=== PATIENT | female | born 1955 | race Caucasian/White ===

== ENCOUNTER 2018-03-08 09:54 | Emergency (ER) | payer BC, SELFPAY ==
[2018-03-08 09:54] VITALS: BP 201/98; PULSE 87; RESP 14; TEMP 36.3; BMI 29.4
[2018-03-08 10:24] VITALS: BP 193/95
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
--- NOTE | 2018-03-08 10:29 | ED.DEP ---
ED Disposition - Plan for ED Patient: Disposition: Home or Assisted Living Chief Complaint: Lower Extremity Injury Instructions: ED Knee Pain [facility] Referrals: Chalo Carnes MD [STAFF PHYSICIAN] - Keep Khadar appointment Additional Instructions: Continue on her Celebrex pain and inflammation. May also use Tylenol. Ice and elevate left knee. Decreased activity. To rest the knee.
[2018-03-08 10:50] VITALS: BP 167/79; PULSE 67
== END 2018-03-08 10:56 | disposition home or self-care (01) ==
PROVIDERS: Emergency Provider Emergency Medicine; Family Provider Internal Medicine; PCP Internal Medicine
DX: M25.562 Pain in left knee (principal); K21.9 Gastro-esophageal reflux disease without esophagitis; Z79.899 Other long term (current) drug therapy; Z87.891 Personal history of nicotine dependence
CPT/HCPCS: 99282

== ENCOUNTER 2018-05-22 05:42 | Day surgery (SDC) | payer BC, SELFPAY ==
[2018-05-22] VITALS (7 sets, daily range): BP systolic 140–182; BP diastolic 59–108; PULSE 76–89; RESP 14–16; TEMP 36.3–37.3; O2SAT 95–100; BMI 29.1
[2018-05-22] MEDS: Cefazolin 2 GM in 0.9% Normal Saline 100 ML IV (07:11)
--- NOTE | 2018-05-22 07:15 | RAD_ITS ---
STUDY: X-RAY - LEFT KNEE REASON FOR EXAM: Female, 62 years old. Intraoperative imaging for arthroscopy and subchondral plasty. TECHNIQUE: 2 coned-down intraoperative view(s) of the knee. COMPARISON: None. FINDINGS: The metallic trocar is seen in the subchondral region of the medial tibial plateau. RAD/Knee 1 or 2 Views IMPRESSION: The tip of the trocar is in the medial tibial plateau. Electronically Signed: Yang Mckeon MD at 9:25 EST Tel [phone], Service support ,
--- NOTE | 2018-05-22 08:08 | PCM.OPRPT ---
Report of Operation Date of Procedure: 05/22/18 Pre-Operative Diagnosis: Left knee posterior horn medial meniscus root tear complex. Left knee subchondral fracture medial tibial plateau. Chondromalacia medial compartment left knee Post-Operative Diagnosis: Left knee posterior horn medial meniscus root tear complex. Left knee subchondral fracture medial tibial plateau. Chondromalacia medial compartment left knee Surgery/Procedure Performed:: Left knee arthroscopic medial meniscectomy partial. Left knee arthroscopic chondroplasty. 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 Patient was brought back to the operating room where they were transferred to the bed. Anesthesia assumed control of the C-spine airway and administered anesthetic. All bony prominences were identified and well-padded and the L leg was placed in the arthroscopic leg ferrari. The contralateral leg was then draped over the bed and well-padded. There was padding underneath both sciatic nerves. The foot of the bed was then dropped and the L leg was prepped in a sterile fashion. The surgeon then scrubbed. Upon reentering the room, the operative leg was draped in a standard orthopedic fashion. A timeout was called, everyone agreed upon the side, the site, the procedure to be performed, patient's identity and antibiotics given. Incisions were marked out for the medial and lateral infrapatellar portals. Esmarch bandage was then used to exsanguinate the leg and tourniquet was placed at 250 mmHg. At this time, the lateral portal incision was made in a vertical fashion. The trocar was placed into the joint. The camera was then placed and the patellofemoral joint was visualized. The patella did appear to have minimal chondral changes. The trochlea appeared to have minimal chondral changes. We then directed our attention to the medial gutter where there was no foreign body. Then directed our attention to the medial joint compartment. There were grade 2 chondral changes on the medial distal femur, grade 4 chondral changes on the medial tibial plateau around the medial edge. This area was palpated for any loose bodies no loose subchondral fragments were noted. The medial meniscus had a complex posterior horn tear. The medial portal was then placed under direct visualization using a spinal needle an 11 blade scalpel. Once this was done a probe was placed in the joint and the meniscus was probed finding the complex posterior horn tear and defining the grade 4 area which was about 2 mm x 1 cm around the medial edge. The biters and aristeo were then used sequentially to debriding get rid of any free edges that could be a source of pain and catching in the meniscus tear. Once we felt medial meniscus tear was adequately debrided, we again visualized the joint and noted the meniscus tear was adequately debrided. This time the shaver was directed towards the chondral flaps around the small defect in the cartilage. This loose cartilage was adequately debrided. Attention was then turned towards the notch where the anterior cruciate ligament was intact. PCL was visualized and appeared intact. Attention was then directed towards the lateral compartment where the lateral distal femur had minimal chondral changes, the lateral proximal tibia had minimal chondral changes. The lateral meniscus had no tears. We then directed our attention to the lateral gutter, which was visualized and no free bodies were noted. At this time the wound was copiously irrigated out with normal saline with epinephrine. Based on the preoperative review of the patient's L knee MRI, the location of the bone marrow lesion, consistent with an insufficiency or stress fracture in the MTC was identified. Preoperative surgical planning allowed for determination of the optimal method for assessing the lesion. Intraoperatively, image fluoroscopy combined with bone targeting instrumentation from [employer] was used to guide surgical instruments into the proximity of the subchondral MTC fracture. The standard repair methodology was used to treat the subchondral bone defect in the MTC. Image fluoroscopy was utilized to confirm accurate insertion of the active port injection cannula into the subchondral fracture. After insertion, fracture stabilization was performed by injecting 3 cc of [employer] bone substitute material into the MTC. Image fluoroscopy was used to monitor the injection process and ensure injection of the bone substitute into the subchondral bone so that the bile material flowed into the fracture site to stabilize the fracture and facilitate fracture repair. After this was performed the arthroscope was placed back into the knee and a diagnostic arthroscopy was performed to ensure no intra-articular cement was encountered. None was encountered. The arthrotomy was copiously irrigated out with normal saline. The wound was closed with 4-0 nylon . Xeroform was placed over the incision. Sterile dressing was placed. Compressive dressing was placed. Tourniquet was let down. For that there was then placed up. Patient was awakened by anesthesia patient was transferred to the PACU for recovery in stable condition. Postoperative plan: Patient will be made weightbearing for 2 weeks. Return to activities as tolerated. He will come to the office in 2 weeks for postoperative wound check and suture removal. If he is doing well that time he can follow-up as needed. Grafts/Implants Used: [employer] bone cement - Complications None - Admit VTE Documentation VTE Present on Admission: No VTE Mechan Device Prophylaxis: SCD's, Thigh High ADELAIDE Hose VTE Pharm Prophylaxis ordered?: Yes
[2018-05-22] MEDS: Lactated Ringers 1,000 ML 125 ML IV (08:57)
[2018-05-22] MEDS: Ketorolac 30 MG/ML Syringe IV (09:00)
== END 2018-05-22 10:29 | disposition home or self-care (01) ==
LOC: SDC 05:43 → AC 05:44
PROVIDERS: Family Provider Family Medicine; PCP Family Medicine; Referring Provider Specialist; Visit Provider Specialist
PROC: (CPT 29870; principal; 2018-05-22 06:55)
DX: S83.242A Other tear of medial meniscus, current injury, left knee, initial encounter (principal); M84.362A Stress fracture, left tibia, initial encounter for fracture; M94.262 Chondromalacia, left knee; X58.XXXA Exposure to other specified factors, initial encounter; Y93.9 Activity, unspecified; Y92.89 Other specified places as the place of occurrence of the external cause; Y99.9 Unspecified external cause status; Z79.899 Other long term (current) drug therapy; Z78.0 Asymptomatic menopausal state; Z87.442 Personal history of urinary calculi; Z87.891 Personal history of nicotine dependence
CPT/HCPCS: 29855; 29881; 64447; 73560; 76000; C1713; J7120; J2405

== ENCOUNTER → 2018-11-26 13:16 | Outpatient (CLI) | payer BC, SELFPAY ==
[2018-11-26 08:56] VITALS: BMI 29.1
== END ==
PROVIDERS: Family Provider Family Medicine; PCP Family Medicine; Referring Provider Nurse Practitioner Women's Health; Visit Provider Nurse Practitioner Women's Health
DX: N89.8 Other specified noninflammatory disorders of vagina (principal)
CPT/HCPCS: 87070; 87205

== ENCOUNTER → 2019-08-21 | Outpatient (CLI) | payer BC, SELFPAY ==
[2019-08-21 13:27] VITALS: BMI 29.1
== END | disposition home or self-care (01) ==
LOC: LABSPEC 17:12
PROVIDERS: PCP Family Medicine; Referring Provider Nurse Practitioner Women's Health; Visit Provider Nurse Practitioner Women's Health
DX: N95.2 Postmenopausal atrophic vaginitis (principal)
CPT/HCPCS: 87070; 87205; 87255

== ENCOUNTER 2020-03-10 08:00 | Day surgery (SDC) | payer BC, SELFPAY ==
[2020-03-02 08:02] VITALS: BMI 22.5
--- NOTE | 2020-03-03 16:04 | EKG12_ITS ---
Test Reason : PRE OP Blood Pressure : / mmHG Vent. Rate : 085 BPM Atrial Rate : 085 BPM P-R Int : 182 ms QRS Dur : 078 ms QT Int : 360 ms P-R-T Axes : 029 005 023 degrees QTc Int : 428 ms Normal sinus rhythm Normal ECG Confirmed by PERNELL MUNGUIA, LULU ([id number]), legal editor MCKENNA JOHNSTON ([id number]) on 03/05/2020 2:42:32 PM Referred By: Ramos Pham Confirmed By:TAO GIMENEZ MD
[2020-03-03 16:13] LABS: Hemoglobin 12.4 g/dL (12.0-15.0); Mean Corp Hgb Conc 32.6 g/dL (32-36); Mean Platelet Vol. 9.5 fl (6.2-12.0); Platelet Count 282 K/mm3 (150-450); RBC Distribution Width CV 12.7 % (11.6-14.6); RBC Distribution Width SD 44.1 fl (35.1-43.9); White Blood Count 9.9 K/mm3 (4.4-11.0)
[2020-03-03 16:24] LABS: Anion Gap 6 (5-15); BUN 13 mg/dL (7-18); BUN/Creat Ratio 16.1 RATIO (10-20); Calcium,Total 8.8 mg/dL (8.5-10.1); Chloride 107 mmol/L (98-107); EST Glomerular Filtration Rate 77 mL/min (>60); Est Glom Filt Rate - Afr Amer 93 mL/min (>60); Glucose 107 mg/dL (74-106); Potassium 3.7 mmol/L (3.5-5.1); Sodium Level 138 mmol/L (136-145)
[2020-03-10] VITALS (10 sets, daily range): BP systolic 148–173; BP diastolic 74–100; PULSE 57–79; RESP 14–16; TEMP 36.1–36.6; O2SAT 96–100; BMI 29.3
--- NOTE | 2020-03-10 | HEM_PTH ---
PATIENT: MUKESH ROCHE [place] [facility] [place][id number] AGE/SX: 64/F ROOM: RE03/10/[address]: Dr. Ramos Pham MD : [id number] BED: DIS: 03/10/2020 SPEC #: [id number] RECD: 03/10/20 13:17 STATUS: BARBRA REQ #: [id number] JAYLENE: 03/10/20 00:[address]: Ramos Pham DEPT: SURGICAL PATHOLOGY RECD BY: Juan Antonio Izquierdo ENTERED: 03/10/20 13:17 SP TYPE: HEMORRHOID OTHR DR: Dr. Josehp Pike MD Tissues: HEMORRHOIDS Procedures: Surgery Specimen Level III HEADER OPERATION: Hemorrhoidectomy PRE-OP DIAGNOSIS: Bleeding internal hemorrhoids TISSUE SUBMITTED: Hemorrhoids MICROSCOPIC DIAGNOSIS Hemorrhoid: Pieces of squamous mucosa with dilated and congested blood vessels, consistent with hemorrhoids with focal ulceration and associated inflammation. SJ:christine 03/11/20 MICROSCOPIC DESCRIPTION Slides are reviewed. GROSS DESCRIPTION Received in fixative is one container labeled with the patient's name and designated hemorrhoid. The specimen consists of three variable sized pieces of campuzano mucosal tissue measuring in aggregate 3.5 x 2 x 1 cm. Sections reveal congested and hemorrhagic cut surfaces. Animal Therapist sections are submitted in one cassette. / ALFA:christine 03/10/20 TC:5 CPT: 11453
--- NOTE | 2020-03-10 09:55 | PCM.HP.BLA ---
Problem List (1) Bleeding internal hemorrhoids Status: Acute History and Physical Date of Admission: 03/10/20 Intake Visit Reasons: Hemorrhoids/Had C-Scope [facility] Jul Chief Complaint: hemorrhoids- rectal bleeding Mold Injector Required: No Is patient in pain?: Yes (rectum) Pain scale (1-10): 4 Allergies naproxen Allergy (Verified 03/02/20 11:46) Swelling Medications Pantoprazole Sodium [Protonix] 40 mg PO DAILY 05/20/18 [History Confirmed 03/02/20] celecoxib 50 mg capsule 50 mg PO BID 11/26/18 [History Confirmed 03/02/20] estradiol See Rx Instructions VAGINAL .COMPLEX #42.5 g 11/26/18 [Rx Confirmed 03/02/20] loratadine 10 mg tablet 10 mg PO DAILY 11/26/18 [History Confirmed 03/02/20] nicotine (polacrilex) 2 mg gum 2 mg BUCCAL Q2H 11/26/18 [History Confirmed 03/02/20] clobetasol 0.05 % topical cream 1 applic TOPICAL .COMPLEX #15 g 12/25/18 [Rx Confirmed 03/02/20] valacyclovir 1 gram tablet 2,000 mg PO .COMPLEX #12 tab 08/21/19 [Rx Confirmed 03/02/20] acyclovir 5 % topical cream 1 applic TOPICAL ONCE #5 g 09/01/19 [Rx Confirmed 03/02/20] estradiol 1 mg tablet 1 mg PO DAILY #90 tab 12/09/19 [Rx Confirmed 03/02/20] wheat dextrin 3 gram/3.5 gram oral powder packet 1 packet PO DAILY 03/02/20 [History Confirmed 03/02/20] [facility] Medical History Acid reflux (Acute) Hemorrhoids (Acute) Blood in stool (Acute) Arthritis (Acute) Anxiety (Acute) Seasonal allergies (Acute) Back pain (Acute) Atrophic vaginitis (Acute) Lichen sclerosus (Acute) Surgical History History of esophagogastroduodenoscopy (EGD) (Acute) Hx of colonoscopy (Acute) S/P trigger finger release (Acute) H/O: hysterectomy (Acute) H/O carpal tunnel repair (Acute) H/O knee surgery (Acute) History of tonsillectomy (Acute) H/O toe surgery (Acute) Family History (Updated 03/02/20 @ 08:12 by Zeina Quiñones) Father CVA (cerebral vascular accident) Heart disease Hypertension Mother Hypertension Diabetes Heart disease Arthritis Brother Leukemia Social History (Updated 03/02/20 @ 15:[address] Ramos Pham MD) adopted: No household members: spouse number of children: 2 current occupation: [employer] sexually active: Yes Smoking Status: Former smoker alcohol intake: current alcohol intake frequency: a few times a month substance use type: does not use what type of physical activity do you participate in: none seatbelt use: always do you feel safe at home: Yes additional social history: Tai - retired HPI HPI HPI: MUKESH ROCHE, is a 64 F who presents to the office today for rectal bleeding secondary to hemorrhoids At the [facility] she had a screening colonoscopy on July 21, [address] Carlito Ortiz. This apparently was unremarkable. It simply states that internal hemorrhoids were noted upon exiting. Patient has a personal history of colon polyps and recommendations for follow-up colonoscopy 5 years was offered. The patient is referred by Dr. Walter Diane and a written copy of my surgical consult recommendations will be returned to him She has been having rectal bleeding for greater than 1 year. Recently it is worsening. She can have blood dripping in the commode. She sometimes has to wait several minutes for the dripping to stop. She states that Dr. Carlito Ortiz was aware of this and simply recommended fiber supplementation for her constipation. She thinks that dairy products aggravate her constipation. She states that she is tried MiraLAX in addition to the fiber supplement but did not find much benefit. She claims that she has had lifelong constipation. She does take Celebrex because of chronic back pain and she states that she cannot do without. HPI HPI HPI: MUKESH ROCHE, is a 64 F who presents to the office today for ROS General General: No weight change, appetite, fatigue, colon cancer, breast cancer or weakness HEENT HEENT: No difficulty swallowing, eye injury, eye surgery, swollen glands or hoarseness Endo Endocrine: No thyroid disease, diabetes mellitus, thyroid cancer, Hair loss, heat intolerance or cold intolerance Skin Skin: No rash or changing moles Musc Musculoskeletal: Yes arthritis; no back problems, rheumatoid arthritis, gout or joint pain Cardio Cardiovascular: No murmur, pacemaker, heart disease, atrial fibrillation, high blood pressure, heart attack, heart stent, palpitations, shortness of breat with exertion or chest pain Psych Psychiatric: Yes anxiety; no depression or hearing voices Resp Respiratory: No shortness of breath, No sleep apnea, No cough, No COPD, No asthma, No emphysema, No wheezing Gastro Gastrointestinal: No abdominal pain, No nausea or vomiting, No diarrhea, No constipation, Yes blood in stool, Yes acid reflux, Yes hemorrhoids, No ulcers, No gallbladder problem, No black,tarry stools Tomas Hematologic: No blood thinners, No blood disorders, No bleeding, No anemia, No blood clots Neuro Neurologic: No system reviewed and no additional complaints, except as docu, No as per HPI, No abnormal walking, No abnormal hearing, No abnormal movements, No abnormal speech, No behavioral changes, No burning sensations, No confusion, No seizure-like activity, No unsteadiness, No dizziness, No localized weakness, No frequent falls, No headache(s), No lack of coordination, No loss of vision, No memory loss, No numbness, No other visual disturbances, No radiating pain, No restless legs, No sensory deficit, No fainting, No tingling, No tremor(s), No weakness, No other Exam Const General: cooperative, comfortable, no acute distress Nutritional Appearance: overweight Orientation: alert, awake [facility] Head: normal to inspection Resp Effort & Inspection: normal respiratory effort Auscultation: clear to auscultation bilaterally Cardio Rate: regular rate Rhythm: regular rhythm Heart Sounds: no murmurs GI Palpation: soft Auscultation: normal bowel sounds Other: Anal rectal inspection demonstrates exuberant external hemorrhoids somewhat terse. Digital exam demonstrates significant internal hemorrhoids with mild discomfort. No mass. Minimal streaking blood on the exam glove. Skin General: no rashes or lesions noted Neuro Cognition: normal cognition Extrem General: no calf tenderness Psych Affect: normal affect Assessment & Plan Problems 1. Bleeding internal hemorrhoids K64.8 2. Chronic constipation K59.09 Plan 64-year-old female with grade 3-4 bleeding internal and external hemorrhoids. In addition unfortunately she has chronic constipation. I have vigorously discussed with her multiple different treatment options regarding her constipation including powdered fiber and increase fluid and MiraLAX or similar therapy as well as dietary choices with dried fruits or prune juice or prunes or raisins. We discussed limiting dairy which seems to upset her and cause further constipation. I do not believe that she would be a good candidate for a stapled hemorrhoidectomy mostly secondary to her severe chronic constipation likely recurrence. I extensively discussed the need for her to work diligently on improving her chronic constipation to allow for her hemorrhoidectomy site then to heal. She has had an opportunity to ask and have questions answered. She will schedule and proceed at her discretion. I very much appreciate the kind opportunity of assisting with her surgical care. Copy: Dr. Glendy Pham M.D., F.A.C.S. Coding Level of Care Code 96768 Diagnoses Bleeding internal hemorrhoids K64.8 Chronic constipation K59.09 I have re-examined the patient. There are no clinical changes since date of exam. Procedure Criteria Procedure Type: Elective COVID Risk Discussion: The surgeon/proceduralist and patient have discussed in detail the risk of exposure to and/or potential harm posed by the COVID-19 virus with having a surgery/procedure at this time versus the risk of delaying the surgery/procedure. It is not possible to know either the risk of delaying the surgery or procedure or chance of getting an infection with perfect accuracy, but a joint decision was made between the patient and the surgeon/proceduralist to proceed at this time with the scheduled surgery/procedure as indicated on the consent form.
--- NOTE | 2020-03-10 09:56 | DCINST_ITS ---
Discharge Diet: No Restrictions Discharge Activity: Return to Normal Activity, May Not Drive - while you are taking narcotic pain medications. Do not drive, work with heavy equipment or sign legal documents for 24 hours after your surgery. Additional Activity Instructions:: I strongly recommend daily use of a fiber supplementation. This may be Metamucil or Citrucel or FiberCon or Benefiber or generic. Large heaping tablespoon in with some water or juice daily. In addition for chronic constipation you may add a capful of MiraLAX or similar product. For the first week postoperatively I recommend mineral oil 30 cc (1 ounce) daily in fluid or mix with food. Sitz baths in a warm tub of soapy water can be utilized for comfort and for hygiene after having a bowel movement. The Vaseline gauze that is in place may come out with your next bowel movement or you can remove it the morning after surgery. Female hygiene pads work well for any bleeding or mucus drainage. Dibucaine ointment may be utilized as needed every 2-4 hours applied externally for comfort as needed. Allergies/Adverse Reactions: Allergies naproxen Allergy (Verified 03/10/20 08:09) Swelling Medications to take at Discharge Pantoprazole Sodium [Protonix] 40 mg PO DAILY 05/20/18 celecoxib 50 mg capsule 50 mg PO BID 11/26/18 estradiol See Rx Instructions VAGINAL .COMPLEX #42.5 g 11/26/18 loratadine 10 mg tablet 10 mg PO DAILY 11/26/18 nicotine (polacrilex) 2 mg gum 2 mg BUCCAL Q2H 11/26/18 clobetasol 0.05 % topical cream 1 applic TOPICAL .COMPLEX #15 g 12/25/18 valacyclovir 1 gram tablet 2,000 mg PO .COMPLEX #12 tab 08/21/19 acyclovir 5 % topical cream 1 applic TOPICAL ONCE #5 g 09/01/19 estradiol 1 mg tablet 1 mg PO DAILY #90 tab 12/09/19 wheat dextrin 3 gram/3.5 gram oral powder packet 1 packet PO DAILY 03/02/20 Primary Care Physician: Joseph Pike MD [Primary Care Provider] - Test Results: Test results from this visit will be discussed in further detail at your follow- up appointment, if applicable. Please Follow Up With: Ramos Pham MD - [phone] When: Plan to have a follow up approximately 3-4 weeks after surgery.
[2020-03-10] MEDS: Lactated Ringers 1,000 ML 100 ML IV (10:01)
[2020-03-10] MEDS: Lubricating Jelly 60 GM Tube 30 GM TOPICAL (11:02)
[2020-03-10] MEDS: Dibucaine 30 GM Tube 1 APPLIC (11:40)
[2020-03-10] MEDS: Bupivacaine Mpf 0.5% 30 ML VIAL (11:41)
[2020-03-10] MEDS: BUPIVACAINE LIPOSOME/PF 20 ML VIAL OPERA.SITE (11:41)
--- NOTE | 2020-03-10 11:47 | PCM.OPRPT ---
Problem List (1) Bleeding internal hemorrhoids Status: Acute Report of Operation Date of Procedure: 03/10/20 Pre-Operative Diagnosis: Bleeding internal hemorrhoids Post-Operative Diagnosis: Extensive bleeding internal hemorrhoids Surgery/Procedure Performed:: Hemorrhoidectomy Description of Surgical Findings:: Timeout and informed consent was obtained. 64-year-old female taken operating room with general endotracheal intubation anesthesia clindamycin on the milligrams given intravenously. She was placed prone jackknife on the table. Careful pelvic and shoulder rolls were placed. The perianal area was carefully taped for exposure. Prepped with Betadine. Inspection revealed slightly tight anal muscles which were just gently dilated enough to get a speculum in. Exuberant hemorrhoids were noted internally circumferentially 360 degrees. 3 wedges of hemorrhoidal tissue was excised right posterior lateral right anterior lateral and left mid lateral. Apical sutures of 2-0 chromic was placed. Harmonic scalpel was used to excise the internal hemorrhoidal tissue. The incision was carried out past the dentate line. The sphincter mechanism identified carefully preserved. The mucosa then approximated with a running locking 2-0 chromic. Apical sutures of 0 Vicryl were further placed at the apex of each excision to assist with hemostasis. There was additional internal hemorrhoidal tissue that was carefully secured with [id number] sutures of 2-0 chromic to try to ligate their blood source. The tissue was rather friable throughout. Some slight tearing of the mucosa during the procedure and so no attempt was made to excise further tissue. The perianal area was anesthetized with Exparel mixed with 30 cc of 0.5% Marcaine. Careful aspiration was performed prior to injection. Dibucaine treated Vaseline gauze was inserted. Sterile covered dressings. Sponge and instrument and needle counts were reported to the surgery were correct. Specimens hemorrhoids. Drains none except for the Vaseline gauze. Blood loss minimal. The patient was taken to the recovery area in satisfactory addition without apparent complication Ramos Pham M.D., F.A.C.S. Type of Anesthesia:: General Anesthesiologist: Michael Patel
== END 2020-03-10 14:34 | disposition home or self-care (01) ==
LOC: SDC 08:01 → AC 08:01
PROVIDERS: Anesthesiology; PCP Family Medicine; Referring Provider Surgery; Visit Provider Surgery
PROC: (CPT 46945; principal; 2020-03-10 10:45)
DX: K64.8 Other hemorrhoids (principal); K59.09 Other constipation; K21.9 Gastro-esophageal reflux disease without esophagitis; F41.9 Anxiety disorder, unspecified; M19.90 Unspecified osteoarthritis, unspecified site; Z79.899 Other long term (current) drug therapy; Z79.1 Long term (current) use of non-steroidal anti-inflammatories (NSAID); Z87.19 Personal history of other diseases of the digestive system; Z87.891 Personal history of nicotine dependence
CPT/HCPCS: 46945; 36415; 80048; 85027; 87635; 88304; 93005; 94799; J7120; J2405; U0003

== ENCOUNTER 2020-09-21 09:54 | Outpatient (RCR) | payer OTHER, SELFPAY ==
[2020-03-10 08:22] VITALS: BMI 29.3
[2020-09-21] MEDS: COVID-19 VACC, MRNA(PFIZER)/PF 30 MCG/0.3 ML SYRINGE IM (17:56)
[2020-10-12] MEDS: COVID-19 VACC, MRNA(PFIZER)/PF 30 MCG/0.3 ML SYRINGE IM (17:37)
== END 2020-12-21 23:59 ==
LOC: IMMUN 09:54
PROVIDERS: PCP Family Medicine; Visit Provider Family Medicine
DX: Z23 Encounter for immunization (principal)
CPT/HCPCS: 0001A; 0002A; 91300

== ENCOUNTER → 2020-12-31 15:25 | Outpatient (CLI) | payer OTHER, SELFPAY ==
[2020-12-31 12:51] VITALS: BMI 28.2
== END ==
PROVIDERS: PCP Family Medicine; Visit Provider Physician Assistant Surgical
DX: N39.0 Urinary tract infection, site not specified (principal)
CPT/HCPCS: 87077; 87086; 87088; 87186

== ENCOUNTER 2021-09-12 15:48 | Outpatient (CLI) | payer BC, SELFPAY ==
--- NOTE | 2021-09-12 15:50 | BI_ITS ---
MAMMOGRAPHY - BILATERAL SCREENING REASON FOR EXAM: Female, 66 years old. Routine annual screening examination. PERTINENT HISTORY: Aunt with breast cancer. Remote right stereotactic breast biopsy. TECHNIQUE: Digital bilateral breast romi (3D mammographic acquisition) in the CC and MLO projections. 2-D mediolateral oblique (MLO) and craniocaudad (CC) views of both breasts were obtained. CAD: Full Field Digital Mammography with Computer Added Detection was performed. COMPARISON: Comparison is made with prior outside examination is 11/01/2020. FINDINGS: Breast Composition: The breasts are heterogeneously dense, which may obscure small masses. There are no dominant masses or suspicious calcifications. Stable benign-appearing bilateral axillary lymph nodes. A tissue clip marker is seen in the slightly upper medial aspect of the right breast. No other significant abnormalities are identified. There has been no significant change since the prior study. BI/SCRN MAMM (CAD)W/ROMI BILAT IMPRESSION: Stable bilateral screening mammogram. Yearly follow-up mammogram recommended. (A) ASSESSMENT CATEGORY: BIRADS Category 2: Benign. A letter regarding these results will be sent to the patient by the facility within 30 days. Approximately 10% of breast cancers are not detected by mammography. A normal mammogram should not delay biopsy of a clinically suspicious abnormality. [id number] Electronically Signed: Yang Mckeon MD at 8:35 EST ,
== END 2021-09-12 23:59 | disposition home or self-care (01) ==
LOC: OPBI 15:48
PROVIDERS: PCP Family Medicine; Visit Provider Nurse Practitioner Women's Health
DX: Z12.31 Encounter for screening mammogram for malignant neoplasm of breast (principal); Z70.3 Counseling related to combined concerns regarding sexual attitude, behavior and orientation
CPT/HCPCS: 77063; 77067

== ENCOUNTER → 2022-06-02 | Outpatient (CLI) | payer BC, SELFPAY ==
--- NOTE | 2022-06-02 15:49 | CT_ITS ---
STUDY: CT LEFT LOWER EXTREMITY WITHOUT CONTRAST REASON FOR EXAM: Female, 67 years old patient presents for pre-op planning. RADIATION DOSAGE (If Supplied By Facility): CTDIvol = ( 18.71 ) mGy, DLP = ( 1048.23 ) mGycm TECHNIQUE: Transaxial CT imaging of the hip, knee and ankle was performed. Sagittal and coronal images were reconstructed. Individualized dose optimization techniques were used for this CT. COMPARISON: None. FINDINGS: Normal visualized femur. Normal visualized soft tissue structure. Normal femoral head, neck, intertrochanteric region and visualized proximal femur. There is osteoarthritic spur formation of the acetabular rim. Normal hip joint. Normal visualized superior and inferior pubic rami and ischial tuberosities. There is abnormal heterogeneous sclerotic lesion within the proximal medial tibial epiphysis and metaphysis. This sclerotic lesion measures approximately 2 x 2.2 x 1.5 cm in size. The appearance suggests possible sequela of previous infarct. The visualized distal femur is within normal limits. There is mild degenerative arthropathy of the patellofemoral articulation. Images of the tibiotalar and subtalar articulations are obtained. The distal tibia and fibula and imaged tarsal bones are generally normal appearance and alignment. CT/Extremity Lower without Contra IMPRESSION: 1. Abnormal sclerotic lesion within the medial proximal tibial epiphysis and metaphysis. The appearance suggests possible sequela of previous infarct. 2. Mild degenerative arthropathy of the hip and knee. Electronically Signed: Helen Carnes MD at 6:40 EST ,
== END | disposition home or self-care (01) ==
LOC: CT 15:47
PROVIDERS: PCP Family Medicine; Referring Provider Specialist; Visit Provider Specialist
DX: M21.162 Varus deformity, not elsewhere classified, left knee (principal)
CPT/HCPCS: 73700

== ENCOUNTER → 2022-09-29 | Outpatient (CLI) | payer BC, SELFPAY ==
--- NOTE | 2022-09-29 10:18 | BI_ITS ---
MAMMOGRAPHY - BILATERAL SCREENING 3-D TOMOSYNTHESIS REASON FOR EXAM: Female, 67 years old. Routine screening PERTINENT HISTORY: Aunt with breast cancer.. TECHNIQUE: 2-D mammograms and 3-D Tomosynthesis of the breast (s) were performed. CAD was performed. COMPARISON: 09/12/2021 FINDINGS: The breast composition is composed of scattered fibroglandular density. Scattered benign calcifications are seen. No dense spiculated masses or suspicious microcalcifications are identified. No architectural distortion is identified. There is no skin thickening or retraction. There has been no significant change since the prior study. BI/SCRN MAMM (CAD)W/ROMI BILAT IMPRESSION: No mammographic signs of malignancy. Routine yearly mammograms recommended. ASSESSMENT CATEGORY: BIRADS Category 1: Negative. A letter regarding these results will be sent to the patient by the facility within 30 days. FOLLOW UP RECOMMENDATION: Yearly follow up mammogram recommended. (A) Approximately 10% of breast cancers are not detected by mammography. A normal mammogram should not delay biopsy of a clinically suspicious abnormality. Electronically Signed: Toñito Harvey MD at 12:09 EDT ,
== END | disposition home or self-care (01) ==
LOC: OPBI 10:16
PROVIDERS: PCP Family Medicine; Referring Provider Nurse Practitioner Women's Health; Visit Provider Nurse Practitioner Women's Health
DX: Z12.31 Encounter for screening mammogram for malignant neoplasm of breast (principal)
CPT/HCPCS: 77063; 77067

== ENCOUNTER → 2023-04-03 | Outpatient (CLI) | payer MEDICARE, SELFPAY ==
--- NOTE | 2023-04-03 15:50 | RAD_ITS ---
INDICATION: PAIN EXAMINATION/TECHNIQUE: X-RAY - XR Spine Lumbar Comp W/ Bending Min 6 Views COMPARISON: No comparison. FINDINGS: 7 total views of the lumbar spine, to include flexion and extension views. BONES: Anterolisthesis of L4 on L5 and retrolisthesis of L2 and L3 with severe degenerative disc disease at this level. Otherwise, anatomic alignment without evidence of fracture or definite acute subluxation. No obvious disc space widening or changing spondylolisthesis with flexion and extension maneuvers. No concerning bony lesion or abnormal sclerosis to suggest lesion. SOFT TISSUES: Atherosclerotic vascular calcifications.. RAD/L/S Spine w Bend Min 6 Vw IMPRESSION: Spondylolisthesis and degenerative disc disease as above. If there is persistent clinical concern for spine fracture and this is a trauma patient, recommend dedicated lumbar spine CT. Electronically Signed: Mark Reeves MD at 4:13 EDT ,
== END | disposition home or self-care (01) ==
LOC: MTLAB 15:45 → MTRAD 15:48
PROVIDERS: PCP Family Medicine; Referring Provider Anesthesiology Pain Medicine; Visit Provider Anesthesiology Pain Medicine
DX: M51.37 Other intervertebral disc degeneration, lumbosacral region (principal)
CPT/HCPCS: 72114

== ENCOUNTER → 2023-09-14 | Outpatient (CLI) | payer MEDICARE, SELFPAY ==
--- NOTE | 2023-09-14 11:34 | US_ITS ---
STUDY: SUPERFICIAL ULTRASOUND - LEFT AXILLA. REASON FOR EXAM: Female, 68 years old. Localized swelling, mass and lump, left upper limb TECHNIQUE: A superficial ultrasound was performed with real-time and static mccartney-scale imaging. COMPARISON: None. FINDINGS: The left axilla was examined with ultrasound. There is a 1 cm x 0.8 cm x 0.3 cm complex fluid collection with increased echogenicity. This is very superficial. Purulent drainage started with compression with the ultrasound probe. Focal abscess should be ruled out. US/Ext Non Vasc Limited/Soft Tiss IMPRESSION: 1 cm x 0.8 cm x 0.3 cm complex fluid collection with drainage of the procedure in the left axilla. Focal abscess should be ruled out. Electronically Signed: Yang Mckeon MD at 15:45 EST ,
--- OUTSIDE RECORDS SUMMARY | 2023-09-14 11:49 | XMS RPT_ITS | CCD ---
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 Name Role Phone Jose Pike MD Primary Care Provider JOSE PIKE Primary Care Unavailab le PODLOGAR, AMI Attending Unavailable JOSE PIKE Primary Care Unavailab le PODLOGAR, AMI Attending Unavailable JOSE PIKE Primary Care Unavailab JOSE Byrne Referring Unavailab JOSE Byrne Primary Care Unavailab JOSE Byrne Attending Unavailab le PODLOGAR, AMI Attending Unavailable JOSE PIKE Primary Care Unavailab le PODLOGAR, AMI Attending Unavailable JOSE PIKE Primary Care Unavailab le PODLOGAR, AMI Referring Unavailable JOSE PIKE Primary Care Unavailab JOSE Byrne Primary Care Unavailab le PODLOGAR, AMI Attending Unavailable PODLOGAR, AMI Referring Unavailable JOSE PIKE Primary Care Unavailab le PODLOGAR, AMI Referring Unavailable JOSE PIKE Primary Care Unavailab le JOSE PIKE Primary Care Unavailab le PODLOGAR, AMI Referring Unavailable JOSE PIKE Primary Care Unavailab le PODLOGAR, AMI Attending Unavailable Allergies Allergy Classification Reported Allergen(s) Allergy Type Date of Onset Reaction(s) Facility (18 sources) magnesium citrate; Translations: [MAGNESIUM CITRATE] Drug Allergy 6 Vomiting [facility] Work Phone: (18 sources) Naproxen; Translations: [NAPROXEN] Drug Allergy 1 Other: See Comments [facility] (3 sources) Thiazides; Translations: [THIAZIDES] Propensity to adverse reactions to drug 3 Other: See Comments [facility] Work Phone: Medications Current Medications Medication Drug Class(es) Dates Sig (Normalized) Sig (Original) amoxicillin 875 mg / clavulanate 125 mg oral tablet (2 sources) Penicillin-class Antibacterial Start: 06-19-2023 End: 06-29-2023 take 1 tablet by mouth twice daily amoxicillin-clav ulanate potassium (AUGMENTIN) 875-125 mg per tablet Indications: Pain of maxillary sinus Take 1 tablet by mouth two times a day for 10 days. 20 tablet 0 06/19/2023 06/29/2023 Active Completed/Discontinued Medications Medication Drug Class(es) Dates Sig (Normalized) Sig (Original) acetaminophen 325 mg oral tablet (17 sources) acetaminophen (T YLENOL) 325 mg tablet Take 650 mg by mouth as needed. 0 Active Problems Active Problems Problem Classification Problem Date Documented Date Episodic/Chronic Diabetes mellitus without complication (19 sources) Impaired fasting glycemia; Translations: [Impaired fasting glucose] Onset: 08-16-2023 11-27-2017 Episodic Disorders of lipid metabolism (18 sources) Hyperlipidemia; Translations: [Hyperlipidemia, unspecified] 11-27-2017 Chronic Esophageal disorders (20 sources) Gastroesophageal reflux disease without esophagitis; Translations: [Gastro-esophageal reflux disease without esophagitis] Onset: 02-05-2016 02-05-2016 Chronic Essential hypertension (16 sources) Essential hypertension; Translations: [Essential (primary) hypertension] Onset: 11-03-2022 Chronic Fluid and electrolyte disorders (1 source) Hypokalemia; Translations: [Hypokalemia] Onset: 07-04-2023 Episodic Osteoarthritis (17 sources) Degenerative joint disease involving multiple joints; Translations: [Polyosteoarthritis, unspecified] Onset: 02-05-2016 02-05-2016 Chronic Other connective tissue disease (1 source) History of total knee arthroplasty; Translations: [Presence of left artificial knee joint] Chronic Other connective tissue disease (1 source) Presence of left artificial knee joint; Translations: [S/P total knee arthroplasty, left] Onset: 11-03-2022 Chronic Other inflammatory condition of skin (17 sources) Rosacea; Translations: [Rosacea, unspecified] Onset: 06-23-2016 06-23-2016 Chronic Other liver diseases (1 source) Abnormal levels of other serum enzymes; Translations: [Elevated liver enzymes] Onset: 08-16-2023 Episodic Other nervous system disorders (1 source) Other chronic pain; Translations: [Chronic right-sided low back pain with right-sided sciatica] Onset: 12-24-2020 Chronic Other nervous system disorders (1 source) Numbness of lower limb ; Translations: [Anesthesia of skin] Episodic Other screening for suspected conditions (not mental disorders or infectious disease) (20 sources) Patient encounter status; Translations: [Encounter for screening mammogram for malignant neoplasm of breast] Onset: 07-25-2007 Episodic Other skin disorders (1 source) Skin irritation ; Translations: [Other skin changes] Episodic Other upper respiratory disease (1 source) Maxillary sinus pain; Translations: [Other specified disorders of nose and nasal sinuses] 06-19-2023 Episodic Other upper respiratory disease (1 source) Other specified disorders of nose and nasal sinuses; Translations: [Pain of maxillary sinus] Onset: 06-19-2023 Episodic Residual codes; unclassified (2 sources) Menopause present; Translations: [Asymptomatic menopausal state] 06-19-2023 Episodic Residual codes; unclassified (1 source) Asymptomatic menopausal state; Translations: [Asymptomatic menopause] Onset: 06-25-2023 Episodic Viral infection (1 source) COVID-19; Translations: [Positive self-administered antigen test for COVID-19] Past or Other Problems Problem Classification Problem Date Documented Da te Episodic/Chronic Nonspecific chest pain (17 sources) Chest pain; Translations: [Chest pain, unspecified] Onset: 10-21-2014 10-21-2014 Episodic Other connective tissue disease (17 sources) Impingement syndrome of left shoulder region; Translations: [Impingement syndrome of left shoulder] Onset: 03-27-2013 03-27-2013 Episodic Other gastrointestinal disorders (17 sources) Dysphagia; Translations: [Dysphagia, unspecified] Onset: 10-21-2014 10-21-2014 Episodic Other gastrointestinal disorders (17 sources) Swallowing painful; Translations: [Dysphagia, unspecified] Onset: 10-21-2014 10-21-2014 Episodic Other nervous system disorders (1 source) Anesthesia of skin; Translations: [Left leg numbness] Onset: 11-03-2022 Episodic Spondylosis; intervertebral disc disorders; other back problems (20 sources) Sciatica; Translations: [Sciatica, unspecified side] Onset: 01-06-2013 01-06-2013 Episodic Results Test Name Value Interpretation Reference Range Facil ity Vital Signs Date Time Vital Sign Value Performing Clinician Lois desai 09-03-2023 12:01-0500 Body weight 65.68 kg Aim Podlogar RV REPAIRER.SLATE WORKER Work Phone: [facility] 09-03-2023 12:01-0500 Diastolic blood pressure 88 mm[Hg] Ami Podlogar RV REPAIRER.SLATE WORKER Work Phone: [facility] 09-03-2023 12:01-0500 Heart rate 77 /min Ami Podlogar RV REPAIRER.SLATE WORKER Work Phone: [facility] 09-03-2023 12:01-0500 Respiratory rate 18 /min Ami Podlogar RV REPAIRER.SLATE WORKER Work Phone: [facility] 09-03-2023 12:01-0500 SaO2% (BldA) [Mass fraction] 95 % Ami Podlogar RV REPAIRER.SLATE WORKER Work Phone: [facility] 09-03-2023 12:01-0500 Systolic blood pressure 162 mm[Hg] Ami Podlogar RV REPAIRER.SLATE WORKER Work Phone: [facility] 08-20-2023 11:29-0500 Diastolic blood pressure 90 mm[Hg] Ami Podlogar RV REPAIRER.SLATE WORKER Work Phone: [facility] 08-20-2023 11:29-0500 Heart rate 74 /min Ami Podlogar RV REPAIRER.SLATE WORKER Work Phone: [facility] 08-20-2023 11:29-0500 Systolic blood pressure 170 mm[Hg] Ami Podlogar RV REPAIRER.SLATE WORKER Work Phone: [facility] 08-20-2023 11:16-0500 Body weight 65.5 kg Ami Podlogar RV REPAIRER.SLATE WORKER Work Phone: [facility] 08-20-2023 11:16-0500 Respiratory rate 16 /min Ami Podlogar RV REPAIRER.SLATE WORKER Work Phone: [facility] 08-20-2023 11:16-0500 SaO2% (BldA) [Mass fraction] 97 % Ami Podlogar RV REPAIRER.SLATE WORKER Work Phone: [facility] 06-19-2023 10:26-0500 Diastolic blood pressure 81 mm[Hg] Ami Podlogar RV REPAIRER.SLATE WORKER Work Phone: [facility] 06-19-2023 10:26-0500 Heart rate 76 /min Ami Podlogar RV REPAIRER.SLATE WORKER Work Phone: [facility] 06-19-2023 10:26-0500 Systolic blood pressure 143 mm[Hg] Ami Podlogar RV REPAIRER.SLATE WORKER Work Phone: [facility] 06-19-2023 09:46-0500 Body weight 63.87 kg Ami Podlogar RV REPAIRER.SLATE WORKER Work Phone: [facility] 06-19-2023 09:46-0500 Respiratory rate 16 /min Ami Podlogar RV REPAIRER.SLATE WORKER Work Phone: [facility] 06-19-2023 09:46-0500 SaO2% (BldA) [Mass fraction] 97 % Ami Podlogar RV REPAIRER.SLATE WORKER Work Phone: [facility] 12-18-2022 09:15-0400 Body weight 65.23 kg Ami Podlogar RV REPAIRER.SLATE WORKER Work Phone: [facility] 12-18-2022 09:15-0400 Diastolic blood pressure 72 mm[Hg] Ami Podlogar RV REPAIRER.SLATE WORKER Work Phone: [facility] 12-18-2022 09:15-0400 Heart rate 88 /min Ami Podlogar RV REPAIRER.SLATE WORKER Work Phone: [facility] 12-18-2022 09:15-0400 Respiratory rate 16 /min Ami Podlogar RV REPAIRER.SLATE WORKER Work Phone: [facility] 12-18-2022 09:15-0400 SaO2% (BldA) [Mass fraction] 99 % Ami Podlogar RV REPAIRER.SLATE WORKER Work Phone: [facility] 12-18-2022 09:15-0400 Systolic blood pressure 140 mm[Hg] Ami Podlogar RV REPAIRER.SLATE WORKER Work Phone: [facility] 11-20-2022 09:01-0400 Diastolic blood pressure 82 mm[Hg] Ami Podlogar RV REPAIRER.SLATE WORKER Work Phone: [facility] 11-20-2022 09:01-0400 Heart rate 87 /min Ami Podlogar RV REPAIRER.SLATE WORKER Work Phone: [facility] 11-20-2022 09:01-0400 Systolic blood pressure 159 mm[Hg] Ami Podlogar RV REPAIRER.SLATE WORKER Work Phone: [facility] 11-20-2022 08:43-0400 Body weight 65.77 kg Ami Podlogar RV REPAIRER.SLATE WORKER Work Phone: [facility] 11-20-2022 08:43-0400 Respiratory rate 18 /min Ami Podlogar RV REPAIRER.SLATE WORKER Work Phone: [facility] 11-20-2022 08:43-0400 SaO2% (BldA) [Mass fraction] 98 % Ami Podlogar RV REPAIRER.SLATE WORKER Work Phone: [facility] 11-03-2022 08:18-0400 Diastolic blood pressure 84 mm[Hg] Jose Pike MD Work Phone: [facility] 11-03-2022 08:18-0400 Systolic blood pressure 146 mm[Hg] Jose Pike MD Work Phone: [facility] 11-03-2022 08:03-0400 Body weight 64.95 kg Jose Pike MD Work Phone: [facility] 11-03-2022 08:03-0400 Heart rate 92 /min Jose Pike MD Work Phone: [facility] 04-21-2023 08:03-0400 Respiratory rate 16 /min Jose Pike MD Work Phone: [facility] 11-03-2022 08:03-0400 SaO2% (BldA) [Mass fraction] 96 % Jose Pike MD Work Phone: [facility] 07-04-2022 08:00-0500 Body weight 65.41 kg Ami Podlogar RV REPAIRER.SLATE WORKER Work Phone: [facility] 07-04-2022 08:00-0500 Diastolic blood pressure 80 mm[Hg] Ami Podlogar RV REPAIRER.SLATE WORKER Work Phone: [facility] 07-04-2022 08:00-0500 Heart rate 86 /min Ami Podlogar RV REPAIRER.SLATE WORKER Work Phone: [facility] 07-04-2022 08:00-0500 Respiratory rate 16 /min Ami Podlogar RV REPAIRER.SLATE WORKER Work Phone: [facility] 07-04-2022 08:00-0500 SaO2% (BldA) [Mass fraction] 98 % Ami Podlogar RV REPAIRER.SLATE WORKER Work Phone: [facility] 07-04-2022 08:00-0500 Systolic blood pressure 140 mm[Hg] Ami Podlogar RV REPAIRER.SLATE WORKER Work Phone: [facility] 12-21-2021 17:04-0400 Body height 147 cm Ami Podlogar RV REPAIRER.SLATE WORKER Work Phone: [facility] 12-21-2021 17:04-0400 Body weight 63.78 kg Ami Podlogar RV REPAIRER.SLATE WORKER Work Phone: [facility] 12-21-2021 17:04-0400 Diastolic blood pressure 84 mm[Hg] Ami Podlogar RV REPAIRER.SLATE WORKER Work Phone: [facility] 12-21-2021 17:04-0400 Heart rate 78 /min Ami Podlogar RV REPAIRER.SLATE WORKER Work Phone: [facility] 12-21-2021 17:04-0400 Respiratory rate 18 /min Ami Podloggem RV REPAIRER.SLATE WORKER Work Phone: [facility] 12-21-2021 [id number] SaO2% (BldA) [Mass fraction] 96 % Ami Podlogar RV REPAIRER.SLATE WORKER Work Phone: [facility] 12-21-2021 [id number] Systolic blood pressure 142 mm[Hg] Ami Podlogar RV REPAIRER.SLATE WORKER Work Phone: [facility] Encounters Encounter Date Encounter Type Care Provider Facility Start: 09-03-2023 End: 09-03-2023 ambulatory AMI PODLOGAR Facility:[facility] Start: 09-03-2023 End: 09-03-2023 Patient encounter procedure Ami Harris RV REPAIRER.SAMM Work Phone: [facility] [place] Procedures Date Procedure Procedure Detail Performing Clinician Start: 07-02-2023 Lipid 1996 panel - S darrell or Plasma Ami Harris RV REPAIRER.SLATE WORKER Work Phone: Start: 06-25-2023 Dxa bone density satya dy 1/> sites axial skel Ami Harris RV REPAIRER.SLATE WORKER Work Phone: Start: 11-01-2020 Mammography Joseph Pike MD Work Phone: Start: 10-20-2020 Lipid 1996 panel - S darrell or Plasma Jose Pike MD Work Phone: Start: 07-21-2019 Colonoscopy Joseph Pike MD Work Phone: Start: 04-08-2018 Adult depression screening assessment Jose Pike MD Work Phone: Plan of Treatment Date Care Activity Detail Author Start: 07-02-2028 Lipid panel Lipid Screening [facility] Start: 11-28-2027 Urine microalbumin profile [facility] Start: 08-16-2026 Diabetes Screening Diabetes Screenin [facility] Start: 11-16-2025 DIABETES SCREEN DIABETES SCREEN [facility] Start: 11-16-2025 Diabetes Screening Diabetes Screenin g [facility] Start: 10-20-2025 Lipid 1996 panel - S darrell or Plasma Lipid Screening [facility] Start: 10-20-2025 Lipid panel Lipid Screening [facility] Start: 10-20-2025 LIPID SCREEN LIPID SCREEN [facility] Start: 06-28-2025 DIABET[facility] Start: 09-03-2024 Annual PCP Team Hand Shoes Sewer tyrone Disease Visit Annual PCP Team Chronic Disease Visit [facility] Start: 08-20-2024 Annual PCP Team Hand Shoes Sewer tyrone Disease Visit Annual PCP Team Chronic Disease Visit [facility] Start: 07-21-2024 Colonoscopy COLONOSCOPY [facility] Start: 07-21-2024 COLORECTAL CANCER SCREENING COLORECTAL CANCER SCREENING [facility] Start: 07-21-2024 Screening for malign ant neoplasm of colon [facility] Start: 06-19-2024 Annual PCP Team Hand Shoes Sewer tyrone Disease Visit Annual PCP Team Chronic Disease Visit [facility] Start: 06-19-2024 Covid-19 Vaccine ( season) Covid-19 Vaccine ( season) [facility] Immunizations Immunization Date Immunization Notes Care Provider Fa cility 04-11-2023 Seasonal trivalent influenza vaccine, adjuvanted, preservative free Ami Podlogar RV REPAIRER.[facility] Work Phone: [facility] Work Phone: 06-28-2022 COVID-19 booster vaccine, age 12+ yr, bivalent (PFIZER-BIONTECH) mAi Podlogar RV REPAIRER.SLATE WORKER Work Phone: [facility] 10-12-2020 COVID-19 vaccine, ag e 12+ yr (PFIZER-BIONTECH - PURPLE TOP) Jose Pike MD Work Phone: [facility] Work Phone: 09-21-2020 COVID-19 vaccine, ag e 12+ yr (PFIZER-BIONTECH - PURPLE TOP) Jose Pike MD Work Phone: [facility] Work Phone: 03-30-2020 zoster vaccine recombinant Jose Pike MD Work Phone: [facility] Work Phone: 06-20-2019 zoster vaccine recombinant Jose Pike MD Work Phone: [facility] 04-08-2018 influenza virus vaccine, unspecified formulation Jose Pike MD Work Phone: [facility] 11-27-2017 tetanus and diphther ia toxoids, adsorbed, preservative free, for adult use (5 Lf of tetanus toxoid and 2 Lf of diphtheria toxoid) Jose Pike MD Work Phone: [facility] 05-02-2016 influenza, seasonal, injectable Jose Pike MD Work Phone: [facility] 04-15-2015 influenza, seasonal, injectable Jose Pike MD Work Phone: [facility] 04-29-2014 influenza, seasonal, injectable Jose Pike MD Work Phone: [facility] 05-05-2013 influenza virus vaccine, unspecified formulation Jose Pike MD Work Phone: [facility] 03-27-2013 zoster vaccine, live Chris augustin Pike MD Work Phone: [facility] 01-23-2007 tetanus toxoid, reduced diphtheria toxoid, and acellular pertussis vaccine, adsorbed Jose Pike MD Work Phone: [facility] Work Phone: Payers Date Payer Category Payer Medicare A[employer] MEDICARE A ETNA MEDICARE PPO [id number] 2022-Present [phone] [address] [place] [address] PPO [id number] 2022 Medicare [id number] 2021 Unknown [employer] PPO [id number] 2021-Present [phone] [address] [place] [address] PPO [id number] 2021 Unknown [employer] PPO [id number] 2021-Present [phone] [address] [place] [address] PPO [id number] 2021 Unknown [id number] 2020 Unknown [employer] [facility] [id number] 2020-Present [phone] [address] [place] [address] PPO [id number] Social History Date Type Detail Facility Start: 06-16-2022 Tobacco smoking stat [facility] Ex-smoker [facility] End: 07-16-1998 History of tobacco use Current smoker [facility] Start: 11-17-2020 End: 09-03-2023 Alcohol intake Current drinker of alcohol (finding) [facility] Start: 11-17-2020 End: 11-20-2022 Alcohol intake [facility] Start: 1955 Sex Assigned At Not on file C [facility] Start: 12-09-2021 End: 12-19-2021 Exposure to SARS-CoV-2 (event) Unable to assess [facility] Work Phone: Start: 02-03-2022 History SDOH Alcohol Frequency 3 [facility] Start: 02-03-2022 History SDOH Alcohol Std Drinks 1 [facility] Start: 02-03-2022 History SDOH Social Connections Phone 98 [facility] Start: 02-03-2022 History SDOH Physica l Activity DPW 2 [facility] Start: 01-24-2022 End: 02-03-2022 Exposure to SARS-CoV-2 (event) Not sure [facility] End: 07-16-1998 History of tobacco use Cigarette Smoker [facility] Start: 06-16-2022 Tobacco use and exposure Smoke less tobacco non-user [facility] Start: 02-03-2022 End: 11-20-2022 Social connection and isolation panel [facility] In a typical week, h ow many times do you talk on the telephone with family, friends, or neighbors? Patient refused [facility] Are you now , , , , never or living with a partner? [facility] How often to you hav e a drink containing alcohol? 2-4 times a month [facility] How many standard dr inks containing alcohol do you have on a typical day? 1 or 2 [facility] How often do you hav e 6 or more drinks on 1 occasion? Never [facility] Do you feel stress - tense, restless, nervous, or anxious, or unable to sleep at night because your mind is troubled all the time - these days [OSQ] Not at all [facility] (I/We) worried wheth er (my/our) food would run out before (I/we) got money to buy more. DK or Refused [facility] In the past 12 month s, was there a time when you were not able to pay the mortgage or rent on time? No [facility] Clinical Notes 12-21-2021 to 09-03-2023 Patient InstructionsPoAmi nazario APRN.SLATE WORKER - 09/03/2023 12:05 PM ESTPatient InstructionsAmi Harris APRN.SAMM - 08/20/2023 11:18 AM Hitesh Martinez RT(R) - 06/25/2023 11:00 AM EST Note Date & Type Note Facility 09-03-2023 Note HNO ID: [id number] Author: PODAMI MIRANDA APRN.SAMM Service: ? Author Type: Nurse Practitioner Type: Progress Notes Filed: 09/03/2023 12:24 Note Text: 09/03/2023 Patient presents with: BP Check SUBJECTIVE: This is a 68 year old that is here today for Above Complaints. BP elevated at last office visit. Lisinopril increased to 20 mg. Headache one time and felt dizzy once otherwise tolerating. Taking BP daily with ranges of 140-170/70's. Denies visual changes, lightheadedness, slurred speech, facial drooping, extremity numbness, tingling or weakness PAST MEDICAL HISTORY Diagnosis Date Allergic rhinitis Dr. Salazar for allergy shots Chronic constipation Chronic lower back pain Essential hypertension GERD (gastroesophageal reflux disease) Hyperlipidemia Hypertension, essential 11/03/2022 Impaired fasting glucose OA (osteoarthritis) of knee s/p L TKA Obesity (BMI 30.0-34.9) Other acne Acne PMH - PAST MEDICAL HISTORY OF lactose intolerant PMH - PAST MEDICAL HISTORY OF kidney stones PMH - PAST MEDICAL HISTORY OF rlq abdominal pain Rosacea ALLERGIES Hctz [Thiazides], Magnesium Citrate, and Naproxen MEDICATIONS Current Outpatient Medications Medication Sig lisinopril (ZESTRIL) 20 mg tablet Take 1 tablet by mouth once daily. simvastatin (ZOCOR) 10 mg tablet Take 1 tablet by mouth daily at bedtime. For cholesterols. pantoprazole DR (PROTONIX) 40 mg tablet Take 1 tablet by mouth daily before breakfast. Take on empty stomach, 1/2 hr before meal. polyethylene glycol 3350 (MIRALAX, GLYCOLAX) 17 gram/dose powder Take 17 g by mouth once daily. Dissolve dose in 4 - 8 ounces of liquid and take as directed. docusate sodium (COLACE) 100 mg capsule Take 1 capsule by mouth twice daily as needed for Constipation. loratadine (CLARITIN) 10 mg tablet Take 1 tablet by mouth once daily. fluticasone (FLONASE) 50 mcg/actuation nasal spray Use 2 Sprays in each nostril once daily. Rinse mouth after use. acetaminophen (TYLENOL) 325 mg tablet Take 650 mg by mouth as needed. estradiol (ESTRACE) 1 mg tablet Take 1 tablet by mouth once daily. (Patient taking differently: Take 0.5 mg by mouth once daily.) nicotine polacrilex (NICORETTE) 2 mg gum Take 2 mg by mouth every 2 hours as needed. No current facility-administered medications for this visit. Medications and allergies reviewed by this provider. SOCIAL HISTORY Social History Tobacco Use Smoking status: Former Packs/day: 1.00 Years: 20.00 Additional pack years: 0.00 Total pack years: 20.00 Types: Cigarettes Quit date: 07/16/1998 Years since quittin.1 Smokeless tobacco: Never Substance Use Topics Alcohol use: Yes Alcohol/week: 2.0 standard drinks of alcohol Types: 2 Cans of Beer (12oz) per week Drug use: No REVIEW OF SYSTEMS All other reviewed and negative other than HPI. OBJECTIVE: BP 162/88 Pulse 77 Resp 18 Wt 65.7 kg (144 lb 12.8 oz) SpO2 95% BMI 30.40 kg/m? . Vital signs reviewed by this provider. APPEARANCE Well appearing, alert, in no acute distress, well-hydrated, well nourished. BP Controlled (<130/80) Never done Mammogram Screening due on 11/01/2021 Pneumococcal Vaccine: 65+(1 of 1 - PCV) Never done Advance Directive Discussion Never done Depression Assessment Never done RSV Vaccine(1 - 1-dose 60+ series) due on 06/19/2024 Covid-19 Vaccine( season) due on 06/19/2024 Colorectal Cancer Screening due on 07/21/2024 Annual PCP Team Chronic Disease Visit due on 08/20/2024 Diabetes Screening due on 08/16/2026 DTaP,Tdap,Td Vaccine(3 - Td or Tdap) due on 11/28/2027 Lipid Screening due on 07/02/2028 Bone Density Screening Completed Influenza Vaccine Completed Hepatitis C Screening Completed Shingrix Vaccine Completed ASSESSMENT/PLAN: 1. Hypertension, essential - ICD9: 401.9, ICD10: I10 - Uncontrolled - home cuff correlates with ours - take at home daily for two weeks and update me with readings if above goal of <140/90 then increase to 40 mg - Continue current medications - Recommend home blood pressure monitoring, to bring results to next visit - Encouraged sodium restriction, DASH or Mediterranean diet - Recommend regular aerobic exercise - Discussed need for and benefit of weight loss. BMI 30.40 kg/(m2) - Follow up in 2 weeks for hypertension visit - LISINOPRIL 20 MG TABLET Ami Harris APRN.CNP Prescription instructions reviewed with patient as applicable. Patient advised if symptoms do not improve or if symptoms worsen sooner, to contact their primary care physician. Potential red flag symptoms discussed with the patient. Reviewed appropriate action plan to take if red flag symptoms occur. Patient agreeable to treatment plan. Medical Decision Making: Problems: Moderate: 1+ chronic illnesses with change Risk: Moderate: Drug management Medical Decision Making Level: 4 - Moderate [facility] 09-03-2023 Instructions Ami Harris APRN.CNP - 09/03/2023 12:09 PM EST Continue to take blood pressure daily- update me in 2 weeks with readings documented in this encounter [facility] 09-03-2023 History of Present illness Narrative 09/03/2023 Patient presents with: BP Check SUBJECTIVE: This is a 68 year old that is here today for Above Complaints. BP elevated at last office visit. Lisinopril increased to 20 mg. Headache one time and felt dizzy once otherwise tolerating. Taking BP daily with ranges of 140-170/70's. Denies visual changes, lightheadedness, slurred speech, facial drooping, extremity numbness, tingling or weakness PAST MEDICAL HISTORY Diagnosis Date Allergic rhinitis Dr. Salazar for allergy shots Chronic constipation Chronic lower back pain Essential hypertension GERD (gastroesophageal reflux disease) Hyperlipidemia Hypertension, essential 11/03/2022 Impaired fasting glucose OA (osteoarthritis) of knee s/p L TKA Obesity (BMI 30.0-34.9) Other acne Acne PMH - PAST MEDICAL HISTORY OF lactose intolerant PMH - PAST MEDICAL HISTORY OF kidney stones PMH - PAST MEDICAL HISTORY OF rlq abdominal pain Rosacea ALLERGIES Hctz [Thiazides], Magnesium Citrate, and Naproxen MEDICATIONS Current Outpatient Medications Medication Sig lisinopril (ZESTRIL) 20 mg tablet Take 1 tablet by mouth once daily. simvastatin (ZOCOR) 10 mg tablet Take 1 tablet by mouth daily at bedtime. For cholesterols. pantoprazole DR (PROTONIX) 40 mg tablet Take 1 tablet by mouth daily before breakfast. Take on empty stomach, 1/2 hr before meal. polyethylene glycol 3350 (MIRALAX, GLYCOLAX) 17 gram/dose powder Take 17 g by mouth once daily. Dissolve dose in 4 - 8 ounces of liquid and take as directed. docusate sodium (COLACE) 100 mg capsule Take 1 capsule by mouth twice daily as needed for Constipation. loratadine (CLARITIN) 10 mg tablet Take 1 tablet by mouth once daily. fluticasone (FLONASE) 50 mcg/actuation nasal spray Use 2 Sprays in each nostril once daily. Rinse mouth after use. acetaminophen (TYLENOL) 325 mg tablet Take 650 mg by mouth as needed. estradiol (ESTRACE) 1 mg tablet Take 1 tablet by mouth once daily. (Patient taking differently: Take 0.5 mg by mouth once daily.) nicotine polacrilex (NICORETTE) 2 mg gum Take 2 mg by mouth every 2 hours as needed. No current facility-administered medications for this visit. Medications and allergies reviewed by this provider. SOCIAL HISTORY Social History Tobacco Use Smoking status: Former Packs/day: 1.00 Years: 20.00 Additional pack years: 0.00 Total pack years: 20.00 Types: Cigarettes Quit date: 07/16/1998 Years since quittin.1 Smokeless tobacco: Never Substance Use Topics Alcohol use: Yes Alcohol/week: 2.0 standard drinks of alcohol Types: 2 Cans of Beer (12oz) per week Drug use: No REVIEW OF SYSTEMS All other reviewed and negative other than HPI. OBJECTIVE: BP 162/88 Pulse 77 Resp 18 Wt 65.7 kg (144 lb 12.8 oz) SpO2 95% BMI 30.40 kg/m . Vital signs reviewed by this provider. APPEARANCE Well appearing, alert, in no acute distress, well-hydrated, well nourished. BP Controlled (<130/80) Never done Mammogram Screening due on 11/01/2021 Pneumococcal Vaccine: 65+(1 of 1 - PCV) Never done Advance Directive Discussion Never done Depression Assessment Never done RSV Vaccine(1 - 1-dose 60+ series) due on 06/19/2024 Covid-19 Vaccine(2022- season) due on 06/19/2024 Colorectal Cancer Screening due on 07/21/2024 Annual PCP Team Chronic Disease Visit due on 08/20/2024 Diabetes Screening due on 08/16/2026 DTaP,Tdap,Td Vaccine(3 - Td or Tdap) due on 11/28/2027 Lipid Screening due on 07/02/2028 Bone Density Screening Completed Influenza Vaccine Completed Hepatitis C Screening Completed Shingrix Vaccine Completed ASSESSMENT/PLAN: 1. Hypertension, essential - ICD9: 401.9, ICD10: I10 - Uncontrolled - home cuff correlates with ours - take at home daily for two weeks and update me with readings if above goal of <140/90 then increase to 40 mg - Continue current medications - Recommend home blood pressure monitoring, to bring results to next visit - Encouraged sodium restriction, DASH or Mediterranean diet - Recommend regular aerobic exercise - Discussed need for and benefit of weight loss. BMI 30.40 kg/(m^2) - Follow up in 2 weeks for hypertension visit - LISINOPRIL 20 MG TABLET Ami Harris APRN.CNP Prescription instructions reviewed with patient as applicable. Patient advised if symptoms do not improve or if symptoms worsen sooner, to contact their primary care physician. Potential red flag symptoms discussed with the patient. Reviewed appropriate action plan to take if red flag symptoms occur. Patient agreeable to treatment plan. Medical Decision Making: Problems: Moderate: 1+ chronic illnesses with change Risk: Moderate: Drug management Medical Decision Making Level: 4 - Moderate documented in this encounter [facility] 08-20-2023 Note HNO ID: [id number] Author: AMI HARRIS APRN.CNP Service: ? Author Type: Nurse Practitioner Type: Progress Notes Filed: 08/20/2023 14:52 Note Text: 08/20/2023 Patient presents with: Blood Pressure: Recheck SUBJECTIVE: This is a 68 year old that is here today for Above Complaints. BP elevated at last office visit. Has been taking lisinopril to 10 mg daily. Tolerating without side effects. Not taking BP at home. Denies visual changes, headaches, dizziness, lightheadedness, slurred speech, facial drooping, SOB, dyspnea, chest pain, extremity numbness, tingling or weakness. PAST MEDICAL HISTORY Diagnosis Date Allergic rhinitis Dr. Salazar for allergy shots Chronic constipation Chronic lower back pain Essential hypertension GERD (gastroesophageal reflux disease) Hyperlipidemia Hypertension, essential 11/03/2022 Impaired fasting glucose OA (osteoarthritis) of knee s/p L TKA Obesity (BMI 30.0-34.9) Other acne Acne PMH - PAST MEDICAL HISTORY OF lactose intolerant PMH - PAST MEDICAL HISTORY OF kidney stones PMH - PAST MEDICAL HISTORY OF rlq abdominal pain Rosacea ALLERGIES Hctz [Thiazides], Magnesium Citrate, and Naproxen MEDICATIONS Current Outpatient Medications Medication Sig lisinopril (ZESTRIL) 10 mg tablet Take 1 tablet by mouth once daily. simvastatin (ZOCOR) 10 mg tablet Take 1 tablet by mouth daily at bedtime. For cholesterols. pantoprazole DR (PROTONIX) 40 mg tablet Take 1 tablet by mouth daily before breakfast. Take on empty stomach, 1/2 hr before meal. polyethylene glycol 3350 (MIRALAX, GLYCOLAX) 17 gram/dose powder Take 17 g by mouth once daily. Dissolve dose in 4 - 8 ounces of liquid and take as directed. docusate sodium (COLACE) 100 mg capsule Take 1 capsule by mouth twice daily as needed for Constipation. loratadine (CLARITIN) 10 mg tablet Take 1 tablet by mouth once daily. fluticasone (FLONASE) 50 mcg/actuation nasal spray Use 2 Sprays in each nostril once daily. Rinse mouth after use. acetaminophen (TYLENOL) 325 mg tablet Take 650 mg by mouth as needed. estradiol (ESTRACE) 1 mg tablet Take 1 tablet by mouth once daily. (Patient taking differently: Take 0.5 mg by mouth once daily.) nicotine polacrilex (NICORETTE) 2 mg gum Take 2 mg by mouth every 2 hours as needed. No current facility-administered medications for this visit. Medications and allergies reviewed by this provider. SOCIAL HISTORY Social History Tobacco Use Smoking status: Former Packs/day: 1.00 Years: 20.00 Additional pack years: 0.00 Total pack years: 20.00 Types: Cigarettes Quit date: 07/16/1998 Years since quittin.1 Smokeless tobacco: Never Substance Use Topics Alcohol use: Yes Alcohol/week: 2.0 standard drinks of alcohol Types: 2 Cans of Beer (12oz) per week Drug use: No REVIEW OF SYSTEMS All other reviewed and negative other than HPI. OBJECTIVE: BP 150/92 Pulse 80 Resp 16 Wt 65.5 kg (144 lb 6.4 oz) SpO2 97% BMI 30.31 kg/m? . Vital signs reviewed by this provider. APPEARANCE Well appearing, alert, in no acute distress, well-hydrated, well nourished. Component Latest Ref Rng AND Units 08/16/2023 Protein, Total 6.3 - 8.0 g/dL 6.9 Albumin 3.9 - 4.9 g/dL 4.3 Calcium 8.5 - 10.2 mg/dL 9.2 Bilirubin, Total 0.2 - 1.3 mg/dL 0.5 Alkaline Phosphatase 34 - 123 U/L 81 AST 13 - 35 U/L 31 ALT 7 - 38 U/L 33 Glucose 74 - 99 mg/dL 112 (H) BUN 7 - 21 mg/dL 13 Creatinine 0.58 - 0.96 mg/dL 0.83 Sodium 136 - 144 mmol/L 138 Potassium 3.7 - 5.1 mmol/L 4.1 Chloride 97 - 105 mmol/L 104 CO2 22 - 30 mmol/L 24 Anion Gap 9 - 18 mmol/L 10 eGFR >=60 mL/min/1.73mA? 78 Hemoglobin A1C 4.3 - 5.6 % 5.6 Estimated Average Glucose mg/dL 114 Component Latest Ref Rng AND Units 07/02/2023 Cholesterol, Total <200 mg/dL 199 Triglyceride <150 mg/dL 168 (H) HDL Cholesterol >39 mg/dL 51 Non HDL Cholesterol <130 mg/dL 148 (H) Fasting Time hrs 12 VLDL Cholesterol <30 mg/dL 34 (H) TC:HDL Ratio <5.10 3.90 LDL Cholesterol <100 mg/dL 114 (H) LDL:HDL Ratio <2.54 2.24 BP Controlled (<130/80) Never done Mammogram Screening due on 11/01/2021 Pneumococcal Vaccine: 65+(1 of 1 - PCV) Never done Advance Directive Discussion Never done Depression Assessment Never done RSV Vaccine(1 - 1-dose 60+ series) due on 06/19/2024 Covid-19 Vaccine(2022- season) due on 06/19/2024 Annual PCP Team Chronic Disease Visit due on 07/20/2024 Colorectal Cancer Screening due on 07/21/2024 Diabetes Screening due on 08/16/2026 DTaP,Tdap,Td Vaccine(3 - Td or Tdap) due on 11/28/2027 Lipid Screening due on 07/02/2028 Bone Density Screening Completed Influenza Vaccine Completed Hepatitis C Screening Completed Shingrix Vaccine Completed ASSESSMENT/PLAN: 1. Hypertension, essential - ICD9: 401.9, ICD10: I10 - Uncontrolled - Increase lisinopril - Recommend home blood pressure monitoring, to bring results to next visit - Encouraged sodium rest (more content not included)... [facility] 08-20-2023 Instructions Ami Harris APRN.CNP - 08/20/2023 11:41 AM EST Increase lisinopril to 20 mg daily. Check blood pressure at home daily and bring home readings as well as home BP cuff to next visit. documented in this encounter [facility] 08-20-2023 History of Present illness Narrative 08/20/2023 Patient presents with: Blood Pressure: Recheck SUBJECTIVE: This is a 68 year old that is here today for Above Complaints. BP elevated at last office visit. Has been taking lisinopril to 10 mg daily. Tolerating without side effects. Not taking BP at home. Denies visual changes, headaches, dizziness, lightheadedness, slurred speech, facial drooping, SOB, dyspnea, chest pain, extremity numbness, tingling or weakness. PAST MEDICAL HISTORY Diagnosis Date Allergic rhinitis Dr. Salazar for allergy shots Chronic constipation Chronic lower back pain Essential hypertension GERD (gastroesophageal reflux disease) Hyperlipidemia Hypertension, essential 11/03/2022 Impaired fasting glucose OA (osteoarthritis) of knee s/p L TKA Obesity (BMI 30.0-34.9) Other acne Acne PMH - PAST MEDICAL HISTORY OF lactose intolerant PMH - PAST MEDICAL HISTORY OF kidney stones PMH - PAST MEDICAL HISTORY OF rlq abdominal pain Rosacea ALLERGIES Hctz [Thiazides], Magnesium Citrate, and Naproxen MEDICATIONS Current Outpatient Medications Medication Sig lisinopril (ZESTRIL) 10 mg tablet Take 1 tablet by mouth once daily. simvastatin (ZOCOR) 10 mg tablet Take 1 tablet by mouth daily at bedtime. For cholesterols. pantoprazole DR (PROTONIX) 40 mg tablet Take 1 tablet by mouth daily before breakfast. Take on empty stomach, 1/2 hr before meal. polyethylene glycol 3350 (MIRALAX, GLYCOLAX) 17 gram/dose powder Take 17 g by mouth once daily. Dissolve dose in 4 - 8 ounces of liquid and take as directed. docusate sodium (COLACE) 100 mg capsule Take 1 capsule by mouth twice daily as needed for Constipation. loratadine (CLARITIN) 10 mg tablet Take 1 tablet by mouth once daily. fluticasone (FLONASE) 50 mcg/actuation nasal spray Use 2 Sprays in each nostril once daily. Rinse mouth after use. acetaminophen (TYLENOL) 325 mg tablet Take 650 mg by mouth as needed. estradiol (ESTRACE) 1 mg tablet Take 1 tablet by mouth once daily. (Patient taking differently: Take 0.5 mg by mouth once daily.) nicotine polacrilex (NICORETTE) 2 mg gum Take 2 mg by mouth every 2 hours as needed. No current facility-administered medications for this visit. Medications and allergies reviewed by this provider. SOCIAL HISTORY Social History Tobacco Use Smoking status: Former Packs/day: 1.00 Years: 20.00 Additional pack years: 0.00 Total pack years: 20.00 Types: Cigarettes Quit date: 07/16/1998 Years since quittin.1 Smokeless tobacco: Never Substance Use Topics Alcohol use: Yes Alcohol/week: 2.0 standard drinks of alcohol Types: 2 Cans of Beer (12oz) per week Drug use: No REVIEW OF SYSTEMS All other reviewed and negative other than HPI. OBJECTIVE: BP 150/92 Pulse 80 Resp 16 Wt 65.5 kg (144 lb 6.4 oz) SpO2 97% BMI 30.31 kg/m . Vital signs reviewed by this provider. APPEARANCE Well appearing, alert, in no acute distress, well-hydrated, well nourished. Component Latest Ref Rng & Units 08/16/2023 Protein, Total 6.3 - 8.0 g/dL 6.9 Albumin 3.9 - 4.9 g/dL 4.3 Calcium 8.5 - 10.2 mg/dL 9.2 Bilirubin, Total 0.2 - 1.3 mg/dL 0.5 Alkaline Phosphatase 34 - 123 U/L 81 AST 13 - 35 U/L 31 ALT 7 - 38 U/L 33 Glucose 74 - 99 mg/dL 112 (H) BUN 7 - 21 mg/dL 13 Creatinine 0.58 - 0.96 mg/dL 0.83 Sodium 136 - 144 mmol/L 138 Potassium 3.7 - 5.1 mmol/L 4.1 Chloride 97 - 105 mmol/L 104 CO2 22 - 30 mmol/L 24 Anion Gap 9 - 18 mmol/L 10 eGFR >=60 mL/min/1.73m 78 Hemoglobin A1C 4.3 - 5.6 % 5.6 Estimated Average Glucose mg/dL 114 Component Latest Ref Rng & Units 07/02/2023 Cholesterol, Total <200 mg/dL 199 Triglyceride <150 mg/dL 168 (H) HDL Cholesterol >39 mg/dL 51 Non HDL Cholesterol <130 mg/dL 148 (H) Fasting Time hrs 12 VLDL Cholesterol <30 mg/dL 34 (H) TC:HDL Ratio <5.10 3.90 LDL Cholesterol <100 mg/dL 114 (H) LDL:HDL Ratio <2.54 2.24 BP Controlled (<130/80) Never done Mammogram Screening due on 11/01/2021 Pneumococcal Vaccine: 65+(1 of 1 - PCV) Never done Advance Directive Discussion Never done Depression Assessment Never done RSV Vaccine(1 - 1-dose 60+ series) due on 06/19/2024 Covid-19 Vaccine(2022- season) due on 06/19/2024 Annual PCP Team Chronic Disease Visit due on 07/20/2024 Colorectal Cancer Screening due on 07/21/2024 Diabetes Screening due on 08/16/2026 DTaP,Tdap,Td Vaccine(3 - Td or Tdap) due on 11/28/2027 Lipid Screening due on 07/02/2028 Bone Density Screening Completed Influenza Vaccine Completed Hepatitis C Screening Completed Shingrix Vaccine Completed ASSESSMENT/PLAN: 1. Hypertension, essential - ICD9: 401.9, ICD10: I10 - Uncontrolled - Increase lisinopril - Recommend home blood pressure monitoring, to bring results to next visit - Encouraged sodium restriction, DASH or Mediterranean diet - Recommend regular aerobic exercise - Discussed need for and benefit of weight loss. BMI 30.31 kg/(m^2) - Follow up in 2 weeks for hypertension visit - LISINOPRIL 20 MG TABLET Ami Harris APRN.CNP Prescription instructions reviewed with patient as applicable. Patient advised if symptoms do not improve or if symptoms worsen sooner, to contact their primary care physician. Potential red flag symptoms discussed with the patient. Reviewed appropriate action plan to take if red flag symptoms occur. Patient agreeable to treatment plan. Medical Decision Making: Problems: Moderate: 1+ chronic illnesses with change Risk: Moderate: Moderate risk from testing/treatment Medical Decision Making Level: 4 - Moderate documented in this encounter [facility] 07-20-2023 Note HNO ID: [id number] Author: AMI HARRIS APRN.CNP Service: ? Author Type: Nurse Practitioner Type: Progress Notes Filed: 07/20/2023 10:28 Note Text: 07/20/2023 Patient presents with: F/U 1 month SUBJECTIVE: This is a 68 year old that is here today for Above Complaints. BP elevated at last office visit. Lisinopril started. Did not start the increased dose of lisinopril as recommended since she reports she did not have enough to do that. Did stop HCTZ as recommended. No checking BP at home. PAST MEDICAL HISTORY Diagnosis Date Allergic rhinitis Dr. Salazar for allergy shots Chronic constipation Chronic lower back pain Essential hypertension GERD (gastroesophageal reflux disease) Hyperlipidemia Hypertension, essential 11/03/2022 Impaired fasting glucose OA (osteoarthritis) of knee s/p L TKA Obesity (BMI 30.0-34.9) Other acne Acne PMH - PAST MEDICAL HISTORY OF lactose intolerant PMH - PAST MEDICAL HISTORY OF kidney stones PMH - PAST MEDICAL HISTORY OF rlq abdominal pain Rosacea ALLERGIES Hctz [Thiazides], Magnesium Citrate, and Naproxen MEDICATIONS Current Outpatient Medications Medication Sig simvastatin (ZOCOR) 10 mg tablet Take 1 tablet by mouth daily at bedtime. For cholesterols. potassium chloride ER (KLOR-CON) 20 mEq tablet Take 2 tablets by mouth two times a day. lisinopril (ZESTRIL) 10 mg tablet Take 1 tablet by mouth once daily. pantoprazole DR (PROTONIX) 40 mg tablet Take 1 tablet by mouth daily before breakfast. Take on empty stomach, 1/2 hr before meal. polyethylene glycol 3350 (MIRALAX, GLYCOLAX) 17 gram/dose powder Take 17 g by mouth once daily. Dissolve dose in 4 - 8 ounces of liquid and take as directed. docusate sodium (COLACE) 100 mg capsule Take 1 capsule by mouth twice daily as needed for Constipation. loratadine (CLARITIN) 10 mg tablet Take 1 tablet by mouth once daily. fluticasone (FLONASE) 50 mcg/actuation nasal spray Use 2 Sprays in each nostril once daily. Rinse mouth after use. acetaminophen (TYLENOL) 325 mg tablet Take 650 mg by mouth as needed. estradiol (ESTRACE) 1 mg tablet Take 1 tablet by mouth once daily. (Patient taking differently: Take 0.5 mg by mouth once daily.) nicotine polacrilex (NICORETTE) 2 mg gum Take 2 mg by mouth every 2 hours as needed. No current facility-administered medications for this visit. Medications and allergies reviewed by this provider. SOCIAL HISTORY Social History Tobacco Use Smoking status: Former Packs/day: 1.00 Years: 20.00 Additional pack years: 0.00 Total pack years: 20.00 Types: Cigarettes Quit date: 07/16/1998 Years since quittin.0 Smokeless tobacco: Never Substance Use Topics Alcohol use: Yes Alcohol/week: 2.0 standard drinks of alcohol Types: 2 Cans of Beer (12oz) per week Drug use: No REVIEW OF SYSTEMS All other reviewed and negative other than HPI. OBJECTIVE: BP 142/78 Pulse 84 Resp 16 Wt 65.7 kg (144 lb 12.8 oz) SpO2 96% BMI 30.40 kg/m? . Vital signs reviewed by this provider. APPEARANCE Well appearing, alert, in no acute distress, well-hydrated, well nourished. BP Controlled (<130/80) Never done Mammogram Screening due on 11/01/2021 Pneumococcal Vaccine: 65+(1 of 1 - PCV) Never done Advance Directive Discussion Never done Depression Assessment Never done RSV Vaccine(1 - 1-dose 60+ series) due on 06/19/2024 Covid-19 Vaccine(2022- season) due on 06/19/2024 Annual PCP Team Chronic Disease Visit due on 06/19/2024 Colorectal Cancer Screening due on 07/21/2024 Diabetes Screening due on 07/02/2026 DTaP,Tdap,Td Vaccine(3 - Td or Tdap) due on 11/28/2027 Lipid Screening due on 07/02/2028 Bone Density Screening Completed Influenza Vaccine Completed Hepatitis C Screening Completed Shingrix Vaccine Completed ASSESSMENT/PLAN: 1. Hypertension, essential - ICD9: 401.9, ICD10: I10 (primary diagnosis) - Uncontrolled - increase Lisinopril to 10 mg - Recommend home blood pressure monitoring, to bring results to next visit - Encouraged sodium restriction, DASH or Mediterranean diet - Recommend regular aerobic exercise - Discussed need for and benefit of weight loss. BMI 30.40 kg/(m2) - Follow up in 4 weeks or 6 months for hypertension visit - LISINOPRIL 10 MG TABLET 2. Elevated liver enzymes - ICD9: 790.5, ICD10: R74.8 - COMP METABOLIC PANEL 3. Elevated blood sugar - ICD9: 790.29, ICD10: R73.9 - HGB A1C Ami Harris, RV REPAIRER.SLATE WORKER Prescription instructions reviewed with patient as applicable. Patient advised if symptoms do not improve or if symptoms worsen sooner, to contact their primary care physician. Potential red flag symptoms discussed with the patient. Reviewed appropriate action plan to take if red flag symptoms occur. Patient agreeable to treatment plan. I spent a total of 20 minutes on the date of the service which included preparing to see the patient, [id number] patient care, completing c (more content not included)... [facility] 06-25-2023 Note HNO ID: [id number] Author: Hitesh Yu RT(R) Service: ? Author Type: Technologist Type: Progress Notes Filed: 06/25/2023 11:16 AM Note Text: Radiology Service Progress Note PATIENT NAME: Mukesh Rosenberg DATE OF SERVICE: June 25, 2023 TIME: 11:08 AM PATIENT IDENTITY VERIFICATION COMPLETED USING TWO (2) IDENTIFIERS: Name and Date of confirmed by patient verbally. FALL SCREENING: Has the patient had 2 falls in the last year or 1 fall with injury or currently using an Ambulatory Assistive Device (Walker, Cane, Wheelchair, Crutches, etc.)? No PATIENT GENDER DATA: Female. status: : No status: NO. PATIENT RELEVANT IMPLANT DATA REVIEWED: Not Applicable RADIOLOGY DEPARTMENT: Bone Density PERIPHERAL IV DATA: Not applicable SIGNED BY: RT Rojas(R) June 25, 2023 11:08 AM [facility] 06-25-2023 History of Present illness Narrative Radiology Service Progress Note PATIENT NAME: Mukesh Rosenberg DATE OF SERVICE: June 25, 2023 TIME: 11:08 AM PATIENT IDENTITY VERIFICATION COMPLETED USING TWO (2) IDENTIFIERS: Name and Date of confirmed by patient verbally. FALL SCREENING: Has the patient had 2 falls in the last year or 1 fall with injury or currently using an Ambulatory Assistive Device (Walker, Cane, Wheelchair, Crutches, etc.)? No PATIENT GENDER DATA: Female. status: : No status: NO. PATIENT RELEVANT IMPLANT DATA REVIEWED: Not Applicable RADIOLOGY DEPARTMENT: Bone Density PERIPHERAL IV DATA: Not applicable SIGNED BY: RT Rojas(R) June 25, 2023 11:08 AM documented in this encounter [facility] 06-19-2023 Note HNO ID: [id number] Author: Ami Harris APRN.SLATE WORKER Service: ? Author Type: Nurse Practitioner Type: Progress Notes Filed: 06/19/2023 10:38 AM Note Text: 06/19/2023 Patient presents with: F/U 6 months SUBJECTIVE: This is a 68 year old that is here today for Above Complaints. Since last office visit has been in [facility] without ER visits or hospitalizations HTN: Patient is compliant with meds Yes Monitors bp at home: No. Denies side effects: Yes. Chest pain: No. Dyspnea: No. Edema: No. Palpitations: No. Syncope: No. Headache: No. Dizziness: No. Cold symptoms for last month. Will get better than symptoms come back. Reports nasal congestion, sinus pain/pressure. Using her allergy medications as prescribed as well as getting allergy shots. Denies fevers, chills, rhinorrhea, sore throat, SOB, or dyspnea GERD: taking pantoprazole as prescribed without side effects. Works well to control symptoms PAST MEDICAL HISTORY Diagnosis Date Allergic rhinitis Dr. Salazar for allergy shots Chronic constipation Chronic lower back pain Essential hypertension GERD (gastroesophageal reflux disease) Hyperlipidemia Hypertension, essential 11/03/2022 Impaired fasting glucose OA (osteoarthritis) of knee s/p L TKA Obesity (BMI 30.0-34.9) Other acne Acne PMH - PAST MEDICAL HISTORY OF lactose intolerant PMH - PAST MEDICAL HISTORY OF kidney stones PMH - PAST MEDICAL HISTORY OF rlq abdominal pain Rosacea ALLERGIES Magnesium Citrate and Naproxen MEDICATIONS Current Outpatient Medications Medication Sig hydroCHLOROthiazide 25 mg tablet Take 1 tablet by mouth once daily. meloxicam (MOBIC) 15 mg tablet Take 15 mg by mouth once daily. (Patient not taking: Reported on 06/19/2023) pantoprazole DR (PROTONIX) 40 mg tablet Take 1 tablet by mouth daily before breakfast. Take on empty stomach, 1/2 hr before meal. polyethylene glycol 3350 (MIRALAX, GLYCOLAX) 17 gram/dose powder Take 17 g by mouth once daily. Dissolve dose in 4 - 8 ounces of liquid and take as directed. docusate sodium (COLACE) 100 mg capsule Take 1 capsule by mouth twice daily as needed for Constipation. loratadine (CLARITIN) 10 mg tablet Take 1 tablet by mouth once daily. fluticasone (FLONASE) 50 mcg/actuation nasal spray Use 2 Sprays in each nostril once daily. Rinse mouth after use. acetaminophen (TYLENOL) 325 mg tablet Take 650 mg by mouth as needed. estradiol (ESTRACE) 1 mg tablet Take 1 tablet by mouth once daily. (Patient taking differently: Take 0.5 mg by mouth once daily.) nicotine polacrilex (NICORETTE) 2 mg gum Take 2 mg by mouth every 2 hours as needed. No current facility-administered medications for this visit. Medications and allergies reviewed by this provider. SOCIAL HISTORY Social History Tobacco Use Smoking status: Former Packs/day: 1.00 Years: 20.00 Additional pack years: 0.00 Total pack years: 20.00 Types: Cigarettes Quit date: 07/16/1998 Years since quittin.9 Smokeless tobacco: Never Substance Use Topics Alcohol use: Yes Alcohol/week: 2.0 standard drinks of alcohol Types: 2 Cans of Beer (12oz) per week Drug use: No REVIEW OF SYSTEMS All other reviewed and negative other than HPI. OBJECTIVE: BP 142/86 Pulse 96 Resp 16 Wt 63.9 kg (140 lb 12.8 oz) SpO2 97% BMI 29.56 kg/m? . Vital signs reviewed by this provider. APPEARANCE Well appearing, alert, in no acute distress, well-hydrated, well nourished. EYES conjunctiva and sclera normal. SINUS: TTP over maxillary sinuses bilaterally HEART RRR with normal S1 and S2, no murmurs, no gallops, no JVD appreciated LUNG clear to auscultation. No wheezes, rhonchi or rales EXTREMITIES Extremities normal, No deformities, No skin discoloration, and No edema SKIN Skin color, texture, turgor normal, no suspicious rashes or lesions to exposed skin Component Latest Ref Rng AND Units 11/16/2022 Protein, Total 6.3 - 8.0 g/dL 7.2 Albumin 3.9 - 4.9 g/dL 4.3 Calcium 8.5 - 10.2 mg/dL 9.7 Bilirubin, Total 0.2 - 1.3 mg/dL 0.5 Alkaline Phosphatase 34 - 123 U/L 97 AST 13 - 35 U/L 33 ALT 7 - 38 U/L 39 (H) Glucose 74 - 99 mg/dL 111 (H) BUN 7 - 21 mg/dL 16 Creatinine 0.58 - 0.96 mg/dL 0.83 Sodium 136 - 144 mmol/L 138 Potassium 3.7 - 5.1 mmol/L 4.0 Chloride 97 - 105 mmol/L 99 CO2 22 - 30 mmol/L 26 Anion Gap 9 - 18 mmol/L 13 eGFR >=60 mL/min/1.73mA? 78 Component Latest Ref Rng AND Units 10/20/2020 Total Cholesterol, Nonfasting <200 mg/dL 200 (H) Triglycerides, Nonfasting <150 mg/dL 100 HDL Cholesterol, Nonfasting >39 mg/dL 54 LDL Cholesterol, Nonfasting <100 mg/dL 126 (H) Non HDL Cholesterol, Nonfasting <130 mg/dL 146 (H) VLDL Cholesterol, Nonfasting <30 mg/dL 20 Total Chol/HDL Ratio, Nonfasting <5.10 mg/dL 3.70 LDL/HDL Ratio, Nonfasting <2.54 mg/dL 2.33 Component Latest Ref Rng AND Units 06/28/2022 WBC 3.70 - 11.00 k/uL 10.54 RBC 3.90 - 5.20 m/uL 4.23 Hemoglobin 11.5 - (more content not included)... [facility] 06-19-2023 Instructions Ami Harris APRN.SLATE WORKER - 06/19/2023 10:01 AM EST BONE MINERAL DENSITY PATIENT INSTRUCTIONS ======= Bone mineral density testing measures the amount of calcium in certain parts of your bones. This information determines how strong your bones are. The test is used to detect osteoporosis, a disease in which the bone's mineral content and density are low, increasing a person's risk of fractures. The lumbar spine (lower back) and the hip are the skeletal sites usually examined. For the test, remember that: 1. You cannot take this test if you are . 2. Eat a normal diet on the day of the test. 3. Take your medications as you normally would. 4. DO NOT take calcium supplements (such as Tums) for 24 hours before the test. 5. On the day of the test, leave valuables (jewelry or credit cards) at home. 6. The test should be performed prior to oral, rectal or IV contrast studies, or at least 7 days after any of these studies. For the test, you may be asked to wear a hospital gown. You will lie on your back, on a padded table, in a comfortable position. Generally, you can resume your usual activities immediately. documented in this encounter [facility] 06-19-2023 History of Present illness Narrative 06/19/2023 Patient presents with: F/U 6 months SUBJECTIVE: This is a 68 year old that is here today for Above Complaints. Since last office visit has been in [facility] without ER visits or hospitalizations HTN: Patient is compliant with meds Yes Monitors bp at home: No. Denies side effects: Yes. Chest pain: No. Dyspnea: No. Edema: No. Palpitations: No. Syncope: No. Headache: No. Dizziness: No. Cold symptoms for last month. Will get better than symptoms come back. Reports nasal congestion, sinus pain/pressure. Using her allergy medications as prescribed as well as getting allergy shots. Denies fevers, chills, rhinorrhea, sore throat, SOB, or dyspnea GERD: taking pantoprazole as prescribed without side effects. Works well to control symptoms PAST MEDICAL HISTORY Diagnosis Date Allergic rhinitis Dr. Salazar for allergy shots Chronic constipation Chronic lower back pain Essential hypertension GERD (gastroesophageal reflux disease) Hyperlipidemia Hypertension, essential 11/03/2022 Impaired fasting glucose OA (osteoarthritis) of knee s/p L TKA Obesity (BMI 30.0-34.9) Other acne Acne PMH - PAST MEDICAL HISTORY OF lactose intolerant PMH - PAST MEDICAL HISTORY OF kidney stones PMH - PAST MEDICAL HISTORY OF rlq abdominal pain Rosacea ALLERGIES Magnesium Citrate and Naproxen MEDICATIONS Current Outpatient Medications Medication Sig hydroCHLOROthiazide 25 mg tablet Take 1 tablet by mouth once daily. meloxicam (MOBIC) 15 mg tablet Take 15 mg by mouth once daily. (Patient not taking: Reported on 06/19/2023) pantoprazole DR (PROTONIX) 40 mg tablet Take 1 tablet by mouth daily before breakfast. Take on empty stomach, 1/2 hr before meal. polyethylene glycol 3350 (MIRALAX, GLYCOLAX) 17 gram/dose powder Take 17 g by mouth once daily. Dissolve dose in 4 - 8 ounces of liquid and take as directed. docusate sodium (COLACE) 100 mg capsule Take 1 capsule by mouth twice daily as needed for Constipation. loratadine (CLARITIN) 10 mg tablet Take 1 tablet by mouth once daily. fluticasone (FLONASE) 50 mcg/actuation nasal spray Use 2 Sprays in each nostril once daily. Rinse mouth after use. acetaminophen (TYLENOL) 325 mg tablet Take 650 mg by mouth as needed. estradiol (ESTRACE) 1 mg tablet Take 1 tablet by mouth once daily. (Patient taking differently: Take 0.5 mg by mouth once daily.) nicotine polacrilex (NICORETTE) 2 mg gum Take 2 mg by mouth every 2 hours as needed. No current facility-administered medications for this visit. Medications and allergies reviewed by this provider. SOCIAL HISTORY Social History Tobacco Use Smoking status: Former Packs/day: 1.00 Years: 20.00 Additional pack years: 0.00 Total pack years: 20.00 Types: Cigarettes Quit date: 07/16/1998 Years since quittin.9 Smokeless tobacco: Never Substance Use Topics Alcohol use: Yes Alcohol/week: 2.0 standard drinks of alcohol Types: 2 Cans of Beer (12oz) per week Drug use: No REVIEW OF SYSTEMS All other reviewed and negative other than HPI. OBJECTIVE: BP 142/86 Pulse 96 Resp 16 Wt 63.9 kg (140 lb 12.8 oz) SpO2 97% BMI 29.56 kg/m . Vital signs reviewed by this provider. APPEARANCE Well appearing, alert, in no acute distress, well-hydrated, well nourished. EYES conjunctiva and sclera normal. SINUS: TTP over maxillary sinuses bilaterally HEART RRR with normal S1 and S2, no murmurs, no gallops, no JVD appreciated LUNG clear to auscultation. No wheezes, rhonchi or rales EXTREMITIES Extremities normal, No deformities, No skin discoloration, and No edema SKIN Skin color, texture, turgor normal, no suspicious rashes or lesions to exposed skin Component Latest Ref Rng & Units 11/16/2022 Protein, Total 6.3 - 8.0 g/dL 7.2 Albumin 3.9 - 4.9 g/dL 4.3 Calcium 8.5 - 10.2 mg/dL 9.7 Bilirubin, Total 0.2 - 1.3 mg/dL 0.5 Alkaline Phosphatase 34 - 123 U/L 97 AST 13 - 35 U/L 33 ALT 7 - 38 U/L 39 (H) Glucose 74 - 99 mg/dL 111 (H) BUN 7 - 21 mg/dL 16 Creatinine 0.58 - 0.96 mg/dL 0.83 Sodium 136 - 144 mmol/L 138 Potassium 3.7 - 5.1 mmol/L 4.0 Chloride 97 - 105 mmol/L 99 CO2 22 - 30 mmol/L 26 Anion Gap 9 - 18 mmol/L 13 eGFR >=60 mL/min/1.73m 78 Component Latest Ref Rng & Units 10/20/2020 Total Cholesterol, Nonfasting <200 mg/dL 200 (H) Triglycerides, Nonfasting <150 mg/dL 100 HDL Cholesterol, Nonfasting >39 mg/dL 54 LDL Cholesterol, Nonfasting <100 mg/dL 126 (H) Non HDL Cholesterol, Nonfasting <130 mg/dL 146 (H) VLDL Cholesterol, Nonfasting <30 mg/dL 20 Total Chol/HDL Ratio, Nonfasting <5.10 mg/dL 3.70 LDL/HDL Ratio, Nonfasting <2.54 mg/dL 2.33 Component Latest Ref Rng & Units 06/28/2022 WBC 3.70 - 11.00 k/uL 10.54 RBC 3.90 - 5.20 m/uL 4.23 Hemoglobin 11.5 - 15.5 g/dL 13.1 Hematocrit 36.0 - 46.0 % 39.9 MCV 80.0 - 100.0 fL 94.3 MCH 26.0 - 34.0 pg 31.0 MCHC 30.5 - 36.0 g/dL 32.8 RDW-CV 11.5 - 15.0 % 12.8 Platelet Count 150 - 400 k/uL 359 MPV 9.0 - 12.7 fL 9.8 Neut% % 61.4 Abs Neut (ANC) 1.45 - 7.50 k/uL 6.48 Lymph% % 25.1 Abs Lymph 1.00 - 4.00 k/uL 2.65 [place]% % 9.9 Abs [place] <0.87 k/uL 1.04 (H) Eosin% % 2.3 Abs Eosin <0.46 k/uL 0.24 Baso% % 0.7 Abs Baso <0.11 k/uL 0.07 Immature Gran % % 0.6 IMMATURE GRANS (ABS) <0.10 k/uL 0.06 NRBC /100 WBC 0.0 Absolute nRBC <0.01 k/uL <0.01 DTYPE Auto BP Controlled (<130/80) Never done Mammogram Screening due on 11/01/2021 Bone Density Screening due on 2022 Pneumococcal Vaccine: 65+(1 - PCV) Never done Advance Directive Discussion Never done Depression Assessment Never done RSV Vaccine(1 - 1-dose 60+ series) due on 06/19/2024 Covid-19 Vaccine(2022- season) due on 06/19/2024 Annual PCP Team Chronic Disease Visit due on 12/19/2023 Colorectal Cancer Screening due on 07/21/2024 Lipid Screening due on 10/20/2025 Diabetes Screening due on 11/16/2025 DTaP,Tdap,Td Vaccine(3 - Td or Tdap) due on 11/28/2027 Influenza Vaccine Completed Hepatitis C Screening Completed Shingrix Vaccine Completed ASSESSMENT/PLAN: 1. Hypertension, essential - ICD9: 401.9, ICD10: I10 (primary diagnosis) - Uncontrolled - Continue current medications - Start lisinopril - Recommend home blood pressure monitoring, to bring results to next visit - Encouraged sodium restriction, DASH or Mediterranean diet - Recommend regular aerobic exercise - Discussed need for and benefit of weight loss. BMI 29.56 kg/(m^2) - Follow up in 4 weeks for hypertension visit - COMP METABOLIC PANEL - HYDROCHLOROTHIAZIDE 25 MG TABLET 2. Screening for hyperlipidemia - ICD9: V77.91, ICD10: Z13.220 - LIPID PANEL BASIC 3. Screening for osteoporosis - ICD9: V82.81, ICD10: Z13.820 - DXA-AXIAL SKELETON 4. Asymptomatic menopause - ICD9: V49.81, ICD10: Z78.0 - DXA-AXIAL SKELETON 5. Pain of maxillary sinus - ICD9: 478.19, ICD10: J34.89 - Will begin treatment with Amoxicillin for 10 days - The patient should also be given OTC cough and cold meds as needed and nasal saline gtts and suction prn for the first 5-7 days of treatment. - Supportive care with plenty of fluids, rest, and analgesia prn. - Follow up in 3-5 days if symptoms persist or worsen. - AMOXICILLIN 875 MG-POTASSIUM CLAVULANATE 125 MG TABLET 7. GERD without esophagitis - ICD9: 530.81, ICD10: K21.9 - stable on current regime - PANTOPRAZOLE 40 MG TABLET,DELAYED RELEASE Ami Harris APRN.SLATE WORKER Prescription instructions reviewed with patient as applicable. Patient advised if symptoms do not improve or if symptoms worsen sooner, to contact their primary care physician. Potential red flag symptoms discussed with the patient. Reviewed appropriate action plan to take if red flag symptoms occur. Patient agreeable to treatment plan. I spent a total of 30 minutes on the date of the service which included preparing to see the patient, [id number] patient care, completing clinical documentation, obtaining and/or reviewing separately obtained history, performing a medically appropriate examination, counseling and educating the patient/family/caregiver, and ordering medications, tests, or procedures. documented in this encounter [facility] 06-16-2023 Miscellaneous Notes Patient has been identified by name and date of : Yes, Provider Date Time Patient phones for refill(s): Requested Prescriptions Pending Prescriptions Disp Refills hydroCHLOROthiazide 25 mg tablet 90 tablet 0 Sig: Take 1 tablet by mouth once daily. Patient states she is out of medication. Date of last office visit in primary care: 12/18/2022 Date of next office visit in primary care: 06/19/2023 Last 2 Encounter Wt Readings: Date: Wt: 12/18/2022 65.2 kg (143 lb 12.8 oz) 11/20/2022 65.8 kg (145 lb) Previous labs/tests for medication: Blood Pressure: BUN (mg/dL) Date Value 11/16/2022 16 10/20/2020 18 Sodium (mmol/L) Date Value 11/16/2022 138 10/20/2020 138 Last 1 Encounter BP Readings: Date: BP: 12/18/2022 140/72 Please advise. Thank you. Nathalia Stevens RN. documented in this encounter [facility] 12-18-2022 Note HNO ID: [id number] Author: Ami Harris APRN.SLATE WORKER Service: ? Author Type: Nurse Practitioner Type: Progress Notes Filed: 12/18/2022 10:47 AM Note Text: 12/18/2022 Patient presents with: Recheck: Blood pressure SUBJECTIVE: This is a 67 year old that is here today for Above Complaints. BP elevated at last office visit so HCTZ was increased. Checking BP at home running about 138-145/50-70's. Sometimes with dizziness, however she has periodically had this in the past Denies visual changes, headaches, slurred speech, facial drooping, extremity numbness, tingling, or weakness PAST MEDICAL HISTORY Diagnosis Date Allergic rhinitis Dr. Salazar for allergy shots Chronic constipation Chronic lower back pain Essential hypertension GERD (gastroesophageal reflux disease) Hyperlipidemia Hypertension, essential 11/03/2022 Impaired fasting glucose OA (osteoarthritis) of knee s/p L TKA Obesity (BMI 30.0-34.9) Other acne Acne PMH - PAST MEDICAL HISTORY OF lactose intolerant PMH - PAST MEDICAL HISTORY OF kidney stones PMH - PAST MEDICAL HISTORY OF rlq abdominal pain Rosacea ALLERGIES Magnesium Citrate and Naproxen MEDICATIONS Current Outpatient Medications Medication Sig hydroCHLOROthiazide 25 mg tablet Take 1 tablet by mouth once daily. meloxicam (MOBIC) 15 mg tablet Take 15 mg by mouth once daily. pantoprazole DR (PROTONIX) 40 mg tablet Take 1 tablet by mouth daily before breakfast. Take on empty stomach, 1/2 hr before meal. polyethylene glycol 3350 (MIRALAX, GLYCOLAX) 17 gram/dose powder Take 17 g by mouth once daily. Dissolve dose in 4 - 8 ounces of liquid and take as directed. docusate sodium (COLACE) 100 mg capsule Take 1 capsule by mouth twice daily as needed for Constipation. loratadine (CLARITIN) 10 mg tablet Take 1 tablet by mouth once daily. fluticasone (FLONASE) 50 mcg/actuation nasal spray Use 2 Sprays in each nostril once daily. Rinse mouth after use. acetaminophen (TYLENOL) 325 mg tablet Take 650 mg by mouth as needed. estradiol (ESTRACE) 1 mg tablet Take 1 tablet by mouth once daily. (Patient taking differently: Take 0.5 mg by mouth once daily.) nicotine polacrilex (NICORETTE) 2 mg gum Take 2 mg by mouth every 2 hours as needed. No current facility-administered medications for this visit. Medications and allergies reviewed by this provider. SOCIAL HISTORY Social History Tobacco Use Smoking status: Former Packs/day: 1.00 Years: 20.00 Pack years: 20.00 Types: Cigarettes Quit date: 07/16/1998 Years since quittin.4 Smokeless tobacco: Never Substance Use Topics Alcohol use: Yes Alcohol/week: 5.0 standard drinks Types: 2 Cans of Beer (12oz) per week Drug use: No REVIEW OF SYSTEMS All other reviewed and negative other than HPI. OBJECTIVE: BP 140/72 Pulse 88 Resp 16 Wt 65.2 kg (143 lb 12.8 oz) SpO2 99% BMI 30.19 kg/m? . Vital signs reviewed by this provider. APPEARANCE Well appearing, alert, in no acute distress, well-hydrated, well nourished. Component Latest Ref Rng AND Units 11/16/2022 Protein, Total 6.3 - 8.0 g/dL 7.2 Albumin 3.9 - 4.9 g/dL 4.3 Calcium 8.5 - 10.2 mg/dL 9.7 Bilirubin, Total 0.2 - 1.3 mg/dL 0.5 Alkaline Phosphatase 34 - 123 U/L 97 AST 13 - 35 U/L 33 ALT 7 - 38 U/L 39 (H) Glucose 74 - 99 mg/dL 111 (H) BUN 7 - 21 mg/dL 16 Creatinine 0.58 - 0.96 mg/dL 0.83 Sodium 136 - 144 mmol/L 138 Potassium 3.7 - 5.1 mmol/L 4.0 Chloride 97 - 105 mmol/L 99 CO2 22 - 30 mmol/L 26 Anion Gap 9 - 18 mmol/L 13 eGFR >=60 mL/min/1.73mA? 78 HIV SCREENING Never done BP CONTROLLED (<130/80) Never done MAMMOGRAM due on 11/01/2021 BONE DENSITY due on 2022 PNEUMOCOCCAL: 65+(1 - PCV) Never done ADVANCE DIRECTIVE DISCUSSION Never done DEPRESSION ASSESSMENT Never done INFLUENZA(Season Ended) due on 03/16/2023 ANNUAL PCP TEAM CHRONIC DISEASE VISIT due on 11/21/2023 COLORECTAL CANCER SCREENING due on 07/21/2024 LIPID SCREEN due on 10/20/2025 DIABETES SCREEN due on 11/16/2025 DTAP,TDAP,TD(3 - Td or Tdap) due on 11/28/2027 HEPATITIS C SCREENING Completed SHINGRIX VACCINE Completed COVID-19 VACCINE Completed ASSESSMENT/PLAN: 1. Hypertension, essential - ICD9: 401.9, ICD10: I10 - Controlled - goal less than 140/90 - discussed with patient to monitor BP at home and notify office if majority greater than 149/90 - Continue current medications - Recommend home blood pressure monitoring, to bring results to next visit - Encouraged sodium restriction, DASH or Mediterranean diet - Recommend regular aerobic exercise - Discussed need for and benefit of weight loss. BMI 30.19 kg/(m2) - Follow up in 6 months for hypertension visit Ami Harris, RV REPAIRER.SLATE WORKER Prescription instructions reviewed with patient as applicable. Patient advised if symptoms do not improve or if symptoms worsen sooner, to contact their primary care physician. Potential red flag symptoms discussed with th (more content not included)... [facility] 12-18-2022 History of Present illness Narrative 12/18/2022 Patient presents with: Recheck: Blood pressure SUBJECTIVE: This is a 67 year old that is here today for Above Complaints. BP elevated at last office visit so HCTZ was increased. Checking BP at home running about 138-145/50-70's. Sometimes with dizziness, however she has periodically had this in the past Denies visual changes, headaches, slurred speech, facial drooping, extremity numbness, tingling, or weakness PAST MEDICAL HISTORY Diagnosis Date Allergic rhinitis Dr. Salazar for allergy shots Chronic constipation Chronic lower back pain Essential hypertension GERD (gastroesophageal reflux disease) Hyperlipidemia Hypertension, essential 11/03/2022 Impaired fasting glucose OA (osteoarthritis) of knee s/p L TKA Obesity (BMI 30.0-34.9) Other acne Acne PMH - PAST MEDICAL HISTORY OF lactose intolerant PMH - PAST MEDICAL HISTORY OF kidney stones PMH - PAST MEDICAL HISTORY OF rlq abdominal pain Rosacea ALLERGIES Magnesium Citrate and Naproxen MEDICATIONS Current Outpatient Medications Medication Sig hydroCHLOROthiazide 25 mg tablet Take 1 tablet by mouth once daily. meloxicam (MOBIC) 15 mg tablet Take 15 mg by mouth once daily. pantoprazole DR (PROTONIX) 40 mg tablet Take 1 tablet by mouth daily before breakfast. Take on empty stomach, 1/2 hr before meal. polyethylene glycol 3350 (MIRALAX, GLYCOLAX) 17 gram/dose powder Take 17 g by mouth once daily. Dissolve dose in 4 - 8 ounces of liquid and take as directed. docusate sodium (COLACE) 100 mg capsule Take 1 capsule by mouth twice daily as needed for Constipation. loratadine (CLARITIN) 10 mg tablet Take 1 tablet by mouth once daily. fluticasone (FLONASE) 50 mcg/actuation nasal spray Use 2 Sprays in each nostril once daily. Rinse mouth after use. acetaminophen (TYLENOL) 325 mg tablet Take 650 mg by mouth as needed. estradiol (ESTRACE) 1 mg tablet Take 1 tablet by mouth once daily. (Patient taking differently: Take 0.5 mg by mouth once daily.) nicotine polacrilex (NICORETTE) 2 mg gum Take 2 mg by mouth every 2 hours as needed. No current facility-administered medications for this visit. Medications and allergies reviewed by this provider. SOCIAL HISTORY Social History Tobacco Use Smoking status: Former Packs/day: 1.00 Years: 20.00 Pack years: 20.00 Types: Cigarettes Quit date: 07/16/1998 Years since quittin.4 Smokeless tobacco: Never Substance Use Topics Alcohol use: Yes Alcohol/week: 5.0 standard drinks Types: 2 Cans of Beer (12oz) per week Drug use: No REVIEW OF SYSTEMS All other reviewed and negative other than HPI. OBJECTIVE: BP 140/72 Pulse 88 Resp 16 Wt 65.2 kg (143 lb 12.8 oz) SpO2 99% BMI 30.19 kg/m . Vital signs reviewed by this provider. APPEARANCE Well appearing, alert, in no acute distress, well-hydrated, well nourished. Component Latest Ref Rng & Units 11/16/2022 Protein, Total 6.3 - 8.0 g/dL 7.2 Albumin 3.9 - 4.9 g/dL 4.3 Calcium 8.5 - 10.2 mg/dL 9.7 Bilirubin, Total 0.2 - 1.3 mg/dL 0.5 Alkaline Phosphatase 34 - 123 U/L 97 AST 13 - 35 U/L 33 ALT 7 - 38 U/L 39 (H) Glucose 74 - 99 mg/dL 111 (H) BUN 7 - 21 mg/dL 16 Creatinine 0.58 - 0.96 mg/dL 0.83 Sodium 136 - 144 mmol/L 138 Potassium 3.7 - 5.1 mmol/L 4.0 Chloride 97 - 105 mmol/L 99 CO2 22 - 30 mmol/L 26 Anion Gap 9 - 18 mmol/L 13 eGFR >=60 mL/min/1.73m 78 HIV SCREENING Never done BP CONTROLLED (<130/80) Never done MAMMOGRAM due on 11/01/2021 BONE DENSITY due on 2022 PNEUMOCOCCAL: 65+(1 - PCV) Never done ADVANCE DIRECTIVE DISCUSSION Never done DEPRESSION ASSESSMENT Never done INFLUENZA(Season Ended) due on 03/16/2023 ANNUAL PCP TEAM CHRONIC DISEASE VISIT due on 11/21/2023 COLORECTAL CANCER SCREENING due on 07/21/2024 LIPID SCREEN due on 10/20/2025 DIABETES SCREEN due on 11/16/2025 DTAP,TDAP,TD(3 - Td or Tdap) due on 11/28/2027 HEPATITIS C SCREENING Completed SHINGRIX VACCINE Completed COVID-19 VACCINE Completed ASSESSMENT/PLAN: 1. Hypertension, essential - ICD9: 401.9, ICD10: I10 - Controlled - goal less than 140/90 - discussed with patient to monitor BP at home and notify office if majority greater than 149/90 - Continue current medications - Recommend home blood pressure monitoring, to bring results to next visit - Encouraged sodium restriction, DASH or Mediterranean diet - Recommend regular aerobic exercise - Discussed need for and benefit of weight loss. BMI 30.19 kg/(m^2) - Follow up in 6 months for hypertension visit Ami Harris, RV REPAIRER.SLATE WORKER Prescription instructions reviewed with patient as applicable. Patient advised if symptoms do not improve or if symptoms worsen sooner, to contact their primary care physician. Potential red flag symptoms discussed with the patient. Reviewed appropriate action plan to take if red flag symptoms occur. Patient agreeable to treatment plan. I spent a total of 20 minutes on the date of the service which included preparing to see the patient, [id number] patient care, completing clinical documentation, obtaining and/or reviewing separately obtained history, performing a medically appropriate examination, counseling and educating the patient/family/caregiver, and ordering medications, tests, or procedures. documented in this encounter [facility] 11-20-2022 Note HNO ID: [id number] Author: Ami Harris APRN.CNP Service: ? Author Type: Nurse Practitioner Type: Progress Notes Filed: 11/20/2022 9:31 AM Note Text: 11/20/2022 Patient presents with: Blood Pressure: 2 week blood pressure follow up SUBJECTIVE: This is a 67 year old that is here today for Above Complaints. BP elevated at last office appointment. HCTZ started. Taking and tolerating without side effects. Not checking BP at home. Denies visual changes, headaches, lightheadedness, dizziness, slurred speech, facial drooping, extremity numbness, tingling, weakness, SOB, dyspnea, chest pain, palpitations, or leg edema PAST MEDICAL HISTORY Diagnosis Date Allergic rhinitis Dr. Salazar for allergy shots Chronic constipation Chronic lower back pain Essential hypertension GERD (gastroesophageal reflux disease) Hyperlipidemia Hypertension, essential 11/03/2022 Impaired fasting glucose OA (osteoarthritis) of knee s/p L TKA Obesity (BMI 30.0-34.9) Other acne Acne PMH - PAST MEDICAL HISTORY OF lactose intolerant PMH - PAST MEDICAL HISTORY OF kidney stones PMH - PAST MEDICAL HISTORY OF rlq abdominal pain Rosacea ALLERGIES Magnesium Citrate and Naproxen MEDICATIONS Current Outpatient Medications Medication Sig meloxicam (MOBIC) 15 mg tablet Take 15 mg by mouth once daily. hydroCHLOROthiazide 12.5 mg tablet Take 1 tablet by mouth once daily. pantoprazole DR (PROTONIX) 40 mg tablet Take 1 tablet by mouth daily before breakfast. Take on empty stomach, 1/2 hr before meal. polyethylene glycol 3350 (MIRALAX, GLYCOLAX) 17 gram/dose powder Take 17 g by mouth once daily. Dissolve dose in 4 - 8 ounces of liquid and take as directed. docusate sodium (COLACE) 100 mg capsule Take 1 capsule by mouth twice daily as needed for Constipation. loratadine (CLARITIN) 10 mg tablet Take 1 tablet by mouth once daily. fluticasone (FLONASE) 50 mcg/actuation nasal spray Use 2 Sprays in each nostril once daily. Rinse mouth after use. acetaminophen (TYLENOL) 325 mg tablet Take 650 mg by mouth as needed. estradiol (ESTRACE) 1 mg tablet Take 1 tablet by mouth once daily. (Patient taking differently: Take 0.5 mg by mouth once daily.) nicotine polacrilex (NICORETTE) 2 mg gum Take 2 mg by mouth every 2 hours as needed. No current facility-administered medications for this visit. Medications and allergies reviewed by this provider. SOCIAL HISTORY Social History Tobacco Use Smoking status: Former Packs/day: 1.00 Years: 20.00 Pack years: 20.00 Types: Cigarettes Quit date: 07/16/1998 Years since quittin.3 Smokeless tobacco: Never Substance Use Topics Alcohol use: Yes Alcohol/week: 5.0 standard drinks Types: 2 Cans of Beer (12oz) per week Drug use: No REVIEW OF SYSTEMS All other reviewed and negative other than HPI. OBJECTIVE: BP 159/82 Pulse 87 Resp 18 Wt 65.8 kg (145 lb) SpO2 98% BMI 30.44 kg/m? . Vital signs reviewed by this provider. APPEARANCE Well appearing, alert, in no acute distress, well-hydrated, well nourished. Component Latest Ref Rng AND Units 11/16/2022 Protein, Total 6.3 - 8.0 g/dL 7.2 Albumin 3.9 - 4.9 g/dL 4.3 Calcium 8.5 - 10.2 mg/dL 9.7 Bilirubin, Total 0.2 - 1.3 mg/dL 0.5 Alkaline Phosphatase 34 - 123 U/L 97 AST 13 - 35 U/L 33 ALT 7 - 38 U/L 39 (H) Glucose 74 - 99 mg/dL 111 (H) BUN 7 - 21 mg/dL 16 Creatinine 0.58 - 0.96 mg/dL 0.83 Sodium 136 - 144 mmol/L 138 Potassium 3.7 - 5.1 mmol/L 4.0 Chloride 97 - 105 mmol/L 99 CO2 22 - 30 mmol/L 26 Anion Gap 9 - 18 mmol/L 13 eGFR >=60 mL/min/1.73mA? 78 HIV SCREENING Never done BP CONTROLLED (<130/80) Never done MAMMOGRAM due on 11/01/2021 BONE DENSITY due on 2022 PNEUMOCOCCAL: 65+(1 - PCV) Never done ADVANCE DIRECTIVE DISCUSSION Never done DEPRESSION ASSESSMENT Never done INFLUENZA(Season Ended) due on 03/16/2023 ANNUAL PCP TEAM CHRONIC DISEASE VISIT due on 11/04/2023 COLORECTAL CANCER SCREENING due on 07/21/2024 LIPID SCREEN due on 10/20/2025 DIABETES SCREEN due on 11/16/2025 DTAP,TDAP,TD(3 - Td or Tdap) due on 11/28/2027 HEPATITIS C SCREENING Completed SHINGRIX VACCINE Completed COVID-19 VACCINE Completed ASSESSMENT/PLAN: 1. Hypertension, essential - ICD9: 401.9, ICD10: I10 - suboptimal control - Increase HCTZ - Encouraged dietary sodium restriction/DASH diet - Recommended regular aerobic exercise. - Recommend home blood pressure monitoring, to bring results in on next visit - Discussed need and benefit for weight loss. - Recheck in 1 month, sooner should new symptoms or problems arise. - Goal of BP <140/90 - Recommend home or pharmacy blood pressure monitoring - Recommended no refined sugar, low refined starch, healthy oil intake (olive oil), healthy protein (fish) along the lines of the Mediterranean diet. - HYDROCHLOROTHIAZIDE 25 MG TABLET Ami Harris, RV REPAIRER.SLATE WORKER Prescription instructions reviewed with patient as appl (more content not included)... [facility] 11-20-2022 Nurse Note APOLLO BP average: BP 159/82 P 87 #1 BP 175/76 P 87 #2 BP 164/84 P 97 #3 BP 165/82 P 88 #4 BP 160/77 P 84 #5 BP 150/83 P 85 #6 BP 156/84 P 82 Dania Izquierdo LPN documented in this encounter [facility] 11-20-2022 History of Present illness Narrative 11/20/2022 Patient presents with: Blood Pressure: 2 week blood pressure follow up SUBJECTIVE: This is a 67 year old that is here today for Above Complaints. BP elevated at last office appointment. HCTZ started. Taking and tolerating without side effects. Not checking BP at home. Denies visual changes, headaches, lightheadedness, dizziness, slurred speech, facial drooping, extremity numbness, tingling, weakness, SOB, dyspnea, chest pain, palpitations, or leg edema PAST MEDICAL HISTORY Diagnosis Date Allergic rhinitis Dr. Salazar for allergy shots Chronic constipation Chronic lower back pain Essential hypertension GERD (gastroesophageal reflux disease) Hyperlipidemia Hypertension, essential 11/03/2022 Impaired fasting glucose OA (osteoarthritis) of knee s/p L TKA Obesity (BMI 30.0-34.9) Other acne Acne PMH - PAST MEDICAL HISTORY OF lactose intolerant PMH - PAST MEDICAL HISTORY OF kidney stones PMH - PAST MEDICAL HISTORY OF rlq abdominal pain Rosacea ALLERGIES Magnesium Citrate and Naproxen MEDICATIONS Current Outpatient Medications Medication Sig meloxicam (MOBIC) 15 mg tablet Take 15 mg by mouth once daily. hydroCHLOROthiazide 12.5 mg tablet Take 1 tablet by mouth once daily. pantoprazole DR (PROTONIX) 40 mg tablet Take 1 tablet by mouth daily before breakfast. Take on empty stomach, 1/2 hr before meal. polyethylene glycol 3350 (MIRALAX, GLYCOLAX) 17 gram/dose powder Take 17 g by mouth once daily. Dissolve dose in 4 - 8 ounces of liquid and take as directed. docusate sodium (COLACE) 100 mg capsule Take 1 capsule by mouth twice daily as needed for Constipation. loratadine (CLARITIN) 10 mg tablet Take 1 tablet by mouth once daily. fluticasone (FLONASE) 50 mcg/actuation nasal spray Use 2 Sprays in each nostril once daily. Rinse mouth after use. acetaminophen (TYLENOL) 325 mg tablet Take 650 mg by mouth as needed. estradiol (ESTRACE) 1 mg tablet Take 1 tablet by mouth once daily. (Patient taking differently: Take 0.5 mg by mouth once daily.) nicotine polacrilex (NICORETTE) 2 mg gum Take 2 mg by mouth every 2 hours as needed. No current facility-administered medications for this visit. Medications and allergies reviewed by this provider. SOCIAL HISTORY Social History Tobacco Use Smoking status: Former Packs/day: 1.00 Years: 20.00 Pack years: 20.00 Types: Cigarettes Quit date: 07/16/1998 Years since quittin.3 Smokeless tobacco: Never Substance Use Topics Alcohol use: Yes Alcohol/week: 5.0 standard drinks Types: 2 Cans of Beer (12oz) per week Drug use: No REVIEW OF SYSTEMS All other reviewed and negative other than HPI. OBJECTIVE: BP 159/82 Pulse 87 Resp 18 Wt 65.8 kg (145 lb) SpO2 98% BMI 30.44 kg/m . Vital signs reviewed by this provider. APPEARANCE Well appearing, alert, in no acute distress, well-hydrated, well nourished. Component Latest Ref Rng & Units 11/16/2022 Protein, Total 6.3 - 8.0 g/dL 7.2 Albumin 3.9 - 4.9 g/dL 4.3 Calcium 8.5 - 10.2 mg/dL 9.7 Bilirubin, Total 0.2 - 1.3 mg/dL 0.5 Alkaline Phosphatase 34 - 123 U/L 97 AST 13 - 35 U/L 33 ALT 7 - 38 U/L 39 (H) Glucose 74 - 99 mg/dL 111 (H) BUN 7 - 21 mg/dL 16 Creatinine 0.58 - 0.96 mg/dL 0.83 Sodium 136 - 144 mmol/L 138 Potassium 3.7 - 5.1 mmol/L 4.0 Chloride 97 - 105 mmol/L 99 CO2 22 - 30 mmol/L 26 Anion Gap 9 - 18 mmol/L 13 eGFR >=60 mL/min/1.73m 78 HIV SCREENING Never done BP CONTROLLED (<130/80) Never done MAMMOGRAM due on 11/01/2021 BONE DENSITY due on 2022 PNEUMOCOCCAL: 65+(1 - PCV) Never done ADVANCE DIRECTIVE DISCUSSION Never done DEPRESSION ASSESSMENT Never done INFLUENZA(Season Ended) due on 03/16/2023 ANNUAL PCP TEAM CHRONIC DISEASE VISIT due on 11/04/2023 COLORECTAL CANCER SCREENING due on 07/21/2024 LIPID SCREEN due on 10/20/2025 DIABETES SCREEN due on 11/16/2025 DTAP,TDAP,TD(3 - Td or Tdap) due on 11/28/2027 HEPATITIS C SCREENING Completed SHINGRIX VACCINE Completed COVID-19 VACCINE Completed ASSESSMENT/PLAN: 1. Hypertension, essential - ICD9: 401.9, ICD10: I10 - suboptimal control - Increase HCTZ - Encouraged dietary sodium restriction/DASH diet - Recommended regular aerobic exercise. - Recommend home blood pressure monitoring, to bring results in on next visit - Discussed need and benefit for weight loss. - Recheck in 1 month, sooner should new symptoms or problems arise. - Goal of BP <140/90 - Recommend home or pharmacy blood pressure monitoring - Recommended no refined sugar, low refined starch, healthy oil intake (olive oil), healthy protein (fish) along the lines of the Mediterranean diet. - HYDROCHLOROTHIAZIDE 25 MG TABLET Ami Harris APRN.SAMM Prescription instructions reviewed with patient as applicable. Patient advised if symptoms do not improve or if symptoms worsen sooner, to contact their primary care physician. Potential red flag symptoms discussed with the patient. Reviewed appropriate action plan to take if red flag symptoms occur. Patient agreeable to treatment plan. I spent a total of 20 minutes on the date of the service which included preparing to see the patient, [id number] patient care, completing clinical documentation, obtaining and/or reviewing separately obtained history, performing a medically appropriate examination, counseling and educating the patient/family/caregiver, and ordering medications, tests, or procedures. documented in this encounter [facility] 11-08-2022 Note Patient Outreach (IN [facility]) MUKESH ROSENBERG ([id number]) 1955 F Date Time Provider Department 11/08/22 JOSE PIKE During your visit today, we recorded the following information about you: Allergies As of Date: 11/08/2022 Noted Allergy Reaction MAGNESIUM CITRATE 01/29/2006 11 - Vomiting NAPROXEN 03/29/2011 14 - Other: See Comments Comments: fluid retention Date Reviewed: 11/03/2022 Reviewed by: Marta Gaming LPN - Fully Assessed Visit Diagnosis:Encounter for screening mammogram for breast cancer [Z12.31] Order(s):[facility] SCREENING [[id number]] Order #: [id number] FUTURE Prescriptions as of 11/13/2022 - meloxicam (MOBIC) 15 mg tablet Take 15 mg by mouth once daily. - hydroCHLOROthiazide 12.5 mg tablet Take 1 tablet by mouth once daily. - pantoprazole DR (PROTONIX) 40 mg tablet Take 1 tablet by mouth daily before breakfast. Take on empty stomach, 1/2 hr before meal. - polyethylene glycol 3350 (MIRALAX, GLYCOLAX) 17 gram/dose powder Take 17 g by mouth once daily. Dissolve dose in 4 - 8 ounces of liquid and take as directed. - docusate sodium (COLACE) 100 mg capsule Take 1 capsule by mouth twice daily as needed for Constipation. - loratadine (CLARITIN) 10 mg tablet Take 1 tablet by mouth once daily. - fluticasone (FLONASE) 50 mcg/actuation nasal spray Use 2 Sprays in each nostril once daily. Rinse mouth after use. - acetaminophen (TYLENOL) 325 mg tablet Take 650 mg by mouth as needed. - estradiol (ESTRACE) 1 mg tablet Take 1 tablet by mouth once daily. - nicotine polacrilex (NICORETTE) 2 mg gum Take 2 mg by mouth every 2 hours as needed. Problem List As Of Date 11/08/2022 Noted Resolved UNSP ABNORMAL MAMMOGRAM [R92.8] 07/25/2007 Sciatica [M54.30] 01/06/2013 Impingement syndrome of left shoulder [M75.42] 03/27/2013 Abnormal nuclear stress test [R94.39] 10/21/2014 Dysphagia [R13.10] 10/21/2014 Chest pain, unspecified [R07.9] 10/21/2014 Odynophagia [R13.10] 10/21/2014 Gastroesophageal reflux disease without esophag*02/05/2016 Primary osteoarthritis involving multiple joint*02/05/2016 Rosacea [L71.9] 06/23/2016 Hyperlipidemia [E78.5] Impaired fasting glucose [R73.01] GERD (gastroesophageal reflux disease) [K21.9] Chronic right-sided low back pain with right-si*12/24/2020 Hypertension, essential [I10] 11/03/2022 Encounter Status:Closed by MARTIN, PRODUSER on 11/13/22 [facility] 11-03-2022 Note HNO ID: [id number] Author: Jose Pike MD Service: ? Author Type: Physician Type: Progress Notes Filed: 11/03/2022 8:40 AM Note Text: Chief Complaint Patient presents with: Follow Up: Regarding knee replacement c/o numbness down leg and had a med change Blood Pressure: Reports was going up and down prior to surgery HPI Mukesh Rosenberg is a 67 year old female who presents here today for Above Complaints.. Patient had left knee replacement in June and states that she has been following up with Dr. Coleman's office for numbness down her left leg. Numbness over medial and anterior aspect of left LE. States that they had to give her a different medication than usual for nerve block which may be contributing. Has follow up in December to reassess. Told it could be up to a year for her sensation to come back. No weakness. Patient has had elevated BP at several office visits. No history of HTN. Not checking BP at home, but has cuff. Denies HTN symptoms. Eating low sodium diet. Not exercising regularly. Medications working well. Meloxicam working better than Celebrex for chronic back pain, but is needing this daily. Past medical history, appointments, medications, allergies reviewed. Previous Medical History PAST MEDICAL HISTORY Diagnosis Date Allergic rhinitis Dr. Salazar for allergy shots Chronic constipation Chronic lower back pain GERD (gastroesophageal reflux disease) Hyperlipidemia Impaired fasting glucose Obesity (BMI 30.0-34.9) Other acne Acne PMH - PAST MEDICAL HISTORY OF lactose intolerant PMH - PAST MEDICAL HISTORY OF kidney stones PMH - PAST MEDICAL HISTORY OF rlq abdominal pain Rosacea Previous Surgical History PAST SURGICAL HISTORY Procedure Laterality Date BX BREAST PERC VACUUM/ROTN 08/02/2007 RIGHT BX BREAST PERC VACUUM/ROTN 08/02/2007 RIGHT COLONOSCOPY FLX DX W/COLLJ SPEC WHEN PFRMD 08/25/2013 Colonoscopy COLONOSCOPY FLX DX W/COLLJ SPEC WHEN PFRMD 07/21/2019 Colonoscopy ESOPHAGOGASTRODUODENOSCOPY TRANSORAL DIAGNOSTIC 11/23/2014 EGD HEMORRHOID SURGERY HX 02/2020 NEUROPLASTY AND/TRANSPOS MEDIAN NRV CARPAL TUNNE ryan hands Carpal tunnel decomp PAST SURGICAL HISTORY OF Left 05/22/2018 L knee arthroplasty with medial menisectomy and subchondroplasty PLCMT LOCALZTN CLIP,PERC,DURING BREAST BX 08/02/2007 RIGHT PLCMT LOCALZTN CLIP,PERC,DURING BREAST BX 08/02/2007 RIGHT SALPINGO-OOPHORECTOMY COMPL/PRTL UNI/BI SPX 12/08/1997 Salpingo-oophorectomy bilateral TONSILLECTOMY PRIMARY/SECONDARY Tonsillectomy VAGINAL HYSTERECTOMY UTERUS 250 GM/< 12/08/1997 Hysterectomy, vaginal LAPAROSCOPIC ASSISTED Family History FAMILY HISTORY Problem Relation Age of Onset Hypertension Father rapid heart beat, tia Stroke Father Cancer Brother leukemia Hypertension Mother other (only child now) Other Cancer Maternal Grandfather skin Patient Allergies ALLERGIES Allergen Reactions Magnesium Citrate Vomiting Naproxen Other: See Comments fluid retention Current Medications Current Outpatient Medications on File Prior to Visit Medication Sig pantoprazole DR (PROTONIX) 40 mg tablet Take 1 tablet by mouth daily before breakfast. Take on empty stomach, 1/2 hr before meal. polyethylene glycol 3350 (MIRALAX, GLYCOLAX) 17 gram/dose powder Take 17 g by mouth once daily. Dissolve dose in 4 - 8 ounces of liquid and take as directed. celecoxib (CELEBREX) 200 mg capsule Take 1 capsule by mouth twice daily. docusate sodium (COLACE) 100 mg capsule Take 1 capsule by mouth twice daily as needed for Constipation. loratadine (CLARITIN) 10 mg tablet Take 1 tablet by mouth once daily. fluticasone (FLONASE) 50 mcg/actuation nasal spray Use 2 Sprays in each nostril once daily. Rinse mouth after use. acetaminophen (TYLENOL) 325 mg tablet Take 650 mg by mouth as needed. estradiol (ESTRACE) 1 mg tablet Take 1 tablet by mouth once daily. nicotine polacrilex (NICORETTE) 2 mg gum Take 2 mg by mouth every 2 hours as needed. No current facility-administered medications on file prior to visit. Social History Social History Tobacco Use Smoking status: Former Packs/day: 1.00 Years: 20.00 Pack years: 20.00 Types: Cigarettes Quit date: 07/16/1998 Years since quittin.3 Smokeless tobacco: Never Substance Use Topics Alcohol use: Yes Alcohol/week: 5.0 standard drinks Types: 2 Cans of Beer (12oz) per week Drug use: No Review of Symptoms REVIEW OF SYSTEMS GENERAL: No weight loss, malaise or fevers RESPIRATORY: Negative for cough, hemoptysis, wheezing, COPD, dyspnea or shortness of breath CARDIOVASCULAR: Negative for chest pain, leg swelling, hypertension, CHF or palpitations GI: No nausea, vomiting, or diarrhea SKIN: Negative for lesions, rash, and itching EXAM: BP 146/74 Pulse 92 Resp 16 Wt 65 kg (143 lb 3.2 oz) SpO2 96% BMI 30.06 kg/m? General Appearance: Well appearing, alert, (more content not included)... [facility] 11-03-2022 History of Present illness Narrative Chief Complaint Patient presents with: Follow Up: Regarding knee replacement c/o numbness down leg and had a med change Blood Pressure: Reports was going up and down prior to surgery HPI Mukesh Rosenberg is a 67 year old female who presents here today for Above Complaints.. Patient had left knee replacement in June and states that she has been following up with Dr. Coleman's office for numbness down her left leg. Numbness over medial and anterior aspect of left LE. States that they had to give her a different medication than usual for nerve block which may be contributing. Has follow up in December to reassess. Told it could be up to a year for her sensation to come back. No weakness. Patient has had elevated BP at several office visits. No history of HTN. Not checking BP at home, but has cuff. Denies HTN symptoms. Eating low sodium diet. Not exercising regularly. Medications working well. Meloxicam working better than Celebrex for chronic back pain, but is needing this daily. Past medical history, appointments, medications, allergies reviewed. Previous Medical History PAST MEDICAL HISTORY Diagnosis Date Allergic rhinitis Dr. Salazar for allergy shots Chronic constipation Chronic lower back pain GERD (gastroesophageal reflux disease) Hyperlipidemia Impaired fasting glucose Obesity (BMI 30.0-34.9) Other acne Acne PMH - PAST MEDICAL HISTORY OF lactose intolerant PMH - PAST MEDICAL HISTORY OF kidney stones PMH - PAST MEDICAL HISTORY OF rlq abdominal pain Rosacea Previous Surgical History PAST SURGICAL HISTORY Procedure Laterality Date BX BREAST PERC VACUUM/ROTN 08/02/2007 RIGHT BX BREAST PERC VACUUM/ROTN 08/02/2007 RIGHT COLONOSCOPY FLX DX W/COLLJ SPEC WHEN PFRMD 08/25/2013 Colonoscopy COLONOSCOPY FLX DX W/COLLJ SPEC WHEN PFRMD 07/21/2019 Colonoscopy ESOPHAGOGASTRODUODENOSCOPY TRANSORAL DIAGNOSTIC 11/23/2014 EGD HEMORRHOID SURGERY HX 02/2020 NEUROPLASTY &/TRANSPOS MEDIAN NRV CARPAL TUNNE ryan hands Carpal tunnel decomp PAST SURGICAL HISTORY OF Left 05/22/2018 L knee arthroplasty with medial menisectomy and subchondroplasty PLCMT LOCALZTN CLIP,PERC,DURING BREAST BX 08/02/2007 RIGHT PLCMT LOCALZTN CLIP,PERC,DURING BREAST BX 08/02/2007 RIGHT SALPINGO-OOPHORECTOMY COMPL/PRTL UNI/BI SPX 12/08/1997 Salpingo-oophorectomy bilateral TONSILLECTOMY PRIMARY/SECONDARY <AGE 12 Tonsillectomy VAGINAL HYSTERECTOMY UTERUS 250 GM/< 12/08/1997 Hysterectomy, vaginal LAPAROSCOPIC ASSISTED Family History FAMILY HISTORY Problem Relation Age of Onset Hypertension Father rapid heart beat, tia Stroke Father Cancer Brother leukemia Hypertension Mother other (only child now) Other Cancer Maternal Grandfather skin Patient Allergies ALLERGIES Allergen Reactions Magnesium Citrate Vomiting Naproxen Other: See Comments fluid retention Current Medications Current Outpatient Medications on File Prior to Visit Medication Sig pantoprazole DR (PROTONIX) 40 mg tablet Take 1 tablet by mouth daily before breakfast. Take on empty stomach, 1/2 hr before meal. polyethylene glycol 3350 (MIRALAX, GLYCOLAX) 17 gram/dose powder Take 17 g by mouth once daily. Dissolve dose in 4 - 8 ounces of liquid and take as directed. celecoxib (CELEBREX) 200 mg capsule Take 1 capsule by mouth twice daily. docusate sodium (COLACE) 100 mg capsule Take 1 capsule by mouth twice daily as needed for Constipation. loratadine (CLARITIN) 10 mg tablet Take 1 tablet by mouth once daily. fluticasone (FLONASE) 50 mcg/actuation nasal spray Use 2 Sprays in each nostril once daily. Rinse mouth after use. acetaminophen (TYLENOL) 325 mg tablet Take 650 mg by mouth as needed. estradiol (ESTRACE) 1 mg tablet Take 1 tablet by mouth once daily. nicotine polacrilex (NICORETTE) 2 mg gum Take 2 mg by mouth every 2 hours as needed. No current facility-administered medications on file prior to visit. Social History Social History Tobacco Use Smoking status: Former Packs/day: 1.00 Years: 20.00 Pack years: 20.00 Types: Cigarettes Quit date: 07/16/1998 Years since quittin.3 Smokeless tobacco: Never Substance Use Topics Alcohol use: Yes Alcohol/week: 5.0 standard drinks Types: 2 Cans of Beer (12oz) per week Drug use: No Review of Symptoms REVIEW OF SYSTEMS GENERAL: No weight loss, malaise or fevers RESPIRATORY: Negative for cough, hemoptysis, wheezing, COPD, dyspnea or shortness of breath CARDIOVASCULAR: Negative for chest pain, leg swelling, hypertension, CHF or palpitations GI: No nausea, vomiting, or diarrhea SKIN: Negative for lesions, rash, and itching EXAM: BP 146/74 Pulse 92 Resp 16 Wt 65 kg (143 lb 3.2 oz) SpO2 96% BMI 30.06 kg/m General Appearance: Well appearing, alert, in no acute distress, well-hydrated, well nourished.. Skin: Skin color, texture, turgor normal, no suspicious rashes or lesions. Lungs: Lungs clear to auscultation. No wheezing, rhonchi, rales.. Heart: RRR without murmur, gallop, or rubs. No ectopy. Abdomen: Normal abdominal exam, Abdomen soft, non-tender. Bowel sounds normal. No masses, organomegaly. Extremities: No deformities, edema, skin discoloration, clubbing or cyanosis. Good capillary refill. . Neurologic: Gait normal. Decreased sensation to light touch on medial and anterior aspect of left LE. 5/5 strength. Health Maintenance List HIV SCREENING Never done MAMMOGRAM due on 11/01/2021 BONE DENSITY due on 2022 PNEUMOCOCCAL: 65+(1 - PCV) Never done ADVANCE DIRECTIVE DISCUSSION Never done DEPRESSION ASSESSMENT Never done INFLUENZA(Season Ended) due on 03/16/2023 COLORECTAL CANCER SCREENING due on 07/21/2024 DIABETES SCREEN due on 06/28/2025 LIPID SCREEN due on 10/20/2025 DTAP,TDAP,TD(3 - Td or Tdap) due on 11/28/2027 HEPATITIS C SCREENING Completed SHINGRIX VACCINE Completed COVID-19 VACCINE Completed Data reviewed Component Latest Ref Rng & Units 10/20/2020 06/28/2022 WBC 3.70 - 11.00 k/uL 8.47 10.54 RBC 3.90 - 5.20 m/uL 4.21 4.23 Hemoglobin 11.5 - 15.5 g/dL 13.1 13.1 Hematocrit 36.0 - 46.0 % 40.0 39.9 MCV 80.0 - 100.0 fL 95.0 94.3 MCH 26.0 - 34.0 pg 31.1 31.0 MCHC 30.5 - 36.0 g/dL 32.8 32.8 RDW-CV 11.5 - 15.0 % 12.8 12.8 Platelet Count 150 - 400 k/uL 304 359 MPV 9.0 - 12.7 fL 9.7 9.8 Neut% % 61.4 Abs Neut (ANC) 1.45 - 7.50 k/uL 6.48 Lymph% % 25.1 Abs Lymph 1.00 - 4.00 k/uL 2.65 [place]% % 9.9 Abs [place] <0.87 k/uL 1.04 (H) Eosin% % 2.3 Abs Eosin <0.46 k/uL 0.24 Baso% % 0.7 Abs Baso <0.11 k/uL 0.07 Immature Gran % % 0.6 IMMATURE GRANS (ABS) <0.10 k/uL 0.06 NRBC /100 WBC 0.0 Absolute nRBC <0.01 k/uL <0.01 <0.01 DTYPE Auto Protein, Total 6.3 - 8.0 g/dL 7.2 6.8 Albumin 3.9 - 4.9 g/dL 4.3 4.2 Calcium 8.5 - 10.2 mg/dL 9.5 9.1 Bilirubin, Total 0.2 - 1.3 mg/dL 0.7 0.4 Alkaline Phosphatase 34 - 123 U/L 81 94 AST 13 - 35 U/L 27 20 Glucose 74 - 99 mg/dL 100 (H) 88 BUN 7 - 21 mg/dL 18 15 Creatinine 0.58 - 0.96 mg/dL 0.68 0.73 Sodium 136 - 144 mmol/L 138 137 Potassium 3.7 - 5.1 mmol/L 4.3 4.3 Chloride 97 - 105 mmol/L 103 102 CO2 22 - 30 mmol/L 27 26 Anion Gap 9 - 18 mmol/L 8 (L) 9 ALT 7 - 38 U/L 26 23 eGFR- >60 eGFR-All Other Races . >60 eGFR >=60 mL/min/1.73m 91 Total Cholesterol, Nonfasting <200 mg/dL 200 (H) Triglycerides, Nonfasting <150 mg/dL 100 HDL Cholesterol, Nonfasting >39 mg/dL 54 LDL Cholesterol, Nonfasting <100 mg/dL 126 (H) Non HDL Cholesterol, Nonfasting <130 mg/dL 146 (H) VLDL Cholesterol, Nonfasting <30 mg/dL 20 Total Chol/HDL Ratio, Nonfasting <5.10 mg/dL 3.70 LDL/HDL Ratio, Nonfasting <2.54 mg/dL 2.33 Hemoglobin A1C 4.3 - 5.6 % 5.8 (H) Estimated Average Glucose mg/dL 120 ASSESSMENT/PLAN: 1. Left leg numbness - ICD9: 782.0, ICD10: R20.0 (primary diagnosis) Numbness since left knee replacement. Has follow up with ortho in December. No weakness on exam. Will f/u recommendations. 2. S/P total knee arthroplasty, left - ICD9: V43.65, ICD10: Z96.652 Healing well. No concerns aside from above. 3. Gastroesophageal reflux disease, unspecified whether esophagitis present - ICD9: 530.81, ICD10: K21.9 - Continue treatment with Protonix 40 QD 4. Chronic right-sided low back pain with right-sided sciatica - ICD9: 724.2, 724.3, 338.29, ICD10: M54.41, G89.29 Chronic low back pain Controlled on Meloxicam. Needing NSAIDs on a daily basis. Will discuss alternate strategies to treat back pain a future OV. 5. Hypertension, essential - ICD9: 401.9, ICD10: I10 - newly diagnosed - Add HCTZ - Encouraged dietary sodium restriction/DASH diet - Recommended regular aerobic exercise. - Reviewed risks of HTN and principles of treatment - Goal of BP <140/90 - COMP METABOLIC PANEL Medical Decision Making: Problems: Moderate: New problem with uncertain prognosis Data: Unique test result(s) reviewed: 3+ Unique test(s) ordered: 1 Risk: Moderate: Drug management Medical Decision Making Level: 4 - Moderate Jose Pike MD documented in this encounter [facility] 10-27-2022 Miscellaneous Notes Last office visit: 07/04/22 F/u scheduled: 11/03/22 Ofelia Rodriges Ma Patient has been identified by name and date of : Yes Requested Prescriptions Pending Prescriptions Disp Refills pantoprazole DR (PROTONIX) 40 mg tablet 90 tablet 3 Sig: Take 1 tablet by mouth daily before breakfast. Take on empty stomach, 1/2 hr before meal. RX INSTRUCTIONS: Patient aware RX will be sent to pharmacy. No need to notify patient. Renetta Reese [employer] documented in this encounter [facility] 07-05-2022 Miscellaneous Notes Paperwork faxed to [facility] at this time. Dania Izquierdo LPN Please fax Surgical clearance form with copy of labs, office note, chest xray report and EKG to [facility]. All of this is in my outbox. Ami Harris APRN.CNP documented in this encounter [facility] 07-05-2022 Miscellaneous Notes Patient notified of message below. Voices understanding. Dania Izquierdo LPN Please call patient and let her know her chest xray is normal. I will send all her information to the [facility] for her clearance for surgery. Ami Harris APRN.CNP documented in this encounter [facility] 07-04-2022 History of Present illness Narrative 07/04/2022 Patient presents with: Follow Up: Blood pressure SUBJECTIVE: This is a 67 year old that is here today for Above Complaints. BP elevated at last appointment. No hx of HTN and not taking any BP medications. Here for recheck today. Surgery date upcoming for knee replacement. Denies headaches, visual changes, slurred speech, facial drooping, confusion, extremity numbness, tingling, weakness, SOB, dyspnea, or chest pain. PAST MEDICAL HISTORY Diagnosis Date Allergic rhinitis Dr. Salazar for allergy shots Chronic constipation Chronic lower back pain GERD (gastroesophageal reflux disease) Hyperlipidemia Impaired fasting glucose Obesity (BMI 30.0-34.9) Other acne Acne PMH - PAST MEDICAL HISTORY OF lactose intolerant PMH - PAST MEDICAL HISTORY OF kidney stones PMH - PAST MEDICAL HISTORY OF rlq abdominal pain Rosacea ALLERGIES Magnesium Citrate and Naproxen MEDICATIONS Current Outpatient Medications Medication Sig polyethylene glycol 3350 (MIRALAX, GLYCOLAX) 17 gram/dose powder Take 17 g by mouth once daily. Dissolve dose in 4 - 8 ounces of liquid and take as directed. celecoxib (CELEBREX) 200 mg capsule Take 1 capsule by mouth twice daily. pantoprazole DR (PROTONIX) 40 mg tablet Take 1 tablet by mouth daily before breakfast. Take on empty stomach, 1/2 hr before meal. docusate sodium (COLACE) 100 mg capsule Take 1 capsule by mouth twice daily as needed for Constipation. loratadine (CLARITIN) 10 mg tablet Take 1 tablet by mouth once daily. fluticasone (FLONASE) 50 mcg/actuation nasal spray Use 2 Sprays in each nostril once daily. Rinse mouth after use. acetaminophen (TYLENOL) 325 mg tablet Take 650 mg by mouth as needed. estradiol (ESTRACE) 1 mg tablet Take 1 tablet by mouth once daily. nicotine polacrilex (NICORETTE) 2 mg gum Take 2 mg by mouth every 2 hours as needed. No current facility-administered medications for this visit. Medications and allergies reviewed by this provider. SOCIAL HISTORY Social History Tobacco Use Smoking status: Former Packs/day: 1.00 Years: 20.00 Pack years: 20.00 Types: Cigarettes Quit date: 07/16/1998 Years since quittin.9 Smokeless tobacco: Never Substance Use Topics Alcohol use: Yes Alcohol/week: 5.0 standard drinks Types: 2 Cans of Beer (12oz) per week Drug use: No REVIEW OF SYSTEMS All other reviewed and negative other than HPI. OBJECTIVE: BP 140/80 Pulse 86 Resp 16 Wt 65.4 kg (144 lb 3.2 oz) SpO2 98% BMI 30.27 kg/m . Vital signs reviewed by this provider. APPEARANCE Well appearing, alert, in no acute distress, well-hydrated, well nourished. HIV SCREENING Never done DEPRESSION ASSESSMENT Never done MAMMOGRAM due on 11/01/2021 BONE DENSITY due on 2022 ADVANCE DIRECTIVE DISCUSSION Never done PNEUMOCOCCAL: 65+(1 - PCV) Never done INFLUENZA(1) due on 01/12/2023 COLORECTAL CANCER SCREENING due on 07/21/2024 DIABETES SCREEN due on 06/28/2025 LIPID SCREEN due on 10/20/2025 DTAP,TDAP,TD(3 - Td or Tdap) due on 11/28/2027 HEPATITIS C SCREENING Completed SHINGRIX VACCINE Completed COVID-19 VACCINE Completed ASSESSMENT/PLAN: 1. Blood pressure check - ICD9: V81.1, ICD10: Z01.30 - improved - if chest xray normal will clear for surgery - would recommend she monitor BP at home and call if consistent readings of greater than 140/90 Ami Harris APRN.SAMM Prescription instructions reviewed with patient as applicable. Patient advised if symptoms do not improve or if symptoms worsen sooner, to contact their primary care physician. Potential red flag symptoms discussed with the patient. Reviewed appropriate action plan to take if red flag symptoms occur. Patient agreeable to treatment plan. I spent a total of 20 minutes on the date of the service which included preparing to see the patient, gmpj-jp-qvog patient care, completing clinical documentation, obtaining and/or reviewing separately obtained history, performing a medically appropriate examination, and counseling and educating the patient/family/caregiver. documented in this encounter [facility] 06-30-2022 Miscellaneous Notes Patient returned call and given provider's message below. Jasper Arias RN Called and left a voicemail for the Patient to call back and ask for a nurse to receive the providers message. Jessica Mehta RN Please let patient know blood in acceptable ranges. Also let her know I discussed her EKG with Dr. Pike he recommends a chest xray. I will place order and she can either come in before her appointment to complete. Thanks, Ami Harris APRN.SAMM documented in this encounter [facility] 02-03-2022 Miscellaneous Notes Patient notified that prescription sent to [facility]. Patient voiced understanding. Christiana Wei RN Paxlovid prescription sent to [facility]. Please let patient know. Ami Harris APRN.SAMM [facility] does not carry, asking if this can be sent to [facility] instead? Please review and advise, Christiana Wei RN documented in this encounter [facility] 02-03-2022 Instructions Ami Harris APRN.CNP - 02/03/2022 12:45 PM EDT FACT SHEET FOR PATIENTS, PARENTS, AND CAREGIVERS EMERGENCY USE AUTHORIZATION (EUA) OF PAXLOVID FOR CORONAVIRUS DISEASE 2019 (COVID-19) You are being given this Fact Sheet because your healthcare provider believes it is necessary to provide you with PAXLOVID for the treatment of qabh-rt-qglnmkvn coronavirus disease (COVID-19) caused by the SARS-CoV-2 virus. This Fact Sheet contains information to help you understand the risks and benefits of taking the PAXLOVID you have received or may receive. The U.S. Food and Drug Administration (FDA) has issued an Emergency Use Authorization (EUA) to make PAXLOVID available during the COVID-19 pandemic (for more details about an EUA please see What is an Emergency Use Authorization? at the end of this document). PAXLOVID is not an FDA-approved medicine in the [place]. Read this Fact Sheet for information about PAXLOVID. Talk to your healthcare provider about your options or if you have any questions. It is your choice to take PAXLOVID. What is COVID-19? COVID-19 is caused by a virus called a coronavirus. You can get COVID-19 through close contact with another person who has the virus. COVID-19 illnesses have ranged from very yhac-lm-knzloa, including illness resulting in . While information so far suggests that most COVID-19 illness is mild, serious illness can happen and may cause some of your other medical conditions to become worse. Older people and people of all ages with severe, long lasting (chronic) medical conditions like heart disease, lung disease, and diabetes, for example seem to be at higher risk of being hospitalized for COVID-19. What is PAXLOVID? PAXLOVID is an investigational medicine used to treat ubbz-pm-suqnwawh COVID-19 in adults and children [12 years of age and older weighing at least 88 pounds (40 kg)] with positive results of direct SARS-CoV-2 viral testing, and who are at high risk for progression to severe COVID-19, including hospitalization or . PAXLOVID is investigational because it is still being studied. There is limited information about the safety and effectiveness of using PAXLOVID to treat people with zkwf-kd-wdgqqymw COVID-19. The FDA has authorized the emergency use of PAXLOVID for the treatment of uzuj-ov-wucllxgw COVID-19 in adults and children [12 years of age and older weighing at least 88 pounds (40 kg)] with a positive test for the virus that causes COVID-19, and who are at high risk for progression to severe COVID-19, including hospitalization or , under an EUA. 1 Revised: 30 September 2021 What should I tell my healthcare provider before I take PAXLOVID? Tell your healthcare provider if you: Have any allergies Have liver or kidney disease Are or plan to become Are a child Have any serious illnesses Tell your healthcare provider about all the medicines you take, including prescription and hlfu-dkf-gfmtfzi medicines, vitamins, and herbal supplements. Some medicines may interact with PAXLOVID and may cause serious side effects. Keep a list of your medicines to show your healthcare provider and pharmacist when you get a new medicine. You can ask your healthcare provider or pharmacist for a list of medicines that interact with PAXLOVID. Do not start taking a new medicine without telling your healthcare provider. Your healthcare provider can tell you if it is safe to take PAXLOVID with other medicines. Tell your healthcare provider if you are taking combined hormonal contraceptive. PAXLOVID may affect how your control pills work. Females who are able to become should use another effective alternative form of contraception or an additional barrier method of contraception. Talk to your healthcare provider if you have any questions about contraceptive methods that might be right for you. How do I take PAXLOVID? PAXLOVID consists of 2 medicines: nirmatrelvir and ritonavir. Take 2 pink tablets of nirmatrelvir with 1 white tablet of ritonavir by mouth 2 times each day (in the morning and in the evening) for 5 days. For each dose, take all 3 tablets at the same time. If you have kidney disease, talk to your healthcare provider. You may need a different dose. Swallow the tablets whole. Do not chew, break, or crush the tablets. Take PAXLOVID with or without food. Do not stop taking PAXLOVID without talking to your healthcare provider, even if you feel better. If you miss a dose of PAXLOVID within 8 hours of the time it is usually taken, take it as soon as you remember. If you miss a dose by more than 8 hours, skip the missed dose and take the next dose at your regular time. Do not take 2 doses of PAXLOVID at the same time. If you take too much PAXLOVID, call your healthcare provider or go to the nearest hospital emergency room right away. If you are taking a ritonavir-or cobicistat-containing medicine to treat hepatitis C or Human Immunodeficiency Virus (HIV), you should continue to take your medicine as prescribed by your healthcare provider. Talk to your healthcare provider if you do not feel better or if you feel worse after 5 days. Who should generally not take PAXLOVID? Do not take PAXLOVID if: You are allergic to nirmatrelvir, ritonavir, or any of the ingredients in PAXLOVID You are taking any of the following medicines: Alfuzosin Pethidine, propoxyphene Ranolazine Amiodarone, dronedarone, flecainide, propafenone, quinidine Colchicine Lurasidone, pimozide, clozapine Dihydroergotamine, ergotamine, methylergonovine Lovastatin, simvastatin Sildenafil (Revatio ) for pulmonary arterial hypertension (PAH) Triazolam, oral midazolam Apalutamide Carbamazepine, phenobarbital, phenytoin Rifampin Serge s Wort (hypericum perforatum) Taking PAXLOVID with these medicines may cause serious or life-threatening side effects or affect how PAXLOVID works. These are not the only medicines that may cause serious side effects if taken with PAXLOVID. PAXLOVID may increase or decrease the levels of multiple other medicines. It is very important to tell your healthcare provider about all of the medicines you are taking because additional laboratory tests or changes in the dose of your other medicines may be necessary while you are taking PAXLOVID. Your healthcare provider may also tell you about specific symptoms to watch out for that may indicate that you need to stop or decrease the dose of some of your other medicines. What are the important possible side effects of PAXLOVID? Possible side effects of PAXLOVID are: Allergic Reactions. Allergic reactions can happen in people taking PAXLOVID, even after only 1 dose. Stop taking PAXLOVID and call your healthcare provider right away if you get any of the following symptoms of an allergic reaction: hives trouble swallowing or breathing swelling of the mouth, lips, or face throat tightness hoarseness skin rash Liver Problems. Tell your healthcare provider right away if you have any of these signs and symptoms of liver problems: loss of appetite, yellowing of your skin and the whites of eyes (jaundice), dark-colored urine, pale colored stools and itchy skin, stomach area (abdominal) pain. Resistance to HIV Medicines. If you have untreated HIV infection, PAXLOVID may lead to some HIV medicines not working as well in the future. Other possible side effects include: altered sense of taste diarrhea high blood pressure muscle aches These are not all the possible side effects of PAXLOVID. Not many people have taken PAXLOVID. Serious and unexpected side effects may happen. PAXLOVID is still being studied, so it is possible that all of the risks are not known at this time. What other treatment choices are there? Veklury (remdesivir) is FDA-approved for the treatment of cvjp-ai-bbyuvrtu COVID-19 in certain adults and children. Talk with your doctor to see if Veklury is appropriate for you. Like PAXLOVID, FDA may also allow for the emergency use of other medicines to treat people with COVID-19. Go to https://www.fda.gov/emergency-prep aredness-andresponse/sqr-dwcdm-aau hopfakr-zap-zsohkm-framework/emerg uevi-jcg-oamerndkfwqqd for information on the emergency use of other medicines that are authorized by FDA to treat people with COVID-19. Your healthcare provider may talk with you about clinical trials for which you may be eligible. It is your choice to be treated or not to be treated with PAXLOVID. Should you decide not to receive it or for your child not to receive it, it will not change your standard medical care. What if I am or ? There is enologist treating women or mothers with PAXLOVID. For a mother and unborn baby, the benefit of taking PAXLOVID may be greater than the risk from the treatment. If you are , discuss your options and specific situation with your healthcare provider. It is recommended that you use effective barrier contraception or do not have sexual activity while taking PAXLOVID. If you are , discuss your options and specific situation with your healthcare provider. How do I report side effects with PAXLOVID? Contact your healthcare provider if you have any side effects that bother you or do not go away. Report side effects to FDA MedWatch at www.fda.gov/medwatch or call 4-291-YIC2369 or you can report side effects to [employer]. at the contact information provided below. Website Fax number Telephone number [facility] How should I store PAXLOVID? Store PAXLOVID tablets at room temperature, between 68?F to 77?F (20?C to 25?C). How can I learn more about COVID-19? Ask your healthcare provider. Visit https://www.cdc.gov/COVID19. Contact your local or state public health department. What is an Emergency Use Authorization (EUA)? The [place] FDA has made PAXLOVID available under an emergency access mechanism called an Emergency Use Authorization (EUA). The EUA is supported by a Autom[employer] Service Manager of Health and Human Service (HHS) declaration that circumstances exist to justify the emergency use of drugs and biological products during the COVID-19 pandemic. PAXLOVID for the treatment of ppxg-qb-yeqdvftz COVID-19 in adults and children [12 years of age and older weighing at least 88 pounds (40 kg)] with positive results of direct SARS-CoV-2 viral testing, and who are at high risk for progression to severe COVID-19, including hospitalization or , has not undergone the same type of review as an FDA-approved product. In issuing an EUA under the COVID-19 public health emergency, the FDA has determined, among other things, that based on the total amount of scientific evidence available including data from adequate and well-controlled clinical trials, if available, it is reasonable to believe that the product may be effective for diagnosing, treating, or preventing COVID-19, or a serious or life-threatening disease or condition caused by COVID-19; that the known and potential benefits of the product, when used to diagnose, treat, or prevent such disease or condition, outweigh the known and potential risks of such product; and that there are no adequate, approved, and available alternatives. All of these criteria must be met to allow for the product to be used in the treatment of patients during the COVID-19 pandemic. The EUA for PAXLOVID is in effect for the duration of the COVID-19 declaration justifying emergency use of this product, unless terminated or revoked (after which the products may no longer be used under the EUA). Additional Information For general questions, visit the website or call the telephone number provided below. Website Telephone number [email or web address] (3-374-T94-VAQD) You can also go to [email or web address] or call for more information. [employer] Distributed by [employer] [place] [address] [id number] Revised: 30 September 2021 documented in this encounter [facility] 02-03-2022 History of Present illness Narrative Telemedicine Evaluation for COVID-19 Infection MyChart video visit was used for evaluation of this patient. Location of patient: [facility] Mukesh Rosenberg is a 66 year old female who presents with 2 days of symptoms that are stable. Tested positive on two home tests one yste Flowflex test positvie todat Symptoms include: Fever (?100.4F): Yes or Chills: Yes Cough: Yes Shortness of breath: Yes or Difficulty breathing: No Fatigue: Yes Muscle aches: Yes Headache: Yes New loss of smell or taste: No Sore throat: Yes Nasal congestion: Yes or Rhinorrhea: No Nausea: No or Vomiting: No Diarrhea: No OTC meds/remedies that patient has tried: acetaminophen. High risk category assessment No high risk factors Exposures: Sick contacts? Yes Family or close contacts with confirmed/probable COVID-19 in last 14 days? No She reports that she quit smoking about 23 years ago. She has a 20.00 pack-year smoking history. She has never used smokeless tobacco. OBJECTIVE VIDEO EXAM (if available) GENERAL: well appearing, alert, in no acute distress PULMONARY: breathing comfortably on room air , no coughing noted, no wheezing noted and Able to speak in full sentences without difficulty. ASSESSMENT/PLAN 1. Positive self-administered antigen test for COVID-19 - ICD9: , ICD10: U07.1 - no red flag symptoms or exam findings - red flag symptoms discussed, verbalizes understanding - discussed CDC current guidelines for isolation, verbalizes understanding - Discussed symptom monitoring and supportive care - Red flag symptoms requiring follow up discussed - antiviral paxlovid discussed as below - follow-up if symptoms fail to improve, to ER with dusty flag symptoms discussed Nirmatrelvir/Ritonavir (Paxlovid) Eligibility and Patient Discussion [facility] Formulary Restriction Criteria: Adult outpatients 18 years and older with ALL of the following: [x] Patient has positive SARS-COV-2 viral test (PCR or antigen test) during current illness [x] Patient has symptoms for 5 days or less [x] Not requiring hospitalization at any time for management of COVID-19 [x] Not requiring supplemental oxygen or a change in baseline supplemental oxygen[x] Not utilized for pre-exposure or post-exposure prophylaxis for prevention of COVID-19 [x] Patient does not have severe renal impairment (eGFR < 30 mL/min) or severe hepatic impairment (Child-Hanna Class C) [x] Meeting at least one of the criteria for high risk of progression to severe COVID-19: [] Age over 65 years [] Cancer [] Chronic kidney disease [] Chronic liver disease [] Chronic lung diseases, including cystic fibrosis [] Dementia or other neurological conditions [] Diabetes (type 1 or type 2) [] Disabilities, including Down syndrome and neurodevelopmental disorders [] Heart conditions [] HIV infection [] Immunocompromised state [] Mental health conditions [] Medical related technological dependence (tracheostomy, gastrostomy, or positive pressure ventilation (not related to COVID) [x] Overweight and obesity (BMI greater or equal to 25 for adults) [] Physical inactivity [] [] Sickle cell disease or thalassemia [x] Smoking, current or former [] Solid organ or blood stem cell transplant [] Stroke or cerebrovascular disease [] Substance use disorders [] Tuberculosis [] People from racial and ethnic minority groups Criteria above are met: Yes Date of Positive Test: 02/03/2022 Date of Symptom Onset: 02/02/2022 Patient received COVID vaccine: Yes Drug-Drug interactions reviewed: Yes. Drug interactions were identified and the following actions were taken hold flonase while taking the paxlovid. I have discussed the use of the investigational therapeutic, nirmatrelvir/ritonavir, for the treatment of mild to moderate COVID-19 and its use under Emergency Use Authorization with the patient. The patient was informed that nirmatrelvir/ritonavir is not an FDA approved drug and that it is authorized for use under this Emergency Use Authorization. The patient was also informed of the significant known benefits and potential risks of nirmatrelvir/ritonavir, and the extent to which such potential risks and benefits are unknown. The patient was informed that there is mandatory reporting of all medication errors and serious adverse events potentially related to nirmatrelvir/ritonavir treatment within 7 calendar days from the onset of the event and that events up to 28 days after completion of therapy need to be reported. The discussion included alternatives to receiving nirmatrelvir/ritonavir, including clinical trials, and potential the risks and benefits of those alternatives. The patient was provided electronically with the Fact Sheet for Patients, Parents and Caregivers . The patient was also instructed that in addition to the treatment with nirmatrelvir/ritonavir, he/she should continue to self-isolate and use infection control measures (e.g., wear mask, isolate, social distance, avoid sharing personal items, clean and disinfect high touch surfaces, and frequent handwashing) according to CDC guidelines. The patient stated understanding and gave verbal consent to proceeding with nirmatrelvir/ritonavir treatment. Ami Harris APRN.CNP February 03, 2022 12:42 PM This patient encounter involved the screening or treatment of novel coronavirus infection (COVID-19). documented in this encounter [facility] 12-21-2021 History of Present illness Narrative 12/21/2021 Patient presents with: Rx Refills Yearly Exam SUBJECTIVE: This is a 66 year old that is here today for Above Complaints. Since last office visit has been in good health without ER visits or hospitalizations. GERD: taking pantoprazole daily. Works well to control symptoms Chronic back pain: takes Celebrex daily and sometimes two times a day. Without medication has sever pain. Continues to take estradiol prescribed by FORENSIC EXAMINER. Has hx of total hysterectomy Has spot on forehead. She report years ago went to dermatology who used something to area. Reports it was a vein or something. Area getting redder and would like to see a different fork lift technician. PAST MEDICAL HISTORY Diagnosis Date Allergic rhinitis Dr. Salazar for allergy shots Chronic constipation Chronic lower back pain GERD (gastroesophageal reflux disease) Hyperlipidemia Impaired fasting glucose Obesity (BMI 30.0-34.9) Other acne Acne PMH - PAST MEDICAL HISTORY OF lactose intolerant PMH - PAST MEDICAL HISTORY OF kidney stones PMH - PAST MEDICAL HISTORY OF rlq abdominal pain Rosacea ALLERGIES Magnesium Citrate and Naproxen MEDICATIONS Current Outpatient Medications Medication Sig pantoprazole DR (PROTONIX) 40 mg tablet Take 1 tablet by mouth daily before breakfast. Take on empty stomach, 1/2 hr before meal. docusate sodium (COLACE) 100 mg capsule Take 1 capsule by mouth twice daily as needed for Constipation. loratadine (CLARITIN) 10 mg tablet Take 1 tablet by mouth once daily. fluticasone (FLONASE) 50 mcg/actuation nasal spray Use 2 Sprays in each nostril once daily. Rinse mouth after use. acetaminophen (TYLENOL) 325 mg tablet Take 650 mg by mouth as needed. estradiol (ESTRACE) 1 mg tablet Take 1 tablet by mouth once daily. nicotine polacrilex (NICORETTE) 2 mg gum Take 2 mg by mouth every 2 hours as needed. No current facility-administered medications for this visit. Medications and allergies reviewed by this provider. SOCIAL HISTORY Social History Tobacco Use Smoking status: Former Smoker Packs/day: 1.00 Years: 20.00 Pack years: 20.00 Quit date: 07/16/1998 Years since quittin.4 Smokeless tobacco: Never Used Substance Use Topics Alcohol use: Yes Alcohol/week: 5.0 standard drinks Types: 2 Cans of Beer (12oz) per week Drug use: No REVIEW OF SYSTEMS GENERAL: No weight loss, malaise or fevers HEENT: Negative for frequent or significant headaches, No changes in hearing or vision, no nose bleeds or other nasal problems NECK: Negative for lumps, goiter, pain and significant neck swelling RESPIRATORY: Negative for cough, hemoptysis, wheezing, COPD, dyspnea or shortness of breath CARDIOVASCULAR: Negative for chest pain, leg swelling, hypertension, CHF or palpitations GI: No nausea, vomiting, or diarrhea : No history of dysuria, frequency or incontinence FORENSIC EXAMINER: Negative for abnormal vaginal bleeding, abnormal vaginal discharge MUSCULOSKELETAL: Negative for joint pain or swelling, back pain or muscle pain SKIN: See HPI All other reviewed and negative other than HPI. OBJECTIVE: BP 142/84 Pulse 78 Resp 18 Ht 147 cm (4' 9.87 ) Wt 63.8 kg (140 lb 9.6 oz) SpO2 96% BMI 29.51 kg/m . Vital signs reviewed by this provider. APPEARANCE Well appearing, alert, in no acute distress, well-hydrated, well nourished. EYES PERRLA, conjunctiva and sclera normal. NECK Supple, no adenopathy; thyroid symmetric, normal size, no bruits HEART RRR with normal S1 and S2, no murmurs, no gallops, no JVD appreciated LUNG clear to auscultation. No wheezes, rhonchi or rales EXTREMITIES Extremities normal, No deformities, No skin discoloration, No edema and Normal pulses bilaterally. SKIN Approximate nickel sized pinkened area to upper center forehead otherwise skin color, texture, turgor normal, no suspicious rashes or lesions to exposed skin Component Latest Ref Rng & Units 10/20/2020 Protein, Total 6.3 - 8.0 g/dL 7.2 Albumin 3.9 - 4.9 g/dL 4.3 Calcium 8.5 - 10.2 mg/dL 9.5 Bilirubin, Total 0.2 - 1.3 mg/dL 0.7 Alkaline Phosphatase 34 - 123 U/L 81 AST 13 - 35 U/L 27 Glucose 74 - 99 mg/dL 100 (H) BUN 7 - 21 mg/dL 18 Creatinine 0.58 - 0.96 mg/dL 0.68 Sodium 136 - 144 mmol/L 138 Potassium 3.7 - 5.1 mmol/L 4.3 Chloride 97 - 105 mmol/L 103 CO2 22 - 30 mmol/L 27 Anion Gap 9 - 18 mmol/L 8 (L) ALT 7 - 38 U/L 26 eGFR- >60 eGFR-All Other Races . >60 WBC 3.70 - 11.00 k/uL 8.47 RBC 3.90 - 5.20 m/uL 4.21 Hemoglobin 11.5 - 15.5 g/dL 13.1 Hematocrit 36.0 - 46.0 % 40.0 MCV 80.0 - 100.0 fL 95.0 MCH 26.0 - 34.0 pG 31.1 MCHC 30.5 - 36.0 g/dL 32.8 RDW-CV 11.5 - 15.0 % 12.8 Platelet Count 150 - 400 k/uL 304 MPV 9.0 - 12.7 fL 9.7 Absolute nRBC <0.01 k/uL <0.01 Total Cholesterol, Nonfasting <200 mg/dL 200 (H) Triglycerides, Nonfasting <150 mg/dL 100 HDL Cholesterol, Nonfasting >39 mg/dL 54 LDL Cholesterol, Nonfasting <100 mg/dL 126 (H) Non HDL Cholesterol, Nonfasting <130 mg/dL 146 (H) VLDL Cholesterol, Nonfasting <30 mg/dL 20 Total Chol/HDL Ratio, Nonfasting <5.10 mg/dL 3.70 LDL/HDL Ratio, Nonfasting <2.54 mg/dL 2.33 Hemoglobin A1C 4.3 - 5.6 % 5.8 (H) Estimated Average Glucose mg/dL 120 HIV SCREENING Never done DEPRESSION SCREENING due on 04/08/2019 MAMMOGRAM due on 11/01/2021 COVID-19 VACCINE(4 - Booster for Pfizer series) due on 11/24/2021 INFLUENZA(Season Ended) due on 03/16/2022 DIABETES SCREEN due on 10/21/2023 COLORECTAL CANCER SCREENING due on 07/21/2024 LIPID SCREEN due on 10/20/2025 DTAP,TDAP,TD(3 - Td or Tdap) due on 11/28/2027 HEPATITIS C SCREENING Completed SHINGRIX VACCINE Completed PAP TESTING Discontinued HPV TESTING Discontinued ASSESSMENT/PLAN: 1. Wellness examination - ICD9: V70.0, ICD10: Z00.00 (primary diagnosis) - Counseled on healthy diet and regular exercise - Calcium intake with supplements or by diet of 1000 mg/day for under 50, 0028-8224 mg/day for 50+ - Follow up for annual exam in one year 2. Chronic low back pain, unspecified back pain laterality, unspecified whether sciatica present - ICD9: 724.2, 338.29, ICD10: M54.50, G89.29 - stable at this time - CELECOXIB 200 MG CAPSULE - CELECOXIB 200 MG CAPSULE 3. GERD without esophagitis - ICD9: 530.81, ICD10: K21.9 - controlled on current regime - PANTOPRAZOLE 40 MG TABLET,DELAYED RELEASE 4. Impaired fasting glucose - ICD9: 790.21, ICD10: R73.01 - HGB A1C 5. Pure hypercholesterolemia - ICD9: 272.0, ICD10: E78.00 - recommend low fat diet and at least 150 minutes of exercise per week - LIPID PANEL BASIC - COMP METABOLIC PANEL - follow-up pending blood work 6. 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 Patient advised if symptoms do not improve or if symptoms worsen sooner, to contact their primary care physician. Potential red flag symptoms discussed with the patient. Reviewed appropriate action plan to take if red flag symptoms occur. Patient agreeable to treatment plan. documented in this encounter [facility] documented in this encounter [facility] note* Diagnosis Wellness examination- Primary Chronic low back pain, unspecified back pain laterality, unspecified whether sciatica present GERD without esophagitis Esophageal reflux Impaired fasting glucose Pure hypercholesterolemia Skin irritation Unspecified disorder of skin and subcutaneous tissue documented in this encounter [facility] note* Diagnosis Positive self-administered antigen test for COVID-19- Primary documented in this encounter [facility] note* Diagnosis Abnormal EKG- Primary Nonspecific abnormal electrocardiogram (ECG) (EKG) documented in this encounter [facility] note* Diagnosis Blood pressure check- Primary Screening for hypertension documented in this encounter [facility] note* Diagnosis GERD without esophagitis Esophageal reflux documented in this encounter [facility] note* Diagnosis Left leg numbness- Primary Disturbance of skin sensation S/P total knee arthroplasty, left Gastroesophageal reflux disease, unspecified whether esophagitis present Chronic right-sided low back pain with right-sided sciatica Hypertension, essential Unspecified essential hypertension [facility] Diagnosis Hypertension, essential- Primary Unspecified essential hypertension documented in this encounter [facility] note* Diagnosis Hypertension, essential- Primary Unspecified essential hypertension documented in this encounter [facility] note* Diagnosis Hypertension, essential Unspecified essential hypertension documented in this encounter [facility] note* Diagnosis Hypertension, essential- Primary Unspecified essential hypertension Screening for hyperlipidemia Screening for lipoid disorders Screening for osteoporosis Special screening for osteoporosis Asymptomatic menopause Pain of maxillary sinus GERD without esophagitis Esophageal reflux documented in this encounter [facility] note* Diagnosis Screening for osteoporosis Special screening for osteoporosis Asymptomatic menopause [facility]* Diagnosis Hypertension, essential Unspecified essential hypertension documented in this encounter [facility] note* Diagnosis Hypertension, essential Unspecified essential hypertension documented in this encounter [facility] for referral (narrative)* Diagnostic Procedure Only (Routine) - Pending Review Specialty Diagnoses / Procedures Referred By Contac t Referred To Contact [facility] Diagnoses Encounter for screening mammogram for breast cancer Procedures [place] SCREENING SCREENING MAMMOGRAPHY BI 2-VIEW BREAST INC CAD Jose Pike MD [address] [place] [address] [facility] [address] [place] [address] Referral ID Status Reason Start Date Expiration Date Visits Requested Visits Authorized [id number] Pending Review Auto-Generat ed Referral 12/07/2021 01/06/2023 1 1 [facility] Advance Directives No Advanced Directives Records FoundDocuments on File Type Date Recorded 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 Expl anation Advance Directive(s) 07/21/2019 7:51 AM Documents on File Type Date Recorded Patient Box Stacker Expl 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 Advance Directive(s) 07/21/2019 7:51 AM Summary Purpose Family History No Family History Records Found Additional Source Comments Source Comments (unrecognize d section and content) In the event this informatio n is protected by the Federal Confidentiality of Alcohol and Drug Abuse Patient Records regulations: The Federal rules restrict any use of the information to criminally investigate or prosecute any alcohol or drug abuse patient.[facility] the event this information is protected by the Federal Confidentiality of Alcohol and Drug Abuse Patient Records regulations: The Federal rules restrict any use of the information to criminally investigate or prosecute any alcohol or drug abuse patient.[facility] the event this information is protected by the Federal Confidentiality of Alcohol and Drug Abuse Patient Records regulations: The Federal rules restrict any use of the information to criminally investigate or prosecute any alcohol or drug abuse patient.[facility] the event this information is protected by the Federal Confidentiality of Alcohol and Drug Abuse Patient Records regulations: The Federal rules restrict any use of the information to criminally investigate or prosecute any alcohol or drug abuse patient.[facility] the event this information is protected by the Federal Confidentiality of Alcohol and Drug Abuse Patient Records regulations: The Federal rules restrict any use of the information to criminally investigate or prosecute any alcohol or drug abuse patient.[facility] the event this information is protected by the Federal Confidentiality of Alcohol and Drug Abuse Patient Records regulations: The Federal rules restrict any use of the information to criminally investigate or prosecute any alcohol or drug abuse patient.[facility] the event this information is protected by the Federal Confidentiality of Alcohol and Drug Abuse Patient Records regulations: The Federal rules restrict any use of the information to criminally investigate or prosecute any alcohol or drug abuse patient.[facility] the event this information is protected by the Federal Confidentiality of Alcohol and Drug Abuse Patient Records regulations: The Federal rules restrict any use of the information to criminally investigate or prosecute any alcohol or drug abuse patient.[facility] the event this information is protected by the Federal Confidentiality of Alcohol and Drug Abuse Patient Records regulations: The Federal rules restrict any use of the information to criminally investigate or prosecute any alcohol or drug abuse patient.[facility] the event this information is protected by the Federal Confidentiality of Alcohol and Drug Abuse Patient Records regulations: The Federal rules restrict any use of the information to criminally investigate or prosecute any alcohol or drug abuse patient.[facility] the event this information is protected by the Federal Confidentiality of Alcohol and Drug Abuse Patient Records regulations: The Federal rules restrict any use of the information to criminally investigate or prosecute any alcohol or drug abuse patient.[facility] the event this information is protected by the Federal Confidentiality of Alcohol and Drug Abuse Patient Records regulations: The Federal rules restrict any use of the information to criminally investigate or prosecute any alcohol or drug abuse patient.[facility] the event this information is protected by the Federal Confidentiality of Alcohol and Drug Abuse Patient Records regulations: The Federal rules restrict any use of the information to criminally investigate or prosecute any alcohol or drug abuse patient.[facility] the event this information is protected by the Federal Confidentiality of Alcohol and Drug Abuse Patient Records regulations: The Federal rules restrict any use of the information to criminally investigate or prosecute any alcohol or drug abuse patient.[facility] the event this information is protected by the Federal Confidentiality of Alcohol and Drug Abuse Patient Records regulations: The Federal rules restrict any use of the information to criminally investigate or prosecute any alcohol or drug abuse patient.[facility] the event this information is protected by the Federal Confidentiality of Alcohol and Drug Abuse Patient Records regulations: The Federal rules restrict any use of the information to criminally investigate or prosecute any alcohol or drug abuse patient.[facility] the event this information is protected by the Federal Confidentiality of Alcohol and Drug Abuse Patient Records regulations: The Federal rules restrict any use of the information to criminally investigate or prosecute any alcohol or drug abuse patient.[facility] Care Teams (unrecognized sec tion and content) 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 Relationship Specialty Start Date End Date Jose Pike MD [address] [place] [address] PCP - General Family Practice 07/10/17 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 Relationship Specialty Start Date End Date Jose Pike MD [address] [place] [address] PCP - General Family Practice 07/10/17 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 Relationship Specialty Start Date End Date Jose Pike MD [address] [place] [address] PCP - General Family Practice 07/10/17 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 Relationship Specialty Start Date End Date Jose Pike MD [address] [place] [address] PCP - General Family Medicine 07/10/17 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 Relationship Specialty Start Date End Date Jose Pike MD [address] [place] [address] PCP - General Family Medicine 07/10/17 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 Relationship Specialty Start Date End Date Jose Pike MD [address] [place] [address] PCP - General Family Medicine 07/10/17 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 Relationship Specialty Start Date End Date Jose Pike MD [address] [place] [address] PCP - General Family Medicine 07/10/17 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 Relationship Specialty Start Date End Date Jose Pike MD [address] [place] [address] PCP - General Family Medicine 07/10/17 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 Relationship Specialty Start Date End Date Jose Pike MD [address] [place] [address] PCP - General Family Medicine 07/10/17 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 Relationship Specialty Start Date End Date Jose Pike MD [address] [facility], [place] [id number] PCP - General Family Medicine 07/10/17 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 Relationship Specialty Start Date End Date Jose Pike MD [address] [facility], [place] [address] PCP - General Family Medicine 07/10/17 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 Relationship Specialty Start Date End Date Jose Pike MD [address] [facility], [place] [address] PCP - General Family Medicine 07/10/17 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 Relationship Specialty Start Date End Date Jose Pike MD [address] [facility], [place] [id number] PCP - General Family Medicine 07/10/17 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 Relationship Specialty Start Date End Date Jose Pike MD [address] [facility], [place] [address] PCP - General Family Medicine 07/10/17 Reason for Visit (unrecogniz ed section and content) Reason Comments Covid Test Result Reason Comments Results Reason Comments Refill Request Reason Comments Follow Up Regarding knee repla cement c/o numbness down leg and had a med change Blood Pressure Reports was going up and down prior to surgery Reason Comments Blood Pressure 2 week blood pressur e follow up Reason Comments Recheck Blood pressure Reason Onset Date Comments Refill Request 06/16/2023 Reason Comments F/U 6 months Reason Comments Blood Pressure Recheck Reason Comments BP Check INFORMATION SOURCE (unrecogn ized section and content) FOR RECORDS PERTAINING TO PATIENTS WHO ARE OR HAVE BEEN ENROLLED IN A CHEMICAL DEPENDENCY/SUBSTANCEABUSE PROGRAM, SOME INFORMATION MAY BE OMITTED. This clinical summary was aggregated from multiple sources. Caution should be exercised in using it in the provision of clinical care. This summary normalizes information from multiple sources, and as a consequence, information in this document may materially change the coding, format and clinical context of patient data. In addition, data may be omitted in some cases. CLINICAL DECISIONS SHOULD BE BASED ON THE PRIMARY CLINICAL RECORDS. [facility] [employer] [facility]. provides no warranty or guarantee of the accuracy or completeness of information in this document.
== END | disposition home or self-care (01) ==
LOC: US 11:31
PROVIDERS: PCP Family Medicine; Visit Provider Family Medicine
DX: R22.32 Localized swelling, mass and lump, left upper limb (principal)
CPT/HCPCS: 76882

== ENCOUNTER → 2023-10-01 | Outpatient (CLI) | payer MEDICARE, SELFPAY ==
--- NOTE | 2023-10-01 10:11 | BI_ITS ---
MAMMOGRAPHY - BILATERAL SCREENING REASON FOR EXAM: Female, 68 years old. Routine annual screening examination. PERTINENT HISTORY: Non-contributory. Remote right stereotactic breast biopsy. TECHNIQUE: Digital bilateral breast romi (3D mammographic acquisition) in the CC and MLO projections. 2-D mediolateral oblique (MLO) and craniocaudad (CC) views of both breasts were obtained. CAD: Full Field Digital Mammography with Computer Added Detection was performed. COMPARISON: Comparison is made with prior study September 29, 2022 and September 12, 2021. FINDINGS: Breast Composition: There are scattered areas of fibroglandular density. There are no dominant masses or suspicious calcifications. Stable small benign-appearing bilateral axillary lymph nodes. A tissue clip marker is once again seen in the deep upper slightly medial aspect of the right breast. No other significant abnormalities are identified. There has been no significant change since the prior study. BI/SCRN MAMM (CAD)W/ROMI BILAT IMPRESSION: Stable bilateral screening mammogram. Yearly follow-up mammogram recommended. (A) ASSESSMENT CATEGORY: BIRADS Category 2: Benign. A letter regarding these results will be sent to the patient by the facility within 30 days. Approximately 10% of breast cancers are not detected by mammography. A normal mammogram should not delay biopsy of a clinically suspicious abnormality. [id number] Electronically Signed: Yang Mckeon MD at 11:00 EDT ,
== END | disposition home or self-care (01) ==
LOC: OPBI 10:09
PROVIDERS: PCP Family Medicine; Referring Provider Nurse Practitioner Women's Health; Visit Provider Nurse Practitioner Women's Health
DX: Z12.31 Encounter for screening mammogram for malignant neoplasm of breast (principal)
CPT/HCPCS: 77063; 77067

== ENCOUNTER 2024-12-02 09:39 | Outpatient (CLI) | payer MEDICARE, SELFPAY ==
[2024-12-02 10:12] LABS: Absolute Lymphocyte Count 1.54 X10^3/uL (0.83-4.51); Absolute Neutrophil Count 4.4 X10^3/uL (2.0-7.7); Basophil# 0.05 X10^3/uL; Basophil% 0.7 % (0-1); Eosinophil# 0.13 X10^3/uL; Eosinophils% 1.9 % (0-5); Hematocrit 40.3 % (37-47); Hemoglobin 13.5 g/dL (12.0-15.0); Lymphocyte # 1.54 X10^3/ul (0.83-4.51); Lymphocyte % 22.6 % (19-41); Mean Corp Hgb Conc 33.5 g/dL (32-36); Mean Corpuscular Hgb 31.3 pg (27.0-32.0); Mean Corpuscular Volume 93.3 fL (81-99); Mean Platelet Vol. 9.4 fl (6.2-12.0); Monocyte# 0.65 X10^3/uL; Monocyte% 9.5 % (0-10); NRBC Flagged by Analyzer 0 % (0-5); Neutrophil # 4.42 X10^3/uL (2.7-7.7); Neutrophil % 64.9 % (47-70); Platelet Count 278 K/mm3 (150-450); RBC Distribution Width CV 12.9 % (11.6-14.6); RBC Distribution Width SD 44.7 fl (35.1-43.9); Red Blood Count 4.32 M/mm3 (4.2-5.4); White Blood Count 6.8 K/mm3 (4.4-11.0)
[2024-12-02 10:21] LABS: Erythrocyte Sedimentation Rate 22 mm/hr (0-30)
[2024-12-02 11:27] LABS: ALB/GLOB Ratio 1.4 RATIO (0.9-2.4); AST(SGOT) 24 U/L (<=31); Alanine Aminotransfer ALT/SGPT 19 U/L (<=34); Albumin, Serum 4.4 g/dL (3.4-4.8); Alkaline Phosphatase 82 U/L (35-104); Anion Gap 13 (5-15); BUN 12 mg/dL (4-19); Calcium,Total 9.6 mg/dL (7.6-11.0); Carbon Dioxide 23.4 mmol/L (21.0-32.0); Chloride 104 mmol/L (98-108); Creatinine, Serum 0.74 mg/dL (0.70-1.20); EST Glomerular Filtration Rate 89 (>60); Globulin 3.2 g/dL (2.2-4.2); Glucose 102 mg/dL (70-99); Potassium 3.9 mmol/L (3.3-5.1); Protein, Total 7.6 g/dL (5.9-8.4); Sodium Level 140 mmol/L (133-145); Total Bilirubin 0.57 mg/dL (0.00-1.30)
[2024-12-02 12:22] LABS: CRP 3.36 mg/L (0.0-3.0); LDH 189 U/L (84-246)
[2024-12-04 17:08] LABS: Clam <0.10 kU/L (Class 0); Codfish <0.10 kU/L (Class 0); Corn <0.10 kU/L (Class 0); Egg, White <0.10 kU/L (Class 0); Milk (Cow) <0.10 kU/L (Class 0); Peanut <0.10 kU/L (Class 0); SCALLOP <0.10 kU/L (Class 0); SESAME SEED <0.10 kU/L (Class 0); Shrimp <0.10 kU/L (Class 0); Soybean <0.10 kU/L (Class 0); Walnut, (Food) <0.10 kU/L (Class 0); Wheat <0.10 kU/L (Class 0)
[2024-12-05 14:08] LABS: ACCA 11 units (0-90); ALCA 0 units (0-60); AMCA 4 units (0-100); Alpha-1-Globulins 0.2 g/dL (0.0-0.4); Alpha-2-Globulins 0.9 g/dL (0.4-1.0); Cytoplasmic Ab (C-ANCA) <1:20 titer (Neg:<1:20); Endomysial Antibody IgA Negative (Negative); Gamma Globulin 0.9 g/dL (0.4-1.8); Gastrin, Serum 69 pg/mL (0-115); IMMUNOFIXATION RESULT,S Comment: (.); Immunoglobulin A 161 mg/dL (87-352); Immunoglobulin G 1020 mg/dL (586-1602); Immunoglobulin M 56 mg/dL (26-217); Perinuclear Ab (P-ANCA) <1:20 titer (Neg:<1:20); gASCA 17 units (0-50); t-Transglutaminase IgA <2 U/mL (0-3)
== END 2024-12-02 23:59 | disposition home or self-care (01) ==
PROVIDERS: PCP Family Medicine; Referring Provider Internal Medicine Gastroenterology; Visit Provider Internal Medicine Gastroenterology
DX: R10.9 Unspecified abdominal pain (principal); E05.90 Thyrotoxicosis, unspecified without thyrotoxic crisis or storm; D64.9 Anemia, unspecified
CPT/HCPCS: 36415; 80053; 82784; 82941; 83516; 83615; 84165; 84443; 85025; 85652; 86003; 86036; 86037; 86140; 86255; 86334; 86671

== ENCOUNTER 2025-01-30 06:03 | Day surgery (SDC) | payer MEDICARE, SELFPAY ==
[2025-01-30] VITALS (7 sets, daily range): BP systolic 112–131; BP diastolic 56–95; PULSE 66–77; RESP 16; TEMP 36.2–36.3; O2SAT 98–100; BMI 24.7
--- OUTSIDE RECORDS SUMMARY | 2025-01-30 06:11 | XMS RPT_ITS | CCD ---
Author Organization [facility] CliniSyil Care Team Providers Care Awning Finisher Name Role Phone Jose Pike MD Primary Care Provider Dr. Joseph Pike Primary Care Provider Dr. Joseph Pike Referring Provider Monique ECOMMERCE MANAGER, MARLEN Short Attending Provider Jose Pike MD Primary Care Provider Jose Pike MD Primary Care Provider Podlogar BRUSH STAINER.Hallie QUIJANO Unavailable Knoble BRUSH STAINER.INSULATION POWER UNIT TENDER, Betina Unavailable [place] BRUSH STAINER.INSULATION POWER UNIT TENDER, Betina Unavailable [place]le BRUSH STAINER.INSULATION POWER UNIT TENDER, Betina Unavailable Dr. Joseph Pike MD Primary Care Provider Dr. Joseph Pike MD Referring Provider [phone] Dr. Javid Blackwood DO Attending Provider Dr. Javid Blackwood DO Referring Provider Knoble BRUSH STAINER.INSULATION POWER UNIT TENDER, Betina Unavailable JOSE PIKE Primary Care Unavailab le JOSE PIKE Referring Unavailab JOSE Byrne Primary Care Unavailab le PODLOGAR, HALLIE Referring Unavailable MATTI VELÁZQUEZ Attending Unavailable JOSE PIKE Primary Care Unavailab le PODLOGARHALLIE Referring Unavailable MATTI VELÁZQUEZ Attending Unavailable JOSE PIKE Primary Care Unavailab le PODLOGARHALLIE Referring Unavailable MATTI VELÁZQUEZ Attending Unavailable JOSE PIKE Primary Care Unavailab le PODLOGAR, HALLIE Referring Unavailable MELANIA, MATTI Attending Unavailable JOSE PIKE Primary Care Unavailab le PODLOGAR, HALLIE Referring Unavailable MELANIA, MATTI Attending Unavailable JOSE PIKE Primary Care Unavailab le PODLOGAR, HALLIE Referring Unavailable MELANIA, MATTI Attending Unavailable JOSE PIKE Primary Care Unavailab le PODLOGAR, HALLIE Referring Unavailable MELANIA, MATTI Attending Unavailable JOSE PIKE Primary Care Unavailab le PODLOGAR, HALILE Referring Unavailable MELANIA, MATTI Attending Unavailable JOSE PIKE Primary Care Unavailab le JOSE PIKE Referring Unavailab le JOSE PIKE Primary Care Unavailab le JOSE PIKE Attending Unavailab JOSE Byrne Primary Care Unavailab le JOSE PIKE Referring Unavailab le JOSE PIKE Primary Care Unavailab le JOSE PIKE Referring Unavailab le JOSE PIKE Primary Care Unavailab le PODLOGAR, HALLIE Attending Unavailable JOSE PIKE Primary Care Unavailab le PODLOGAR, HALLIE Referring Unavailable JOSE PIKE Primary Care Unavailab le PODLOGAR, HALLIE Attending Unavailable JOSE PIKE Primary Care Unavailab JOSE Byrne Attending Unavailab JOSE Byrne Primary Care Unavailab le JOSE PIKE Referring Unavailab JOSE Byrne Primary Care Unavailab JOSE Byrne Attending Unavailab rodger Amaya NP-Deja Louis Attending Provider Joseph Pike Primary Care Unavailable Deja Amaya NP Attending Unavailable Joseph Pike Referring Unavailable FriendJavid Attending Unavailable Joseph Pike Referring Unavailable Joseph Pike Primary Care Unavailable FriendJavid Referring Unavailable Friend, Javid Attending Unavailable Joseph Pike Primary Care Unavailable Friend, Javid Attending Unavailable Joseph Pike Primary Care Unavailable Allergies Allergy Classification Reported Allergen(s) Allergy Type Date of Onset Reaction(s) Facility magnesium citrate (1 source) magnesium citrate Drug Allergy 6 Vomiting [facility] Work Phone: NSAIDs (1 source) Naproxen Drug Allergy 1 Other: See Comments [facility] (20 sources) magnesium citrate; Translations: [MAGNESIUM CITRATE] Drug Allergy 6 Vomiting [facility] Work Phone: (20 sources) Naproxen; Translations: [NAPROXEN] Drug Allergy 1 Other: See Comments [facility] (20 sources) Thiazides; Translations: [THIAZIDES] Propensity to adverse reactions to drug 3 Other: See Comments [facility] Work Phone: (1 source) Naproxen Drug Allergy 5 [facility] Repository Medications Current Medications Medication Drug Class(es) Dates Sig (Normalized) Sig (Original) acetaminophen 325 mg oral tablet (20 sources) acetaminophen (TYLENOL) 325 mg tablet Take 650 mg by mouth as needed. Active Comment on above: Take 650 mg by mouth as needed. amLODIPine 5 mg oral tablet (14 sources) Dihydropyridine Calcium Channel Praneeth Start: 08-29-2024 End: 02-26-2025 take 1 tablet by mouth once daily amLODIPine (NORVASC) 5 mg tablet Indications: Hypertension, essential Take 1 tablet by mouth once daily. 30 tablet 2 11/28/2024 02/26/2025 Active amoxicillin 875 mg / clavulanate 125 mg oral tablet (2 sources) Penicillin-class Antibacterial Start: 06-19-2023 End: 06-29-2023 take 1 tablet by mouth twice daily amoxicillin-clavul anate potassium (AUGMENTIN) 875-125 mg per tablet Indications: Pain of maxillary sinus Take 1 tablet by mouth two times a day for 10 days. 20 tablet 0 06/19/2023 06/29/2023 Active Comment on above: Take 1 tablet by gopal two times a day for 10 days. cephalexin 500 mg oral capsule (1 source) Cephalosporin Antibacterial Start: 09-10-2023 End: 09-20-2023 take 1 capsule by mouth four times daily cephALEXin (KEFLEX) 500 mg capsule Indications: Mass of left axilla Take 1 capsule by mouth four times daily for 10 days. 40 capsule 0 09/10/2023 09/20/2023 Active Comment on above: Take 1 capsule by [facility] four times daily for 10 days. docusate sodium 50 mg oral capsule (20 sources) Start: 08-25-2021 take 1 capsule by mouth once daily Docusate Sodium (Stool Softener) 50 mg capsule Active 50 mg PO DAILY August 25, 2021 1:00am Start: 10-20-2020 take [address] [facility] twice daily as needed for constipation docusate sodium (COLACE) 100 mg capsule Indications: Chronic constipation Take 1 capsule by mouth twice daily as needed for Constipation. 60 capsule 5 10/20/2020 Active Comment on above: Take [address] [facility] twice daily as needed for Constipation. doxycycline hyclate 100 mg oral tablet (1 source) Tetracycline-class Drug Start: End: take 1 tablet by mouth twice daily doxycycline (VIBRA-TABS) 100 mg tablet Indications: Abscess of axilla, left Take 1 tablet by mouth two times a day for 10 days. 20 tablet 0 10/08/2023 10/18/2023 Active Comment on above: Take 1 tablet by [facility] two times a day for 10 days. estradiol 0.1 mg/ml vaginal cream (20 sources) Estrogen Start: Estradiol (Estrace) 0.01 % (0.1 mg/gram) cream Active 0 VAGINAL .COMPLEX 42.5 January 07, 2025 11:35am pea sized amount VAGINAL 3 times a week Start: 01-07-2025 take 1 tablet by gopal once daily Estradiol 0.5 mg tablet Active 0.5 mg PO DAILY January 07, 2025 12:00am Start: 11-28-2023 End: 01-07-2025 take 0.5 tablet by mouth once daily Estradiol 1 mg tablet Discontinued 1 mg PO .COMPLEX November 28, 2023 9:35am January 07, 2025 11:36am 1 mg orally half tab daily; Start: 11-26-2018 End: 01-07-2025 Estradiol (Estrace) 0.01 % ( 0.1 mg/gram) cream Discontinued 0 VAGINAL .COMPLEX 42.5 July 11, 2021 8:09pm September 12, 2022 9:33am pea sized amount VAGINAL every other day X 4 weeks then twice a week; Start: 11-26-2018 End: 09-12-2022 Estradiol (Estrace) 0.01 % ( 0.1 mg/gram) cream Discontinued 0 VAGINAL .COMPLEX 42.5 July 11, 2021 8:09pm September 12, 2022 9:33am pea sized amount VAGINAL every other day X 4 weeks then twice a week; Start: 02-17-2018 End: 11-28-2023 take 1 tablet by mouth once daily Estradiol 1 mg tablet Discontinued 1 mg PO DAILY 90 August 07, 2022 5:00pm September 12, 2022 9:32am Comment on above: Take 1 tablet by gopal th once daily. fluconazole 150 mg oral tablet (15 sources) Azole Antifungal Start: 06-19-2023 End: 06-19-2023 fluconazole (DIFLUCAN) 150 mg tablet Take 1 tablet by mouth one time only for 1 dose. Repeat in 3 days as needed. 2 tablet 0 06/19/2023 06/19/2023 Active Start: 08-26-2021 End: 09-12-2022 Fluconazole (Diflucan) 150 m g tablet Discontinued 150 mg PO .COMPLEX 2 August 26, 2021 1:00am September 12, 2022 9:25am 150 mg PO now and in 72 hours Start: 11-26-2018 End: 12-25-2018 Fluconazole 150 mg tablet Di scontinued 150 mg PO .COMPLEX 2 November 26, 2018 12:00am December 25, 2018 8:24am 150 mg PO take one po now and repeat in 3 days Comment on above: Take 1 tablet by gopal one time only for 1 dose. Repeat in 3 days as needed. fluocinolone acetonide 0.81100 mg/mg topical ointment (11 sources) Corticosteroid Start: 11-28-2023 End: 01-07-2025 Fluocinolone (Synalar) 0.025 % ointment Active 1 NMA TOPICAL .COMPLEX January 07, 2025 11:37am 1 applic topically small amount rub in daily X 1 week prn Start: 09-12-2022 End: 11-28-2023 Fluocinolone (Synalar) 0.025 % ointment Discontinued 1 NMA TOPICAL .COMPLEX September 12, 2022 1:00am November 28, 2023 9:39am 1 applic topically small amount and rub in bid X 2 weeks then daily X 2 weeks then as needed; fluticasone propionate 0.05 mg/actuat metered dose nasal spray (20 sources) Corticosteroid Start: 06-20-2019 take 2 spray(s) by mouth once daily fluticasone (FLONASE) 50 mcg/actuation nasal spray Use 2 Sprays in each nostril once daily. Rinse mouth after use. 1 Bottle 11 06/20/2019 Active Comment on above: Use 2 Sprays in each nostril once daily. Rinse mouth after use. lisinopril 40 mg oral tablet (20 sources) Angiotensin Converting Enzyme Inhibitor Start: 07-01-2024 End: 08-01-2024 take 1 tablet by mouth once daily lisinopril (ZESTRIL) 40 mg tablet Indications: Hypertension, essential Take 1 tablet by mouth once daily. 90 tablet 3 08/01/2024 Active Start: 08-20-2023 End: 07-01-2024 take 1 tablet by mouth once daily lisinopril (ZESTRIL) 20 mg tablet Indications: Hypertension, essential Take 1 tablet by mouth once daily. 90 tablet 1 03/14/2024 07/01/2024 Discontinued Start: 07-20-2023 End: 08-20-2023 take 1 tablet by mouth once daily lisinopril (ZESTRIL) 10 mg tablet Indications: Hypertension, essential Take 1 tablet by mouth once daily. 30 tablet 1 07/20/2023 08/20/2023 Discontinued Start: 06-19-2023 take 1 tablet by gopal th once daily lisinopril (ZESTRIL) 5 mg tablet Take 1 tablet by mouth once daily. 30 tablet 1 06/19/2023 Active Comment on above: Take 1 tablet by gopal th once daily. loratadine 10 mg oral tablet (20 sources) Start: 9 take 1 tablet by mouth once daily Loratadine (Claritin) 10 mg tablet Active 10 mg PO DAILY November 26, 2018 12:00am Comment on above: Take 1 tablet by gopal th once daily. meloxicam 15 mg oral tablet (9 sources) Nonsteroidal Anti-inflammatory Drug Start: End: 4 take 1 tablet by mouth once daily at mealtime meloxicam (MOBIC) 15 mg tablet Take 1 tablet by mouth once daily. With food. 30 tablet 0 01/08/2024 02/07/2024 Active End: 06-19-2023 take 1 tablet by mouth once daily meloxicam (MOBIC) 15 mg tablet Take 15 mg by mouth once daily. 0 06/19/2023 Discontinued (Course of therapy completed) Comment on above: Take 15 mg by mouth once daily. nicotine 2 mg chewing gum (20 sources) Cholinergic Nicotinic Agonist Start: 11-26-2018 Nicotine (Polacrilex) (Nicorette) 2 mg gum Active 2 mg BUCCAL Q2H November 26, 2018 12:00am Start: 11-26-2018 Nicotine (Shravan crilex) (Nicorette) 2 mg gum Active 2 MG BUCCAL Q2H November 26, 2018 12:00am Comment on above: Take 2 mg by mouth e very 2 hours as needed. nirmatrelvir tablet 150 mg and ritonavir tablet 100 mg in a dose pack (PAXLOVID) (3 sources) Start: 02-03-2022 End: 02-08-2022 nirmatrelvir tablet 150 mg and ritonavir tablet 100 mg in a dose pack (PAXLOVID) Administer TWO pink nirmatrelvir 150 mg tablets and ONE white ritonavir 100 mg tablet for a total of three tablets twice daily. 30 tablet 0 02/03/2022 02/08/2022 Active Start: 02-03-2022 End: 02-03-2022 nirmatrelvir tablet 150 mg a nd ritonavir tablet 100 mg in a dose pack (PAXLOVID) Administer TWO pink nirmatrelvir 150 mg tablets and ONE white ritonavir 100 mg tablet for a total of three tablets twice daily. 30 tablet 0 02/03/2022 02/03/2022 Discontinued Comment on above: Administer TWO pink nirmatrelvir 150 mg tablets and ONE white ritonavir 100 mg tablet for a total of three tablets twice daily. pantoprazole 40 mg delayed release oral tablet (20 sources) Proton Pump Inhibitor Start: 05-20-20 End: 07-27-19 take 1 tablet by mouth once daily Pantoprazole 40 MG tablet Active 40 mg PO DAILY May 20, 2018 1:00am Comment on above: Take 1 tablet by gopal th daily before breakfast. Take on empty stomach, 1/2 hr before meal. polyethylene glycol 3350 74352 mg powder for oral solution (20 sources) Osmotic Laxative Start: 08-25-19 Polyethylene Glycol 3350 (Miralax) 17 gram/dose powder Active 17 g PO DAILY August 25, 2021 1:00am Comment on above: Take 17 g by mouth o nce daily. Dissolve dose in 4 - 8 ounces of liquid and take as directed. simvastatin 10 mg oral tablet (20 sources) HMG-CoA Reductase Inhibitor Start: 07-04-20 End: 07-27-19 take 1 tablet by mouth once daily at bedtime simvastatin (ZOCOR) 10 mg tablet Take 1 tablet by mouth daily at bedtime. For cholesterols. 90 tablet 3 08/01/2024 07/27/2025 Active Comment on above: Take 1 tablet by gopal th daily at bedtime. For cholesterols. valACYclovir 1000 mg oral tablet (20 sources) Herpesvirus Nucleoside Analog DNA Polymerase Inhibitor, Herpes Simplex Virus Nucleoside Analog DNA Polymerase Inhibitor, Herpes Zoster Virus Nucleoside Analog DNA Polymerase Inhibitor Start: 09-10-19 End: 07-01-20 24 valACYclovir (VALTREX) 1 gram tablet Indications: Recurrent cold sores Take 2,000 mg BID x 1 day for cold sores. 4 tablet 3 07/01/2024 Active Start: 08-21-2019 End: 07-11-2021 Valacyclovir (Valtrex) 1 gra m tablet Active 2000 mg PO .COMPLEX July 11, 2021 8:09pm 2,000 mg PO 1 dose then repeat 12 hours; Comment on above: Take 2,000 mg BID x 1 day for cold sores. Completed/Discontinued Medications Medication Drug Class(es) Dates Sig (Normalized) Sig (Original) acetaminophen 325 mg / HYDROcodone bitartrate 5 mg oral tablet (7 sources) Opioid Agonist Start: 03-10-2020 End: 03-13-2020 Hydrocodone-Acetami nophen 1 TABLET tablet Discontinued 1 {tbl} PO EVERY 6 HOURS NEEDED as needed for Pain 06 17March 10, 2020 March 12, 2020 12:00am March 13, 2020 12:03am Start: 03-10-2020 End: 03-13-2020 take 1 tablet by mouth every six hours as needed Hydrocodone-Acetaminophen Discontinued 1 TABLET PO EVERY 6 HOURS NEEDED 12 3 March 10, 2020 March 13, 2020 12:03am acyclovir 50 mg/ml topical cream (7 sources) Herpesvirus Nucleoside Analog DNA Polymerase Inhibitor, Herpes Simplex Virus Nucleoside Analog DNA Polymerase Inhibitor, Herpes Zoster Virus Nucleoside Analog DNA Polymerase Inhibitor Start: 09-01-2019 End: 12-02-2024 Acyclovir 5 % cream Discontinued 1 NMA TOPICAL ONCE September 01, 2019 1:00am December 02, 2024 8:42am Start: 09-01-2019 Acyclovir Acti ve 1 APPLIC TOPICAL ONCE September 01, 2019 1:00am atenolol 25 mg oral tablet (6 sources) beta-Adrenergic Praneeth Start: 08-01-2024 End: 08-29-2024 take 1 tablet by mouth once daily atenolol (TENORMIN) 25 mg tablet Take 1 tablet by mouth once daily. 30 tablet 1 08/01/2024 08/29/2024 Discontinued (Side Effects) betamethasone 0.0005 mg/mg topical ointment (7 sources) Corticosteroid Start: 01-02-2022 End: 11-28-2023 Betamethasone Dipropionate 0.05 % ointment Discontinued 1 NMA TOPICAL DAILY as needed for itching January 02, 2022 12:00am November 28, 2023 9:39am celecoxib 50 mg oral capsule (20 sources) Nonsteroidal Anti-inflammatory Drug Start: 11-26-2018 End: 09-12-2022 take 1 capsule by mouth twice daily Celecoxib (Celebrex) 50 mg capsule Discontinued 50 mg PO TWICE A DAY November 26, 2018 12:00am September 12, 2022 9:25am Start: 05-28-2017 End: 11-03-2022 take 1 capsule by mouth twice daily Celecoxib 200 MG capsule Discontinued 200 mg PO TWICE A DAY March 08, 2018 12:00am November 26, 2018 8:41am Comment on above: Take 1 capsule by [facility] twice daily. clobetasol propionate 0.5 mg/ml topical cream (20 sources) Corticosteroid Start : 12-25 End: 01-02 Clobetasol 0.05 % cream Discontinued 1 NMA TOPICAL .COMPLEX July 11, 2021 8:09pm August 25, 2021 5:13pm 1 applic TOPICAL apply thin layer as directed prn massage in to cover area hydroCHLOROthiazide 25 mg oral tablet (11 sources) Thiazide Diuretic Start : 11-20 End: 09-16 take 1 tablet by mouth once daily hydroCHLOROthiazide 25 mg tablet Indications: Hypertension, essential Take 1 tablet by mouth once daily. 90 tablet 0 02/22/2023 06/16/2023 Discontinued Start: 11-03-2022 End: 02-01-2023 take 1 tablet by mouth once daily hydroCHLOROthiazide 12.5 mg tablet Take 1 tablet by mouth once daily. 30 tablet 2 11/03/2022 11/20/2022 Discontinued Comment on above: Take 1 tablet by gopal once daily. metroNIDAZOLE 500 mg oral tablet (14 sources) Nitroimidazole Antimicrobial Start: 03-26-20 End: 08-25-19 take 1 tablet by mouth three times daily Metronidazole 500 mg tablet Discontinued 500 mg PO THREE TIMES A DAY March 26, 2020 12:00am August 25, 2021 4:49pm Start: 03-10-2020 End: 03-26-2020 take 1 tablet by mouth three times daily Metronidazole 250 MG tablet Discontinued 250 mg PO THREE TIMES A DAY March 10, 2020 12:00am March 26, 2020 8:37am nitrofurantoin, macrocrystals 25 mg / nitrofurantoin, monohydrate 75 mg oral capsule (7 sources) Nitrofuran Antibacterial Start: 12-31-2020 End: 01-07-2021 take 1 capsule by mouth every twelve hours at mealtime Nitrofurantoin Monohyd/M-Cryst 100 mg capsule Discontinued 1 NMA PO Q12H 14 7 December 31, 2020 12:00am January 06, 2021 12:00am January 07, 2021 12:01am administer with a meal/food; swallow whole; do not open, crush, dissolve , or chew wheat dextrin 3000 mg powder for oral solution (7 sources) Start: 03-02-2020 End: 08-25-2021 Wheat Dextrin (Benefiber Clear Sf (Dextrin)) 3 gram/3.5 gram powder in packet Discontinued 1 NMA PO DAILY March 02, 2020 12:00am August 25, 2021 4:50pm mix into at least 4 oz water or juice before administering Start: 03-02-2020 End: 08-25-2021 Wheat Dextrin (Benefiber Jose ar Sf (Dextrin)) 3 gram/3.5 gram powder in packet Discontinued 1 PACKET PO DAILY March 02, 2020 12:00am August 25, 2021 4:50pm mix into at least 4 oz water or juice before administering Problems Active Problems Problem Classification Problem Date Documented Da te Episodic/Chronic Abdominal pain (5 sources) Abdominal pain; Translations: [Unspecified abdominal pain] Onset: 5 12-02-2024 Episodic Anxiety disorders (7 sources) Anxiety; Translations: [Anxiety disorder, unspecified] 03-10-2020 Chronic Cardiac dysrhythmias (2 sources) Bradycardia; Translations: [Bradycardia, unspecified] 08-29-2024 Episodic Diabetes mellitus without complication (20 sources) Impaired fasting glycemia; Translations: [Impaired fasting glucose] 11-27-2017 Episodic Disorders of lipid metabolism (20 sources) Hyperlipidemia; Translations: [Hyperlipidemia, unspecified] Onset: 8 11-27-2017 Chronic Esophageal disorders (20 sources) Gastroesophageal reflux disease without esophagitis; Translations: [Gastro-esophageal reflux disease without esophagitis] Onset: 6 02-05-2016 Chronic Essential hypertension (20 sources) Essential hypertension; Translations: [Essential (primary) hypertension] Onset: 3 Chronic Gastrointestinal hemorrhage (7 sources) Hematochezia; Translations: [Melena] 03-10-2020 Episodic Hemorrhoids (14 sources) Bleeding internal hemorrhoids; Translations: [Other hemorrhoids] 03-02-2020 Episodic Menopausal disorders (8 sources) Atrophic vaginitis; Translations: [Postmenopausal atrophic vaginitis] 09-12-2022 Chronic Comment on above: estradiol cream smal l amount, rub in M-W-F Menopausal disorders (8 sources) Drug therapy status; Translations: [Hormone replacement therapy] 09-12-2022 Episodic Comment on above: taking .5mg daily, w ill attempt QOD in fall 2023 Osteoarthritis (20 sources) Degenerative joint disease involving multiple joints; Translations: [Polyosteoarthritis, unspecified] Onset: 6 02-05-2016 Chronic Other congenital anomalies (3 sources) Herniated urinary bladder 11-28-2023 Chronic Comment on above: stable; estradiol cr eam, kegels, avoid constipation Other connective tissue disease (1 source) History of total knee arthroplasty; Translations: [Presence of left artificial knee joint] Chronic Other gastrointestinal disorders (7 sources) Chronic constipation; Translations: [Other constipation] 03-02-2020 Episodic Other inflammatory condition of skin (20 sources) Rosacea; Translations: [Rosacea, unspecified] Onset: 6 06-23-2016 Chronic Other nervous system disorders (1 source) Other chronic pain; Translations: [Chronic right-sided low back pain with right-sided sciatica] Onset: 1 Chronic Other nervous system disorders (1 source) Numbness of lower limb ; Translations: [Anesthesia of skin] Episodic Other non-traumatic joint disorders (1 source) Pain in right knee; Translations: [Pain in joint, lower leg] 01-08-2024 Episodic Other screening for suspected conditions (not mental disorders or infectious disease) (20 sources) Patient encounter status; Translations: [Encounter for screening mammogram for malignant neoplasm of breast] Onset: 8 Episodic Other skin disorders (8 sources) Lichen sclerosus et atrophicus; Translations: [Lichen sclerosus et atrophicus] 09-12-2022 Chronic Comment on above: synalar Other skin disorders (1 source) Skin irritation ; Translations: [Other skin changes] Episodic Other skin disorders (1 source) Localized swelling, mass and lump, left upper limb; Translations: [Localized superficial swelling, mass, or lump] 09-10-2023 Episodic Other upper respiratory disease (7 sources) Seasonal allergy; Translations: [Other seasonal allergic rhinitis] 03-10-2020 Chronic Other upper respiratory disease (1 source) Maxillary sinus pain; Translations: [Other specified disorders of nose and nasal sinuses] 06-19-2023 Episodic Prolapse of female genital organs (8 sources) Disorder of rectum; Translations: [Rectocele] 09-12-2022 Chronic Comment on above: stable; estradiol cr eam, kegels, avoid constipation Residual codes; unclassified (2 sources) Sleep apnea; Translations: [Sleep apnea, unspecified] 10-31-2024 Chronic Residual codes; unclassified (7 sources) Past history of procedure; Translations: [Other specified postprocedural states] 03-10-2020 Episodic Residual codes; unclassified (7 sources) History of colonoscopy; Translations: [Other specified postprocedural states] 03-10-2020 Episodic Comment on above: 07/2019 Residual codes; unclassified (2 sources) Menopause present; Translations: [Asymptomatic menopausal state] 06-19-2023 Episodic Skin and subcutaneous tissue infections (1 source) Abscess of left axilla; Translations: [Cutaneous abscess of left axilla] 10-08-2023 Episodic Spondylosis; intervertebral disc disorders; other back problems (20 sources) Sciatica; Translations: [Sciatica, unspecified side] Onset: 01-06-2013 Episodic Unclassified (5 sources) Herniated urinary bladder; Translations: [Cystocele] 09-12-2022 Viral infection (1 source) COVID-19; Translations: [Positive self-administered antigen test for COVID-19] Past or Other Problems Problem Classification Problem Date Documented Da te Episodic/Chronic Bacterial infection; unspecified site (20 sources) History of methicillin resistant Staphylococcus aureus infection; Translations: [Personal history of Methicillin resistant Staphylococcus aureus infection] Onset: 01-08-2024 01-08-2024 Episodic Coma; stupor; and brain damage (3 sources) Daytime somnolence; Translations: [Somnolence] Onset: 09-09-2024 08-30-2024 Episodic Nonspecific chest pain (20 sources) Chest pain; Translations: [Chest pain, unspecified] Onset: 10-21-2014 10-21-2014 Episodic Other connective tissue disease (20 sources) Impingement syndrome of left shoulder region; Translations: [Impingement syndrome of left shoulder] Onset: 03-27-2013 03-27-2013 Episodic Other gastrointestinal disorders (20 sources) Dysphagia; Translations: [Dysphagia, unspecified] Onset: 10-21-2014 10-21-2014 Episodic Other gastrointestinal disorders (20 sources) Swallowing painful; Translations: [Dysphagia, unspecified] Onset: 10-21-2014 10-21-2014 Episodic Residual codes; unclassified (20 sources) Nicotine user; Translations: [Tobacco use] Onset: 01-08-2024 01-08-2024 Episodic Viral infection (3 sources) Recurrent herpes simplex labialis; Translations: [Herpesviral vesicular dermatitis] Onset: 07-01-2024 09-10-2023 Episodic Results Test Name Value Interpretation Reference Range Facility Manufacturing Production Manager Office Visit Reporton 01-07-2025 Manufacturing Production Manager Office Visit Report [facility] [address] [place] [address], [address] [place] [address] OFFICE VISIT Date of Service: 01/07/25 MR#: [id number] Acct: [id number] Name: MUKESH ROSENBERG Rep #: [id number] : 1955 Provider: MARLEN beltran Age/Sex: 69/F Location: [facility] Status: Signed Intake Vital Signs 11/28/23 09:31 01/07/25 11:20 01/07/25 11:29 Height 4 ft 11.5 in 4 ft 11.5 in 4 ft 11.5 in Weight: 133 lb BMI 26.4 BP 134/68 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 Complaint: Annual 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[employer] 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 Required: No Is patient in pain?: No Allergies naproxen Allergy (Verified 01/07/25 11:31) Swelling Medications ???Medication ???Instructions ???Recorded ???Confirmed ???Type pantoprazole 40 mg tablet,delayed 40 mg PO DAILY gerd 05/20/18 06/12/07 History release loratadine 10 mg tablet (Claritin) 10 mg PO DAILY 11/26/18 01/07/25 History nicotine (polacrilex) 2 mg gum 2 mg buccal Q2H 11/26/18 01/07/25 History (Nicorette) valacyclovir 1 gram tablet 2,000 mg (2 x 1 gram) PO .COMPLEX 07/11/21 01/07/25 Rx (Valtrex) #12 tabs docusate sodium 50 mg capsule 50 mg PO DAILY 08/25/21 01/07/25 H istory (Stool Softener) polyethylene glycol 3350 17 17 g PO DAILY 08/25/21 01/07/25 Hi story gram/dose oral powder (Miralax) estradiol 0.01% (0.1 mg/gram) See Rx Instructions vaginal 01/07/25 Rx vaginal cream (Estrace) .COMPLEX #42.5 grams estradiol 0.5 mg tablet 0.5 mg PO DAILY #90 tabs 01/07/25 01/07/25 Rx fluocinolone 0.025 % topical 1 applic topical .COMPLEX #15 gram s 01/07/25 01/07/25 Rx ointment (Synalar) Is last menstrual period known: No Post menopausal: Yes Patient : No : No PFSH Medical History Chronic constipation Bleeding internal hemorrhoids Acid reflux Hemorrhoids Blood in stool Arthritis Anxiety Atrophic vaginitis Lichen sclerosus Back pain Seasonal allergies Surgical History S/P knee replacement History of hemorrhoidectomy ( 02/2020) History of esophagogastroduodenoscop y (EGD) Hx of colonoscopy S/P trigger finger release H/O toe surgery History of tonsillectomy H/O knee surgery H/O carpal tunnel repair H/O: hysterectomy Family History Father CVA (cerebral vascular accident) Heart disease Hypertension Mother Hypertension Diabetes Heart disease Arthritis Brother Leukemia Social History (Updated 01/07/25 @ 11:32 by Deja Amaya NP, [employer] MANAGER-C) adopted: No household members: spouse number of children: 2 current occupational status: retired current occupation: [employer] sexually active: Yes Smoking Status: Former smoker alcohol intake: current alcohol intake frequency: a few times a month substance use type: does not use what type of physical activity do you participate in: none seatbelt use: always do you feel safe at home: Yes additional social history: Tai - retired History 3 Elective abortions Hx Para 2 Spontaneous abortions Hx # Term Pregnancies Ectopic pregnancies Hx # Pregnancies Multiple births # of living children Past Pregnancies Del. Date Name GA/Weeks Outcome Route Bth Weight Infant Gen Labor Lgth Anesthesia Del Locatn Provider FOB 05/03/79 Rosa Isela GUZMAN 09/11/85 Eddie HPI Encounter for routine gynecological examination Details: MUKESH ROSENBERG is a 69 year old who presents for annual exam. Not being consistent with use of synalar and having significant vaginal itching again. Last PAP: NA History of abnormal PAP: no Last mammogram: 09/2023 History of abnormal mammogram: benign Colon cancer screening: sched 01/30/25 Other preventative health care screenings: Glendy Female Reproductive History Questions: metorrhagia: No, sexually active: Yes, dyspareunia: No and PCB: No Menopausal Treatment: Yes HRT and Yes Vaginal Estrogen ROS Const Constitutional: Denies fatigue, weight gain or weight loss Cardio Card: Denies chest pain Resp Resp: Denies cough or dyspnea on exertion GI GI: Denies abdominal pain, bloating, change in stool character, constipation or vomiting : Reports as per HPI; Denies difficulty voiding, pelvic pain, urinary frequency, urinary incontinence, urinary urgency, vaginal discharge or vaginal pruritus Exam Const General: cooperative, healthy appearing, no acute distress and well developed Orientation: alert, oriented to person and oriented to place HENME Head: normal to inspection Neck Neck: normal visual inspection Thyroid: thyroid normal Lymphatic: no lymphadenopathy noted Chest Breast in (more content not included)... Normal [facility] ANCAon 12-05-2024 Atypical pANCA 1:80 Abnormal Neg:<1:20 [facility] Comment on above: Result Comment: The atypical pANCA pattern has been observed in a significant percentage of patients with ulcerative colitis, primary sclerosing cholangitis and autoimmune hepatitis. Performed By: #### L 500.4050, L3300.1200, L501.6710, L101.9900, L2100.0000, L504.2610, L3300.1800, L501.9520, L3410.2400, L100.0100, L3100.3425, L5500.0410 ####[facility] [address] [facility] [place], [address] Cytoplasmic Ab <1:20 Normal Neg:<1:20 [facility] Comment on above: Performed By: #### L 500.4050, L3300.1200, L501.6710, L101.9900, L2100.0000, L504.2610, L3300.1800, L501.9520, L3410.2400, L100.0100, L3100.3425, L5500.0410 ####[facility] [address] [facility] [place], [place], [phone] Perinuclear Ab. <1:20 Normal Neg:<1:20 [facility] Comment on above: Result Comment: The presence of positive fluorescence exhibiting P-ANCA or C-ANCA patterns alone is not specific for the diagnosis of Percy's Granulomatosis (WG) or microscopic polyangiitis. Decisions about treatment should not be based solely on ANCA IFA results. The International ANCA Group Consensus recommends follow up testing of positive sera with both PA- 3 and MPO-ANCA enzyme immunoassays. As many as 5% serum samples are positive only by EIA. Ref. AM J Clin Pathol 1999;111:507-513. Performed By: #### L 500.4050, L3300.1200, L501.6710, L101.9900, L2100.0000, L504.2610, L3300.1800, L501.9520, L3410.2400, L100.0100, L3100.3425, L5500.0410 ####[facility] [address] [place], [address] Celiac Disease Profileon ENDOMYSIAL IGA Negative Normal Negative [facility] Comment on above: Performed By: #### L 500.4050, L3300.1200, L501.6710, L101.9900, L2100.0000, L504.2610, L3300.1800, L501.9520, L3410.2400, L100.0100, L3100.3425, L5500.0410 ####[facility] [address] [place], [address] tTG IGA <2 Normal 0-3 [facility] Comment on above: Result Comment: Nega tive 0 - 3 Weak Positive 4 - 10 Positive >10 Tissue Transglutaminase (tTG) has been identified as the endomysial antigen. Studies have demonstr- ated that endomysial IgA antibodies have over 99% specificity for gluten sensitive enteropathy. Performed By: #### L 500.4050, L3300.1200, L501.6710, L101.9900, L2100.0000, L504.2610, L3300.1800, L501.9520, L3410.2400, L100.0100, L3100.3425, L5500.0410 ####[facility] [address] [place], [place], [address] Gastrin, Serumon 12-05-2024 GASTRIN 69 pg/mL Normal 0-115 [facility] Comment on above: Result Comment: Siem [facility] Immulite 2000 Immunochemiluminometric assay (ICMA) Values obtained with different assay methods or kits cannot be used interchangeably. Results cannot be interpreted as absolute evidence of the presence or absence of malignant disease. Performed at: [facility] [address] [id number] Claims Service Adjustor: Ray Barboza PhD, Phone: [phone] Performed at: [facility] [address] [id number] Claims Service Adjustor: Page Woods MD, Phone: [phone] Performed By: #### L 500.4050, L3300.1200, L501.6710, L101.9900, L2100.0000, L504.2610, L3300.1800, L501.9520, L3410.2400, L100.0100, L3100.3425, L5500.0410 ####[facility] [address] [place], [place], [address] ALICIA + Protein Elect, Serumon 12-05-2024 Albumin [Mass/Vol] 4.0 g/dL Normal 2.9-4.4 [facility] Comment on above: Order Comment: N Performed By: #### L 500.4050, L3300.1200, L501.6710, L101.9900, L2100.0000, L504.2610, L3300.1800, L501.9520, L3410.2400, L100.0100, L3100.3425, L5500.0410 ####[facility] [address] [place], [place], [phone] Albumin/Globulin [Mass ratio] 1.4 {ratio} Normal 0.7-1.7 [facility] Comment on above: Order Comment: N Performed By: #### L 500.4050, L3300.1200, L501.6710, L101.9900, L2100.0000, L504.2610, L3300.1800, L501.9520, L3410.2400, L100.0100, L3100.3425, L5500.0410 ####[facility] [address] [place], [place], [phone](761) MBBQN-1-HEGP 0.2 g/dL Normal 0.0-0.4 [facility] Comment on above: Order Comment: N Performed By: #### L 500.4050, L3300.1200, L501.6710, L101.9900, L2100.0000, L504.2610, L3300.1800, L501.9520, L3410.2400, L100.0100, L3100.3425, L5500.0410 ####[facility] [address] [place], [place], [phone](007) QMQKR-3-LZYD 0.9 g/dL Normal 0.4-1.0 [facility] Comment on above: Order Comment: N Performed By: #### L 500.4050, L3300.1200, L501.6710, L101.9900, L2100.0000, L504.2610, L3300.1800, L501.9520, L3410.2400, L100.0100, L3100.3425, L5500.0410 ####[facility] [address] [place], [place], [phone](021) BETA GLOBULIN 1.0 g/dL Normal 0.7-1.3 [facility] Comment on above: Order Comment: N Performed By: #### L 500.4050, L3300.1200, L501.6710, L101.9900, L2100.0000, L504.2610, L3300.1800, L501.9520, L3410.2400, L100.0100, L3100.3425, L5500.0410 ####[facility] [address] [place], [address](006) GAMMA GLOBULIN 0.9 g/dL Normal 0.4-1.8 [facility] Comment on above: Order Comment: N Performed By: #### L 500.4050, L3300.1200, L501.6710, L101.9900, L2100.0000, L504.2610, L3300.1800, L501.9520, L3410.2400, L100.0100, L3100.3425, L5500.0410 ####[facility] [address] [place], [place], [phone] Globulin (S) [Mass/Vol] 3.0 g/dL Normal 2.2-3.9 [facility] Comment on above: Order Comment: N Performed By: #### L 500.4050, L3300.1200, L501.6710, L101.9900, L2100.0000, L504.2610, L3300.1800, L501.9520, L3410.2400, L100.0100, L3100.3425, L5500.0410 ####[facility] [address] [place], [place], [phone] ALICIA RESULT,S Comment: Normal . [facility] Comment on above: Order Comment: N Result Comment: Pres ence of monoclonal protein is unclear at this time. Suggest repeat in 3 to 6 months if clinically indicated. Performed By: #### L 500.4050, L3300.1200, L501.6710, L101.9900, L2100.0000, L504.2610, L3300.1800, L501.9520, L3410.2400, L100.0100, L3100.3425, L5500.0410 ####[facility] [address] [place], [place], [phone] IMMUNOGLOB A QN 161 mg/dL Normal 87-352 [facility] Comment on above: Order Comment: N Performed By: #### L 500.4050, L3300.1200, L501.6710, L101.9900, L2100.0000, L504.2610, L3300.1800, L501.9520, L3410.2400, L100.0100, L3100.3425, L5500.0410 ####[facility] [address] [place], [address] IMMUNOGLOB G QN 1020 mg/dL Normal 586-1602 [facility] Comment on above: Order Comment: N Performed By: #### L 500.4050, L3300.1200, L501.6710, L101.9900, L2100.0000, L504.2610, L3300.1800, L501.9520, L3410.2400, L100.0100, L3100.3425, L5500.0410 ####[facility] [address] [place], [place], [phone] IMMUNOGLOB M QN 56 mg/dL Normal 26-217 [facility] Comment on above: Order Comment: N Performed By: #### L 500.4050, L3300.1200, L501.6710, L101.9900, L2100.0000, L504.2610, L3300.1800, L501.9520, L3410.2400, L100.0100, L3100.3425, L5500.0410 ####[facility] [address] [place], [place], [phone](560) M-Ta Not Observed Normal Not Observed [facility] Comment on above: Order Comment: N Performed By: #### L 500.4050, L3300.1200, L501.6710, L101.9900, L2100.0000, L504.2610, L3300.1800, L501.9520, L3410.2400, L100.0100, L3100.3425, L5500.0410 ####[facility] [address] [place], [place], [phone] NOTE: Comment Normal . [facility] Comment on above: Order Comment: N Result Comment: Prot ein electrophoresis scan will follow via computer, mail, or rn wom[facility] delivery. Performed By: #### L 500.4050, L3300.1200, L501.6710, L101.9900, L2100.0000, L504.2610, L3300.1800, L501.9520, L3410.2400, L100.0100, L3100.3425, L5500.0410 ####[facility] [address] [place], [place], [phone] Protein [Mass/Vol] 7.0 g/dL Normal 6.0-8.5 [facility] Comment on above: Order Comment: N Performed By: #### L 500.4050, L3300.1200, L501.6710, L101.9900, L2100.0000, L504.2610, L3300.1800, L501.9520, L3410.2400, L100.0100, L3100.3425, L5500.0410 ####[facility] [address] [place], [address](469) L2100.0000on 12-05-2024 ACCA 11 units Normal 0-90 [facility] Comment on above: Result Comment: Nega tive: <80 Equivocal: 80-90 Positive: >90 Performed By: #### L 500.4050, L3300.1200, L501.6710, L101.9900, L2100.0000, L504.2610, L3300.1800, L501.9520, L3410.2400, L100.0100, L3100.3425, L5500.0410 #### [facility] [address] [place], [place], [phone] (782) ALCA 0 units Normal 0-60 [facility] Comment on above: Result Comment: Nega tive:<55 Equivocal: 55-60 Positive: >60 Performed By: #### L 500.4050, L3300.1200, L501.6710, L101.9900, L2100.0000, L504.2610, L3300.1800, L501.9520, L3410.2400, L100.0100, L3100.3425, L5500.0410 #### [facility] [address] [place], [address] AMCA 4 units Normal 0-100 [facility] Comment on above: Result Comment: Nega tive: <90 Equivocal: 90-100 Positive: >100 This test was developed and its performance characteristics determined by [facility]. It has not been cleared or approved by the Food and Drug Administration. The FDA has determined that such clearance or approval is not necessary. Performed By: #### L 500.4050, L3300.1200, L501.6710, L101.9900, L2100.0000, L504.2610, L3300.1800, L501.9520, L3410.2400, L100.0100, L3100.3425, L5500.0410 #### [facility] [address] [place], [address] Atypical pANCA Positive Abnormal Negative [facility] Comment on above: Performed By: #### L 500.4050, L3300.1200, L501.6710, L101.9900, L2100.0000, L504.2610, L3300.1800, L501.9520, L3410.2400, L100.0100, L3100.3425, L5500.0410 #### [facility] [address] [place], [address] COMMENT Comment Abnormal . [facility] Comment on above: Result Comment: Sugg estive of Ulcerative Colitis Performed By: #### L 500.4050, L3300.1200, L501.6710, L101.9900, L2100.0000, L504.2610, L3300.1800, L501.9520, L3410.2400, L100.0100, L3100.3425, L5500.0410 #### [facility] [address] [place], [address] Jesus 17 units Normal 0-50 [facility] Comment on above: Result Comment: Nega tive: <45 Equivocal: 45-50 Positive: >50 Performed By: #### L 500.4050, L3300.1200, L501.6710, L101.9900, L2100.0000, L504.2610, L3300.1800, L501.9520, L3410.2400, L100.0100, L3100.3425, L5500.0410 #### [facility] [address] [place], [place], [phone] Allergen, Food Profileon CLAM <0.10 Normal Class 0 [facility] Comment on above: Performed By: #### L 500.4050, L3300.1200, L501.6710, L101.9900, L2100.0000, L504.2610, L3300.1800, L501.9520, L3410.2400, L100.0100, L3100.3425, L5500.0410 #### [facility] [address] [place], [place], [phone] CODFISH <0.10 Normal Class 0 [facility] Comment on above: Performed By: #### L 500.4050, L3300.1200, L501.6710, L101.9900, L2100.0000, L504.2610, L3300.1800, L501.9520, L3410.2400, L100.0100, L3100.3425, L5500.0410 #### [facility] [address] [place], [place], [phone] COMMENT Comment Normal . [facility] Comment on above: Result Comment: Mounika santos of Specific IgE Class Description of Class ----- < 0.10 0 Negative 0.10 - 0.31 0/I Equivocal/Low 0.32 - 0.55 I Low 0.56 - 1.40 II Moderate 1.41 - 3.90 III High 3.91 - 19.00 IV Very High 19.01 - 100.00 V Very High >100.00 Very High Performed By: #### L 500.4050, L3300.1200, L501.6710, L101.9900, L2100.0000, L504.2610, L3300.1800, L501.9520, L3410.2400, L100.0100, L3100.3425, L5500.0410 #### [facility] [address] [place], [place], [id number] CORN <0.10 Normal Class 0 [facility] Comment on above: Performed By: #### L 500.4050, L3300.1200, L501.6710, L101.9900, L2100.0000, L504.2610, L3300.1800, L501.9520, L3410.2400, L100.0100, L3100.3425, L5500.0410 #### [facility] [address] [place], [place], [phone] EGG, WHITE <0.10 Normal Class 0 [facility] Comment on above: Performed By: #### L 500.4050, L3300.1200, L501.6710, L101.9900, L2100.0000, L504.2610, L3300.1800, L501.9520, L3410.2400, L100.0100, L3100.3425, L5500.0410 #### [facility] [address] [place], [address] MILK (COW) <0.10 Normal Class 0 [facility] Comment on above: Performed By: #### L 500.4050, L3300.1200, L501.6710, L101.9900, L2100.0000, L504.2610, L3300.1800, L501.9520, L3410.2400, L100.0100, L3100.3425, L5500.0410 #### [facility] [address] [place], [address] PEANUT <0.10 Normal Class 0 [facility] Comment on above: Performed By: #### L 500.4050, L3300.1200, L501.6710, L101.9900, L2100.0000, L504.2610, L3300.1800, L501.9520, L3410.2400, L100.0100, L3100.3425, L5500.0410 #### [facility] [address] [place], [place], [phone] SCALLOP <0.10 Normal Class 0 [facility] Comment on above: Performed By: #### L 500.4050, L3300.1200, L501.6710, L101.9900, L2100.0000, L504.2610, L3300.1800, L501.9520, L3410.2400, L100.0100, L3100.3425, L5500.0410 #### [facility] [address] [facility] [place], [address] SESAME SEED <0.10 Normal Class 0 [facility] Comment on above: Result Comment: Perf ormed at: [facility] [id number] Claims Service Adjustor: Page Woods MD, Phone: [phone] Performed By: #### L 500.4050, L3300.1200, L501.6710, L101.9900, L2100.0000, L504.2610, L3300.1800, L501.9520, L3410.2400, L100.0100, L3100.3425, L5500.0410 #### [facility] [address] [place], [place], [phone] SHRIMP <0.10 Normal Class 0 [facility] Comment on above: Performed By: #### L 500.4050, L3300.1200, L501.6710, L101.9900, L2100.0000, L504.2610, L3300.1800, L501.9520, L3410.2400, L100.0100, L3100.3425, L5500.0410 #### [facility] [address] [facility] [place], [place], [phone] SOYBEAN <0.10 Normal Class 0 [facility] Comment on above: Performed By: #### L 500.4050, L3300.1200, L501.6710, L101.9900, L2100.0000, L504.2610, L3300.1800, L501.9520, L3410.2400, L100.0100, L3100.3425, L5500.0410 #### [facility] [address] [facility] [place], [address] WALNUT,(Food) <0.10 Normal Class 0 [facility] Comment on above: Performed By: #### L 500.4050, L3300.1200, L501.6710, L101.9900, L2100.0000, L504.2610, L3300.1800, L501.9520, L3410.2400, L100.0100, L3100.3425, L5500.0410 #### [facility] [address] [place], [place], [id number] WHEAT <0.10 Normal Class 0 [facility] Comment on above: Performed By: #### L 500.4050, L3300.1200, L501.6710, L101.9900, L2100.0000, L504.2610, L3300.1800, L501.9520, L3410.2400, L100.0100, L3100.3425, L5500.0410 #### [facility] [address] [place], [place], [id number] Absolute lymphocyte countOrd ered By: Javid Blackwood on 12-02-2024 Lymphocytes Auto (Unsp spec) [#/Vol] 1.54 10*3/uL 0.83-4.51 [facility] Absolute neutrophil countOrd ered By: Javid Blackwood on 12-02-2024 Neutrophils (Bld) [#/Vol] 4.4 10*3/uL 2.0-7.7 [facility] Albumin Elph [Mass/Vol]Order ed By: Javidcharles Blackwood on 12-02-2024 Albumin [Mass/Vol] 4.0 g/dL 2.9-4.4 [facility] Anion gap in Serum or Plasma Ordered By: Javid Blackwood on 12-02-2024 Anion gap [Moles/Vol] 13 mmol/L 5- [facility] Automated lymphocyte count a s percentage of total leukocytesOrdered By: Javid Blackwood on 12-02-2024 Lymphocytes/100 WBC Auto (Unsp spec) 22.6 % - [facility] BUN/creatinine ratioOrdered By: Javidjim Blackwood on 12-02-2024 Urea nitrogen/Creatinine [Mass ratio] 16.0 mg/mg - [facility] Basophil percentageOrdered B y: Javid Blackwood on 12-02-2024 Basophils/100 WBC (Bld) 0.7 % 0-1 [facility] Bilirubin, totalOrdered By: Javid Blackwood on 12-02-2024 Bilirubin [Mass/Vol] 0.57 mg/dL 0.00-1.30 [facility] CBC W/Diff, Automatedon 11-14 Absolute Lymph 1.54 X10 3/uL Normal 0.83-4.51 [facility] Comment on above: Performed By: #### L 500.4050, L3300.1200, L501.6710, L101.9900, L2100.0000, L504.2610, L3300.1800, L501.9520, L3410.2400, L100.0100, L3100.3425, L5500.0410 #### [facility] [address] [place], [address] Absolute Neut 4.4 X10 3/uL Normal 2.0-7.7 [facility] Comment on above: Performed By: #### L 500.4050, L3300.1200, L501.6710, L101.9900, L2100.0000, L504.2610, L3300.1800, L501.9520, L3410.2400, L100.0100, L3100.3425, L5500.0410 #### [facility] [address] [place], [address] Basophils/100 WBC (Bld) 0.7 % Normal 0-1 [facility] Comment on above: Performed By: #### L 500.4050, L3300.1200, L501.6710, L101.9900, L2100.0000, L504.2610, L3300.1800, L501.9520, L3410.2400, L100.0100, L3100.3425, L5500.0410 #### [facility] [address] [place], [place], [phone] (434) Eosinophils/100 WBC (Bld) 1.9 % Normal 0-5 [facility] Comment on above: Performed By: #### L 500.4050, L3300.1200, L501.6710, L101.9900, L2100.0000, L504.2610, L3300.1800, L501.9520, L3410.2400, L100.0100, L3100.3425, L5500.0410 #### [facility] [address] [place], [place], [phone] Erythrocyte distribution width (RBC) [Ratio] 12.9 % Normal 11.6-14.6 [facility] Comment on above: Performed By: #### L 500.4050, L3300.1200, L501.6710, L101.9900, L2100.0000, L504.2610, L3300.1800, L501.9520, L3410.2400, L100.0100, L3100.3425, L5500.0410 #### [facility] [address] [place], [place], [phone] (552) Hematocrit (Bld) [Volume fraction] 40.3 % Normal 37-47 [facility] Comment on above: Performed By: #### L 500.4050, L3300.1200, L501.6710, L101.9900, L2100.0000, L504.2610, L3300.1800, L501.9520, L3410.2400, L100.0100, L3100.3425, L5500.0410 #### [facility] [address] [place], [address] Hemoglobin (Bld) [Mass/Vol] 13.5 g/dL Normal 12.0-15.0 [facility] Comment on above: Performed By: #### L 500.4050, L3300.1200, L501.6710, L101.9900, L2100.0000, L504.2610, L3300.1800, L501.9520, L3410.2400, L100.0100, L3100.3425, L5500.0410 #### [facility] [address] [place], [address] IG% 0.400 Normal 0.0-0.9 [facility] Comment on above: Result Comment: IG% - Immature Granulocytes (promyelocytes, myelocytes and metamyelocytes) > 1% indicates that a LEFT SHIFT is Present. Performed By: #### L 500.4050, L3300.1200, L501.6710, L101.9900, L2100.0000, L504.2610, L3300.1800, L501.9520, L3410.2400, L100.0100, L3100.3425, L5500.0410 #### [facility] [address] [place], [place], [address] Lymphocytes/100 WBC (Bld) 22.6 % Normal 19-41 [facility] Comment on above: Performed By: #### L 500.4050, L3300.1200, L501.6710, L101.9900, L2100.0000, L504.2610, L3300.1800, L501.9520, L3410.2400, L100.0100, L3100.3425, L5500.0410 #### [facility] [address] [place], [address] MCH (RBC) [Entitic mass] 31.3 pg Normal 27.0-32.0 [facility] Comment on above: Performed By: #### L 500.4050, L3300.1200, L501.6710, L101.9900, L2100.0000, L504.2610, L3300.1800, L501.9520, L3410.2400, L100.0100, L3100.3425, L5500.0410 #### [facility] [address] [place], [address] MCHC (RBC) [Mass/Vol] 33.5 g/dL Normal 32-36 [facility] Comment on above: Performed By: #### L 500.4050, L3300.1200, L501.6710, L101.9900, L2100.0000, L504.2610, L3300.1800, L501.9520, L3410.2400, L100.0100, L3100.3425, L5500.0410 #### [facility] [address] [place], [address] MCV (RBC) [Entitic vol] 93.3 fL Normal 81-99 [facility] Comment on above: Performed By: #### L 500.4050, L3300.1200, L501.6710, L101.9900, L2100.0000, L504.2610, L3300.1800, L501.9520, L3410.2400, L100.0100, L3100.3425, L5500.0410 #### [facility] [address] [place], [address] Monocytes/100 WBC (Bld) 9.5 % Normal 0-10 [facility] Comment on above: Performed By: #### L 500.4050, L3300.1200, L501.6710, L101.9900, L2100.0000, L504.2610, L3300.1800, L501.9520, L3410.2400, L100.0100, L3100.3425, L5500.0410 #### [facility] [address] [place], [address] Neutrophils/100 WBC (Bld) 64.9 % Normal 47-70 [facility] Comment on above: Performed By: #### L 500.4050, L3300.1200, L501.6710, L101.9900, L2100.0000, L504.2610, L3300.1800, L501.9520, L3410.2400, L100.0100, L3100.3425, L5500.0410 #### [facility] [address] [place], [address] Nucleated RBC (Bld) [#/Vol] 0 10*3/uL Normal 0-5 [facility] Comment on above: Performed By: #### L 500.4050, L3300.1200, L501.6710, L101.9900, L2100.0000, L504.2610, L3300.1800, L501.9520, L3410.2400, L100.0100, L3100.3425, L5500.0410 #### [facility] [address] [place], [address] Platelet mean volume (Bld) [Entitic vol] 9.4 fL Normal 6.2-12.0 [facility] Comment on above: Performed By: #### L 500.4050, L3300.1200, L501.6710, L101.9900, L2100.0000, L504.2610, L3300.1800, L501.9520, L3410.2400, L100.0100, L3100.3425, L5500.0410 #### [facility] [address] [place], [address] Platelets (Bld) [#/Vol] 278 10*3/uL Normal 150-450 [facility] Comment on above: Performed By: #### L 500.4050, L3300.1200, L501.6710, L101.9900, L2100.0000, L504.2610, L3300.1800, L501.9520, L3410.2400, L100.0100, L3100.3425, L5500.0410 #### [facility] [address] [place], [address] RBC (Bld) [#/Vol] 4.32 10*6/uL Normal 4.2-5.4 [facility] Comment on above: Performed By: #### L 500.4050, L3300.1200, L501.6710, L101.9900, L2100.0000, L504.2610, L3300.1800, L501.9520, L3410.2400, L100.0100, L3100.3425, L5500.0410 #### [facility] [address] [place], [address] (347) RDW SD 44.7 fl High 35.1-43.9 [facility] Comment on above: Performed By: #### L 500.4050, L3300.1200, L501.6710, L101.9900, L2100.0000, L504.2610, L3300.1800, L501.9520, L3410.2400, L100.0100, L3100.3425, L5500.0410 #### [facility] [address] [place], [place], [id number] (122) WBC (Bld) [#/Vol] 6.8 10*3/uL Normal 4.4-11.0 [facility] Comment on above: Performed By: #### L 500.4050, L3300.1200, L501.6710, L101.9900, L2100.0000, L504.2610, L3300.1800, L501.9520, L3410.2400, L100.0100, L3100.3425, L5500.0410 #### [facility] [address] [place], [place], [id number] (327) CRPon 12-02-2024 C-REACTIVE PROT 3.36 mg/L High 0.0-3.0 [facility] Comment on above: Performed By: #### L 500.4050, L3300.1200, L501.6710, L101.9900, L2100.0000, L504.2610, L3300.1800, L501.9520, L3410.2400, L100.0100, L3100.3425, L5500.0410 #### [facility] [address] [place], [place], [id number] Carbon dioxide, total [Moles /volume] in Central venous bloodOrdered By: Javid Blackwood on 12-02-2024 CO2 [Moles/Vol] 23.4 mmol/L 21.0-32.0 [facility] Chitobioside IgA antibody as sayOrdered By: Javid Blackwood on 12-02-2024 Chitobioside IgA IA Qn 11 units 0-90 [facility] Comment on above: Negative: <80 Equivo corey: 80-90 Positive: >90 Chloride assayOrdered By: Ra charles Blackwood on 12-02-2024 Chloride [Moles/Vol] 104 mmol/L 98-108 [facility] Comprehensive Metabolic Prof ilon 12-02-2024 Albumin [Mass/Vol] 4.4 g/dL Normal 3.4-4.8 [facility] Comment on above: Performed By: #### L 500.4050, L3300.1200, L501.6710, L101.9900, L2100.0000, L504.2610, L3300.1800, L501.9520, L3410.2400, L100.0100, L3100.3425, L5500.0410 #### [facility] [address] [place], [address] Albumin/Globulin [Mass ratio] 1.4 {ratio} Normal 0.9-2.4 [facility] Comment on above: Performed By: #### L 500.4050, L3300.1200, L501.6710, L101.9900, L2100.0000, L504.2610, L3300.1800, L501.9520, L3410.2400, L100.0100, L3100.3425, L5500.0410 #### [facility] [address] [place], [address] (056) ALK PHOS 82 U/L Normal 35-104 [facility] Comment on above: Performed By: #### L 500.4050, L3300.1200, L501.6710, L101.9900, L2100.0000, L504.2610, L3300.1800, L501.9520, L3410.2400, L100.0100, L3100.3425, L5500.0410 #### [facility] [address] [place], [address] ALT [Catalytic activity/Vol] 19 U/L Normal <=34 [facility] Comment on above: Performed By: #### L 500.4050, L3300.1200, L501.6710, L101.9900, L2100.0000, L504.2610, L3300.1800, L501.9520, L3410.2400, L100.0100, L3100.3425, L5500.0410 #### [facility] [address] [place], [address] (973) AST [Catalytic activity/Vol] 24 U/L Normal <=31 [facility] Comment on above: Performed By: #### L 500.4050, L3300.1200, L501.6710, L101.9900, L2100.0000, L504.2610, L3300.1800, L501.9520, L3410.2400, L100.0100, L3100.3425, L5500.0410 #### [facility] [address] [place], [address] Bilirubin [Mass/Vol] 0.57 mg/dL Normal 0.00-1.30 [facility] Comment on above: Performed By: #### L 500.4050, L3300.1200, L501.6710, L101.9900, L2100.0000, L504.2610, L3300.1800, L501.9520, L3410.2400, L100.0100, L3100.3425, L5500.0410 #### [facility] [address] [place], [address] BUN/CRE 16.0 RATIO Normal 10-20 [facility] Comment on above: Performed By: #### L 500.4050, L3300.1200, L501.6710, L101.9900, L2100.0000, L504.2610, L3300.1800, L501.9520, L3410.2400, L100.0100, L3100.3425, L5500.0410 #### [facility] [address] [place], [address] Calcium [Mass/Vol] 9.6 mg/dL Normal 7.6-11.0 [facility] Comment on above: Performed By: #### L 500.4050, L3300.1200, L501.6710, L101.9900, L2100.0000, L504.2610, L3300.1800, L501.9520, L3410.2400, L100.0100, L3100.3425, L5500.0410 #### [facility] [address] [place], [address] Chloride [Moles/Vol] 104 mmol/L Normal 98-108 [facility] Comment on above: Performed By: #### L 500.4050, L3300.1200, L501.6710, L101.9900, L2100.0000, L504.2610, L3300.1800, L501.9520, L3410.2400, L100.0100, L3100.3425, L5500.0410 #### [facility] [address] [place], [address] CO2 [Moles/Vol] 23.4 mmol/L Normal 21.0-32.0 [facility] Comment on above: Performed By: #### L 500.4050, L3300.1200, L501.6710, L101.9900, L2100.0000, L504.2610, L3300.1800, L501.9520, L3410.2400, L100.0100, L3100.3425, L5500.0410 #### [facility] [address] [place], [place], [address] Creatinine [Mass/Vol] 0.74 mg/dL Normal 0.70-1.20 [facility] Comment on above: Performed By: #### L 500.4050, L3300.1200, L501.6710, L101.9900, L2100.0000, L504.2610, L3300.1800, L501.9520, L3410.2400, L100.0100, L3100.3425, L5500.0410 #### [facility] [address] [place], [address] GAP 13 Normal 5-15 [facility] Comment on above: Performed By: #### L 500.4050, L3300.1200, L501.6710, L101.9900, L2100.0000, L504.2610, L3300.1800, L501.9520, L3410.2400, L100.0100, L3100.3425, L5500.0410 #### [facility] [address] [place], [address] GFR/1.73 sq M.predicted among non-blacks MDRD (S/P/Bld) [Vol rate/Area] 89 mL/min/{1.73_m2} Normal >60 [facility] Comment on above: Result Comment: mL/m in/1.73m2 CKD-EPI Creatinine Equation (2020) Performed By: #### L 500.4050, L3300.1200, L501.6710, L101.9900, L2100.0000, L504.2610, L3300.1800, L501.9520, L3410.2400, L100.0100, L3100.3425, L5500.0410 #### [facility] [address] [place], [address] Globulin (S) [Mass/Vol] 3.2 g/dL Normal 2.2-4.2 [facility] Comment on above: Performed By: #### L 500.4050, L3300.1200, L501.6710, L101.9900, L2100.0000, L504.2610, L3300.1800, L501.9520, L3410.2400, L100.0100, L3100.3425, L5500.0410 #### [facility] [address] [place], [address] Glucose [Mass/Vol] 102 mg/dL High 70-99 [facility] Comment on above: Performed By: #### L 500.4050, L3300.1200, L501.6710, L101.9900, L2100.0000, L504.2610, L3300.1800, L501.9520, L3410.2400, L100.0100, L3100.3425, L5500.0410 #### [facility] [address] [place], [address] Potassium [Moles/Vol] 3.9 mmol/L Normal 3.3-5.1 [facility] Comment on above: Performed By: #### L 500.4050, L3300.1200, L501.6710, L101.9900, L2100.0000, L504.2610, L3300.1800, L501.9520, L3410.2400, L100.0100, L3100.3425, L5500.0410 #### [facility] [address] [place], [address] Sodium [Moles/Vol] 140 mmol/L Normal 133-145 [facility] Comment on above: Performed By: #### L 500.4050, L3300.1200, L501.6710, L101.9900, L2100.0000, L504.2610, L3300.1800, L501.9520, L3410.2400, L100.0100, L3100.3425, L5500.0410 #### [facility] [address] [place], [place], [id number] (038) T PROT 7.6 g/dL Normal 5.9-8.4 [facility] Comment on above: Performed By: #### L 500.4050, L3300.1200, L501.6710, L101.9900, L2100.0000, L504.2610, L3300.1800, L501.9520, L3410.2400, L100.0100, L3100.3425, L5500.0410 #### [facility] [address] [place], [place], [id number] Urea nitrogen [Mass/Vol] 12 mg/dL Normal 4-19 [facility] Comment on above: Performed By: #### L 500.4050, L3300.1200, L501.6710, L101.9900, L2100.0000, L504.2610, L3300.1800, L501.9520, L3410.2400, L100.0100, L3100.3425, L5500.0410 #### [facility] [address] [place], [place], [id number] Eosinophil percentageOrdered By: Javid Friend on 12-02-2024 Eosinophils/100 WBC (Bld) 1.9 % 0-5 [facility] Erythrocyte Sed Rateon 12-02 SED RATE 22 mm/hr Normal 0-30 [facility] Comment on above: Performed By: #### L 500.4050, L3300.1200, L501.6710, L101.9900, L2100.0000, L504.2610, L3300.1800, L501.9520, L3410.2400, L100.0100, L3100.3425, L5500.0410 #### [facility] [address] [facility] [address] Erythrocyte distribution wid th ratioOrdered By: Javid Blackwood on 12-02-2024 Erythrocyte distribution width (RBC) [Ratio] 12.9 % 11.6-14.6 [facility] Erythrocyte distribution wid th standard deviationOrdered By: Javid Blackwood on 12-02-2024 Erythrocyte distribution width (RBC) [Ratio] 44.7 fl High 35.1-43.9 [facility] Erythrocyte sedimentation ra teOrdered By: Javid Jaison on 12-02-2024 ESR (Bld) [Velocity] 22 mm/h 0-30 [facility] Gastrin, serumOrdered By: Ra soto Friend on 12-02-2024 Gastrin [Mass/Vol] 69 pg/mL 0-115 [facility] Comment on above: Siemens Immulite 200 0 Immunochemiluminometric assay (ICMA)Values obtained with different assay methods or kits cannotbe used interchangeably. Results cannot be interpreted asabsolute evidence of the presence or absence of malignantdisease.Performed at: [facility] [address] [id number] Director: Ray Barboza PhD, Phone: [phone] at: [facility] Lab[address] [id number] Director: Page Woods MD, Phone: [phone] Gastroenterology Visit Repor ton 12-02-2024 Gastroenterology Visit Report [facility] [address] [place] [address] OFFICE VISIT Date of Service: 12/02/24 MR#: [id number] Acct: [id number] Name: MUKESH ROSENBERG Rep #: [id number] : 1955 Provider: Javid Blackwood DO Age/Sex: 69/F Location: [facility] Status: Signed Intake Vital Signs 11/28/23 09:31 Height 4 ft 11.5 in Intake Visit Reasons: stomach issues-vomiting ever 6 wks Allergies naproxen Allergy (Verified 11/28/23 09:21) Swelling Medications ???Medication ???Instructions ???Recorded ???Confirmed ???Type pantoprazole 40 mg tablet,delayed 40 mg PO DAILY gerd 05/20/18 05/2 0 History release loratadine 10 mg tablet (Claritin) 10 mg PO DAILY 11/26/18 12/02/24 History nicotine (polacrilex) 2 mg gum 2 mg buccal Q2H 11/26/18 12/02/24 History (Nicorette) valacyclovir 1 gram tablet 2,000 mg (2 x 1 gram) PO .COMPLEX 07/11/21 12/02/24 Rx (Valtrex) #12 tabs docusate sodium 50 mg capsule 50 mg PO DAILY 08/25/21 12/02/24 H istory (Stool Softener) polyethylene glycol 3350 17 17 g PO DAILY 08/25/21 12/02/24 Hi story gram/dose oral powder (Miralax) estradiol 0.01% (0.1 mg/gram) See Rx Instructions vaginal 12/02/24 Rx vaginal cream (Estrace) .COMPLEX #42.5 grams estradiol 1 mg tablet 1 mg PO .COMPLEX #90 tabs 11/28/23 12/02/24 Rx fluocinolone 0.025 % topical 1 applic topical .COMPLEX #15 gram s 11/28/23 12/02/24 Rx ointment (Synalar) Have you fallen in the past year?: No Nurse's Note: Pt was scheduled for EGD and colonoscopy on 01.30.25 at the end of their appt today. Reviewed prep instructions and which medications to hold prior to procedure with pt in office. A paper copy of Miralax prep instructions were given to pt. Pt denies any questions or concerns at this time. [facility] Medical History Chronic constipation Bleeding internal hemorrhoids Acid reflux Hemorrhoids Blood in stool Arthritis Anxiety Atrophic vaginitis Lichen sclerosus Back pain Seasonal allergies Surgical History S/P knee replacement History of hemorrhoidectomy ( 02/2020) History of esophagogastroduodenoscop y (EGD) Hx of colonoscopy S/P trigger finger release H/O toe surgery History of tonsillectomy H/O knee surgery H/O carpal tunnel repair H/O: hysterectomy Family History Father CVA (cerebral vascular accident) Heart disease Hypertension Mother Hypertension Diabetes Heart disease Arthritis Brother Leukemia Social History adopted: No household members: spouse number of children: 2 current occupation: [employer] sexually active: Yes Smoking Status: Former smoker alcohol intake: current alcohol intake frequency: a few times a month substance use type: does not use what type of physical activity do you participate in: none seatbelt use: always do you feel safe at home: Yes additional social history: Tai - retired HPI HPI Details: MUKESH ROSENBERG, is a 69 F who presents to the office today for initial consult. *BGI established 5..25 pt reports long history of issues with digestion and constipation. Pt reports that she had a hemorrhoidectomy with Dr Pham in 2020. Pt reports that for the past year and a half she has started having episodes of emesis. Pt reports episodes are typically about 4-5 weeks apart and has recently started to have diarrhea during these episodes as well. Pt cannot pinpoint specific foods that upset her stomach, reports that she does usually get sick after the occasional beer. Pt reports her last colonoscopy was 5 years ago and last EGD was 10+ years ago. ROS Const Constitutional: Positive for fatigue and weight change (weight loss); No fever(s) ENT ENT: No difficulty swallowing Gastro GI: Positive for abdominal pain, bloating, constipation, diarrhea, heartburn, excessive flatus, nausea/dyspepsia and vomiting; No belching, change in bowel habits, change in stool character, coffee ground emesis, cramping, difficulty swallowing, feeling full early, incontinent of stools, Vomiting blood/hematemesis, Blood in stool, loose stools, Black,tarry stools, pain with swallowing or other Musc Musculoskeletal: Positive for joint pain, back pain, numbness, stiffness, tingling, Arthritis and sciatica Skin Skin: Positive for dry skin and itchy eyes; No yellowing of the eye Neuro Neurology: Positive for numbness and tingling Psych Psychiatric: Positive for anxiety and No depression Endo Endocrine: Positive for fatigue and weight change (weight loss) Aller/Imm Allergy/Immunologic: Positive for itchy eyes Tomas/Lymp He (more content not included)... Normal [facility] Glomerular filtration rate ( GFR) estimation/1.73 sq m using serum, plasma, or whole bOrdered By: Javid Blackwood on 12-02-2024 GFR/1.73 sq M.predicted among non-blacks MDRD (S/P/Bld) [Vol rate/Area] 89 mL/min/{1.73_m2} >60 [facility] Comment on above: mL/min/1.73m2 CKD-EP I Creatinine Equation (2020) Hematocrit Auto (Bld) [Volum e fraction]Ordered By: Javid Blackwood on 12-02-2024 Hematocrit (Bld) [Volume fraction] 40.3 % 37-47 [facility] Hemoglobin measurementOrdere d By: Javid Blackwood on 12-02-2024 Hemoglobin (Bld) [Mass/Vol] 13.5 g/dL 12.0-15.0 [facility] Immature granulocytes/100 WB C Auto (Bld)Ordered By: Javid Blackwood on 12-02-2024 Immature granulocytes/100 WBC (Bld) 0.400 % 0.0-0.9 [facility] Comment on above: IG% - Immature Granu locytes (promyelocytes, myelocytes and metamyelocytes) > 1% indicates that a LEFT SHIFT is Present. Interpretation of serum or p lasma protein pattern by immunofixation (narrative resultOrdered By: Javid Blackwood on 12-02-2024 Protein Fractions Immunofixation Ramirez [Interp] Not Observed g/dL Not Observed [facility] LDHon 12-02-2024 LDH 189 U/L Normal 84-246 [facility] Comment on above: Order Comment: 1 Result Comment: Hemo lysis present, Results??could be affected. ?? Performed By: #### L 500.4050, L3300.1200, L501.6710, L101.9900, L2100.0000, L504.2610, L3300.1800, L501.9520, L3410.2400, L100.0100, L3100.3425, L5500.0410 #### [facility] [address] [place], [address] Laboratory - Chemistry and C hemistry - challengeOrdered By: Javid Blackwood on 12-02-2024 AST [Catalytic activity/Vol] 24 U/L <32 [facility] - Miscellaneous t estsOrdered By: Javid Blackwood on 12-02-2024 Laboratory comment Ramirez (Report) Comment High . [facility] Comment on above: Suggestive of Ulcera tive Colitis Service comment (Unsp spec) [Interp] Comment . [facility] Comment on above: Levels of Specific I gE Class Description of Class ----- < 0.10 0 Negative 0.10 - 0.31 0/I Equivocal/Low 0.32 - 0.55 I Low 0.56 - 1.40 II Moderate 1.41 - 3.90 III High 3.91 - 19.00 IV Very High 19.01 - 100.00 V Very High >100.00 Very High Lactate dehydrogenase (LDH) measurementOrdered By: Javid Blackwood on 12-02-2024 LDH [Catalytic activity/Vol] 189 U/L 84-246 [facility] Comment on above: Hemolysis present, R esults could be affected. Laminaribioside carbohydrate IgG antibody assayOrdered By: Javid Blackwood on 12-02-2024 Laminaribioside IgG IA Qn 0 units 0-60 [facility] Comment on above: Negative:<55 Equivoc al: 55-60 Positive: >60 MCV (mean corpuscular volume ) determinationOrdered By: Javid Blackwood on 12-02-2024 MCV (RBC) [Entitic vol] 93.3 fL 81-99 [facility] Mean corpuscular hemoglobin (MCH) determinationOrdered By: Javid Blackwood on 12-02-2024 MCH (RBC) [Entitic mass] 31.3 pg 27.0-32.0 [facility] Mean corpuscular hemoglobin concentration (MCHC) determinationOrdered By: Javid Blackwood on 12-02-2024 MCHC (RBC) [Mass/Vol] 33.5 g/dL 32-36 [facility] Mean platelet volume determi nationOrdered By: Javid Blackwood on 12-02-2024 Platelet mean volume (Bld) [Entitic vol] 9.4 fL 6.2-12.0 [facility] Monocyte percentageOrdered B y: Javid Blackwood on 12-02-2024 Monocytes/100 WBC (Bld) 9.5 % 0-10 [facility] Neutrophil percentageOrdered By: Javid Blackwood on 12-02-2024 Neutrophils/100 WBC (Bld) 64.9 % 47-70 [facility] No Panel InformationOrdered By: Javid Blackwood on 12-02-2024 Addendum Document Comment . [facility] Comment on above: Protein electrophore sis scan will follow via computer,mail, or rn [facility] delivery. Nucleated red blood cell per centageOrdered By: Javid Blackwood on 12-02-2024 Nucleated RBC/100 WBC (Bld) [Ratio] 0 % 0-5 [facility] Platelet countOrdered By: Ra charles Blackwood on 12-02-2024 Platelets (Bld) [#/Vol] 278 10*3/uL 150-450 [facility] Potassium measurement (mass/ volume)Ordered By: Javid Blackwood on 12-02-2024 Potassium (Unsp spec) [Mass/Vol] 3.9 mmol/L 3.3-5.1 [facility] RBC Auto (Bld) [#/Vol]Ordere d By: Javid Blackwood on 12-02-2024 RBC (Bld) [#/Vol] 4.32 10*6/uL 4.2-5.4 [facility] Serum black walnut IgE antib vargas assay (units/volume)Ordered By: Javid Blackwood on 12-02-2024 Black Earlimart IgE Qn (S) <0.10 kU/L Class 0 [facility] Serum clam IgE antibody assa y (units/volume)Ordered By: Javid Blackwood on 12-02-2024 Clam IgE Qn (S) <0.10 kU/L Class 0 [facility] Serum classic neutrophil cyt oplasmic antibody assay (units/volume)Ordered By: Javid Blackwood on 12-02-2024 Neutrophil cytoplasmic Ab.classic Qn (S) <1:20 titer Neg:<1:20 [facility] Serum codfish IgE antibody a ssay (units/volume)Ordered By: Javid Blackwood on 12-02-2024 Codfish IgE Qn (S) <0.10 kU/L Class 0 [facility] Serum corn IgE antibody assa y (units/volume)Ordered By: Javid Blackwood on 12-02-2024 [place] IgE Qn (S) <0.10 kU/L Class 0 [facility] Serum cow milk IgE antibody assay (units/volume)Ordered By: Javid Blackwood on 12-02-2024 Cow milk IgE Qn (S) <0.10 kU/L Class 0 [facility] Serum creatinine measurement (mass/volume)Ordered By: Javid Blackwood on 12-02-2024 Creatinine [Mass/Vol] 0.74 mg/dL 0.70-1.20 [facility] Serum egg white IgE antibody assay (units/volume)Ordered By: Javid Blackwood on 12-02-2024 Egg white IgE Qn (S) <0.10 kU/L Class 0 [facility] Serum globulin measurement ( mass/volume)Ordered By: Javid Blackwood on 12-02-2024 Globulin (S) [Mass/Vol] 3.0 g/dL 2.2-3.9 [facility] Serum glucose measurement (m ass/volume)Ordered By: Javid Blackwood on 12-02-2024 Glucose [Mass/Vol] 102 mg/dL High 70-99 [facility] Serum or plasma C reactive p rotein measurement (mass/volume)Ordered By: Javid Blackwood on 12-02-2024 CRP [Mass/Vol] 3.36 mg/L High 0.0-3.0 [facility] Serum or plasma IgA measurem ent (mass/volume)Ordered By: Javid Blackwood on 12-02-2024 IgA [Mass/Vol] 161 mg/dL 87-352 [facility] Serum or plasma IgG measurem ent (mass/volume)Ordered By: Javid Blackwood on 12-02-2024 IgG [Mass/Vol] 1020 mg/dL 586-1602 [facility] Serum or plasma alanine barraza otransferase (ALT) measurementOrdered By: Javid Blackwood on 12-02-2024 ALT [Catalytic activity/Vol] 19 U/L <35 [facility] Serum or plasma albumin mariana urement (mass/volume)Ordered By: Javid Blackwood on 12-02-2024 Albumin [Mass/Vol] 4.4 g/dL 3.4-4.8 [facility] Serum or plasma albumin/glob ulin mass ratioOrdered By: Javid Blackwood on 12-02-2024 Albumin/Globulin [Mass ratio] 1.4 {ratio} 0.9-2.4 [facility] Serum or plasma alkaline phuong sphatase measurementOrdered By: Javid Blackwood on 12-02-2024 ALP [Catalytic activity/Vol] 82 U/L 35-104 [facility] Serum or plasma alpha 1 glob ulin measurement by electrophoresis (mass/volume)Ordered By: Javid Blackwood on 12-02-2024 Alpha 1 globulin Elph [Mass/Vol] 0.2 g/dL 0.0-0.4 [facility] Alpha 1 globulin Elph [Mass/Vol] 0.9 g/dL 0.4-1.0 [facility] Serum or plasma beta globuli n measurement by electrophoresis (mass/volume)Ordered By: Javid Blackwood on 12-02-2024 Beta globulin Elph [Mass/Vol] 1.0 g/dL 0.7-1.3 [facility] Serum or plasma calcium mariana urement (mass/volume)Ordered By: Javid Blackwood on 12-02-2024 Calcium [Mass/Vol] 9.6 mg/dL 7.6-11.0 [facility] Serum or plasma gamma globul in measurement by electrophoresis (mass/volume)Ordered By: Javid Blackwood on 12-02-2024 Gamma globulin Elph [Mass/Vol] 0.9 g/dL 0.4-1.8 [facility] Serum or plasma immunoelectr ophoresis interpretation (nominal result)Ordered By: Javid Blackwood on 12-02-2024 Interpretation IEP [Interp] Comment: . [facility] Comment on above: Presence of monoclon al protein is unclear at this time. Suggestrepeat in 3 to 6 months if clinically indicated. Serum or plasma mannobioside IgG antibody assay by immunoassay (units/volume)Ordered By: Javid Blackwood on 12-02-2024 Mannobioside IgG IA Qn 4 units 0-100 [facility] Comment on above: Negative: <90 Equivo corey: 90-100 Positive: >100 This test was developed and its performance characteristics determined by [employer] It has not been cleared or approved by the Food and Drug Administration. The FDA has determined that such clearance or approval is not necessary. Serum or plasma protein mariana urement (mass/volume)Ordered By: Javid Blackwood on 12-02-2024 Protein [Mass/Vol] 7.0 g/dL 6.0-8.5 [facility] Serum or plasma urea nitroge n measurement (mass/volume)Ordered By: Javid Blackwood on 12-02-2024 Urea nitrogen [Mass/Vol] 12 mg/dL 4-19 [facility] Serum peanut IgE antibody as say (units/volume)Ordered By: Javid Blackwood on 12-02-2024 Peanut IgE Qn (S) <0.10 kU/L Class 0 [facility] Serum perinuclear neutrophil cytoplasmic antibody titer by immunofluorescenceOrdered By: Javid Blackwood on 12-02-2024 Neutrophil cytoplasmic Ab.perinuclear IF (S) [Titer] <1:20 titer Neg:<1:20 [facility] Comment on above: The presence of posi tive fluorescence exhibiting P-ANCA orC-ANCA patterns alone is not specific for the diagnosis ofWegener's Granulomatosis (WG) or microscopic polyangiitis.Decisions about treatment should not be based solely onANCA IFA results. The [employer] ANCA Group Consensusrecommends follow up testing of positive sera with both PA-3 and MPO-ANCA enzyme immunoassays. As many as 5% serumsamples are positive only by EIA. Ref. AM J Clin [id number];111:507-513. Serum soybean IgE antibody a ssay (units/volume)Ordered By: Javid Blackwood on 12-02-2024 Soybean IgE Qn (S) <0.10 kU/L Class 0 [facility] Serum tissue transglutaminas e (tTG) IgA antibody assay (units/volume)Ordered By: Javid Blackwood on 12-02-2024 tTG IgA Qn (S) <2 U/mL 0-3 [facility] Comment on above: Negative 0 - 3 Weak Positive 4 - 10 Positive >10 Tissue Transglutaminase (tTG) has been identified as the endomysial antigen. Studies have demonstr- ated that endomysial IgA antibodies have over 99% specificity for gluten sensitive enteropathy. Serum wheat IgE antibody ass ay (units/volume)Ordered By: Javid Blackwood on 12-02-2024 Wheat IgE Qn (S) <0.10 kU/L Class 0 [facility] Sodium levelOrdered By: Rajiv Solis on 12-02-2024 Sodium [Moles/Vol] 140 mmol/L 133-145 [facility] TSH DL <= 0.005 mIU/L QnOrde red By: Javid Blackwood on 12-02-2024 TSH Qn 2.470 uIU/mL 0.300-4.20 0 [facility] Thyroid Stim Hormone (TSH)on 12-02-2024 TSH 2.470 uIU/mL Normal 0.300-4.20 0 [facility] Comment on above: Performed By: #### L 500.4050, L3300.1200, L501.6710, L101.9900, L2100.0000, L504.2610, L3300.1800, L501.9520, L3410.2400, L100.0100, L3100.3425, L5500.0410 #### [facility] [address] [place], [address] Total proteinOrdered By: Renny Blackwood on 12-02-2024 Protein [Mass/Vol] 7.6 g/dL 5.9-8.4 [facility] White blood cell (WBC) count Ordered By: Javid Blackwood on 12-02-2024 WBC (Bld) [#/Vol] 6.8 10*3/uL 4.4-11.0 [facility] CNTHERAPYon 10-21-2024 CNTHERAPY OT/PT/Speech Visit ( PTWS) ----- PLACIDOMUKESH ZAPIEN ([id number]) 1955 F Date Time Provider Department 10/21/24 11:00 AM MATTI VELÁZQUEZ PTWS Date Time Provider Department [place] 10/21/2024 11:00 AM [id number], COREY PTWS Harris Cedeño Reason for Visit: PT Discharge [752] Primary Visit Diagnosis:Chronic right-sided low back pain with right-sided sciatica [M54.41, G89.29] Allergies As of Date: 10/21/2024 Noted Allergy Reaction HCTZ (THIAZIDES) 07/02/2023 14 - Other: See Comments Comments: Hypokalemia MAGNESIUM CITRATE 01/29/2006 11 - Vomiting NAPROXEN 03/29/2011 14 - Other: See Comments Comments: fluid retention Date Reviewed: 09/12/2024 Reviewed by: Marta Gaming LPN - Fully Assessed Prescriptions as of 10/21/2024 - amLODIPine (NORVASC) 5 mg tablet Take 1 tablet by mouth once daily. - lisinopril (ZESTRIL) 40 mg tablet Take 1 tablet by mouth once daily. - pantoprazole DR (PROTONIX) 40 mg tablet Take 1 tablet by mouth daily before breakfast. Take on empty stomach, 1/2 hr before meal. - simvastatin (ZOCOR) 10 mg tablet Take 1 tablet by mouth daily at bedtime. For cholesterols. - valACYclovir (VALTREX) 1 gram tablet Take 2,000 mg BID x 1 day for cold sores. - polyethylene glycol 3350 (MIRALAX, GLYCOLAX) 17 [...] by mouth every 2 hours as needed. Normal [facility] POLYSOMNOGRAM (PSG)/HOME SLE EP APNEA TEST (HSAT)on 10-16-2024 POLYSOMNOGRAM (PSG)/HOME SLEEP APNEA TEST (HSAT) [facility] at [address], [address], [place] [address] ; Home Sleep Apnea Test (HSAT) Study Report Name: MUKESH ROSENBERG Date of Study: 10/16/2024 [facility]#: [id number] Age: 69 (: 1955) ESS: 10/06 Neck Circ. (cm): 36.0 Height (cm): 147.0 Weight (kg): 63.0 BMI: 29.2 Referring Provider: JOSE PIKE Mailcode: [id number] Sleep history: The patient is a 69 year old female with a history of snoring and mouth breathing. The patient is here for assessment of obstructive sleep apnea. The patient endorses being a habitual side sleeper. Pertinent medical history: Allergic Rhinitis, GERD, Hyperlipidemia, Hypertension Medications: Norvasc, Lisinopril, Flonase, Claritin, Protonix, Valtrex, Zocor Sleep procedure: PSG unattended Type III, minimum of 4 parameters ([id number]) Procedure: This study was performed using a Type III ambulatory PSG device and was unattended. The patient was instructed on proper use of the device by a registered radiologic technologist chief. The monitored parameters included heart rate, oxygen saturation, continuous airflow with thermistor and nasal pressure transducer, snoring via nasal pressure transducer, chest and abdominal effort, and body position. SHARON definition: Respiratory event index (SHARON), calculated as respiratory events x 60 / TRT (total recording time in minutes). Note: the apnea hypopnea index has been replaced by the respiratory event index for home sleep apnea test. Since the home sleep apnea test does not measure sleep, the SHARON is most accurate index of respiratory events. The SHARON is a surrogate of the AHI per the AASM Manual for Scoring of Sleep and Associated Events version 3. Apnea definition: The peak signal excursions drop by >90% of pre-event baseline using an oronasal thermal sensor (diagnostic study), PAP device flow (titration study) or an alternative apnea sensor (diagnostic study). The duration of the >90% drop in signal excursion is >=10 seconds. Hypopnea definition: The peak signal excursions drop by >= 30% of pre-event baseline using nasal pressure (diagnostic study), PAP device flow (titration study) or an alternative hypopnea sensor (diagnostic study). The duration of the >= 30% drop in signal excursion is >=10 seconds. There is a greater than or equal to 4% oxygen desaturation from pre-event baseline. RESPIRATORY DATA: The study started at 23:43:13 and ended at 07:56:20 and the total recording time was 493 minutes. By convention, sleep is assumed for the whole recording. Snoring was noted. There was a total of 261 respiratory events. Of these events, the total number of apneas was 223 (149 obstructive, 0 mixed, and 74 central (28.4%)) and 38 hypopneas. The central apnea index (KIA) was 9.0. The respiratory event index (SHARON) was 31.8 events per hour of study time. The mean oxygen saturation during the study was 95.0%, with a minimum oxygen saturation of 82.0%. The patient spent 5.1 minutes at oxygen saturation measured less than 90% (1.0% of recording time) and 3.5 minutes at oxygen saturation measured at or less than 88% (0.7% of recording time). Time SHARON/AHI Supine 0.0 min -- Off-Supine 493.0 min 31.8 Total 493.0 min 31.8 ECG DATA: The average heart rate was 67 bpm with a range of 52 bpm to 95 bpm. ICSD DIAGNOSIS: Obstructive Sleep Apnea Syndrome [G47.33] Sleep apnea, unspecified [G47.30] IMPRESSION/RECOMMENDATION S: 1. This study confirms a diagnosis of severe sleep apnea with both central and obstructive events. The central events did occur in a periodic fashion. The diagnosis of central sleep apnea is limited on home sleep apnea testing due to lack of sleep staging and arousal detection. 2. The results of this study may represent an underestimation of the degree of obstructive sleep apnea, especially hypopneas, because of the known limitations of HSAT, such as inability to record arousals because EEG is not recorded. 3. Untreated sleep apnea is associated with a variety of consequences including but not limited to hypertension, heart disease, stroke, obesity and daytime sleepiness that can affect normal daytime functioning. 4. Due to the presence of central sleep apnea, recommend an in-laboratory split night polysomnogram to determine the nature of the observed central events and the patient's response to PAP therapy. INTERPRETING PHYSICIAN: Erica Rivero MD. PHYSICIAN I attest that I have performed epoch by epoch review of the entire raw data and find this study to be technically adequate. Report Digitally Signed By: ERICA RIVERO MD (10/29/2024 5:10:53 PM) [facility] CNTHERAPYon 10-07-2024 CNTHERAPY OT/PT/Speech Visit ( PTWS) ----- MUKESH ROSENBERG ([id number]) 1955 F Date Time Provider Department 10/07/24 11:00 AM MATTI VELÁZQUEZ PTMANUELA Date Time Provider Department Center 10/07/2024 11:00 AM [id number], COREY PTMANUELA Cedeño Reason for Visit: Physical Therapy [503] Primary Visit Diagnosis:Chronic right-sided low back pain with right-sided sciatica [M54.41, G89.29] Allergies As of Date: 10/07/2024 Noted Allergy Reaction HCTZ (THIAZIDES) 07/02/2023 14 - Other: See Comments Comments: Hypokalemia MAGNESIUM CITRATE 01/29/2006 11 - Vomiting NAPROXEN 03/29/2011 14 - Other: See Comments Comments: fluid retention Date Reviewed: 09/12/2024 Reviewed by: Marta Gaming LPN - Fully Assessed Prescriptions as of 10/21/2024 - amLODIPine (NORVASC) 5 mg tablet Take 1 tablet by mouth once daily. - lisinopril (ZESTRIL) 40 mg tablet Take 1 tablet by mouth once daily. - pantoprazole DR (PROTONIX) 40 mg tablet Take 1 tablet by mouth daily before breakfast. Take on empty stomach, 1/2 hr before meal. - simvastatin (ZOCOR) 10 mg tablet Take 1 tablet by mouth daily at bedtime. For cholesterols. - valACYclovir (VALTREX) 1 gram tablet Take 2,000 mg BID x 1 day for cold sores. - polyethylene glycol 3350 (MIRALAX, GLYCOLAX) 17 [...] by mouth every 2 hours as needed. Normal [facility] RENAL ARTERY [facility] LABo n 09-24-2024 RENAL ARTERY [facility] Non-Invasive Vascular Laboratory [facility] Renal or Mesenteric Duplex Bilateral/Complete Date of service/time: 09/24/2024 10:03:51 AM Name: MRS. MUKESH ROSENBERG Date of : 1955 Age: 69 years Gender: F Clinical Indication Hypertension not responding to medical management. TECHNIQUE -------- A visceral duplex ultrasound examination was performed, including grayscale imaging and color Doppler and spectral Doppler examination of the below mentioned arteries and veins. FINDINGS -------- Aorta at renals PSV: 94 cm/s. EDV: 0 cm/s. Right renal artery origin PSV: 158 cm/s. EDV: 23 cm/s. Right renal artery proximal PSV: 153 cm/s. EDV: 32 cm/s. Right renal artery mid PSV: 121 cm/s. EDV: 28 cm/s. Right renal artery distal PSV: 67 cm/s. EDV: 16 cm/s. Right renal artery to aortic ratio (RAR): 1.7 Right kidney: Size: 11.4 cm. Right parenchyma resistive index and acceleration time Upper pole RI: 0.74 AT: 0 msec. Mid pole RI: 0.70 AT: 8 msec. Lower pole RI: 0.75 AT: 12 msec. Right renal vein patent. Left renal artery origin PSV: 110 cm/s. EDV: 32 cm/s. Left renal artery proximal PSV: 110 cm/s. EDV: 24 cm/s. Left renal artery mid PSV: 120 cm/s. EDV: 26 cm/s. Left renal artery distal PSV: 99 cm/s. EDV: 19 cm/s. Left renal artery to aortic ratio (RAR): 1.3 Left kidney: Size: 11.4 cm. Left parenchyma resistive index and acceleration time Upper pole RI: 0.70 AT: 4 msec. Mid pole RI: 0.69 AT: 16 msec. Renal cyst noted measuring 3.5 Lower pole RI: 0.75 AT: 4 msec. Left renal vein patent. IMPRESSION AORTA Aorta is patent at level of the renals RIGHT RENAL Right renal artery: 0-59% stenosis. No evidence of hemodynamically significant stenosis. LEFT RENAL Left renal artery: 0-59% stenosis. No evidence of hemodynamically significant stenosis. Cystic appearing structure noted mid kidney measuring up to 3.5 cm in maximum diameter. Technologist: Loren Delgado RVT, [facility] Ordering physician: JOSE PIKE Interpreting physician: TAYLOR Alvarenga DO Final CC [employer] Image : [id number] See Link below for Image Normal [facility] CNTHERAPYon 09-23-2024 CNTHERAPY OT/PT/Speech Visit ( PTWS) ----- MUKESH ROSENBERG ([id number]) 1955 F Date Time Provider Department 09/23/24 11:00 AM MATTI VELÁZQUEZ PTMANUELA Date Time Provider Department Center 09/23/2024 11:00 AM [id number], COREY PTWS Harris Cedeño Reason for Visit: Physical Therapy [503] Primary Visit Diagnosis:Chronic right-sided low back pain with right-sided sciatica [M54.41, G89.29] Allergies As of Date: 09/23/2024 Noted Allergy Reaction HCTZ (THIAZIDES) 07/02/2023 14 - Other: See Comments Comments: Hypokalemia MAGNESIUM CITRATE 01/29/2006 11 - Vomiting NAPROXEN 03/29/2011 14 - Other: See Comments Comments: fluid retention Date Reviewed: 09/12/2024 Reviewed by: Marta Gaming LPN - Fully Assessed Prescriptions as of 09/23/2024 - amLODIPine (NORVASC) 5 mg tablet Take 1 tablet by mouth once daily. - lisinopril (ZESTRIL) 40 mg tablet Take 1 tablet by mouth once daily. - pantoprazole DR (PROTONIX) 40 mg tablet Take 1 tablet by mouth daily before breakfast. Take on empty stomach, 1/2 hr before meal. - simvastatin (ZOCOR) 10 mg tablet Take 1 tablet by mouth daily at bedtime. For cholesterols. - valACYclovir (VALTREX) 1 gram tablet Take 2,000 mg BID x 1 day for cold sores. - polyethylene glycol 3350 (MIRALAX, GLYCOLAX) 17 [...] by mouth every 2 hours as needed. Normal [facility] CNOVon 09-12-2024 CNOV Office Visit (FAMPWS ) ----- MUKESH ROSENBERG ([id number]) 1955 F Date Time Provider Department 09/12/24 11:20 AM [facility] your visit today, we recorded the following information about you: Pulse Respiration Blood pressure Weight 79/minute 16/minute 136/70 63.3 kg Jose Pike MD 09/12/2024 12:00 PM Signed Chief Complaint Patient presents with: Follow Up HPI Mukesh Rosenberg is a 69 year old female who presents here today for recheck BP and HR after med adjustment. HTN: Ms. Rosenberg indicates that she is feeling well and denies any symptoms referable to elevated blood pressure. Specifically denies headache, chest pain, palpitations, dyspnea, and peripheral edema. Patient denies any side effects of her medication(s) and is compliant with their regimen. She does check BP's away from this office with average BP's in the 130-140's systolic range. Last 3 Encounter BP Readings: Date: BP: 09/12/2024 136/70 08/29/2024 181/86[APOLLO BP average[ 08/01/2024 168/94 Last 1/2 tablet of atenolol was yesterday. HR improved today and has been >60 on her apple watch. Completed HSAT 2 days ago which is pending. Past medical history, appointments, medications, allergies reviewed. Previous Medical History PAST MEDICAL HISTORY Diagnosis Date Allergic rhinitis Dr. Salazar for allergy shots Chronic constipation Chronic lower back pain Dr. Neves Essential hypertension GERD (gastroesophageal reflux disease) Hyperlipidemia Hypertension, essential 11/03/2022 Impaired fasting glucose MRSA infection 09/2023 abscess in left axilla Nicotine use OA (osteoarthritis) of knee s/p L TKA [...] DX W/COLLJ SPEC WHEN PFRMD 07/21/2019 Colonoscopy ESOPHAGOGASTRODUODENOSCOP Y TRANSORAL DIAGNOSTIC 11/23/2014 EGD HEMORRHOID SURGERY HX 02/2020 NEUROPLASTY AND/TRANSPOS MEDIAN NRV CARPAL TUNNE ryan hands Carpal tunnel decomp PAST SURGICAL HISTORY OF Left 05/22/2018 L knee arthroplasty with medial menisectomy and subchondroplasty PLCMT LOCALZTN CLIP,PERC,DURING BREAST BX 08/02/2007 RIGHT PLCMT LOCALZTN CLIP,PERC,DURING BREAST BX 08/02/2007 RIGHT SALPINGO-OOPHORECTOMY COMPL/PRTL UNI/BI SPX 12/08/1997 Salpingo-oophorectomy bilateral TONSILLECTOMY PRIMARY/SECONDARY Tonsillectomy TOTAL KNEE REPLACEMENT Left 06/2022 VAGINAL HYSTERECTOMY UTERUS 250 GM/< 12/08/1997 Hysterectomy, vaginal LAPAROSCOPIC ASSISTED Family History FAMILY HISTORY Problem Relation Age of Onset Hypertension Father rapid heart beat, tia Stroke Father Cancer Brother leukemia Hypertension Mother other (only child now) Other Cancer Maternal Grandfather skin Patient Allergies ALLERGIES Allergen Reactions Hctz [Thiazides] Other: See Comments Hypokalemia Magnesium Citrate Vomiting Naproxen Other: See Comments fluid retention Current Medications Current Outpatient Medications on File Prior to Visit Medication Sig amLODIPine (NORVASC) 5 mg tablet Take 1 tablet by mouth once daily. lisinopril (ZESTRIL) 40 mg tablet Take 1 tablet by mouth once daily. pantoprazole DR (PROTONIX) 40 mg tablet Take 1 tablet by mouth daily before breakfast. Take on empty stomach, 1/2 hr before meal. simvastatin (ZOCOR) 10 mg tablet Take 1 tablet by mouth daily at bedtime. For cholesterols. valACYclovir (VALTREX) 1 gram tablet Take 2,000 mg BID x 1 day for cold sores. polyethylene glycol 3350 (MIRALAX, GLYCOLAX) 17 gram/dose [...] Social History Tobacco Use Smoking status: Former Current packs/day: 0.00 Average packs/day: 1 pack/day for 20.0 years (20.0 ttl pk-yrs) Types: Cigarettes Start date: 07/16/1978 Quit date: 07/16/1998 Years since quittin. (more content not included)... Normal [facility] CNTHERAPYon 09-09-2024 CNTHERAPY OT/PT/Speech Visit ( PTWS) ----- MELCHORMUKESH ([id number]) 1955 F Date Time Provider Department 09/09/24 2:15 PM MATTI VELÁZQUEZ PTWS Date Time Provider Department Center 09/09/2024 2:15 PM [id number], COREY PTWS Harris Cedeño Reason for Visit: Physical Therapy [503] Primary Visit Diagnosis:Chronic right-sided low back pain with right-sided sciatica [M54.41, G89.29] Allergies As of Date: 09/09/2024 Noted Allergy Reaction HCTZ (THIAZIDES) 07/02/2023 14 - Other: See Comments Comments: Hypokalemia MAGNESIUM CITRATE 01/29/2006 11 - Vomiting NAPROXEN 03/29/2011 14 - Other: See Comments Comments: fluid retention Date Reviewed: 08/29/2024 Reviewed by: Marta Gaming LPN - Fully Assessed Prescriptions as of 09/09/2024 - amLODIPine (NORVASC) 5 mg tablet Take 1 tablet by mouth once daily. - lisinopril (ZESTRIL) 40 mg tablet Take 1 tablet by mouth once daily. - pantoprazole DR (PROTONIX) 40 mg tablet Take 1 tablet by mouth daily before breakfast. Take on empty stomach, 1/2 hr before meal. - simvastatin (ZOCOR) 10 mg tablet Take 1 tablet by mouth daily at bedtime. For cholesterols. - valACYclovir (VALTREX) 1 gram tablet Take 2,000 mg BID x 1 day for cold sores. - polyethylene glycol 3350 (MIRALAX, GLYCOLAX) 17 [...] by mouth every 2 hours as needed. Normal [facility] ALDOSTERONE/DIRECT RENIN RAT IOon 09-08-2024 LISA RENIN RATIO 4.7 High <3.8 [facility] Comment on above: Order Comment: Speci men Type: BLOOD SPECIMENOrdering Facility: [facility] Address: [address] [place] [address] Result Comment: A ra leesa of aldosterone in ng/dL to direct renin in pg/mL greater than or equal to 3.8 is a positive screening test result for primary aldosteronism, when aldosterone is greater than or equal to 15 ng/dL. Performed By: #### A LDREN ####[facility] LABIA [id number] [place] [address] [place] Aldosterone [Mass/Vol] 9.9 ng/dL Normal 0.0-<35.4 [facility] Comment on above: Order Comment: Speci men Type: BLOOD SPECIMENOrdering Facility: [facility] Address: [address] [place] [address] Result Comment: The reference interval for serum/plasma aldosterone is based on a normal sodium intake and upright position. High sodium intake may suppress aldosterone and low sodium intake may increase aldosterone. The supine reference interval is <23.7 ng/dL. A ratio of aldosterone in ng/dL to direct renin in pg/mL greater than or equal to 3.8 is a positive screening test result for primary aldosteronism, when aldosterone is greater than or equal to 15 ng/dL. Performed By: #### A LDREN ####[facility] LABIA [id number] [place] [address] [place] DIRECT RENIN 2.1 pg/mL Low 3.6-81.6 [facility] Comment on above: Order Comment: Erickai men Type: BLOOD SPECIMENOrdering Facility: [facility] Address: [address] [place] [address] Result Comment: The reference interval for direct renin is based on an upright position. The supine reference intervals are: Age <41 years: 3.2-33.2 pg/mL Age >=41 years: 2.5-45.1 pg/mL A ratio of aldosterone in ng/dL to direct renin in pg/mL greater than or equal to 3.8 is a positive screening test result for primary aldosteronism, when aldosterone is greater than or equal to 15 ng/dL. Performed By: #### A LDREN ####[facility] LABCLIA [id number] [address] PATIENT UPRIGHT OR SUPINE Upright Normal [facility] Comment on above: Order Comment: Speci men Type: BLOOD SPECIMENOrdering Facility: [facility] Address: [address] [place] [address] Performed By: #### A LDREN ####[facility] LABCLIA [id number] [address] CNOVon 08-29-2024 CNOV Office Visit (FAMPWS ) ----- PLACIDOMUKESH ZAPIEN ([id number]) 1955 F Date Time Provider Department 08/29/24 10:40 AM JOSE PIKE FAMPWS During your visit today, we recorded the following information about you: Pulse Respiration Blood pressure Weight 52/minute 16/minute 181/86 63.4 kg Jose Pike MD 08/30/2024 9:00 AM Signed Chief Complaint Patient presents with: Follow Up: BP recheck HPI Mukesh Rosenberg is a 69 year old female who presents here today for Above Complaints. Atenolol added to regimen at 1 month ago for uncontrolled HTN. Patient states she has been taking as prescribed without side effects aside from 1 brief episode of dizziness which has not recurred. BP at home ranging 120-170/65-80 range. Has been limiting her sodium intake and drinks 1 cup of coffee per day. Not exercising regularly at this point due to her lower back pain. Denies headache, chest pain, SOB, palpitations, LE edema, vision changes. Patient believes she does snore at night and has some daytime somnolence. Past medical history, appointments, medications, allergies reviewed. Previous Medical History PAST MEDICAL HISTORY Diagnosis Date Allergic rhinitis Dr. Salazar for allergy shots Chronic constipation Chronic lower back pain Dr. Neves Essential hypertension GERD (gastroesophageal reflux disease) Hyperlipidemia Hypertension, essential 11/03/2022 Impaired fasting glucose MRSA infection 09/2023 abscess in left axilla Nicotine use OA (osteoarthritis) of knee s/p L TKA [...] DX W/COLLJ SPEC WHEN PFRMD 07/21/2019 Colonoscopy ESOPHAGOGASTRODUODENOSCOP Y TRANSORAL DIAGNOSTIC 11/23/2014 EGD HEMORRHOID SURGERY HX 02/2020 NEUROPLASTY AND/TRANSPOS MEDIAN NRV CARPAL TUNNE ryan hands Carpal tunnel decomp PAST SURGICAL HISTORY OF Left 05/22/2018 L knee arthroplasty with medial menisectomy and subchondroplasty PLCMT LOCALZTN CLIP,PERC,DURING BREAST BX 08/02/2007 RIGHT PLCMT LOCALZTN CLIP,PERC,DURING BREAST BX 08/02/2007 RIGHT SALPINGO-OOPHORECTOMY COMPL/PRTL UNI/BI SPX 12/08/1997 Salpingo-oophorectomy bilateral TONSILLECTOMY PRIMARY/SECONDARY Tonsillectomy TOTAL KNEE REPLACEMENT Left 06/2022 VAGINAL HYSTERECTOMY UTERUS 250 GM/< 12/08/1997 Hysterectomy, vaginal LAPAROSCOPIC ASSISTED Family History FAMILY HISTORY Problem Relation Age of Onset Hypertension Father rapid heart beat, tia Stroke Father Cancer Brother leukemia Hypertension Mother other (only child now) Other Cancer Maternal Grandfather skin Patient Allergies ALLERGIES Allergen Reactions Hctz [Thiazides] Other: See Comments Hypokalemia Magnesium Citrate Vomiting Naproxen Other: See Comments fluid retention Current Medications Current Outpatient Medications on File Prior to Visit Medication Sig lisinopril (ZESTRIL) 40 mg tablet Take 1 tablet by mouth once daily. atenolol (TENORMIN) 25 mg tablet Take 1 tablet by mouth once daily. pantoprazole DR (PROTONIX) 40 mg tablet Take 1 tablet by mouth daily before breakfast. Take on empty stomach, 1/2 hr before meal. simvastatin (ZOCOR) 10 mg tablet Take 1 tablet by mouth daily at bedtime. For cholesterols. valACYclovir (VALTREX) 1 gram tablet Take 2,000 mg BID x 1 day for cold sores. polyethylene glycol 3350 (MIRALAX, GLYCOLAX) 17 gram/dose [...] Social History Tobacco Use Smoking status: Former Current packs/day: 0.00 Average packs/day: 1 pack/day for 20.0 years (20.0 ttl pk-yrs) Types: Cigarettes Start date: 07/16/1978 Quit date: 07/16/1998 Years since quittin.1 Smokeless tobacco: Never Substance Use Topics Alcohol use: Ye (more content not included)... Normal [facility] [id number] 08-27-2024 [id number] HNO ID: [id number] Author: MATTI VELÁZQUEZ PT Service: ? Author Type: Physical Therapist Type: [id number] Filed: 08/27/2024 12:14 Note Text: [facility] Rehabilitation [facility] Sports Therapy Physical Therapy Plan of Care Certification Patient Name: Mukesh Rosenberg : 1955 [facility] #: [id number] Date: 08/27/2024 To: Hallie Harris APRN.C* From Therapist: Matti Velázquez PT RE: Patient Certification/ Recertification Your review, approval and electronic signature are required in order to comply with Payor: AET MEDICARE / Plan: AETNA MEDICARE PPO / Product Type: PPO / regulations. The identified Physical Therapy PLAN OF CARE for the patient is as follows: M54.41, G89.29 Chronic right-sided low back pain with right-sided sciatica (primary encounter diagnosis) PLAN OF CARE UPDATE: Assessment: Mukesh Rosenberg demonstrates difficulty with standing and walking and improvements in level of independence with the HEP. The patient has progressed toward goals. Patient continues to present with impairments in ADL's, independence in exercise, overall function, range of motion, and strength that interfere with walking, standing . Current prognosis is Good due to: current objective clinical presentation . The patient will benefit from continued skilled therapy services to meet the updated goals for this plan of care as noted below. Goals updated 08/27/2024 Goals for Episode of Care: established 08/04/24 Independent in home exercises. - MET Patient will decrease pain rating by 2 points to meet minimal clinical important difference for numeric pain rating scale. - Progressing Stand / Walk for 45 minutes or greater without pain/symptoms. - Not assessed Pt will demo RA strength of 5/5 for improved ability to hold a neutral spine with standing and walking - not assessed Patient Goals: Decrease symptoms Time Frame for Goals and Treatment : 09/29/24 Patient Goals: Decrease symptoms Planned Interventions, Frequency, and Duration: 1x every other week, 4 weeks Total Number of Visits Planned: 2 Patient to be seen for Therapeutic exercise (59142), Neuromuscular re-education (14567), Manual therapy (24773), Therapeutic activities (87586), Self-mcfp management (21247), Patient/Family/Caregiver Education PLAN FOR NEXT VISIT: DDN lumbar paraspinals. Followed by paraspinal stretching. Hip abductor strengthening. For further details regarding this patient refer to the Physical Therapy electronically documented visit dated 08/27/2024. Provider Attestation I have reviewed the treatment plan for Mukesh Rosenberg, [facility]# [id number] for the period of 08/27/24 -- 10/01/24, established on 08/27/2024. Signature certifies the need for therapy services. Normal [facility] CNTHERAPYon 08-27-2024 CNTHERAPY OT/PT/Speech Visit ( PTWS) ----- MELCHORMUKESH ([id number]) 1955 F Date Time Provider Department 08/27/24 11:00 AM MATTI VELÁZQUEZ PTWS Date Time Provider Department Center 08/27/2024 11:00 AM [id number], CORE[facility] PTWS Harris Cedeño Reason for Visit: PT Progress Note [1596] Primary Visit Diagnosis:Chronic right-sided low back pain with right-sided sciatica [M54.41, G89.29] Allergies As of Date: 08/27/2024 Noted Allergy Reaction HCTZ (THIAZIDES) 07/02/2023 14 - Other: See Comments Comments: Hypokalemia MAGNESIUM CITRATE 01/29/2006 11 - Vomiting NAPROXEN 03/29/2011 14 - Other: See Comments Comments: fluid retention Date Reviewed: 08/01/2024 Reviewed by: Sandip Mckay LPN - Fully Assessed Prescriptions as of 08/27/2024 - lisinopril (ZESTRIL) 40 mg tablet Take 1 tablet by mouth once daily. - atenolol (TENORMIN) 25 mg tablet Take 1 tablet by mouth once daily. - pantoprazole DR (PROTONIX) 40 mg tablet Take 1 tablet by mouth daily before breakfast. Take on empty stomach, 1/2 hr before meal. - simvastatin (ZOCOR) 10 mg tablet Take 1 tablet by mouth daily at bedtime. For cholesterols. - valACYclovir (VALTREX) 1 gram tablet Take 2,000 mg BID x 1 day for cold sores. - polyethylene glycol 3350 (MIRALAX, GLYCOLAX) 17 [...] by mouth every 2 hours as needed. Normal [facility] CNTHERAPYon 08-21-2024 CNTHERAPY OT/PT/Speech Visit ( PTWS) ----- MUKESH ROSENBERG ([id number]) 1955 F Date Time Provider Department 08/21/24 5:15 PM MATTI VELÁZQUEZ PTWS Date Time Provider Department Center 08/21/2024 5:15 PM [id number], [facility] PTWS Harris Cedeño Reason for Visit: Physical Therapy [503] Primary Visit Diagnosis:Chronic right-sided low back pain with right-sided sciatica [M54.41, G89.29] Allergies As of Date: 08/21/2024 Noted Allergy Reaction HCTZ (THIAZIDES) 07/02/2023 14 - Other: See Comments Comments: Hypokalemia MAGNESIUM CITRATE 01/29/2006 11 - Vomiting NAPROXEN 03/29/2011 14 - Other: See Comments Comments: fluid retention Date Reviewed: 08/01/2024 Reviewed by: Mowrer, Sandip, [employer]EW[employer] CONSULTANT - Fully Assessed Prescriptions as of 08/21/2024 - lisinopril (ZESTRIL) 40 mg tablet Take 1 tablet by mouth once daily. - atenolol (TENORMIN) 25 mg tablet Take 1 tablet by mouth once daily. - pantoprazole DR (PROTONIX) 40 mg tablet Take 1 tablet by mouth daily before breakfast. Take on empty stomach, 1/2 hr before meal. - simvastatin (ZOCOR) 10 mg tablet Take 1 tablet by mouth daily at bedtime. For cholesterols. - valACYclovir (VALTREX) 1 gram tablet Take 2,000 mg BID x 1 day for cold sores. - polyethylene glycol 3350 (MIRALAX, GLYCOLAX) 17 [...] by mouth every 2 hours as needed. Normal [facility] CNTHERAPYon 08-14-2024 CNTHERAPY OT/PT/Speech Visit ( PTWS) ----- MUKESH ROSENBERG ([id number]) 1955 F Date Time Provider Department 08/14/24 10:00 AM MATTI VELÁZQUEZ PTWS Date Time Provider Department Center 08/14/2024 10:00 AM [id number], [facility] PTWS Harris Cedeño Reason for Visit: Physical Therapy [503] Primary Visit Diagnosis:Chronic right-sided low back pain with right-sided sciatica [M54.41, G89.29] Allergies As of Date: 08/14/2024 Noted Allergy Reaction HCTZ (THIAZIDES) 07/02/2023 14 - Other: See Comments Comments: Hypokalemia MAGNESIUM CITRATE 01/29/2006 11 - Vomiting NAPROXEN 03/29/2011 14 - Other: See Comments Comments: fluid retention Date Reviewed: 08/01/2024 Reviewed by: Sandip Mckay LPN - Fully Assessed Prescriptions as of 08/14/2024 - lisinopril (ZESTRIL) 40 mg tablet Take 1 tablet by mouth once daily. - atenolol (TENORMIN) 25 mg tablet Take 1 tablet by mouth once daily. - pantoprazole DR (PROTONIX) 40 mg tablet Take 1 tablet by mouth daily before breakfast. Take on empty stomach, 1/2 hr before meal. - simvastatin (ZOCOR) 10 mg tablet Take 1 tablet by mouth daily at bedtime. For cholesterols. - valACYclovir (VALTREX) 1 gram tablet Take 2,000 mg BID x 1 day for cold sores. - polyethylene glycol 3350 (MIRALAX, GLYCOLAX) 17 [...] by mouth every 2 hours as needed. Normal [facility] [id number] 08-04-2024 [id number] HNO ID: [id number] Author: MATTI VELÁZQUEZ PT Service: ? Author Type: Physical Therapist Type: [id number] Filed: 08/04/2024 12:49 Note Text: [facility] Rehabilitation and Sports Therapy Physical Therapy Plan of Care Certification Patient Name: Mukesh Rosenberg : 1955 [facility] #: [id number] Date: 08/04/2024 To: Hallie Harris APRN.C* From Therapist: Matti Velázquez PT RE: Patient Certification/ Recertification Your review, approval and electronic signature are required in order to comply with Payor: AETNA MEDICARE / Plan: AETNA MEDICARE PPO / Product Type: PPO / regulations. The identified Physical Therapy PLAN OF CARE for the patient is as follows: M54.41, G89.29 Chronic right-sided low back pain with right-sided sciatica PLAN OF CARE: Assessment: Mukesh Rosenberg presents with chief complaint of LBP with BLE radiculopathy that interferes with walking, standing . The patient presents with impairments in ADL's, independence in exercise, overall function, range of motion, and strength. PROMIS? (Patient-Reported Outcomes Measurement Information System) scores were reviewed and identified as a rehabilitation concern. Prognosis for therapy is Good due to: current objective clinical presentation . Pt demonstrates peripheralization with prolonged standing and lumbar extension AROM. The patient will benefit from skilled therapy services to meet the goals established for this plan of care as noted below. Classification Pain Mechanism Classification: Neuropathic Low Back Pain Classification: Movement Control Goals for Episode of Care: established 08/04/24 Independent in home exercises. Patient will decrease pain rating by 2 points to meet minimal clinical important difference for numeric pain rating scale. Stand / Walk for 45 minutes or greater without pain/symptoms. Pt will demo RA strength of 5/5 for improved ability to hold a neutral spine with standing and walking Patient Goals: Decrease symptoms Time Frame for Goals and Treatment : 09/29/24 Planned Interventions, Frequency, and Duration: Current Frequency: 1x/week Duration: 4 weeks Total Number of Visits Planned: 4 Planned Treatment Interventions: Therapeutic exercise (21309), Neuromuscular re-education (19890), Manual therapy (57462), Therapeutic activities (52073), Self-mcfp management (98903), Patient/Family/Caregiver Education PLAN FOR NEXT VISIT: Work on proper posture. PPT in sitting. RA strengthening. Patient demonstrates good understanding of plan of care and treatment. The above goals and plan of care were discussed and agreed upon by patient/family. For further details regarding this patient refer to the Physical Therapy electronically documented visit dated 08/04/2024. Provider Attestation I have reviewed the treatment plan for Mukesh Rosenberg, [facility]# [id number] for the period of 08/04/24 -- 09/08/24, established on 08/04/2024. Signature certifies the need for therapy services. Normal [facility] CNTHERAPYon 08-04-2024 CNTHERAPY OT/PT/Speech Visit ( PTWS) ----- TANIKAMUKESH RAZO ([id number]) 1955 F Date Time Provider Department 08/04/24 11:30 AM MATTI VELÁZQUEZ PTWS Date Time Provider Department Center 08/04/2024 11:30 AM [id number], [facility] PTWS Harris Cedeño Reason for Visit: PT Eval [747] Visit Diagnosis:Chronic right-sided low back pain with right-sided sciatica [M54.41, G89.29] Allergies As of Date: 08/04/2024 Noted Allergy Reaction HCTZ (THIAZIDES) 07/02/2023 14 - Other: See Comments Comments: Hypokalemia MAGNESIUM CITRATE 01/29/2006 11 - Vomiting NAPROXEN 03/29/2011 14 - Other: See Comments Comments: fluid retention Date Reviewed: 08/01/2024 Reviewed by: Sandip Mckay LPN - Fully Assessed Prescriptions as of 08/04/2024 - lisinopril (ZESTRIL) 40 mg tablet Take 1 tablet by mouth once daily. - atenolol (TENORMIN) 25 mg tablet Take 1 tablet by mouth once daily. - pantoprazole DR (PROTONIX) 40 mg tablet Take 1 tablet by mouth daily before breakfast. Take on empty stomach, 1/2 hr before meal. - simvastatin (ZOCOR) 10 mg tablet Take 1 tablet by mouth daily at bedtime. For cholesterols. - valACYclovir (VALTREX) 1 gram tablet Take 2,000 mg BID x 1 day for cold sores. - polyethylene glycol 3350 (MIRALAX, GLYCOLAX) 17 [...] by mouth every 2 hours as needed. [facility] Office Visit (JAMESWS ) ----- MUKESH ROSENBERG ([id number]) 1955 F Date Time Provider Department 08/01/24 11:00 AM HALLIE HARRIS During your visit today, we recorded the following information about you: Pulse Respiration Blood pressure 78/minute 16/minute 168/94 Hallie Harris APRN.INSULATION POWER UNIT TENDER 08/01/2024 11:44 AM Signed 08/01/2024 Patient presents with: Recheck: BP check SUBJECTIVE: This is a 69 year old that is here today for Above Complaints. BP elevated at last office appointment. Lisinopril increased. Taking and toleating medication without side effects. Checking BP at home with range of 140-160/60-70's.Took it before coming in and 160/66. Home BP cuff has been validated in office prior. Denies visual changes, headaches lightheadedness, dizziness, slurred speech, facial drooping, extremity numbness tingling or weakness Noticing pain to right hip back area which can wrap around the front. Has a hx of chronic back pain and sees pain management. Would like to see pain management. PAST MEDICAL HISTORY Diagnosis Date Allergic rhinitis Dr. Salazar for allergy shots Chronic constipation Chronic lower back pain Dr. Neves Essential hypertension GERD (gastroesophageal reflux disease) Hyperlipidemia Hypertension, essential 11/03/2022 Impaired fasting glucose MRSA infection 09/2023 abscess in left axilla Nicotine use OA (osteoarthritis) of knee s/p L TKA Obesity (BMI 30.0-34.9) Other acne Acne PMH - PAST MEDICAL HISTORY OF lactose intolerant PMH - PAST MEDICAL HISTORY OF kidney stones PMH - PAST MEDICAL HISTORY OF rlq abdominal pain Rosacea ALLERGIES Hctz [Thiazides], Magnesium Citrate, and Naproxen MEDICATIONS Current Outpatient Medications Medication Sig valACYclovir (VALTREX) 1 gram tablet Take 2,000 mg BID x 1 day for cold sores. lisinopril (ZESTRIL) 40 mg tablet Take 1 tablet by [...] Social History Tobacco Use Smoking status: Former Current packs/day: 0.00 Average packs/day: 1 pack/day for 20.0 years (20.0 ttl pk-yrs) Types: Cigarettes Start date: 07/16/1978 Quit date: 07/16/1998 Years since quittin.0 Smokeless tobacco: Never Substance Use Topics Alcohol use: Yes Alcohol/week: 2.0 standard drinks of alcohol Types: 2 Cans of Beer (12oz) per week Drug use: No REVIEW OF SYSTEMS All other reviewed and negative other than HPI. OBJECTIVE: BP 168/94 Pulse 78 Resp 16 SpO2 97% . Vital signs reviewed by this provider. APPEARANCE Well appearing, alert, in no acute distress, well-hydrated, well nourished. Latest Ref Rng 07/03/2024 Protein, Total 6.3 - 8.0 g/dL 7.6 Albumin 3.9 - 4.9 g/dL 4.8 Calcium 8.5 - 10.2 mg/dL 9.8 Bilirubin, Total 0.2 - 1.3 mg/dL 1.0 Alkaline Phosphatase 34 - 123 U/L 80 AST 13 - 35 U/L 31 ALT 7 - 38 U/L 34 Glucose 74 - 99 mg/dL 123 (H) BUN 7 - 21 mg/dL 15 Creatinine 0.58 - 0.96 mg/dL 0.78 Sodium 136 - 144 mmol/L 138 Potassium 3.7 - 5.1 mmol/L 3.9 Chloride 98 - 107 mmol/L 103 CO2 22 - 30 mmol/L 23 Anion Gap 8 - 15 mmol/L 12 eGFR >=60 mL/min/1.73m? 83 Cholesterol, Total <200 mg/dL 178 Triglyceride <150 mg/dL 177 (H) HDL Cholesterol >39 mg/dL 49 Non HDL Cholesterol <130 mg/dL 129 Fasting Time hrs 12 VLDL Cholesterol <30 mg/dL 35 (H) TC:HDL Ratio <5.10 3.63 LDL Cholesterol <100 mg/dL 94 LDL:HDL Ratio <2.54 1.92 Legend: (H) High Depression Screening Never done Anxiety Screening Never done BP Controlled (<130/80) Never done Advance Directive Discussion Never done Colorectal Cancer Screening due on 07/21/2024 Mammogram Screening due on 09/30/2024 Covid-19 Vaccine( season) due on 07/01/2025 Annual PCP Team Chronic Disease Visit due on 07/01/2025 Diabetes Screening due on 07/03/20 (more content not included)... Normal [facility] Comprehensive metabolic 2000 panelon 07-03-2024 Albumin [Mass/Vol] 4.8 g/dL Normal 3.9-4.9 [facility] Comment on above: Order Comment: Speci men Type: BLOOD SPECIMENOrdering Facility: [facility] Address: [address] [place] [address] Performed By: #### 2 4323-8 ####[facility] MILLTOWNCLIA [id number] [place] [address] [place] ALP [Catalytic activity/Vol] 80 U/L Normal 34-123 [facility] Comment on above: Order Comment: Speci men Type: BLOOD SPECIMENOrdering Facility: [facility] Address: [address] [place] [address] Performed By: #### 2 4323-8 ####[facility] MILLTOWNCLIA [id number] [place] [address] [place] ALT [Catalytic activity/Vol] 34 U/L Normal 7-38 [facility] Comment on above: Order Comment: Speci men Type: BLOOD SPECIMENOrdering Facility: [facility] Address: [address] [place] [address] Performed By: #### 2 4323-8 ####[facility] MILLTOWNCLIA [id number] [place] [address] [place] Anion gap [Moles/Vol] 12 mmol/L Normal 8-15 [facility] Comment on above: Order Comment: Speci men Type: BLOOD SPECIMENOrdering Facility: [facility] Address: [address] [place] [address] Performed By: #### 2 4323-8 ####[facility] MILLTOWNCLIA [id number] [place] [address] [place] AST [Catalytic activity/Vol] 31 U/L Normal 13-35 [facility] Comment on above: Order Comment: Speci men Type: BLOOD SPECIMENOrdering Facility: [facility] Address: [address] [place] [address] Performed By: #### 2 4323-8 ####[facility] [id number] [place] [address] [place] Bilirubin [Mass/Vol] 1.0 mg/dL Normal 0.2-1.3 [facility] Comment on above: Order Comment: Speci men Type: BLOOD SPECIMENOrdering Facility: [facility] Address: [address] [place] [address] Performed By: #### 2 4323-8 ####[facility] [id number] [place] [address] [place] Calcium [Mass/Vol] 9.8 mg/dL Normal 8.5-10.2 [facility] Comment on above: Order Comment: Speci men Type: BLOOD SPECIMENOrdering Facility: [facility] Address: [address] [place] [address] Performed By: #### 2 4323-8 ####[facility] [id number] [place] [address] [place] Chloride [Moles/Vol] 103 mmol/L Normal 98-107 [facility] Comment on above: Order Comment: Speci men Type: BLOOD SPECIMENOrdering Facility: [facility] Address: [address] [place] [address] Performed By: #### 2 4323-8 ####[facility] [id number] [place] [address] [place] CO2 [Moles/Vol] 23 mmol/L Normal 22-30 [facility] Comment on above: Order Comment: Speci men Type: BLOOD SPECIMENOrdering Facility: [facility] Address: [address] [place] [address] Performed By: #### 2 4323-8 ####[facility] [id number] [place] [address] [place] Creatinine [Mass/Vol] 0.78 mg/dL Normal 0.58-0.96 [facility] Comment on above: Order Comment: Speci men Type: BLOOD SPECIMENOrdering Facility: [facility] Address: [address] [place] [address] Performed By: #### 2 4323-8 ####[facility] [id number] [place] [address] [place] Creatinine and Glomerular filtration rate.predicted panel (S/P/Bld) 83 mL/min/1.73m??? Normal >=60 [facility] Comment on above: Order Comment: Speci men Type: BLOOD SPECIMENOrdering Facility: [facility] Address: [address] [place] [address] Result Comment: Gisela mated Glomerular Filtration Rate (eGFR) is calculated using the 2020 CKD-EPI creatinine equation. This equation utilizes serum creatinine, sex, and age as parameters. The creatinine assay has traceable calibration to isotope dilution-mass spectrometry. Refer to KDIGO guidelines for clinical interpretation. In patients with unstable renal function, e.g. those with acute kidney injury, the eGFR may not accurately reflect actual GFR. Performed By: #### 2 4323-8 ####[facility] [id number] [place] [address] [place] Glucose [Mass/Vol] 123 mg/dL High 74-99 [facility] Comment on above: Order Comment: Speci men Type: BLOOD SPECIMENOrdering Facility: [facility] Address: [address] [place] [address] Result Comment: The [place] [employer] (ADA) provides guidance for cutoff values for fasting glucose and random glucose. The ADA defines fasting as no caloric intake for at least 8 hours. Fasting plasma glucose results between 100 to 125 mg/dL indicate increased risk for diabetes (prediabetes). Fasting plasma glucose results greater than or equal to 126 mg/dL meet the criteria for diagnosis of diabetes. In the absence of unequivocal hyperglycemia, results should be confirmed by repeat testing. In a patient with classic symptoms of hyperglycemia or hyperglycemic crisis, random plasma glucose results greater than or equal to 200 mg/dL meet the criteria for diagnosis of diabetes. Reference: Standards of Medical Care in Diabetes 2016, [place] [employer]. Diabetes Care. 2016.39(Suppl 1). Performed By: #### 2 4323-8 ####[facility] MILLWARLIA [id number] [place] [address] [place] Potassium [Moles/Vol] 3.9 mmol/L Normal 3.7-5.1 [facility] Comment on above: Order Comment: Speci men Type: BLOOD SPECIMENOrdering Facility: [facility] Address: [address] [place] [address] Performed By: #### 2 4323-8 ####[facility] CAMPUSLIA [id number] [place] [address] [place] Protein [Mass/Vol] 7.6 g/dL Normal 6.3-8.0 [facility] Comment on above: Order Comment: Speci men Type: BLOOD SPECIMENOrdering Facility: [facility] Address: [address] [place] [address] Performed By: #### 2 4323-8 ####[facility]AMPUSLIA [id number] [place] [address] [place] Sodium [Moles/Vol] 138 mmol/L Normal 136-144 [facility] Comment on above: Order Comment: Speci men Type: BLOOD SPECIMENOrdering Facility: [facility] Address: [address] [place] [address] Performed By: #### 2 4323-8 ####[facility] [id number] [place] [address] [place] Urea nitrogen [Mass/Vol] 15 mg/dL Normal 7-21 [facility] Comment on above: Order Comment: Speci men Type: BLOOD SPECIMENOrdering Facility: [facility] Address: [address] [place] [address] Performed By: #### 2 4323-8 ####[facility] [id number] [place] [address] [place] Lipid 1996 panelon 4 Cholesterol [Mass/Vol] 178 mg/dL Normal <200 [facility] Comment on above: Order Comment: Speci men Type: BLOOD SPECIMENOrdering Facility: [facility] Address: [address] [place] [address] Result Comment: <200 mg/dL, Desirable 200-239 mg/dL, Borderline high >239 mg/dL, High Performed By: #### 2 4331-1 ####[facility] LABCLIA [id number] [address] [id number] [address] [place] Cholesterol in HDL [Mass/Vol] 49 mg/dL Normal >39 [facility] Comment on above: Order Comment: Speci men Type: BLOOD SPECIMENOrdering Facility: [facility] Address: [address] [place] [address] Result Comment: 40-5 9 mg/dL, Acceptable >59 mg/dL, High: Negative risk factor for coronary heart disease <40 mg/dL, Low: Positive risk factor for coronary heart disease Performed By: #### 2 4331-1 ####[facility] LABCLIA [id number] [address] [id number] [place] [address] [place] Cholesterol in LDL [Mass/Vol] 94 mg/dL Normal <100 [facility] Comment on above: Order Comment: Erickai men Type: BLOOD SPECIMENOrdering Facility: [facility] Address: [address] [place] [address] Result Comment: <100 mg/dL, Optimal 100-129 mg/dL, Near optimal/above optimal 130-159 mg/dL, Borderline high 160-189 mg/dL, High >189 mg/dL, Very high Secondary prevention optimal LDL Cholesterol levels are recommended to be < 70 mg/dL Performed By: #### 2 4331-1 ####[facility] LABIA [id number] [address] [id number] [place] [address] [place] Cholesterol in LDL/Cholesterol in HDL [Mass ratio] 1.92 {ratio} Normal <2.54 [facility] Comment on above: Order Comment: Sunday men Type: BLOOD SPECIMENOrdering Facility: [facility] Address: [address] [place] [address] Result Comment: Refe reginaldce: 1. National Cholesterol Education Program ATP III Guideline At-A-Glance Quick Desk Reference: National Heart, Lung, and Blood [place]. National Institutes of Health. 2001: NIH Publication No. 01-3305. 2. An International Atherosclerosis Society position paper: global recommendations for the management of dyslipidemia: executive summary, Atherosclerosis. 2014: 232(2):410-413. Performed By: #### 2 4331-1 ####[facility] LABCLIA [id number] [address] [id number] [place] [address] [place] Cholesterol in VLDL [Mass/Vol] 35 mg/dL High <30 [facility] Comment on above: Order Comment: Erickai men Type: BLOOD SPECIMENOrdering Facility: [facility] Address: [address] [place] [address] Performed By: #### 2 4331-1 ####[facility] LABCLIA [id number] [address] [id number] [place] [address] [place] Cholesterol non HDL [Mass/Vol] 129 mg/dL Normal <130 [facility] Comment on above: Order Comment: Speci men Type: BLOOD SPECIMENOrdering Facility: [facility] Address: [address] [place] [address] Result Comment: <130 mg/dL, Optimal 130-159 mg/dL, Near optimal/above optimal 160-189 mg/dL, Borderline high 190-219 mg/dL, High >219 mg/dL, Very high Secondary prevention optimal non HDL Cholesterol levels are recommended to be <100 mg/dL Performed By: #### 2 4331-1 ####[facility] LABCLIA [id number] [address] [id number] [place] [address] [place] Cholesterol.total/Cholest prasanna in HDL [Mass ratio] 3.63 {ratio} Normal <5.10 [facility] Comment on above: Order Comment: Speci men Type: BLOOD SPECIMENOrdering Facility: [facility] Address: [address] [place] [address] Performed By: #### 2 4331-1 ####[facility] LABCLIA [id number] [address] [id number] [place] [address] [place] FASTING TIME 12 hrs Normal [facility] Comment on above: Order Comment: Speci men Type: BLOOD SPECIMENOrdering Facility: [facility] Address: [address] [place] [address] Performed By: #### 2 4331-1 ####[facility] LABCLIA [id number] [place] [id number] [facility] [id number] [address] STATES [facility] Triglyceride [Mass/Vol] 177 mg/dL High <150 [facility] Comment on above: Order Comment: Speci men Type: BLOOD SPECIMENOrdering Facility: [facility] Address: [address] [place] [address] Result Comment: <150 mg/dL, Normal 150-199 mg/dL, Borderline high 200-499 mg/dL, High >499 mg/dL, Very high Performed By: #### 2 4331-1 ####[facility] LABCLIA [id number] [address] [id number] [address] STATES OF [facility] CNOVon 07-01-2024 CNOV Office Visit (JAMESWS ) ----- MUKESH ROSENBERG ([id number]) 1955 F Date Time Provider Department 07/01/24 10:20 AM HALLIE HARRIS During your visit today, we recorded the following information about you: Pulse Respiration Blood pressure Weight 70/minute 16/minute 189/80 62.4 kg Hallie Harris APRN.CNP 07/01/2024 11:30 AM Signed 07/01/2024 Patient presents with: F/U 6 months SUBJECTIVE: This is a 69 year old that is here today for Above Complaints. HTN: Patient is compliant with meds Yes Monitors bp at home: No. Denies side effects: No. Chest pain: No. Dyspnea: No. Edema: No. Palpitations: No. Syncope: No. Headache: No. Dizziness: No. GERD: taking pantoprazole which works well to control symptoms HYPERLIPIDEMIA: Patient is taking medications: Yes. Patient is watching diet: Yes. Patient denies myalgias: Yes. Patient denies gi upset: Yes Cold sores: wanting to know is there is something topical she can use with the Valtrex. Reports when she takes the Valtrex usually helps pretty quickly Colonoscopy upcoming patient wants to see Dr. Friend Reports under stress. Granddaughter getting tested for Autism. Granddaughter living in home as well as her daughter. PAST MEDICAL HISTORY Diagnosis Date Allergic rhinitis Dr. Salazar for allergy shots Chronic constipation Chronic lower back pain Dr. Neves Essential hypertension GERD (gastroesophageal reflux disease) Hyperlipidemia Hypertension, essential 11/03/2022 Impaired fasting glucose MRSA infection 09/2023 abscess in left axilla Nicotine use OA (osteoarthritis) of knee s/p L TKA [...] by mouth daily at bedtime. For cholesterols. valACYclovir (VALTREX) 1 gram tablet Take 2,000 mg BID x 1 day for cold sores. pantoprazole DR (PROTONIX) 40 mg tablet Take [...] Social History Tobacco Use Smoking status: Former Current packs/day: 0.00 Average packs/day: 1 pack/day for 20.0 years (20.0 ttl pk-yrs) Types: Cigarettes Start date: 07/16/1978 Quit date: 07/16/1998 Years since quittin.9 Smokeless tobacco: Never Substance Use Topics Alcohol use: Yes Alcohol/week: 2.0 standard drinks of alcohol Types: 2 Cans of Beer (12oz) per week Drug use: No REVIEW OF SYSTEMS All other reviewed and negative other than HPI. OBJECTIVE: BP 189/80 Pulse 70 Resp 16 Wt 62.4 kg (137 lb 9.1 oz) SpO2 97% BMI 28.88 kg/m? . Vital signs reviewed by this provider. APPEARANCE Well appearing, alert, in no acute distress, well-hydrated, well nourished. EYES conjunctiva and sclera normal. HEART RRR with normal S1 and S2, no murmurs, no gallops, no JVD appreciated LUNG clear to auscultation. No wheezes, rhonchi or rales EXTREMITIES Extremities normal, No deformities, No skin discoloration, and No edema SKIN Skin color, texture, turgor normal, no suspicious rashes or lesions to exposed skin Depression Screening Never done Anxiety Screening Never done BP Controlled (<130/80) Never done Advance Directive Discussion Never done Colorectal Cancer Screening due on 07/21/2024 Mammogram Screening due on 09/30/2024 Covid-19 Vaccine( season) due on 07/01/2025 Annual PCP Team Chronic Disease Visit due on 01/07/2025 Diabetes Screening due on 01/07/2027 DTaP,Tdap,Td Vaccine(3 - Td or Tdap) due on 11/28/2027 Lipid Screening due on 07/02/2028 RSV Vaccine(1 - 1-dose 75+ series) due on 2032 Bone Density Screening Completed Influenza Vacci (more content not included)... Normal [facility] CNCOon 01-11-2024 CNCO Letter Text Normal [facility] CNPNon 01-09-2024 [facility] MELCHORMUKESH ([id number]) 1955 F Date Time Provider Department 01/09/24 JOSE PIKE During your visit today, we recorded the following information about you: Taya Whalen LPN 01/09/2024 8:29 AM Signed ----- Message from Jose Pike MD sent at 01/09/2024 7:12 AM EDT ----- Normal CMP aside from mild elevation of single liver marker. Recommend avoidance of tylenol and alcohol. Will recheck at future OV. Taya Whalen LPN 01/09/2024 8:30 AM Signed Left a message for pt to call the office and ask to speak to a nurse. PORTER Carrillo Laurie Lynn, LPN 01/11/2024 8:51 AM Signed Left a message for pt to call the office and ask to speak to a nurse. Letter mailed with results. PORTER Carrillo Gillian, OCCA 01/14/2024 2:56 PM Signed Additional TC no answer. Left VM to return call. NATHALY Cabrera M Robin, JEWEL 01/14/2024 4:09 PM Signed Patient returned call and given provider's message below with verbalized understanding. Patient agreeable. Allergies As of Date: 01/09/2024 Noted Allergy Reaction HCTZ (THIAZIDES) 07/02/2023 14 - Other: See Comments Comments: Hypokalemia MAGNESIUM CITRATE 01/29/2006 11 - Vomiting NAPROXEN 03/29/2011 14 - Other: See Comments Comments: fluid retention Date Reviewed: 01/08/2024 Reviewed by: Marta aGming LPN - Fully Assessed Reason for Visit: Results [95] Prescriptions as of 01/14/2024 - meloxicam (MOBIC) 15 mg tablet Take 1 tablet by mouth once daily. With food. - simvastatin (ZOCOR) 10 mg tablet Take 1 tablet by mouth daily at bedtime. For cholesterols. - valACYclovir (VALTREX) 1 gram tablet Take 2,000 mg BID x 1 day for cold sores. - lisinopril (ZESTRIL) 20 mg tablet Take 1 [...] as needed. Problem List As Of Date 01/09/2024 Noted Resolved UNSP ABNORMAL MAMMOGRAM [R92.8] 07/25/2007 [...] pain with right-si*12/24/2020 Hypertension, essential [I10] 11/03/2022 History of MRSA infection [Z86.14] 01/08/2024 Current nicotine use [Z72.0] 01/08/2024 Encounter Status:Closed by TAYA WHALEN on 01/11/24 [facility] CNOVon 01-08-2024 CNOV Office Visit (FAMPWS ) ----- TANIKAMUKESH RAZO ([id number]) 1955 F Date Time Provider Department 01/08/24 10:00 AM [facility] During your visit today, we recorded the following information about you: Pulse Respiration Blood pressure Weight 83/minute 16/minute 130/78 65.2 kg Jose Pike MD 01/08/2024 1:44 PM Signed Chief Complaint Patient presents with: Follow Up: 3 month HPI Mukesh Rosenberg is a 68 year old female who presents here today for Above Complaints. Patient states that she did follow up with Hai Velazquez for abscess in left axilla with turned out to be MRSA infection. Treated with 30 days of oral doxycyline and gave 2 weeks of nasal abx. Has not had recurrence since. Patient has appointment with Dr. Coleman's office on 02/12 for evaluation of right knee pain after her recent cruise. Xray already ordered. May need injection. Treating with ice and elevation. Pain improving slowly, but still has clicking sensation. . HTN: Ms. Rosenberg indicates that she is feeling well and denies any symptoms referable to elevated blood pressure. Specifically denies headache, chest pain, palpitations, dyspnea, and peripheral edema. Patient denies any side effects of her medication(s) and is compliant with their regimen. She does not check BP's generally. Mukesh likes to exercise by walking. She watches her diet for sodium, low fat and low cholesterol most of the time. Last 3 Encounter BP Readings: Date: BP: 01/08/2024 130/78 09/10/2023 136/84 09/03/2023 162/88 GERD: controlled on PPI BID. States that she keeps forgetting to take her simvastatin before bed. Would like to try taking in the morning instead. No longer smoking, but still chews nicotine gum on a regular basis. Past medical history, appointments, medications, allergies reviewed. [...] DX W/COLLJ SPEC WHEN PFRMD 07/21/2019 Colonoscopy ESOPHAGOGASTRODUODENOSCOP Y TRANSORAL DIAGNOSTIC 11/23/2014 EGD HEMORRHOID SURGERY HX 02/2020 NEUROPLASTY AND/TRANSPOS MEDIAN NRV CARPAL TUNNE ryan hands Carpal tunnel decomp PAST SURGICAL HISTORY OF Left 05/22/2018 L knee arthroplasty with medial menisectomy and subchondroplasty PLCMT LOCALZTN CLIP,PERC,DURING BREAST BX 08/02/2007 RIGHT PLCMT LOCALZTN CLIP,PERC,DURING BREAST BX 08/02/2007 RIGHT SALPINGO-OOPHORECTOMY COMPL/PRTL UNI/BI SPX 12/08/1997 Salpingo-oophorectomy bilateral TONSILLECTOMY PRIMARY/SECONDARY Tonsillectomy TOTAL KNEE REPLACEMENT Left 06/2022 VAGINAL HYSTERECTOMY UTERUS 250 GM/< 12/08/1997 Hysterectomy, vaginal LAPAROSCOPIC ASSISTED Family History FAMILY HISTORY Problem Relation Age of Onset Hypertension Father rapid heart beat, tia Stroke Father Cancer Brother leukemia Hypertension Mother other (only child now) Other Cancer Maternal Grandfather skin Patient Allergies ALLERGIES Allergen Reactions Hctz [Thiazides] Other: See Comments Hypokalemia Magnesium Citrate Vomiting Naproxen Other: See Comments fluid retention Current Medications Current Outpatient Medications on File Prior to Visit Medication Sig simvastatin (ZOCOR) 10 mg tablet Take 1 tablet by mouth daily at bedtime. For cholesterols. valACYclovir (VALTREX) 1 gram tablet Take 2,000 mg BID x 1 day for cold sores. lisinopril (ZESTRIL) 20 mg tablet Take 1 [...] estradiol (ESTRACE) 1 mg tablet Take 1 t (more content not included)... Normal [facility] metabolic 2000 panelon 01-08-2024 Albumin [Mass/Vol] 4.1 g/dL 3.9 - 4.9 g/dL [facility] ALP [Catalytic activity/Vol] 90 U/L 34 - 123 U/L [facility] ALT [Catalytic activity/Vol] 53 U/L High 7 - 38 U/L [facility] Anion gap [Moles/Vol] 9 mmol/L 8 - 15 mmol/L [facility] AST [Catalytic activity/Vol] 35 U/L 13 - 35 U/L [facility] Bilirubin [Mass/Vol] 0.5 mg/dL 0.2 - 1 .3 mg/dL [facility] Calcium [Mass/Vol] 8.9 mg/dL 8.5 - 10. 2 mg/dL [facility] Chloride [Moles/Vol] 106 mmol/L 98 - 10 7 mmol/L [facility] CO2 [Moles/Vol] 27 mmol/L 22 - 30 mmol/L [facility] Creatinine [Mass/Vol] 0.74 mg/dL 0.58 - 0.96 mg/dL [facility] GFR/1.73 sq M.predicted among non-blacks MDRD (S/P/Bld) [Vol rate/Area] 89 mL/min/{1.73_m2} - PINF [facility] Comment on above: Estimated Glomerular Filtration Rate (eGFR) is calculated using the 2020 CKD-EPI creatinine equation. This equation utilizes serum creatinine, sex, and age as parameters. The creatinine assay has traceable calibration to isotope dilution-mass spectrometry. Refer to KDIGO guidelines for clinical interpretation. In patients with unstable renal function, e.g. those with acute kidney injury, the eGFR may not accurately reflect actual GFR. Glucose [Mass/Vol] 101 mg/dL High 74 - 99 mg/dL [facility] Comment on above: The [place] Diabete s Association (ADA) provides guidance for cutoff values for fasting glucose and random glucose. The ADA defines fasting as no caloric intake for at least 8 hours. Fasting plasma glucose results between 100 to 125 mg/dL indicate increased risk for diabetes (prediabetes). Fasting plasma glucose results greater than or equal to 126 mg/dL meet the criteria for diagnosis of diabetes. In the absence of unequivocal hyperglycemia, results should be confirmed by repeat testing. In a patient with classic symptoms of hyperglycemia or hyperglycemic crisis, random plasma glucose results greater than or equal to 200 mg/dL meet the criteria for diagnosis of diabetes. Reference: Standards of Medical Care in Diabetes 2016, [place] Diabetes Association. Diabetes Care. 2016.39(Suppl 1). Interpretation and review of laboratory results Abnormal [facility] Potassium [Moles/Vol] 4.1 mmol/L 3.7 - 5.1 mmol/L [facility] Protein [Mass/Vol] 6.6 g/dL 6.3 - 8.0 g/dL [facility] Sodium [Moles/Vol] 142 mmol/L 136 - 144 mmol/L [facility] Urea nitrogen [Mass/Vol] 12 mg/dL 7 - 21 mg/dL [facility] Albumin [Mass/Vol] 4.1 g/dL Normal 3.9-4.9 [facility] Comment on above: Order Comment: Speci men Type: BLOOD SPECIMENOrdering Facility: [facility] Address: [address] [place] [id number] Performed By: #### 2 4323-8 ####[facility] LABCLIA [id number] [place] [address] [place] ALP [Catalytic activity/Vol] 90 U/L Normal 34-123 [facility] Comment on above: Order Comment: Speci men Type: BLOOD SPECIMENOrdering Facility: [facility] Address: [address] [place] [address] Performed By: #### 2 4323-8 ####[facility] LABCLIA [id number] [place] [address] [place] ALT [Catalytic activity/Vol] 53 U/L High 7-38 [facility] Comment on above: Order Comment: Speci men Type: BLOOD SPECIMENOrdering Facility: [facility] Address: [address] [place] [address] Performed By: #### 2 4323-8 ####[facility] LABCLIA [id number] [place] [address] [place] Anion gap [Moles/Vol] 9 mmol/L Normal 8-15 [facility] Comment on above: Order Comment: Speci men Type: BLOOD SPECIMENOrdering Facility: [facility] Address: [address] [place] [address] Performed By: #### 2 4323-8 ####[facility] LABCLIA [id number] [place] [id number] [place] AST [Catalytic activity/Vol] 35 U/L Normal 13-35 [facility] Comment on above: Order Comment: Speci men Type: BLOOD SPECIMENOrdering Facility: [facility] Address: [address] [place], [place] [address] Performed By: #### 2 4323-8 ####[facility] LABCLIA [id number] [place] [address] [place] Bilirubin [Mass/Vol] 0.5 mg/dL Normal 0.2-1.3 [facility] Comment on above: Order Comment: Speci men Type: BLOOD SPECIMENOrdering Facility: [facility] Address: [address] [place] [address] Performed By: #### 2 4323-8 ####[facility] LABCLIA [id number] [place] [address] [place] Calcium [Mass/Vol] 8.9 mg/dL Normal 8.5-10.2 [facility] Comment on above: Order Comment: Speci men Type: BLOOD SPECIMENOrdering Facility: [facility] Address: [address] [place] [address] Performed By: #### 2 4323-8 ####[facility] LABCLIA [id number] [place] [address] [place] Chloride [Moles/Vol] 106 mmol/L Normal 98-107 [facility] Comment on above: Order Comment: Speci men Type: BLOOD SPECIMENOrdering Facility: [facility] Address: [address] [place] [address] Performed By: #### 2 4323-8 ####[facility] LABCLIA [id number] [place] [address] [place] CO2 [Moles/Vol] 27 mmol/L Normal 22-30 [facility] Comment on above: Order Comment: Speci men Type: BLOOD SPECIMENOrdering Facility: [facility] Address: [address] [place], [place] [id number] Performed By: #### 2 4323-8 ####[facility] LABCLIA [id number] [place] [id number] [place] Creatinine [Mass/Vol] 0.74 mg/dL Normal 0.58-0.96 [facility] Comment on above: Order Comment: Speci men Type: BLOOD SPECIMENOrdering Facility: [facility] Address: [address] [place] [address] Performed By: #### 2 4323-8 ####[facility] LABIA [id number] [place] [address] [place] Creatinine and Glomerular filtration rate.predicted panel (S/P/Bld) 89 mL/min/1.73m??? Normal >=60 [facility] Comment on above: Order Comment: Sunday rose Type: BLOOD SPECIMENOrdering Facility: [facility] Address: [address] [place] [address] Result Comment: Gisela mated Glomerular Filtration Rate (eGFR) is calculated using the 2020 CKD-EPI creatinine equation. This equation utilizes serum creatinine, sex, and age as parameters. The creatinine assay has traceable calibration to isotope dilution-mass spectrometry. Refer to KDIGO guidelines for clinical interpretation. In patients with unstable renal function, e.g. those with acute kidney injury, the eGFR may not accurately reflect actual GFR. Performed By: #### 2 4323-8 ####[facility] LABIA [id number] [place] [address] [place] Glucose [Mass/Vol] 101 mg/dL High 74-99 [facility] Comment on above: Order Comment: Sunday rose Type: BLOOD SPECIMENOrdering Facility: [facility] Address: [address] [place] [address] Result Comment: The [place] Diabetes Association (ADA) provides guidance for cutoff values for fasting glucose and random glucose. The ADA defines fasting as no caloric intake for at least 8 hours. Fasting plasma glucose results between 100 to 125 mg/dL indicate increased risk for diabetes (prediabetes). Fasting plasma glucose results greater than or equal to 126 mg/dL meet the criteria for diagnosis of diabetes. In the absence of unequivocal hyperglycemia, results should be confirmed by repeat testing. In a patient with classic symptoms of hyperglycemia or hyperglycemic crisis, random plasma glucose results greater than or equal to 200 mg/dL meet the criteria for diagnosis of diabetes. Reference: Standards of Medical Care in Diabetes 2016, [place] Diabetes Association. Diabetes Care. 2016.39(Suppl 1). Performed By: #### 2 4323-8 ####[facility] LABCLIA [id number] [place] [address] [place] Potassium [Moles/Vol] 4.1 mmol/L Normal 3.7-5.1 [facility] Comment on above: Order Comment: Speci men Type: BLOOD SPECIMENOrdering Facility: [facility] Address: [address] [place] [address] Performed By: #### 2 4323-8 ####[facility] LABCLIA [id number] [place] [address] [place] Protein [Mass/Vol] 6.6 g/dL Normal 6.3-8.0 [facility] Comment on above: Order Comment: Speci men Type: BLOOD SPECIMENOrdering Facility: [facility] Address: [address] [place] [address] Performed By: #### 2 4323-8 ####[facility] LABCLIA [id number] [place] [address] [place] Sodium [Moles/Vol] 142 mmol/L Normal 136-144 [facility] Comment on above: Order Comment: Speci men Type: BLOOD SPECIMENOrdering Facility: [facility] Address: [address] [place] [address] Performed By: #### 2 4323-8 ####[facility] LABCLIA [id number] [place] [address] [place] Urea nitrogen [Mass/Vol] 12 mg/dL Normal 7-21 [facility] Comment on above: Order Comment: Speci men Type: BLOOD SPECIMENOrdering Facility: [facility] Address: [address] [place] [address] Performed By: #### 2 [id number] ####[facility] LABCLIA [id number] [place] [address] [place] DXA-AXIAL SKELETONon 023 LOWEST T-SCORE 0.0 [facility] XR Chest PA and Lateralon IMPRESSION: No acute radiographic abnormality. Check Pilot: SANTOS Transcribe Date/Time: Jul 05 2022 8:12A Dictated by : GAUDENCIO MONTERO MD This examination was interpreted and the report reviewed and electronically signed by: GAUDENCIO MONTERO MD on Jul 05 2022 8:13AM [facility] DIVISION OF RADIOLOGY * * *Final Report* * * DATE OF EXAM: Jul 04 2022 8:40AM WOX [id number] - XR CHEST 2V FRONTAL/LAT / PROCEDURE REASON: Abnormal EKG * * * * Physician Interpretation * * * * EXAMINATION: CHEST RADIOGRAPH (2 VIEW FRONTAL & LATERAL) CLINICAL HISTORY: Abnormal EKG MQ: XC2_6 EXAM DATE/TIME: 07/04/2022 8:40 AM COMPARISON: Chest x-ray dated September 03, 2014 RESULT: Lines, tubes, and devices: None. Lungs and pleura: No consolidation. No lung mass. No pleural effusion. No pneumothorax. Cardiomediastinal silhouette: Normal cardiomediastinal silhouette. Bones and soft tissues: Degenerative changes are present within the thoracic spine. DIVISION OF RADIOLOGY Provider, [facility] - 07/05/2022 * * *Final Report* * * DATE OF EXAM: Jul 04 2022 8:40AM WOX [id number] - XR CHEST 2V FRONTAL/LAT / PROCEDURE REASON: Abnormal EKG * * * * Physician Interpretation * * * * EXAMINATION: CHEST RADIOGRAPH (2 VIEW FRONTAL & LATERAL) CLINICAL HISTORY: Abnormal EKG MQ: XC2_6 EXAM DATE/TIME: 07/04/2022 8:40 AM COMPARISON: Chest x-ray dated September 03, 2014 RESULT: Lines, tubes, and devices: None. Lungs and pleura: No consolidation. No lung mass. No pleural effusion. No pneumothorax. Cardiomediastinal silhouette: Normal cardiomediastinal silhouette. Bones and soft tissues: Degenerative changes are present within the thoracic spine. IMPRESSION IMPRESSION: No acute radiographic abnormality. Check Pilot: [facility] Transcribe Date/Time: Jul 05 2022 8:12A Dictated by : GAUDENCIO MONTERO MD This examination was interpreted and the report reviewed and electronically signed by: GAUDENCIO MONTERO MD on Jul 05 2022 8:13AM EST [facility] XR Chest PA and LateralOrder ed By: [facility] Provider on 07-05-2022 [facility] XR Chest PA and Lateralon Radiology Study observation (narrative) [facility] XR Lumbar spine 3 Viewson IMPRESSION: Spondylosis of the lumbar spine. No acute osseous abnormality identified. Check Pilot: PSCB Transcribe Date/Time: Nov 17 2020 5:52P Dictated by : RUTH LAMA MD This examination was interpreted and the report reviewed and electronically signed by: RUTH LAMA MD on Nov 17 2020 5:53PM EST DIVISION OF RADIOLOGY * * *Final Report* * * DATE OF EXAM: Nov 17 2020 5:37PM WOX [id number] - XR LUMBAR 3V AP/LAT/L5-S1 / PROCEDURE REASON: multiple diagnoses * * * * Physician Interpretation * * * * Lumbar spine radiographs HISTORY: 65 years old Clinical information: Chronic right-sided low back pain with right-sided sciatica Chronic right-sided low back pain with right-sided sciatica Pt. states low back pain. Pain radiates down Rt leg then rt leg goes numb. TECHNIQUE: Images: XR LUMBAR 3V AP/LAT/L5-S1 Comparison: None. RESULT: Findings: 5 mm retrolisthesis of L2 on L3. 4 mm anterolisthesis of L4 on L5. Narrowing of multiple intervertebral disc spaces. Endplate osteophytes at multiple levels in the lumbar spine. No fracture. SI joints are intact. Osteophyte formation involving the superior acetabulum. Imaged bowel gas pattern is nonobstructed. DIVISION OF RADIOLOGY Provider, Rhiannon Buckner [facility] - 11/17/2020 * * *Final Report* * * DATE OF EXAM: Nov 17 2020 5:37PM WOX 5228 - XR LUMBAR 3V AP/LAT/L5-S1 / PROCEDURE REASON: multiple diagnoses * * * * Physician Interpretation * * * * Lumbar spine radiographs HISTORY: 65 years old Clinical information: Chronic right-sided low back pain with right-sided sciatica Chronic right-sided low back pain with right-sided sciatica Pt. states low back pain. Pain radiates down Rt leg then rt leg goes numb. TECHNIQUE: Images: XR LUMBAR 3V AP/LAT/L5-S1 Comparison: None. RESULT: Findings: 5 mm retrolisthesis of L2 on L3. 4 mm anterolisthesis of L4 on L5. Narrowing of multiple intervertebral disc spaces. Endplate osteophytes at multiple levels in the lumbar spine. No fracture. SI joints are intact. Osteophyte formation involving the superior acetabulum. Imaged bowel gas pattern is nonobstructed. IMPRESSION IMPRESSION: Spondylosis of the lumbar spine. No acute osseous abnormality identified. Check Pilot: PSCB Transcribe Date/Time: Nov 17 2020 5:52P Dictated by : RUTH LAMA MD This examination was interpreted and the report reviewed and electronically signed by: RUTH LAMA MD on Nov 17 2020 5:53PM EST [facility] Radiology Study observation (narrative) [facility] XR Lumbar spine 3 ViewsOrder ed By: [facility] Provider on 11-17-2020 [facility] Vital Signs Date Time Vital Sign Value Performing Clinician Facility 01-07-2025 11:29-0400 Body height 151.[address] Joseph Pike MD Work Phone: [facility] 01-07-2025 11:20-0400 Body mass index (BMI) [Ratio] 26.4 kg/m2 Dr. Joseph Pike MD Work Phone: [facility] 01-07-2025 11:20-0400 Body weight 60.[address] Joseph Pike MD Work Phone: [facility] 01-07-2025 11:20-0400 Diastolic blood pressure 68 mm[Hg] Dr. Joseph Pike MD Work Phone: [facility] 01-07-2025 11:20-0400 Systolic blood pressure 134 mm[Hg] Dr. Joseph Pike MD Work Phone: [facility] 09-12-2024 11:28-0500 Body mass index (BMI) [Ratio] 29.3 kg/m2 Jose Pike MD Work Phone: [facility] 09-12-2024 11:28-0500 Body weight 63.32 kg Jose Pike MD Work Phone: [facility] 09-12-2024 11:28-0500 Diastolic blood pressure 70 mm[Hg] Jose Pike MD Work Phone: [facility] 09-12-2024 11:28-0500 Heart rate 79 /min Jose Pike MD Work Phone: [facility] 09-12-2024 11:28-0500 Respiratory rate 16 /min Jose Pike MD Work Phone: [facility] 09-12-2024 11:28-0500 SaO2% (BldA) [Mass fraction] 99 % Jose Pike MD Work Phone: [facility] 09-12-2024 11:28-0500 Systolic blood pressure 136 mm[Hg] Jose Pike MD Work Phone: [facility] 08-29-2024 11:05-0500 Diastolic blood pressure 86 mm[Hg] Jose Pike MD Work Phone: [facility] Comment on above: APOLLO BP average 08-29-2024 11:05-0500 Heart rate 52 /min Jose Pike MD Work Phone: [facility] 08-29-2024 11:05-0500 Systolic blood pressure 181 mm[Hg] Jose Pike MD Work Phone: [facility] Comment on above: APOLLO BP average 08-29-2024 10:52-0500 Body mass index (BMI) [Ratio] 29.35 kg/m2 Jose Pike MD Work Phone: [facility] 08-29-2024 10:52-0500 Body weight 63.41 kg Jose Pike MD Work Phone: [facility] 08-29-2024 10:52-0500 Respiratory rate 16 /min Jose Pike MD Work Phone: [facility] 08-29-2024 10:52-0500 SaO2% (BldA) [Mass fraction] 99 % Jose Pike MD Work Phone: [facility] 08-01-2024 11:00-0500 Diastolic blood pressure 94 mm[Hg] Hallie Podlogar BRUSH STAINER.INSULATION POWER UNIT TENDER Work Phone: [facility] 08-01-2024 11:00-0500 Heart rate 78 /min Hallie Podlogar BRUSH STAINER.INSULATION POWER UNIT TENDER Work Phone: [facility] 08-01-2024 11:00-0500 Respiratory rate 16 /min Hallie Podlogar BRUSH STAINER.INSULATION POWER UNIT TENDER Work Phone: [facility] 08-01-2024 11:00-0500 SaO2% (BldA) [Mass fraction] 97 % Hallie Podlogar BRUSH STAINER.INSULATION POWER UNIT TENDER Work Phone: [facility] 08-01-2024 11:00-0500 Systolic blood pressure 168 mm[Hg] Hallie Podlogar BRUSH STAINER.INSULATION POWER UNIT TENDER Work Phone: [facility] 07-01-2024 10:58-0500 Diastolic blood pressure 80 mm[Hg] Hallie Podlogar BRUSH STAINER.INSULATION POWER UNIT TENDER Work Phone: [facility] Comment on above: APOLLO BP average 07-01-2024 10:58-0500 Heart rate 70 /min Hallie Podlogar BRUSH STAINER.INSULATION POWER UNIT TENDER Work Phone: [facility] 07-01-2024 10:58-0500 Systolic blood pressure 189 mm[Hg] Hallie Podlogar BRUSH STAINER.INSULATION POWER UNIT TENDER Work Phone: [facility] Comment on above: APOLLO BP average 07-01-2024 10:28-0500 Body mass index (BMI) [Ratio] 28.88 kg/m2 Hallie Podlogar BRUSH STAINER.[employer]ATION POWER UNIT TENDER Work Phone: [facility] 07-01-2024 10:28-0500 Body weight 62.4 kg Hallie Podlogar BRUSH STAINER.INSULATION POWER UNIT TENDER Work Phone: [facility] 07-01-2024 10:28-0500 Respiratory rate 16 /min Hallie Podlogar BRUSH STAINER.INSULATION POWER UNIT TENDER Work Phone: [facility] 07-01-2024 10:28-0500 SaO2% (BldA) [Mass fraction] 97 % Hallie Harris BRUSH STAINER.INSULATION POWER UNIT TENDER Work Phone: [facility] 01-08-2024 09:57-0400 Body mass index (BMI) [Ratio] 30.19 kg/m2 Jose Pike MD Work Phone: [facility] 01-08-2024 09:57-0400 Body weight 65.23 kg Jose Pike MD Work Phone: [facility] 01-08-2024 09:57-0400 Diastolic blood pressure 78 mm[Hg] Jose Pike MD Work Phone: [facility] 01-08-2024 09:57-0400 Heart rate 83 /min Jose Pike MD Work Phone: [facility] 01-08-2024 09:57-0400 Respiratory rate 16 /min Jose Pike MD Work Phone: [facility] 01-08-2024 09:57-0400 SaO2% (BldA) [Mass fraction] 98 % Jose Pike MD Work Phone: [facility] 01-08-2024 09:57-0400 Systolic blood pressure 130 mm[Hg] Jose Pike MD Work Phone: [facility] 10-08-2023 09:42-0400 Body temperature 97.59 [degF] Jose Pike MD Work Phone: [facility] 09-10-2023 15:52-0500 Body temperature 97.7 [degF] Jose Pike MD Work Phone: [facility] 09-10-2023 15:52-0500 Body weight 66.13 kg Jose Pike MD Work Phone: [facility] 09-10-2023 15:52-0500 Diastolic blood pressure 84 mm[Hg] Jose Pike MD Work Phone: [facility] 09-10-2023 15:52-0500 Heart rate 81 /min Jose Pike MD Work Phone: [facility] 09-10-2023 15:52-0500 Respiratory rate 16 /min Jose Pike MD Work Phone: [facility] 09-10-2023 15:52-0500 Systolic blood pressure 136 mm[Hg] Jose Pike MD Work Phone: [facility] 09-03-2023 12:01-0500 Body weight 65.68 kg Hallie Podlogar BRUSH STAINER.[employer]ATION POWER UNIT TENDER Work Phone: [facility] 09-03-2023 12:01-0500 Diastolic blood pressure 88 mm[Hg] Hallie Podlogar BRUSH STAINER.INSULATION POWER UNIT TENDER Work Phone: [facility] 09-03-2023 12:01-0500 Heart rate 77 /min Hallie Podlogar BRUSH STAINER.INSULATION POWER UNIT TENDER Work Phone: [facility] 09-03-2023 12:01-0500 Respiratory rate 18 /min Hallie Podlogar BRUSH STAINER.INSULATION POWER UNIT TENDER Work Phone: [facility] 09-03-2023 12:01-0500 SaO2% (BldA) [Mass fraction] 95 % Hallie Podlogar BRUSH STAINER.INSULATION POWER UNIT TENDER Work Phone: [facility] 09-03-2023 12:01-0500 Systolic blood pressure 162 mm[Hg] Hallie Podlogar BRUSH STAINER.INSULATION POWER UNIT TENDER Work Phone: [facility] 08-20-2023 11:29-0500 Diastolic blood pressure 90 mm[Hg] Hallie Podlogar BRUSH STAINER.INSULATION POWER UNIT TENDER Work Phone: [facility] 08-20-2023 11:29-0500 Heart rate 74 /min Hallie Podlogar BRUSH STAINER.INSULATION POWER UNIT TENDER Work Phone: [facility] 08-20-2023 11:29-0500 Systolic blood pressure 170 mm[Hg] Hallie Podlogar BRUSH STAINER.INSULATION POWER UNIT TENDER Work Phone: [facility] 08-20-2023 11:16-0500 Body weight 65.5 kg Hallie Podlogar BRUSH STAINER.INSULATION POWER UNIT TENDER Work Phone: [facility] 08-20-2023 11:16-0500 Respiratory rate 16 /min Hallie Podlogar BRUSH STAINER.INSULATION POWER UNIT TENDER Work Phone: [facility] 08-20-2023 11:16-0500 SaO2% (BldA) [Mass fraction] 97 % Hallie Podlogar BRUSH STAINER.INSULATION POWER UNIT TENDER Work Phone: [facility] 06-19-2023 10:26-0500 Diastolic blood pressure 81 mm[Hg] Hallie Podlogar BRUSH STAINER.INSULATION POWER UNIT TENDER Work Phone: [facility] 06-19-2023 10:26-0500 Heart rate 76 /min Hallie Podlogar BRUSH STAINER.INSULATION POWER UNIT TENDER Work Phone: [facility] 06-19-2023 10:26-0500 Systolic blood pressure 143 mm[Hg] Hallie Podlogar BRUSH STAINER.INSULATION POWER UNIT TENDER Work Phone: [facility] 06-19-2023 09:46-0500 Body weight 63.87 kg Hallie Podlogar BRUSH STAINER.INSULATION POWER UNIT TENDER Work Phone: [facility] 06-19-2023 09:46-0500 Respiratory rate 16 /min Hallie Podlogar BRUSH STAINER.INSULATION POWER UNIT TENDER Work Phone: [facility] 06-19-2023 09:46-0500 SaO2% (BldA) [Mass fraction] 97 % Hallie Podlogar BRUSH STAINER.INSULATION POWER UNIT TENDER Work Phone: [facility] 12-18-2022 09:15-0400 Body weight 65.23 kg Hallie Podlogar BRUSH STAINER.INSULATION POWER UNIT TENDER Work Phone: [facility] 12-18-2022 09:15-0400 Diastolic blood pressure 72 mm[Hg] Hallie Podlogar BRUSH STAINER.INSULATION POWER UNIT TENDER Work Phone: [facility] 12-18-2022 09:15-0400 Heart rate 88 /min Hallie Podlogar BRUSH STAINER.INSULATION POWER UNIT TENDER Work Phone: [facility] 12-18-2022 09:15-0400 Respiratory rate 16 /min Hallie Podlogar BRUSH STAINER.INSULATION POWER UNIT TENDER Work Phone: [facility] 12-18-2022 09:15-0400 SaO2% (BldA) [Mass fraction] 99 % Hallie Podlogar BRUSH STAINER.INSULATION POWER UNIT TENDER Work Phone: [facility] 12-18-2022 09:15-0400 Systolic blood pressure 140 mm[Hg] Hallie Podlogar BRUSH STAINER.INSULATION POWER UNIT TENDER Work Phone: [facility] 11-20-2022 09:01-0400 Diastolic blood pressure 82 mm[Hg] Hallie Podlogar BRUSH STAINER.INSULATION POWER UNIT TENDER Work Phone: [facility] 11-20-2022 09:01-0400 Heart rate 87 /min Hallie Podlogar BRUSH STAINER.INSULATION POWER UNIT TENDER Work Phone: [facility] 11-20-2022 09:01-0400 Systolic blood pressure 159 mm[Hg] Hallie Podlogar BRUSH STAINER.INSULATION POWER UNIT TENDER Work Phone: [facility] 11-20-2022 08:43-0400 Body weight 65.77 kg Hallie Podlogar BRUSH STAINER.INSULATION POWER UNIT TENDER Work Phone: [facility] 11-20-2022 08:43-0400 Respiratory rate 18 /min Hallie Podlogar BRUSH STAINER.INSULATION POWER UNIT TENDER Work Phone: [facility] 11-20-2022 08:43-0400 SaO2% (BldA) [Mass fraction] 98 % Hallie Podlogar BRUSH STAINER.INSULATION POWER UNIT TENDER Work Phone: [facility] 11-03-2022 08:18-0400 Diastolic blood pressure 84 mm[Hg] Jose Pike MD Work Phone: [facility] 11-03-2022 08:18-0400 Systolic blood pressure 146 mm[Hg] Jose Pike MD Work Phone: [facility] 11-03-2022 08:03-0400 Body weight 64.95 kg Jose Pike MD Work Phone: [facility] 11-03-2022 08:03-0400 Heart rate 92 /min Jose Pike MD Work Phone: [facility] 11-03-2022 08:03-0400 Respiratory rate 16 /min Jose Pike MD Work Phone: [facility] 11-03-2022 08:03-0400 SaO2% (BldA) [Mass fraction] 96 % Jose Pike MD Work Phone: [facility] 09-12-2022 08:27-0500 Body height 151.[address] Joseph Pike Work Phone: [facility] 09-12-2022 08:12-0500 Body mass index (BMI) [Ratio] 29.2 kg/m2 Dr. Joseph Pike Work Phone: [facility] 09-12-2022 08:12-0500 Body weight 66.[address] Joseph Pike Work Phone: [facility] 09-12-2022 08:12-0500 Diastolic blood pressure 82 mm[Hg] Dr. Joseph Pike Work Phone: [facility] 09-12-2022 08:12-0500 Systolic blood pressure 138 mm[Hg] Dr. Joseph Pike Work Phone: [facility] 07-04-2022 08:00-0500 Body weight 65.41 kg Hallie Podlogar BRUSH STAINER.[employer]ULATION POWER UNIT TENDER Work Phone: [facility] 07-04-2022 08:00-0500 Diastolic blood pressure 80 mm[Hg] Hallie Podlogar BRUSH ST[employer]ER.INSULATION POWER UNIT TENDER Work Phone: [facility] 07-04-2022 08:00-0500 Heart rate 86 /min Hallie Podlogar BRUSH STAINER.INSULATION POWER UNIT TENDER Work Phone: [facility] 07-04-2022 08:00-0500 Respiratory rate 16 /min Hallie Podlogar BRUSH STAINER.INSULATION POWER UNIT TENDER Work Phone: [facility] 07-04-2022 08:00-0500 SaO2% (BldA) [Mass fraction] 98 % Hallie Podlogar BRUSH STAINER.INSULATION POWER UNIT TENDER Work Phone: [facility] 07-04-2022 08:00-0500 Systolic blood pressure 140 mm[Hg] Hallie Podlogar BRUSH STAINER.INSULATION POWER UNIT TENDER Work Phone: [facility] 12-21-2021 17:04-0400 Body height 147 cm Hallie Podlogar BRUSH STAINER.INSULATION POWER UNIT TENDER Work Phone: [facility] 12-21-2021 17:04-0400 Body weight 63.78 kg Hallie Podlogar BRUSH STAINER.INSULATION POWER UNIT TENDER Work Phone: [facility] 12-21-2021 17:04-0400 Diastolic blood pressure 84 mm[Hg] Hallie Podlogar BRUSH STAINER.INSULATION POWER UNIT TENDER Work Phone: [facility] 12-21-2021 17:04-0400 Heart rate 78 /min Hallie Podlogar BRUSH STAINER.INSULATION POWER UNIT TENDER Work Phone: [facility] 12-21-2021 17:04-0400 Respiratory rate 18 /min Hallie Podlogar BRUSH STAINER.INSULATION POWER UNIT TENDER Work Phone: [facility] 12-21-2021 17:04-0400 SaO2% (BldA) [Mass fraction] 96 % Hallie Podlogar BRUSH STAINER.INSULATION POWER UNIT TENDER Work Phone: [facility] 12-21-2021 17:04-0400 Systolic blood pressure 142 mm[Hg] Hallie Podlogar BRUSH STAINER.INSULATION POWER UNIT TENDER Work Phone: [facility] Encounters Encounter Date Encounter Type Care Provider Facility Start: 01-07-2025 End: 01-07-2025 Patient encounter procedure Deja GEE -[facility] Work Phone: Start: 01-07-2025 End: 01-07-2025 Patient encounter status Deja GEE [facility] Start: 01-07-2025 End: 01-07-[address] Joseph Pike MD Work Phone: [facility] Work Phone: Start: 01-02-2025 End: 01-02-2025 ambulatory Jose Pike MD Work Phone: [facility] Comment on above: Allied Health Visit (Medication Adherence Outreach/) Start: 12-22-2024 End: 12-22-2024 ambulatory Jose Pike MD Work Phone: [facility] Comment on above: Allied Health Visit (Medication Adherence Outreach/) Start: 12-02-2024 End: 12-02-2024 Patient encounter procedure Javid Blackwood DO -Laboratory Work Phone: Start: 12-02-2024 End: 12-02-[address] Joseph Pike MD Work Phone: [facility] Work Phone: Start: 12-02-2024 End: 12-02-2024 Patient encounter procedure Javid Jaison [facility] Work Phone: Start: 12-02-2024 End: 12-02-[address] Joseph Pike MD Work Phone: [facility] Work Phone: Start: 11-27-2024 End: 11-28-2024 Refill Jose Pike MD Work Phone: [facility] Comment on above: Refill Request Start: 11-25-2024 End: 11-25-2024 ambulatory Jose Pike MD Work Phone: [facility] Comment on above: Allied Health Visit (Medication Adherence Outreach ) Start: 10-30-2024 End: 10-31-2024 Follow-up encounter Jose Pike MD Work Phone: [facility] Start: 10-21-2024 End: 10-21-2024 ambulatory Matti Velázquez PT Work Phone: [facility] Comment on above: Chronic right-sided low back pain with right-sided sciatica (Primary Dx) Start: 10-15-2024 End: 10-16-2024 ambulatory JOSE PIKE Facility:[facility] Start: 10-07-2024 End: 10-07-2024 ambulatory Matti Velázquez PT Work Phone: [facility] Comment on above: Chronic right-sided low back pain with right-sided sciatica (Primary Dx) Start: 09-24-2024 End: 09-24-2024 ambulatory JOSE PIKE Facility:[facility] Start: 09-23-2024 End: 09-23-2024 ambulatory Matti Velázquez PT Work Phone: [facility] Comment on above: Chronic right-sided low back pain with right-sided sciatica (Primary Dx) Start: 09-12-2024 End: 09-12-2024 ambulatory JOSE PIKE Facility:[facility] Start: 09-12-2024 End: 09-12-2024 Patient encounter procedure Jose Pike MD Work Phone: [facility] Comment on above: Hypertension, essent ial (Primary Dx); Bradycardia Start: 09-10-2024 End: 09-29-2024 Follow-up encounter Jose Pike MD Work Phone: [facility] Comment on above: Results Start: 09-09-2024 End: 09-10-2024 ambulatory JOSE PIKE Facility:[facility] Start: 09-09-2024 End: 09-09-2024 ambulatory Matti Velázquez PT Work Phone: [facility] Comment on above: Chronic right-sided low back pain with right-sided sciatica (Primary Dx) Start: 09-08-2024 End: 10-20-2024 [facility] Work Phone: Neurology Start: 09-08-2024 End: 09-08-2024 ambulatory JOSE PIKE Facility:[facility] Start: 08-29-2024 End: 08-29-2024 ambulatory JOSE PIKE Facility:[facility] Start: 08-29-2024 End: 08-29-2024 Patient encounter procedure Jose Pike MD Work Phone: [facility] Comment on above: Hypertension, essent ial (Primary Dx); Daytime somnolence; Bradycardia Start: 08-27-2024 End: 08-27-2024 ambulatory Matti Velázquez PT Work Phone: [facility] Comment on above: Chronic right-sided low back pain with right-sided sciatica (Primary Dx) Start: 08-21-2024 End: 08-21-2024 ambulatory Matti Velázquez PT Work Phone: [facility] Comment on above: Chronic right-sided low back pain with right-sided sciatica (Primary Dx) Start: 08-14-2024 End: 08-14-2024 ambulatory Matti Velázquez PT Work Phone: [facility] Comment on above: Chronic right-sided low back pain with right-sided sciatica (Primary Dx) Start: 08-04-2024 End: 08-04-2024 ambulatory Matti Velázquez PT Work Phone: [facility] Comment on above: Chronic right-sided low back pain with right-sided sciatica Start: 08-01-2024 End: 08-01-2024 Patient encounter procedure Hallie Harris APRN.INSULATION POWER UNIT TENDER Work Phone: [facility] Comment on above: Hypertension, essent ial (Primary Dx); Chronic right-sided low back pain with right-sided sciatica; GERD without esophagitis Start: 08-01-2024 End: 08-01-2024 ambulatory JOSE PIKE Facility:[facility] Start: 07-03-2024 End: 07-03-2024 ambulatory JOSE PIKE Facility:[facility] Start: 07-01-2024 End: 07-01-2024 Patient encounter procedure Hallie Harris APRN.INSULATION POWER UNIT TENDER Work Phone: [facility] Comment on above: Hypertension, essent ial (Primary Dx); Recurrent cold sores; Pure hypercholesterolemia; Gastroesophageal reflux disease without esophagitis Start: 07-01-2024 End: 07-01-2024 ambulatory JOSE PIKE Facility:[facility] Start: 03-14-2024 End: 03-14-2024 Refill Hallie [facility] APRN.CNP Work Phone: [facility] [facility] Comment on above: Refill Request Start: 02-01-2024 ambulatory Jose Pike MD Work Phone: [facility] Comment on above: Allied Health Visit (Medication Adherence Outreach/) Start: 01-09-2024 Telephone encounter Joseph Pike MD Work Phone: [facility] Comment on above: Results Start: 01-08-2024 End: 01-08-2024 ambulatory JOSE PIKE Facility:[facility] Start: 01-08-2024 End: 01-08-2024 Patient encounter procedure Jose Pike MD Work Phone: [facility] Comment on above: Hypertension, essent ial (Primary Dx); Pure hypercholesterolemia; Gastroesophageal reflux disease without esophagitis; Impaired fasting glucose; Primary osteoarthritis involving multiple joints; Acute pain of right knee; History of MRSA infection; Current nicotine use; Encounter for immunization Start: 11-30-2023 Refill Hallie Harris APRN.INSULATION POWER UNIT TENDER Work Phone: [facility] Comment on above: Refill Request Start: 10-09-2023 End: 08-05-2024 Telephone encounter Jose Pike MD Work Phone: [facility] Comment on above: Appointment Start: 10-08-2023 End: 10-08-2023 Patient encounter procedure Jose Pike MD Work Phone: [facility] Comment on above: Abscess of axilla, l eft (Primary Dx) Start: 10-05-2023 ambulatory Jose Pike MD Work Phone: [facility] Comment on above: Skin Start: 10-01-2023 End: 10-01-2023 [facility] Work Phone: Start: 10-01-2023 End: 10-01-2023 Patient encounter procedure [facility] Work Phone: Start: 09-14-2023 End: 09-14-2023 ambulatory [facility] Work Phone: Start: 09-14-2023 End: 09-14-2023 Patient encounter procedure [facility], [facility] Work Phone: Start: 09-10-2023 End: 09-10-2023 Patient encounter procedure [facility] Comment on above: Mass of left axilla (Primary Dx); Recurrent cold sores Start: 09-03-2023 End: 09-03-2023 Patient encounter procedure Hallie Harris APRN.INSULATION POWER UNIT TENDER Work Phone: [facility] Comment on above: Hypertension, essent ial Start: 08-20-2023 End: 08-20-2023 Patient encounter procedure Hallie Harris APRN.INSULATION POWER UNIT TENDER Work Phone: [facility] [place] Comment on above: Hypertension, essent ial Start: 06-25-2023 End: 06-25-2023 Subsequent hospital visit by physician Bone Density On License Of [facility] Work Phone: Radiology Comment on above: Screening for osteop orosis [Z13.820] Start: 06-19-2023 End: 06-19-2023 Patient encounter procedure Hallie Harris APRN.INSULATION POWER UNIT TENDER Work Phone: [facility] Comment on above: Hypertension, essent ial (Primary Dx); Screening for hyperlipidemia; Screening for osteoporosis; Asymptomatic menopause; Pain of maxillary sinus; GERD without esophagitis Start: 06-16-2023 Refill Jose Pike MD Work Phone: [facility] Comment on above: Refill Request Start: 04-03-2023 End: 04-03-2023 ambulatory [facility] Work Phone: Start: 04-03-2023 End: 04-03-2023 Patient encounter procedure [facility], [place] Work Phone: Start: 02-22-2023 Refill [facility] Start: 12-18-2022 End: 12-18-2022 Patient encounter procedure Hallie Harris APRN.INSULATION POWER UNIT TENDER Work Phone: [facility] Comment on above: Hypertension, essent ial (Primary Dx) Start: 11-20-2022 End: 11-20-2022 Patient encounter procedure Hallie [facility] APRN.INSULATION POWER UNIT TENDER Work Phone: [facility] Comment on above: Hypertension, essent ial (Primary Dx) Start: 11-03-2022 End: 11-03-2022 Patient encounter procedure Jose Pike MD Work Phone: [facility] Comment on above: Left leg numbness (P rimary Dx); S/P total knee arthroplasty, left; Gastroesophageal reflux disease, unspecified whether esophagitis present; Chronic right-sided low back pain with right-sided sciatica; Hypertension, essential Start: 10-27-2022 Refill Jose Pike MD Work Phone: [facility] Comment on above: Refill Request Start: 09-29-2022 End: 09-29-[address] Joseph Pike Work Phone: [facility] Work Phone: Start: 09-29-2022 End: 09-29-[address] Joseph Pike Work Phone: [facility] Start: 09-12-2022 End: 09-12-[address] Joseph Pike Work Phone: [facility] Start: 07-05-2022 Telephone encounter Hallie dutta APRN.INSULATION POWER UNIT TENDER Work Phone: [facility] Comment on above: Results Start: 07-04-2022 End: 07-04-2022 Subsequent hospital visit by physician Xr On License [facility] Work Phone: Radiology Comment on above: Abnormal EKG [R94.31 ] Start: 07-04-2022 End: 07-04-2022 Patient encounter procedure Hallie Podlogar BRUSH STAINER.INSULATION POWER UNIT TENDER Work Phone: [facility] [place] Comment on above: Blood pressure check (Primary Dx) Start: 07-04-2022 End: 07-04-2022 Patient encounter status Hallie Podlogar BRUSH STAINER.INSULATION POWER UNIT TENDER Work Phone: [facility] [place] Start: 06-30-2022 Telephone encounter Halliedavid Soloriol ogar BRUSH STAINER.INSULATION POWER UNIT TENDER Work Phone: [facility] Comment on above: Results Start: 02-03-2022 End: 02-03-2022 ambulatory Hallie Podlogar BRUSH STAINER.INSULATION POWER UNIT TENDER Work Phone: [facility] Comment on above: Positive self-admini stered antigen test for COVID-19 (Primary Dx) Start: 02-03-2022 End: 02-03-2022 Telemedicine consultation with patient Hallie Podlogar BRUSH STAINER.INSULATION POWER UNIT TENDER Work Phone: [facility] [place] Start: 12-21-2021 End: 12-21-2021 Patient encounter procedure Hallie Podlogar BRUSH STAINER.INSULATION POWER UNIT TENDER Work Phone: [facility] [place] Comment on above: Wellness examination (Primary Dx); Chronic low back pain, unspecified back pain laterality, unspecified whether sciatica present; GERD without esophagitis; Impaired fasting glucose; Pure hypercholesterolemia; Skin irritation Start: 12-21-2021 End: 12-21-2021 Patient encounter status Hallie Podlogar BRUSH STAINER.INSULATION POWER UNIT TENDER Work Phone: [facility] Start: 12-07-2021 ambulatory Jose Pike MD Work Phone: [facility] Start: 11-17-2020 End: 11-17-2020 Subsequent hospital visit by physician Jaden On License [facility] [place] Work Phone: Radiology Comment on above: Chronic right-sided low back pain with right-sided sciatica [M54.41, G89.29] Procedures Date Procedure Procedure Detail Performing Clinician Start: 12-02-2024 Albumin/Globulin ratio Dr. Joseph Pike MD Work Phone: Start: 12-02-[address] Carson Pike MD Work Phone: Comment on above: *Additional results available. Contact laboratory/see report*The atypical pANCA pattern has been observed in asignificant percentage of patients with ulcerative colitis,primary sclerosing cholangitis and autoimmune hepatitis. Start: 12-02-[address]om[address] antibody IgA level Dr. Joseph Pike MD Work Phone: Start: 12-02-[address] Joseph Pike MD Work Phone: Start: 12-02-2024 Measurement of funga l antibody Dr. Joseph Pike MD Work Phone: Comment on above: Negative: <45 Equivo corey: 45-50 Positive: >50 Start: 12-02-2024 Scallop TONY Pike MD Work Phone: Start: 12-02-2024 Sesame seed TONY Pike MD Work Phone: Comment on above: Performed at: [address] [id number] Director: Page Woods MD, Phone: [phone] Start: 12-02-[address] Angel Luis Pike MD Work Phone: Start: 07-03-2024 Lipid 1996 panel - S darrell or Plasma Hallie Podlogar BRUSH STAINER.INSULATION POWER UNIT TENDER Work Phone: Start: 10-01-2023 Screening mammography Start: 09-14-2023 Ultrasonography of limb Start: 07-02-2023 Lipid 1996 panel - S darrell or Plasma Hallie Podlogar BRUSH STAINER.INSULATION POWER UNIT TENDER Work Phone: Start: 06-25-2023 Dxa bone density satya dy 1/> sites axial skel Hallie Harris BRUSH STAINER.INSULATION POWER UNIT TENDER Work Phone: Start: 04-03-2023 Complete x-ray serie s of lumbar spine with bending views Start: 09-29-2022 Screening mammography Tisha Pike Work Phone: Start: 07-04-2022 Radiologic exam ches t 2 views Hallie Podlogar BRUSH STAINER.INSULATION POWER UNIT TENDER Work Phone: Start: 11-17-2020 Radex spine lumbosac ral 2/3 views Jose Pike MD Work Phone: Start: 11-01-2020 Mammography Joseph Pike MD Work Phone: Start: 10-20-2020 Lipid 1996 panel - S darrell or Plasma Jose Pike MD Work Phone: Start: 07-21-2019 Colonoscopy Joseph Pike MD Work Phone: Start: 04-08-2018 Adult depression screening assessment Jose Pike MD Work Phone: H/O: hysterectomy H/O: hysterectomy Dr. Heriberto Pike Work Phone: H/O: surgery H/O toe surgery Dr. Madisyn Pike Work Phone: H/O: surgery S/P trigger fing er release Dr. Joseph Pike Work Phone: History of decompres kaela of median nerve H/O carpal tunnel repair Dr. Joseph Pike Work Phone: History of operative procedure on knee H/O knee surgery Dr. Joseph Pike Work Phone: History of tonsillectomy History of tonsillectomy Dr. Joseph Pike Work Phone: Plan of Treatment Date Care Activity Detail Author Start: 2032 RSV Vaccine (1 - 1-dose 75+ series) RSV Vaccine (1 - 1-dose 75+ series) [facility] Start: 07-03-2029 Lipid panel Lipid Screening [facility] Start: 07-02-2028 Lipid panel Lipid Screening [facility] Start: 11-28-2027 Urine microalbumin profile [facility] Start: 07-03-2027 Diabetes Screening Diabetes Screening [facility] Start: 01-07-2027 Diabetes Screening Diabetes Screening [facility] Start: 08-16-2026 Diabetes Screening Diabetes Screening [facility] Start: 11-16-2025 DIABETES SCREEN DIABETES SCREEN [facility] Start: 11-16-2025 Diabetes Screening Diabetes Screening [facility] Start: 10-20-2025 Lipid 1996 panel - Serum or Plasma Lipid Screening [facility] Start: 10-20-2025 Lipid panel Lipid Screening [facility] Start: 10-20-2025 LIPID SCREEN LIPID SCREEN [facility] Start: 09-12-2025 Annual PCP Team Chronic Disease Visit Annual PCP Team Chronic Disease Visit [facility] Start: 08-29-2025 Annual PCP Team Chronic Disease Visit Annual PCP Team Chronic Disease Visit [facility] Start: 08-01-2025 Annual PCP Team Chronic Disease Visit Annual PCP Team Chronic Disease Visit [facility] Start: 07-01-2025 Annual PCP Team Chronic Disease Visit Annual PCP Team Chronic Disease Visit [facility] Start: 07-01-2025 Covid-19 Vaccine ( season) Covid-19 Vaccine () [facility] Comment on above: Postponed from 03/16/2024 (Declined at t his time) Start: 06-28-2025 DIABETES SCREEN DIABETES SCREEN [facility] Start: 03-13-2025 End: 03-13-2025 Patient encounter procedure 03/13/2025 11:00 AM EDT Office Visit Family Hortencia Siddiqi [address] [place] [address] PodHallie alvarado APRN.INSULATION POWER UNIT TENDER [address] [place] [address] 6 month follow up Family Hortencia Siddiqi Comment on above: 6 month follow up Start: 01-30-2025 ambulatory Ambulatory Facility:[facility] Start: 01-07-2025 Annual PCP Team Chronic Disease Visit Annual PCP Team Chronic Disease Visit [facility] Start: 10-21-2024 End: 10-21-2024 ambulatory 10/21/2024 11:00 AM EDT OT/PT/Speech Visit [facility] Physical Therapy [address] [place] [address] Matti Velázquez, PT [address] [place] [address] Chronic right-sided low back pain with right-sided sciatica [M54.41, G89.29] [facility] Comment on above: Chronic right-sided low back pain with r ight-sided sciatica [M54.41, G89.29] Start: 10-16-2024 End: 10-16-2024 Patient encounter procedure 10/16/2024 2:00 PM EDT Office Visit Neurology [address] [place] [address] [facility] Comment on above: [facility] Start: 10-07-2024 Annual PCP Team Chronic Disease Visit Annual PCP Team Chronic Disease Visit [facility] Start: 10-07-2024 BP Controlled (<130/80) BP Controlled (<130/80) [facility] Start: 10-07-2024 End: 10-07-2024 ambulatory 10/07/2024 11:00 AM EDT OT/PT/Speech Visit [facility] [address] [place] [address] Matti Velázquez, PT [address] [place] [address] Chronic right-sided low back pain with right-sided sciatica [M54.41, G89.29] [facility] Comment on above: Chronic right-sided low back pain with r ight-sided sciatica [M54.41, G89.29] Start: 09-30-2024 Screening for malignant neoplasm of breast Mammogram Screening [facility] Start: 09-24-2024 End: 09-24-2024 Patient encounter procedure 09/24/2024 10:00 AM EDT Office Visit Vasculary Surgery [address] [place] [address] Hypertension, essential [I10] [facility] Comment on above: Hypertension, essential [I10] Start: 09-23-2024 End: 09-23-2024 ambulatory 09/23/2024 11:00 AM EDT OT/PT/Speech Visit [facility] [address] [place] [address] Matti Velázquez, PT [address] [place], [place] [id number] Chronic right-sided low back pain with right-sided sciatica [M54.41, G89.29] [facility] Comment on above: Chronic right-sided low back pain with r ight-sided sciatica [M54.41, G89.29] Start: 09-12-2024 End: 09-12-2024 Patient encounter procedure 09/12/2024 11:20 AM EST Office Visit [facility] [place] [address] [facility] [place] [address] Jose Pike MD [address] [facility] [place] [address] 2-3 week follow up Family [facility] Comment on above: 2-3 week follow up Start: 09-10-2024 Annual PCP Team Chronic Disease Visit Annual PCP Team Chronic Disease Visit [facility] Start: 09-10-2024 End: 09-10-2024 Patient encounter procedure Neurology Comment on above: Daytime somnolence [R40.0] Daytime somnolence Start: 09-09-2024 End: 09-09-2024 ambulatory 09/09/2024 2:15 PM EST OT/PT/Speech Visit [facility] [address] [place] [address] Matti Velázquez, PT [address] [place] [address] Chronic right-sided low back pain with right-sided sciatica [M54.41, G89.29] [facility] Comment on above: Chronic right-sided low back pain with r ight-sided sciatica [M54.41, G89.29] Start: 09-03-2024 Annual PCP Team Chronic Disease Visit Annual PCP Team Chronic Disease Visit [facility] Start: 09-02-2024 End: 09-02-2024 ambulatory 09/02/2024 11:00 AM EST OT/PT/Speech Visit [facility] [address] [place] [address] Matti Velázquez, PT [address] [facility] [place] [address] Chronic right-sided low back pain with right-sided sciatica [M54.41, G89.29] [facility] Comment on above: Chronic right-sided low back pain with r ight-sided sciatica [M54.41, G89.29] Start: 08-29-2024 End: 11-28-2024 ALDOSTERONE/DIRECT RENIN RATIO ALDOSTERONE/DIRECT RENIN RATIO Lab Routine Hypertension, essential Expected: 08/29/2024, Expires: 11/28/2024 [facility] Comment on above: Expected: 08/29/2024, Expires: Start: 08-29-2024 End: 08-29-2024 Patient encounter procedure 08/29/2024 10:40 AM EST Office Visit Family [facility] [address] [facility] [place] [address] PodlogarHallie APRN.INSULATION POWER UNIT TENDER [address] [facility] [place] [address] BP check [facility] Comment on above: BP check Start: 08-27-2024 End: 08-27-2024 ambulatory 08/27/2024 11:00 AM EST OT/PT/Speech Visit [facility] [address] [place] [address] Matti Velázquez, PT [address] [facility] [place] [address] Chronic right-sided low back pain with right-sided sciatica [M54.41, G89.29] [facility] Comment on above: Chronic right-sided low back pain with r ight-sided sciatica [M54.41, G89.29] Start: 08-21-2024 End: 08-21-2024 ambulatory 08/21/2024 5:15 PM EST OT/PT/Speech Visit [facility] [address] [place] [address] Matti Velázquez, PT [address] [place] [address] Chronic right-sided low back pain with right-sided sciatica [M54.41, G89.29] [facility] Comment on above: Chronic right-sided low back pain with r ight-sided sciatica [M54.41, G89.29] Start: 08-20-2024 Annual PCP Team Chronic Disease Visit Annual PCP Team Chronic Disease Visit [facility] Start: 08-14-2024 End: 08-14-2024 ambulatory 08/14/2024 10:00 AM EST OT/PT/Speech Visit [facility] [address] [address] Matti Velázquez, PT [address] [facility] [place] [address] Chronic right-sided low back pain with right-sided sciatica [M54.41, G89.29] [facility] Comment on above: Chronic right-sided low back pain with r ight-sided sciatica [M54.41, G89.29] Start: 08-04-2024 End: 08-04-2024 ambulatory 08/04/2024 11:30 AM EST OT/PT/Speech Visit [facility] [address] [place] [address] Matti Velázquez, PT [address] [facility] [place] [address] Chronic right-sided low back pain with right-sided sciatica [M54.41, G89.29] [facility] Comment on above: Chronic right-sided low back pain with r ight-sided sciatica [M54.41, G89.29] Start: 08-01-2024 End: 08-01-2024 Patient encounter procedure 08/01/2024 11:00 AM EST Office Visit [facility] [address] [facility] [place] [address] PodlogHallie rabago APRN.INSULATION POWER UNIT TENDER [address] [facility] [place] [address] BP check [facility] Comment on above: BP check Start: 07-21-2024 Colonoscopy COLONOSCOPY [facility] Start: 07-21-2024 COLORECTAL CANCER SCREENING COLORECTAL CANCER SCREENING [facility] Start: 07-21-2024 Screening for malignant neoplasm of colon [facility] Start: 07-16-2024 Advance Directive Discussion Advance Directive Discussion [facility] Start: 07-16-2024 Medicare Advantage Annual Wellness Visit Medicare Advantage Annual Wellness Visit [facility] Start: 07-01-2024 End: 09-30-2024 Comprehensive metabolic 2000 panel - Serum or Plasma COMPREHENSIVE METABOLIC PANEL Lab Routine Hypertension, essential Expected: 07/01/2024, Expires: 09/30/2024 [facility] Comment on above: Expected: 07/01/2024, Expires: 5 Start: 07-01-2024 End: 09-30-2024 Lipid 1996 panel - Serum or Plasma LIPID PANEL BASIC Lab Routine Pure hypercholesterolemia Expected: 07/01/2024, Expires: 09/30/2024 [facility] Work Phone: Comment on above: Expected: 07/01/2024, Expires: 5 Start: 07-01-2024 End: 07-01-2024 Patient encounter procedure 07/01/2024 10:20 AM EST Office Visit Family Hortencia Siddiqi [address] [place] [address] PodlogarHallie APRN.INSULATION POWER UNIT TENDER [address] [place] [address] 6 month follow up Family Hortencia Siddiqi Comment on above: 6 month follow up Start: 06-19-2024 Annual PCP Team Chronic Disease Visit Annual PCP Team Chronic Disease Visit [facility] Start: 06-19-2024 Covid-19 Vaccine () Covid-19 Vaccine () [facility] Comment on above: Postponed from 03/16/2023 (Declined at t his time) Start: 06-19-2024 RSV Vaccine (1 - 1-dose 60+ series) RSV Vaccine (1 - 1-dose 60+ series) [facility] Comment on above: Postponed from 2017 (Declined at t his time) Start: 03-16-2024 Covid-19 Vaccine () Covid-19 Vaccine () [facility] Start: 03-16-2024 Influenza vaccination Influenza Vaccine (#1) [facility] Start: 01-08-2024 End: 01-08-2024 Patient encounter procedure 01/08/2024 10:00 AM EDT Office Visit Family Hortencia Siddiqi [address] [place] [address] Jose Pike MD [address] [place] [address] 3 month follow [facility] Comment on above: 3 month follow Start: 12-19-2023 ANNUAL PCP TEAM CHRONIC DISEASE VISIT ANNUAL PCP TEAM CHRONIC DISEASE VISIT [facility] Start: 11-21-2023 ANNUAL PCP TEAM CHRONIC DISEASE VISIT ANNUAL PCP TEAM CHRONIC DISEASE VISIT [facility] Start: 11-04-2023 ANNUAL PCP TEAM CHRONIC DISEASE VISIT ANNUAL PCP TEAM CHRONIC DISEASE VISIT [facility] Start: 10-21-2023 DIABETES SCREEN DIABETES SCREEN [facility] Start: 07-16-2023 Advance Directive Discussion Advance Directive Discussion [facility] Start: 07-16-2023 Behavioral Health Screening Behavioral Health Screening [facility] Start: 07-16-2023 Depression Assessment Depression Assessment [facility] Start: 06-19-2023 End: 09-18-2023 Comprehensive metabolic 2000 panel - Serum or Plasma COMP METABOLIC PANEL Lab Routine Hypertension, essential Expected: 06/19/2023, Expires: 09/18/2023 [facility] Work Phone: Comment on above: Expected: 06/19/2023, Expires: Start: 06-19-2023 End: 09-18-2023 Lipid 1996 panel - Serum or Plasma LIPID PANEL BASIC Lab Routine Screening for hyperlipidemia Expected: 06/19/2023, Expires: 09/18/2023 [facility] Work Phone: Comment on above: Expected: 06/19/2023, Expires: Start: 03-16-2023 Covid-19 Vaccine ( season) Covid-19 Vaccine () [facility] Start: 03-16-2023 Influenza vaccination [facility] Start: 01-12-2023 Influenza vaccination INFLUENZA (#1) [facility] Comment on above: Postponed from 03/16/2022 (Declined at t his time) Start: 11-10-2022 End: 01-10-2023 Comprehensive metabolic 2000 panel - Serum or Plasma COMP METABOLIC PANEL Lab Routine Hypertension, essential Expected: 11/10/2022, Expires: 01/10/2023 [facility] Work Phone: Comment on above: Expected: 11/10/2022, Expires: Start: 07-16-2022 ADVANCE DIRECTIVE DISCUSSION ADVANCE DIRECTIVE DISCUSSION [facility] Start: 07-16-2022 DEPRESSION ASSESSMENT DEPRESSION ASSESSMENT [facility] Start: 2022 ADVANCE DIRECTIVE DISCUSSION ADVANCE DIRECTIVE DISCUSSION [facility] Start: 2022 BONE DENSITY BONE DENSITY [facility] Start: 2022 Bone Density Screening Bone Density Screening [facility] Start: 2022 Pneumococcal Vaccine: 65+ (1 - PCV) Pneumococcal Vaccine: 65+ (1 - PCV) [facility] Start: 2022 Pneumococcal Vaccine: 65+ (1 of 1 - PCV) Pneumococcal Vaccine: 65+ (1 of 1 - PCV) [facility] Start: 2022 PNEUMOCOCCAL: 65+ (1 - PCV) PNEUMOCOCCAL: 65+ (1 - PCV) [facility] Start: 03-16-2022 Influenza vaccination [facility] Start: 12-21-2021 End: 02-20-2022 Comprehensive metabolic 2000 panel - Serum or Plasma COMP METABOLIC PANEL Lab Routine Pure hypercholesterolemia Expected: 12/21/2021, Expires: 02/20/2022 [facility] Work Phone: Comment on above: Expected: 12/21/2021, Expires: Start: 12-21-2021 End: 02-20-2022 Hemoglobin A1c/Hemoglobin.total in Blood HGB A1C Lab Routine Impaired fasting glucose Expected: 12/21/2021, Expires: 02/20/2022 [facility] Work Phone: Comment on above: Expected: 12/21/2021, Expires: 2 Start: 12-21-2021 End: 02-20-2022 LIPID PANEL BASIC LIPID PANEL BASIC Lab Routin e Pure hypercholesterolemia Expected: 12/21/2021, Expires: 02/20/2022 [facility] Work Phone: Comment on above: Expected: 12/21/2021, Expires: 2 Start: 11-24-2021 COVID-19 VACCINE (4 - Booster for Pfizer series) COVID-19 VACCINE (4 - Booster for Pfizer series) [facility] Start: 11-01-2021 Mammography [facility] Start: 11-01-2021 Screening for malignant neoplasm of breast Mammogram Screening [facility] Start: 07-16-2021 DEPRESSION ASSESSMENT DEPRESSION ASSESSMENT [facility] Start: 03-14-2021 COVID-19 VACCINE (3 - Booster for Pfizer series) COVID-19 VACCINE (3 - Booster for Pfizer series) [facility] Start: 04-08-2019 Adult depression screening assessment DEPRESSION SCREENING [facility] Start: 2017 RSV Vaccine (1 - 1-dose 60+ series) RSV Vaccine (1 - 1-dose 60+ series) [facility] Start: 07-05-2014 FECAL OCCULT BLOOD FECAL OCCULT BLOOD [facility] Start: 07-05-2014 Screening for malignant neoplasm of colon Fecal Occult Blood [facility] Start: 2002 COLOGUARD (FIT-DNA) COLOGUARD (FIT-DNA) [facility] Start: [address] COLONOGRAPHY [facility] Start: 2002 Screening for malignant neoplasm of colon [facility] Start: 2002 SIGMOIDOSCOPY SIGMOIDOSCOPY [facility] Start: 1975 Anxiety Screening Anxiety Screening [facility] Start: 1975 BP CONTROLLED (<130/80) BP CONTROLLED (<130/80) [facility] Start: 1975 Depression Screening Depression Screening [facility] Start: 1975 HIV SCREENING HIV SCREENING [facility] End: 07-18-2024 DXA-AXIAL SKELETON DXA-AXIAL SKELETON Radiology Routine Screening for osteoporosis Asymptomatic menopause 1 Occurrences starting 06/19/2023 until 07/18/2024 [facility] Work Phone: Comment on above: 1 Occurrences starting 06/19/2023 until 07/18/2024 End: 08-29-2025 HOME SLEEP APNEA TEST (HSAT) HOME SLEEP APNEA TEST (HSAT) Procedures Routine Daytime somnolence 1 Occurrences starting 08/29/2024 until 08/29/2025 [facility] Comment on above: 1 Occurrences starting 08/29/2024 until 08/29/2025 MG Breast - bilatera l Screening [facility] End: 10-30-2025 Polysomnogram POLYSOMNOGRAM (PSG) Procedures Routine Sleep apnea, unspecified type 1 Occurrences starting 10/30/2024 until 10/30/2025 [facility] Work Phone: Comment on above: 1 Occurrences starting 10/30/2024 until 10/30/2025 End: 07-30-2023 Radiologic exam chest 2 views XR CHEST 2V FRONTAL/LAT Radiology Routine Abnormal EKG 1 Occurrences starting 06/30/2022 until 07/30/2023 [facility] Work Phone: Comment on above: 1 Occurrences starting 06/30/2022 until 07/30/2023 End: 01-06-2023 Screening mammography bi 2-view breast inc cad LAKSH[place] SCREENING Radiology Routine Encounter for screening mammogram for breast cancer 1 Occurrences starting 12/07/2021 until 01/06/2023 [facility] Work Phone: Comment on above: 1 Occurrences starting 12/07/2021 until 01/06/2023 End: 08-29-2025 US Renal artery US RENAL [facility] Vascular Lab Routine Hypertension, essential 1 Occurrences starting 08/29/2024 until 08/29/2025 [facility] Work Phone: Comment on above: 1 Occurrences starting 08/29/2024 until 08/29/2025 [facility] Immunizations Immunization Date Immunization Notes Care Provider Courtney frias 04-09-2024 Seasonal trivalent influenza vaccine, adjuvanted, preservative free Hallie Podlogar BRUSH STAINER.INSULATION POWER UNIT TENDER Work Phone: [facility] 01-08-2024 pneumococcal conjuga te (PCV20) vaccine, 20 valent (PREVNAR 20) Jose Pike MD Work Phone: [facility] 01-08-2024 pneumococcal Conjugate, unspecified formulation Jose Pike MD Work Phone: [facility] Work Phone: 04-11-2023 Seasonal trivalent influenza vaccine, adjuvanted, preservative free Hallie Podlogar BRUSH STAINER.INSULATION POWER UNIT TENDER Work Phone: [facility] Work Phone: 04-11-2023 influenza virus vaccine, unspecified formulation Jose Pike MD Work Phone: [facility] 06-28-2022 COVID-19 booster vaccine, age 12+ yr, bivalent (PFIZER-BIONTECH) Hallie Podlogar BRUSH STAINER.INSULATION POWER UNIT TENDER Work Phone: [facility] 10-12-2020 COVID-19 vaccine, ag e 12+ yr (PFIZER-BIONTECH - PURPLE TOP) Jose Pike MD Work Phone: [facility] Work Phone: 09-21-2020 COVID-19 vaccine, ag e 12+ yr (PFIZER-BIONTECH - PURPLE TOP) Jose Pike MD Work Phone: [facility] Work Phone: 03-30-2020 zoster vaccine recombinant Jose Pike MD Work Phone: [facility] Work Phone: 06-20-2019 zoster vaccine recombinant Jose Pike MD Work Phone: [facility] 04-08-2018 influenza virus vaccine, unspecified formulation Jose Pike MD Work Phone: [facility] 11-27-2017 tetanus and diphther ia toxoids, adsorbed, preservative free, for adult use (5 Lf of tetanus toxoid and 2 Lf of diphtheria toxoid) Jose Pike MD Work Phone: [facility] 05-02-2016 influenza, seasonal, injectable Jose Pike MD Work Phone: [facility] 04-15-2015 influenza, seasonal, injectable Jose Pike MD Work Phone: [facility] 04-29-2014 influenza, seasonal, injectable Jose Pike MD Work Phone: [facility] 05-05-2013 influenza virus vaccine, unspecified formulation Jose Pike MD Work Phone: [facility] 03-27-2013 zoster vaccine, live Chris Pike MD Work Phone: [facility] 01-23-2007 tetanus toxoid, reduced diphtheria toxoid, and acellular pertussis vaccine, adsorbed Jose Pike MD Work Phone: [facility] Work Phone: Payers Date Payer Category Payer Self-pay [id number] 2022 Medicare AETNA MEDICARE A ETNA MEDICARE PPO [id number] 2022-Present [phone] [address] [place] [address] PPO [id number] 2022 Medicare (Managed Care) [id number] 2022 Private Health Insurance [id number] 2021 Unknown [employer] PPO [id number] 2021-Present [phone] [address] [place] [address] PPO [id number] 2020 Unknown [employer]AN [facility] [id number] 2020-Present [phone] [id number] [id number] [facility] [id number] 2020 Unknown [id number] Unknown BIRD [id number] Unknown [employer]AN [id number] Unknown [id number] Unknown [id number] Unknown [id number] Unknown [id number] Social History Date Type Detail Facility Start: 06-16-2022 End: 01-07-2025 Tobacco smoking status NHIS Ex-smoker [facility] Start: 07-16-1978 End: 07-16-1998 History of tobacco use Current smoker [facility] Start: 11-17-2020 End: 10-30-2024 Alcohol intake Current drinker of alcohol (finding) [facility] Start: 11-17-2020 End: 11-20-2022 Alcohol intake [facility] Start: 1955 Sex Assigned At Not on file [facility] Start: 12-09-2021 End: 12-19-2021 Exposure to SARS-CoV-2 (event) Unable to assess [facility] Work Phone: Start: 02-03-2022 History SDOH Alcohol Frequency 3 [facility] Start: 02-03-2022 History SDOH Alcohol Std Drinks 1 [facility] Start: 02-03-2022 History SDOH Social Connections Phone 98 [facility] Start: 02-03-2022 History SDOH Physica l Activity DPW 2 [facility] Start: 10-18-2020 End: 02-03-2022 Exposure to SARS-CoV-2 (event) Not sure [facility] Start: 07-16-1978 End: 07-16-1998 History of tobacco use Cigarette Smoker [facility] Start: 06-16-2022 End: 07-01-2024 Tobacco use and exposure Smokeless tobacco non-user [facility] Start: 09-12-2022 End: 10-25-2022 Tobacco smoking status NHIS Unknown if ever smoked [facility] Start: 03-02-2020 - [facility] Start: 1955 Sex Assigned At Female W [facility] Start: 02-03-2022 End: 11-20-2022 Social connection and isolation panel [facility] In a typical week, h ow many times do you talk on the telephone with family, friends, or neighbors? Patient refused [facility] Are you now , , , , never or living with a partner? [facility] How often to you hav e a drink containing alcohol? 2-4 times a month [facility] How many standard dr inks containing alcohol do you have on a typical day? 1 or 2 [facility] How often do you hav e 6 or more drinks on 1 occasion? Never [facility] Do you feel stress - tense, restless, nervous, or anxious, or unable to sleep at night because your mind is troubled all the time - these days [OSQ] Not at all [facility] (I/We) worried parmjit er (my/our) food would run out before (I/we) got money to buy more. DK or Refused [facility] In the past 12 month s, was there a time when you were not able to pay the mortgage or rent on time? No [facility] Medical Equipment Procedure Code Equipment Code Equipment Original Text Equipment Identifier Dates Arthroscopy, knee SUBCHONDROPLAS TY KNEE KIT FDA Start: 05-22-2018 Arthroscopy, knee SUBCHONDROPLAS TY KNEE KIT FDA Start: 05-22-2018 Arthroscopy, knee SUBCHONDROPLAS TY KNEE KIT FDA Start: 05-22-2018 Arthroscopy, knee SUBCHONDROPLAS TY KNEE KIT FDA Start: 05-22-2018 Arthroscopy, knee SUBCHONDROPLAS TY KNEE KIT FDA Start: 05-22-2018 Arthroscopy, knee SUBCHONDROPLAS TY KNEE KIT FDA Start: 05-22-2018 Arthroscopy, knee SUBCHONDROPLAS TY KNEE KIT FDA Start: 05-22-2018 Functional Status Date Assessment Result Facility 12-21-2014 Are you deaf, or do you have serious difficulty hearing No 12/21/2014 11:48 AM EDT Sandip Mckay LPN No [facility] 12-21-2014 Are you blind, or do you have serious difficulty seeing, even when wearing glasses No 12/21/2014 11:48 AM EDT Sandip Mckay LPN No [facility] 12-21-2014 Do you have serious difficulty walking or climbing stairs No 12/21/2014 11:48 AM EDT Sandip Mckay LPN No [facility] 12-21-2014 Do you have difficul ty dressing or bathing No 12/21/2014 11:48 AM EDT Sandip Mckay LPN No [facility] 12-21-2014 Because of a physica l, mental, or emotional condition, do you have difficulty doing errands alone such as visiting a physician's office or shopping No 12/21/2014 11:48 AM EDT Sandip Mckay LPN No [facility] Mental Status Date Assessment Result Facility 12-21-2014 Because of a physica l, mental, or emotional condition, do you have serious difficulty concentrating, remembering, or making decisions No 12/21/2014 11:48 AM EDT Sandip Mckay LPN No [facility] Clinical Notes 11-17-2020 to 01-02-2025 Alexandre Harper - 01/02/2025 11:28 AM Alexandre Connors - 12/22/2024 12:04 PM EDT Note Date & Type Note Facility 01-02-2025 Note HNO ID: [id number] Author: ?, ?, ? Service: ? Author Type: ? Type: Progress Notes Filed: 01/02/2025 11:36 Note Text: Patient is identified through a medication adherence outreach initiative based on pharmacy claims data from: [employer] Medication Adherence Category: Statins First Review Attribution Status: Correct attribution Medication(s) Simvastatin 10 mg Medication Status per portal/Epic Reconcile Dispense: Not filled Medication Status per Profile Review: No issues per profile review Patient/provider appropriate for outreach? Yes Patient identified by name and Outreach to patient: Left Voicemail/message for return call What was primary intervention? No intervention Sent/Responded to [employer] What was primary intervention? Remind patient to shredder picker or fill Last filled 08/01/2024, next fill due 10/30/2024 Alexandre Harper [facility] Pharm[facility] Team [facility] 01-02-2025 History of Present illness Narrative Patient is identified through a medication adherence outreach initiative based on pharmacy claims data from: [employer] Medication Adherence Category: Statins First Review Attribution Status: Correct attribution Medication(s) Simvastatin 10 mg Medication Status per portal/Epic Reconcile Dispense: Not filled Medication Status per Profile Review: No issues per profile review Patient/provider appropriate for outreach? Yes Patient identified by name and Outreach to patient: Left Voicemail/message for return call What was primary intervention? No intervention Sent/Responded to [employer] What was primary intervention? Remind patient to shredder picker or fill Last filled 08/01/2024, next fill due 10/30/2024 Alexandre Harper [facility] Pharm[facility] Team documented in this encounter [facility] 01-02-2025 Note Patient Outreach (PH POHE) MUKESH ROSENBERG ([id number]) 1955 F Date Time Provider Department 01/02/25 JOSE PIKE During your visit today, we recorded the following information about you: Alexandre Harper 01/02/2025 11:36 AM Signed Patient is identified through a medication adherence outreach initiative based on pharmacy claims data from: [employer] Medication Adherence Category: Statins First Review Attribution Status: Correct attribution Medication(s) Simvastatin 10 mg Medication Status per portal/Epic Reconcile Dispense: Not filled Medication Status per Profile Review: No issues per profile review Patient/provider appropriate for outreach? Yes Patient identified by name and Outreach to patient: Left Voicemail/message for return call What was primary intervention? No intervention Sent/Responded to [employer] What was primary intervention? Remind patient to shredder picker or fill Last filled 08/01/2024, next fill due 10/30/2024 Alexandre [facility] Pharmacy Team Allergies As of Date: 01/02/2025 Noted Allergy Reaction HCTZ (THIAZIDES) 07/02/2023 14 - Other: See Comments Comments: Hypokalemia MAGNESIUM CITRATE 01/29/2006 11 - Vomiting NAPROXEN 03/29/2011 14 - Other: See Comments Comments: fluid retention Date Reviewed: 09/12/2024 Reviewed by: Marta Gaming LPN - Fully Assessed Reason for Visit: Allied Health Visit [5] Cmt: Medication Adherence Outreach Prescriptions as of 01/02/2025 - amLODIPine (NORVASC) 5 mg tablet Take 1 tablet by mouth once daily. - lisinopril (ZESTRIL) 40 mg tablet Take 1 tablet by mouth once daily. - pantoprazole DR (PROTONIX) 40 mg tablet Take 1 tablet by mouth daily before breakfast. Take on empty stomach, 1/2 hr before meal. - simvastatin (ZOCOR) 10 mg tablet Take 1 tablet by mouth daily at bedtime. For cholesterols. - valACYclovir (VALTREX) 1 gram tablet Take 2,000 mg BID x 1 day for cold sores. - polyethylene glycol 3350 (MIRALAX, GLYCOLAX) 17 [...] as needed. Problem List As Of Date 01/02/2025 Noted Resolved UNSP ABNORMAL MAMMOGRAM [R92.8] 07/25/2007 [...] pain with right-si*12/24/2020 Hypertension, essential [I10] 11/03/2022 History of MRSA infection [Z86.14] 01/08/2024 Current nicotine use [Z72.0] 01/08/2024 Encounter Status:Closed by ALEXANDRE HARPER on 01/02/25 [facility] 12-22-2024 Note HNO ID: [id number] Author: ?, ?, ? Service: ? Author Type: ? Type: Progress Notes Filed: 12/22/2024 12:07 Note Text: Patient is identified through a medication adherence outreach initiative based on pharmacy claims data from: [employer] Medication Adherence Category: Statins First Review Attribution Status: Correct attribution Medication(s) Simvastatin 10 mg Medication Status per portal/Epic Reconcile Dispense: Not filled Medication Status per Profile Review: No issues per profile review Patient/provider appropriate for outreach? Yes Patient identified by name and Outreach to patient: Left Voicemail/message for return call What was primary intervention? No intervention Sent/Responded to [employer] What was primary intervention? Remind patient to shredder picker or fill Last filled 08/01/2024, next fill due 10/30/2024 Alexandre Harper [facility] Pharm[facility] Team [facility] 12-22-2024 History of Present illness Narrative Patient is identified through a medication adherence outreach initiative based on pharmacy claims data from: [employer] Medication Adherence Category: Statins First Review Attribution Status: Correct attribution Medication(s) Simvastatin 10 mg Medication Status per portal/Epic Reconcile Dispense: Not filled Medication Status per Profile Review: No issues per profile review Patient/provider appropriate for outreach? Yes Patient identified by name and Outreach to patient: Left Voicemail/message for return call What was primary intervention? No intervention Sent/Responded to [employer] What was primary intervention? Remind patient to shredder picker or fill Last filled 08/01/2024, next fill due 10/30/2024 Alexandre Harper [facility] Pharm[facility] Team documented in this encounter [facility] 12-22-2024 Note Patient Outreach (PH POHE) MUKESH ROSENBERG ([id number]) 1955 F Date Time Provider Department 12/22/24 JOSE PIKECODee During your visit today, we recorded the following information about you: Alexandre Harper 12/22/2024 12:07 PM Signed Patient is identified through a medication adherence outreach initiative based on pharmacy claims data from: [employer] Medication Adherence Category: Statins First Review Attribution Status: Correct attribution Medication(s) Simvastatin 10 mg Medication Status per portal/Epic Reconcile Dispense: Not filled Medication Status per Profile Review: No issues per profile review Patient/provider appropriate for outreach? Yes Patient identified by name and Outreach to patient: Left Voicemail/message for return call What was primary intervention? No intervention Sent/Responded to [employer] What was primary intervention? Remind patient to shredder picker or fill Last filled 08/01/2024, next fill due 10/30/2024 Alexandre Harper [facility] Pharm[facility] Team Allergies As of Date: 12/22/2024 Noted Allergy Reaction HCTZ (THIAZIDES) 07/02/2023 14 - Other: See Comments Comments: Hypokalemia MAGNESIUM CITRATE 01/29/2006 11 - Vomiting NAPROXEN 03/29/2011 14 - Other: See Comments Comments: fluid retention Date Reviewed: 09/12/2024 Reviewed by: Marta Gaming LPN - Fully Assessed Reason for Visit: Allied Health Visit [5] Cmt: Medication Adherence Outreach Prescriptions as of 12/22/2024 - amLODIPine (NORVASC) 5 mg tablet Take 1 tablet by mouth once daily. - lisinopril (ZESTRIL) 40 mg tablet Take 1 tablet by mouth once daily. - pantoprazole DR (PROTONIX) 40 mg tablet Take 1 tablet by mouth daily before breakfast. Take on empty stomach, 1/2 hr before meal. - simvastatin (ZOCOR) 10 mg tablet Take 1 tablet by mouth daily at bedtime. For cholesterols. - valACYclovir (VALTREX) 1 gram tablet Take 2,000 mg BID x 1 day for cold sores. - polyethylene glycol 3350 (MIRALAX, GLYCOLAX) 17 [...] as needed. Problem List As Of Date 12/22/2024 Noted Resolved UNSP ABNORMAL MAMMOGRAM [R92.8] 07/25/2007 [...] pain with right-si*12/24/2020 Hypertension, essential [I10] 11/03/2022 History of MRSA infection [Z86.14] 01/08/2024 Current nicotine use [Z72.0] 01/08/2024 Encounter Status:Closed by ALEXANDRE HARPER on 12/22/24 [facility] 12-05-2024 Note HNO ID: [id number] Author: SIMON GONZALEZ CPhT Service: ? Author Type: Staff [employer] War[employer] Type: Progress Notes Filed: 12/05/2024 15:27 Note Text: Patient is identified through a medication adherence outreach initiative based on pharmacy claims data from: [employer] Medication Adherence Category: Statins Second Attempt Medication(s) Simvastatin 10 mg Medication Status per portal/Epic Reconcile Dispense: Not filled Medication Status per Profile Review: No issues per profile review Patient identified by name and Outreach to patient: Left Voicemail/message for return call What was primary intervention? Remind patient to shredder picker or fill Simon Gonzalez CPhT [facility] Team [facility] 12-05-2024 Note Patient Outreach (PH POHE) MUKESH ROSENBERG ([id number]) 1955 F Date Time Provider Department 12/05/24 [facility] During your visit today, we recorded the following information about you: Simon Gonzalez CPhT 12/05/2024 3:27 PM Signed Patient is identified through a medication adherence outreach initiative based on pharmacy claims data from: [facility] Medication Adherence Category: Statins Second Attempt Medication(s) Simvastatin 10 mg Medication Status per portal/Epic Reconcile Dispense: Not filled Medication Status per Profile Review: No issues per profile review Patient identified by name and Outreach to patient: Left Voicemail/message for return call What was primary intervention? Remind patient to shredder picker or fill Simon Gonzalez CPhT [facility] Pharmacy Team Allergies As of Date: 12/05/2024 Noted Allergy Reaction HCTZ (THIAZIDES) 07/02/2023 14 - Other: See Comments Comments: Hypokalemia MAGNESIUM CITRATE 01/29/2006 11 - Vomiting NAPROXEN 03/29/2011 14 - Other: See Comments Comments: fluid retention Date Reviewed: 09/12/2024 Reviewed by: Marta Gaming LPN - Fully Assessed Reason for Visit: Allied Health Visit [5] Cmt: Medication Adherence Outreach Prescriptions as of 12/05/2024 - amLODIPine (NORVASC) 5 mg tablet Take 1 tablet by mouth once daily. - lisinopril (ZESTRIL) 40 mg tablet Take 1 tablet by mouth once daily. - pantoprazole DR (PROTONIX) 40 mg tablet Take 1 tablet by mouth daily before breakfast. Take on empty stomach, 1/2 hr before meal. - simvastatin (ZOCOR) 10 mg tablet Take 1 tablet by mouth daily at bedtime. For cholesterols. - valACYclovir (VALTREX) 1 gram tablet Take 2,000 mg BID x 1 day for cold sores. - polyethylene glycol 3350 (MIRALAX, GLYCOLAX) 17 [...] as needed. Problem List As Of Date 12/05/2024 Noted Resolved UNSP ABNORMAL MAMMOGRAM [R92.8] 07/25/2007 [...] pain with right-si*12/24/2020 Hypertension, essential [I10] 11/03/2022 History of MRSA infection [Z86.14] 01/08/2024 Current nicotine use [Z72.0] 01/08/2024 Encounter Status:Closed by SIMON GONZALEZ on 12/05/24 [facility] 12-02-2024 Evaluation note Diagnosis Onset Date Resolution Abdominal pain acute December 02, 2024 8:21am [facility] Work Phone: 1(650) 955-668905-20-2025 Evaluation note* Diagnosis Onset Date Resolution Status Admit Date Abdominal pain acute December 02, 2024 8:21am Encounter for routine gynecological examination noneactive December 152024 11:18am [facility] Work Phone: 1(186) 887-846805-16-2025 Telephone encounter Note* Telephone Encounter - Sandip Mckay LPN - 11/28/2024 11:03 AM EDT Prescription Refill Information The patient has been identified by name and date of : Yes Caregiver verified no other encounters exist for this prescription request: Yes Caregiver confirmed with patient/requestor that no other refills are due, in the near future, with this provider at this time: Yes The last office visit in the department: 09/12/24 Does the patient have a future office visit with this provider/department: Yes, 03/13/25 Requested Prescriptions Pending Prescriptions Disp Refills amLODIPine (NORVASC) 5 mg tablet 30 tablet 2 Sig: Take 1 tablet by mouth once daily. Sandip Mckay LPN November 28, 2024 11:03 AM [facility]05-16-2025 Miscellaneous Notes* Telephone Encounter - Sandip Mckay LPN - 11/28/2024 11:03 AM EDT Prescription Refill Information The patient has been identified by name and date of : Yes Caregiver verified no other encounters exist for this prescription request: Yes Caregiver confirmed with patient/requestor that no other refills are due, in the near future, with this provider at this time: Yes The last office visit in the department: 09/12/24 Does the patient have a future office visit with this provider/department: Yes, 03/13/25 Requested Prescriptions Pending Prescriptions Disp Refills amLODIPine (NORVASC) 5 mg tablet 30 tablet 2 Sig: Take 1 tablet by mouth once daily. Sandip Mckay LPN November 28, 2024 11:03 AM documented in this encounterTrihealth [facility]05-[facility]25 NoteHNO ID: [id number] Author: SIMON GONZALEZ CPhT Service: ? Author Type: Staff Mine Warfare Officer Type: Progress Notes Filed: 11/25/2024 12:36 Note Text: Patient is identified through a medication adherence outreach initiative based on pharmacy claims data from: [employer] Medication Adherence Category: Statins Second Attempt Medication(s) Simvastatin 10 mg Outreach to patient: Outreach to patient: Left Voicemail/message for return call What was primary intervention? No intervention Patient identified by name and Med Adherence Concern: No adherence concerns What was primary intervention? No intervention Simon Gonzalez CPhT [facility] History of Present illness Narrative* Simon Gonzalez CPhT - 11/25/2024 12:22 PM EDT Patient is identified through a medication adherence outreach initiative based on pharmacy claims data from: [employer] Medication Adherence Category: Statins Second Attempt Medication(s) Simvastatin 10 mg Outreach to patient: Outreach to patient: Left Voicemail/message for return call What was primary intervention? No intervention Patient identified by name and Med Adherence Concern: No adherence concerns What was primary intervention? No intervention Simon Gonzalez CPhT [facility] Team documented in this encounterTrihealth [facility]25 NotePatient Outreach (PHPOHE) MUKESH ROSENBERG ([id number]) 1955 F Date Time Provider Department 11/25/24 JOSE PIKE PHPOHE During your visit today, we recorded the following information about you: Simon Gonzalez CPhT 11/25/2024 12:36 PM Signed Patient is identified through a medication adherence outreach initiative based on pharmacy claims data from: [employer] Medication Adherence Category: Statins Second Attempt Medication(s) Simvastatin 10 mg Outreach to patient: Outreach to patient: Left Voicemail/message for return call What was primary intervention? No intervention Patient identified by name and Med Adherence Concern: No adherence concerns What was primary intervention? No intervention Simon Gonzalez CPhT [facility] Pharmacy Team Allergies As of Date: 11/25/2024 Noted Allergy Reaction HCTZ (THIAZIDES) 07/02/2023 14 - Other: See Comments Comments: Hypokalemia MAGNESIUM CITRATE 01/29/2006 11 - Vomiting NAPROXEN 03/29/2011 14 - Other: See Comments Comments: fluid retention Date Reviewed: 09/12/2024 Reviewed by: Marta Gaming LPN - Fully Assessed Reason for Visit: Allied Health Visit [5] Cmt: Medication Adherence Outreach Prescriptions as of 11/25/2024 - amLODIPine (NORVASC) 5 mg tablet Take 1 tablet by mouth once daily. - lisinopril (ZESTRIL) 40 mg tablet Take 1 tablet by mouth once daily. - pantoprazole DR (PROTONIX) 40 mg tablet Take 1 tablet by mouth daily before breakfast. Take on empty stomach, 1/2 hr before meal. - simvastatin (ZOCOR) 10 mg tablet Take 1 tablet by mouth daily at bedtime. For cholesterols. - valACYclovir (VALTREX) 1 gram tablet Take 2,000 mg BID x 1 day for cold sores. - polyethylene glycol 3350 (MIRALAX, GLYCOLAX) 17 [...] as needed. Problem List As Of Date 11/25/2024 Noted Resolved UNSP ABNORMAL MAMMOGRAM [R92.8] 07/25/2007 [...] pain with right-si*12/24/2020 Hypertension, essential [I10] 11/03/2022 History of MRSA infection [Z86.14] 01/08/2024 Current nicotine use [Z72.0] 01/08/2024 Encounter Status:Closed by SIMON GONZALEZ on 11/25/24[facility] 11-07-[facility]24 NoteHNO ID: [id number] Author: SIMON GONZALEZ CPhT Service: ? Author Type: Staff Mine Warfare Officer Type: Progress Notes Filed: 11/07/2024 15:34 Note Text: Patient is identified through a medication adherence outreach initiative based on pharmacy claims data from: [employer] Medication Adherence Category: Hypertension Statins First Review Attribution Status: Correct Attribution Medication(s) Lisinopril 40 mg Medication Status per portal/Epic Reconcile Dispense: Filled late - Within 7 days after next fill date Date Filled (MM/DD): 11/07/24 due 10/30/24 Day Supply: 90 Medication Status per Profile Review: No issues per profile review Simvastatin 10 mg Medication Status per portal/Epic Reconcile Dispense: Not filled - Outreach patient Medication Status per Profile Review: No issues per profile review Patient appropriate for outreach? Yes Patient identified by name and Outreach to patient: Left Voicemail/message for return call What was primary intervention? Sent Stukent message for simvastatin Simon Gonzalez CPhT [facility]25 NotePatient Outreach (PHPOHE) MUKESH ROSENBERG ([id number]) 1955 F Date Time Provider Department 11/07/24 JOSE PIKE PHPOHE During your visit today, we recorded the following information about you: Simon Gonzalez CPhT 11/07/2024 3:34 PM Addendum Patient is identified through a medication adherence outreach initiative based on pharmacy claims data from: [employer] Medication Adherence Category: Hypertension Statins First Review Attribution Status: Correct Attribution Medication(s) Lisinopril 40 mg Medication Status per portal/Epic Reconcile Dispense: Filled late - Within 7 days after next fill date Date Filled (MM/DD): 11/07/24 due 10/30/24 Day Supply: 90 Medication Status per Profile Review: No issues per profile review Simvastatin 10 mg Medication Status per portal/Epic Reconcile Dispense: Not filled - Outreach patient Medication Status per Profile Review: No issues per profile review Patient appropriate for outreach? Yes Patient identified by name and Outreach to patient: Left Voicemail/message for return call What was primary intervention? Sent Stukent message for simvastatin Simon Gonzalez CPhT [facility] Pharmacy Team Allergies As of Date: 11/07/2024 Noted Allergy Reaction HCTZ (THIAZIDES) 07/02/2023 14 - Other: See Comments Comments: Hypokalemia MAGNESIUM CITRATE 01/29/2006 11 - Vomiting NAPROXEN 03/29/2011 14 - Other: See Comments Comments: fluid retention Date Reviewed: 09/12/2024 Reviewed by: Marta Gaming LPN - Fully Assessed Reason for Visit: Allied Health Visit [5] Cmt: Medication Adherence Outreach Prescriptions as of 11/07/2024 - amLODIPine (NORVASC) 5 mg tablet Take 1 tablet by mouth once daily. - lisinopril (ZESTRIL) 40 mg tablet Take 1 tablet by mouth once daily. - pantoprazole DR (PROTONIX) 40 mg tablet Take 1 tablet by mouth daily before breakfast. Take on empty stomach, 1/2 hr before meal. - simvastatin (ZOCOR) 10 mg tablet Take 1 tablet by mouth daily at bedtime. For cholesterols. - valACYclovir (VALTREX) 1 gram tablet Take 2,000 mg BID x 1 day for cold sores. - polyethylene glycol 3350 (MIRALAX, GLYCOLAX) 17 [...] as needed. Problem List As Of Date 11/07/2024 Noted Resolved UNSP ABNORMAL MAMMOGRAM [R92.8] 07/25/2007 [...] pain with right-si*12/24/2020 Hypertension, essential [I10] 11/03/2022 History of MRSA infection [Z86.14] 01/08/2024 Current nicotine use [Z72.0] 01/08/2024 Encounter Status:Closed by SIMON GONZALEZ on 11/07/24[facility] 11-04-[facility] NotePatient Outreach (FAMPWS) MUKESH ROSENBERG ([id number]) 1955 F Date Time Provider Department 11/04/24 JOSE PIKE FAMPWS During your visit today, we recorded the following information about you: Allergies As of Date: 11/04/2024 Noted Allergy Reaction HCTZ (THIAZIDES) 07/02/2023 14 - Other: See Comments Comments: Hypokalemia MAGNESIUM CITRATE 01/29/2006 11 - Vomiting NAPROXEN 03/29/2011 14 - Other: See Comments Comments: fluid retention Date Reviewed: 09/12/2024 Reviewed by: Marta Gaming LPN - Fully Assessed Visit Diagnosis:Encounter for screening mammogram for breast cancer [Z12.31] Order(s):[facility] [[id number]] Order #: [id number] FUTURE Prescriptions as of 12/05/2024 - amLODIPine (NORVASC) 5 mg tablet Take 1 tablet by mouth once daily. - lisinopril (ZESTRIL) 40 mg tablet Take 1 tablet by mouth once daily. - pantoprazole DR (PROTONIX) 40 mg tablet Take 1 tablet by mouth daily before breakfast. Take on empty stomach, 1/2 hr before meal. - simvastatin (ZOCOR) 10 mg tablet Take 1 tablet by mouth daily at bedtime. For cholesterols. - valACYclovir (VALTREX) 1 gram tablet Take 2,000 mg BID x 1 day for cold sores. - polyethylene glycol 3350 (MIRALAX, GLYCOLAX) 17 [...] as needed. Problem List As Of Date 11/04/2024 Noted Resolved UNSP ABNORMAL MAMMOGRAM [R92.8] 07/25/2007 [...] pain with right-si*12/24/2020 Hypertension, essential [I10] 11/03/2022 History of MRSA infection [Z86.14] 01/08/2024 Current nicotine use [Z72.0] 01/08/2024 Encounter Status:Closed by WhoAPI, PRODUSER on 12/05/24[facility] 10-31-2024 Telephone encounter Note* Telephone Encounter - Jayne Arias RN - 10/31/2024 2:03 PM EDT Patient returned call and given provider's message below and patient verbalized understanding. Jasper Arias RN [facility]04-18-2025 Miscellaneous Notes* Telephone Encounter - Jayne Arias RN - 10/31/2024 2:03 PM EDT Patient returned call and given provider's message below and patient verbalized understanding. Jasper Arias RN * Telephone Encounter - Dania Izquierdo LPN - 10/31/2024 10:55 AM EDT Telephone call placed to patient. Message left to call office back for update and ask for triage nurse. Dania Izquierdo LPN * Telephone Encounter - Dania Izquierdo LPN - 10/31/2024 10:53 AM EDT ----- Message from Jose Pike MD sent at 10/30/2024 12:20 PM EDT ----- Patient's PSG confirms diagnosis of severe sleep apnea with both central and obstructive events. Due to presence of both central and obstructive sleep apnea, recommend in lab split night sleep study and referral to sleep medicine for further evaluation. Please assist with scheduling SPLIT NIGHT SLEEP STUDY. documented in this encounterTrihealth [facility]04-[facility]-2025 Telephone encounter Note * Telephone Encounter - Dania Izquierdo LPN - 10/31/2024 10:55 AM EDT Telephone call placed to patient. Message left to call office back for update and ask for triage nurse. Dania Izquierdo LPN [facility]04-18-2025 Telephone encounter Note* Telephone Encounter - Dania Izquierdo LPN - 10/31/2024 10:53 AM EDT ----- Message from Jose Pike MD sent at 10/30/2024 12:20 PM EDT ----- Patient's PSG confirms diagnosis of severe sleep apnea with both central and obstructive events. Due to presence of both central and obstructive sleep apnea, recommend in lab split night sleep study and referral to sleep medicine for further evaluation. Please assist with scheduling SPLIT NIGHT SLEEP STUDY. [facility]04-08-2025 NoteHNO ID: [id number] Author: MATTI VELÁZQUEZ PT Service: ? Author Type: Physical Therapist Type: Progress Notes Filed: 10/21/2024 11:57 Note Text: Episode Visit Count: 8 Therapist That Will Accept/Oversee The Plan Of Care: Matti Velázquez PT Start of Care Date: 08/04/24 Onset Date: 07/21/24 Plan of Care Certification Date: 08/27/24 Next Certification Due Date: 10/01/24 Patient Identified by Name and Date of : Yes REHABILITATION AND SPORTS THERAPY PHYSICAL THERAPY DISCONTINUANCE OF CARE PLAN OF CARE UPDATE: Assessment: Mukesh Rosenberg is discontinued from Physical Therapy services due to maximal benefit.. Patient was seen for 8 visits from Start of Care Date: 08/04/24 to 10/21/2024 and treatment included: Therapeutic exercise, Manual therapy, and Self-mcfp management. Goals updated 10/21/2024 Goals for Episode of Care: established 08/04/24 Independent in home exercises. - MET Patient will decrease pain rating by 2 points to meet minimal clinical important difference for numeric pain rating scale. - Progressing Stand / Walk for 45 minutes or greater without pain/symptoms. - Not assessed Pt will demo RA strength of 5/5 for improved ability to hold a neutral spine with standing and walking - Met Patient Goals: Decrease symptoms SUBJECTIVE: Pt felt fine after the last needling session. But the weather and standing too long can cause issues. Sometimes she can notice she walks. The HEP helps to reduce pain and tightness. Patient Goals: Decrease symptoms Functional Limitations: walking, standing Prior Level of Function: Independent without limitations Intake Information: Prescription present Pain: Pain Pain Level: 0 Pain Location: Low Back/Lumbar Spine- Midline Description: Tightness PROMIS Scales 09/08/2024 08/04/2024 Higher is Better Phys Func - T Score 47 (within normal limits) 43 (mild dysfunction) Phys Func - Percentile 38 24 Self-Eff Symptom - T Score 40 (Average) 45 (Average) Self-Eff Symptom - Percentile 16 31 T-scores: mean of general population = 50. 5 points is clinically meaningfully difference Percentiles provide an indication of how the patient's score ranks in relation to the general population. Higher percentile rankings indicate better function/quality of life. 50th percentile is the average of the general population and indicates half of respondents had a worse score. OBJECTIVE MEASURES WITH LEVEL OF FUNCTION: Lumbar Spine AROM Lumbar Flexion: Normal Lumbar Extension: Normal Lumbar R Side-Bend: Normal, Increased pain Lumbar L Side-Bend: Normal Lumbar R Rotation: Normal, Decreased pain, End range pain Lumbar L Rotation: Normal LE Flexibility Flexibility: Hamstring Flexibility R Hamstring Flexibility: WNL L Hamstring Flexibility: WNL Spine Joint Mobility Spine Joint Mobility : Lumbar/Thoracic Joint Mobility - L1: WNL Joint Mobility - L2: Hypermobile (painful) Joint Mobility - L3: Hypermobile Joint Mobility - L4: Hypermobile Joint Mobility - L5: Hypermobile LE Strength R LE Strength: Grossly 5/5 L LE Strength: Grossly 5/5 RA strength is 5/5 TREATMENT: Therapeutic Exercise: 1: All objective measures taken ths session 2: Hooklying PPT with alt march (up,up,down,down) 2 x 10 3: Hooklying PPT BKFO x 10 Skilled Intervention: Patient was educated in proper exercise technique and purpose for exercises. Provided written instruction for home exercise program to facilitate proper performance and compliance. Correct performance of therapeutic exercises was facilitated with verbal and visual cuing. Billing Therapeutic Exercise Treatment Minutes: 50 Skilled Treatment Time Minutes (timed and untimed codes): 50 Total Session Time (minutes): 50 Session Start Time : 1055 Session Stop Time : 1145 Matti Velázquez [facility]04-08-2025 History of Present illness Narrative* Matti Velázquez, PT - 10/21/2024 10:55 AM EDT Images from the original note were not included. Episode Visit Count: 8 Therapist That Will Accept/Oversee The Plan Of Care: Matti Velázquez PT Start of Care Date: 08/04/24 Onset Date: 07/21/24 Plan of Care Certification Date: 08/27/24 Next Certification Due Date: 10/01/24 Patient Identified by Name and Date of : Yes REHABILITATION AND SPORTS THERAPY PHYSICAL THERAPY DISCONTINUANCE OF CARE PLAN OF CARE UPDATE: Assessment: Mukesh Bundy Julianjoy is discontinued from Physical Therapy services due to maximal benefit.. Patient was seen for 8 visits from Start of Care Date: 08/04/24 to 10/21/2024 and treatment included: Therapeutic exercise, Manual therapy, and Self-mcfp management. Goals updated 10/21/2024 Goals for Episode of Care: established 08/04/24 Independent in home exercises. - MET Patient will decrease pain rating by 2 points to meet minimal clinical important difference for numeric pain rating scale. - Progressing Stand / Walk for 45 minutes or greater without pain/symptoms. - Not assessed Pt will demo RA strength of 5/5 for improved ability to hold a neutral spine with standing and walking - Met Patient Goals: Decrease symptoms SUBJECTIVE: Pt felt fine after the last needling session. But the weather and standing too long cancause issues. Sometimes she can notice she walks. The HEP helps to reduce pain and tightness. Patient Goals: Decrease symptoms Functional Limitations: walking, standing Prior Level of Function: Independent without limitations Intake Information: Prescription present Pain: Pain Pain Level: 0 Pain Location: Low Back/Lumbar Spine- Midline Description: Tightness PROMIS Scales 09/08/2024 08/04/2024 Higher is Better Phys Func - T Score 47 (within normal limits) 43 (mild dysfunction) Phys Func - Percentile 38 24 Self-Eff Symptom - T Score 40 (Average) 45 (Average) Self-Eff Symptom - Percentile 16 31 T-scores: mean of general population = 50. 5 points is clinically meaningfully difference Percentiles provide an indication of how the patient's score ranks in relation to the general population. Higher percentile rankings indicate better function/quality of life. 50th percentile is the average of the general population and indicates half of respondents had a worse score. OBJECTIVE MEASURES WITH LEVEL OF FUNCTION: Lumbar Spine AROM Lumbar Flexion: Normal Lumbar Extension: Normal Lumbar R Side-Bend: Normal, Increased pain Lumbar L Side-Bend: Normal Lumbar R Rotation: Normal, Decreased pain, End range pain Lumbar L Rotation: Normal LE Flexibility Flexibility: Hamstring Flexibility R Hamstring Flexibility: WNL L Hamstring Flexibility: WNL Spine Joint Mobility Spine Joint Mobility : Lumbar/Thoracic Joint Mobility - L1: WNL Joint Mobility - L2: Hypermobile (painful) Joint Mobility - L3: Hypermobile Joint Mobility - L4: Hypermobile Joint Mobility - L5: Hypermobile LE Strength R LE Strength: Grossly 5/5 L LE Strength: Grossly 5/5 RA strength is 5/5 TREATMENT: Therapeutic Exercise: 1: All objective measures taken ths session 2: Hooklying PPT with alt march (up,up,down,down) 2 x 10 3: Hooklying PPT BKFO x 10 Skilled Intervention: Patient was educated in proper exercise technique and purpose for exercises. Provided written instruction for home exercise program to facilitate proper performance and compliance. Correct performance of therapeutic exercises was facilitated with verbal and visual cuing. Billing Therapeutic Exercise Treatment Minutes: 50 Skilled Treatment Time Minutes (timed and untimed codes): 50 Total Session Time (minutes): 50 Session Start Time : 1055 Session Stop Time : 1145 Matti Velázquez PT documented in this encounterTrihealth [facility]04-07-2025 NoteHNO ID: [id number] Author: ?, ?, ? Service: ? Author Type: ? Type: Progress Notes Filed: 10/20/2024 10:12 Note Text: Sleep Study Check-In Documentation Date: October 20, 2024 Name: Mukesh Rosenberg Comments: HST was returned in working order with all sleep questionnaires [facility] History of Present illness Narrative* Montrell Diaz - 10/20/2024 10:11 AM EDT Sleep Study Check-In Documentation Date: October 20, 2024 Name: Mukesh Rosenberg Comments: HST was returned in working order with all sleep questionnaires Montrell Diaz * Thang Pacheco - 10/15/2024 3:11 PM EDT Nomad# [id number] , +GPS Date shipped out: 10/15/24 SENT FEDEX DELIVERY - [employer] RETURN Tracking mailout: [id number] Tracking return: [id number] * Montrell Diaz - 09/25/2024 1:17 PM EDT Spoke with patient she says she's not sure why her devie was blank because none of her wires cam loose and that her device had blinked green when she started her study. She has been redeployed. * Lanie Schafer - 09/12/2024 10:04 AM EST Sleep Study Check-In Documentation Date: September 12, 2024 Name: Mukesh Rosenberg Comments: HST was returned in work order. Study did not occur. Device was blank will spencereploy Lanie Schafer * Tenisha Jefferson - 09/09/2024 2:07 PM EST Nomad # [id number], date shipped out [employer] only Tracking mailout: [id number] Tracking return: [id number] * Erica Harris MD - 09/08/2024 1:34 PM EST September 08, 2024 Standing PSG Orders signed in the last 90 days None Future PSG Orders signed in the last 90 days Ordered Auth. provider HOME SLEEP APNEA TEST (HSAT) [[id number]] 08/29/24 Jose Pike MD Assoc. diagnoses: Daytime somnolence [R40.0] Q: Indications: A: Obstructive sleep apnea Q: STOP-BANG conditions - Select All That Apply: A: AGE > 50 A2: high blood PRESSURE A3: SNORINGthat is loud or disruptive A4: TIREDNESS, fatigue or sleepiness during the day Q: Current use of supplemental oxygen during sleep period?: A: No All Prior Sleep Studies (past 365 days) 08/29/2024 11:16 Sleep Studies HOME SLEEP APNEA TEST (HSAT) HOME SLEEP APNEA TEST (HSAT) Order Status: Ordered, Future Expires: 08/29/25 BMI Readings from Last 2 Encounters: 08/29/24 : 29.35 kg/m 07/01/24 : 28.88 kg/m PAST MEDICAL HISTORY Diagnosis Date Allergic rhinitis Dr. Salazar for allergy shots Chronic constipation Chronic lower back pain Dr. Neves Essential hypertension GERD (gastroesophageal reflux disease) Hyperlipidemia Hypertension, essential 11/03/2022 Impaired fasting glucose MRSA infection 09/2023 abscess in left axilla Nicotine use OA (osteoarthritis) of knee s/p L TKA Obesity (BMI 30.0-34.9) Other acne Acne PMH - PAST MEDICAL HISTORY OF lactose intolerant PMH - PAST MEDICAL HISTORY OF kidney stones PMH - PAST MEDICAL HISTORY OF rlq abdominal pain Rosacea The medical record was reviewed to determine if the proposed sleep study conforms to the AASM Practice Parameters for the Indications for Polysomnography and Related Procedures, or if the sleep studyis indicated for other reasons. Indications for study: HOLLY suspected without comorbid medical or sleep disorders Sleep study to be performed: Home Sleep Apnea Test (HSAT) Special instructions: None-follow laboratory protocol [facility] Staff Note: I have read the above protocol, edited as needed, and agree to the plan. Erica Rivero MD 5:19 PM, 09/08/2024 * Montrell Diaz - 09/08/2024 10:25 AM EST September 08, 2024 An order has been received for Home Sleep Apnea Test (HSAT) from Dr. Pike, paz Schwartz. [facility] Staff. Visit prep complete. Comments :No The sleep study is scheduled for 09/10. Insurance: Payor: [employer] MEDICARE / Plan: [employer] MED[employer]ARE PPO / Product Type: PPO / Payer/Plan Subscr Sex Relation Sub. Ins. ID Effective Group Num 1. [employer] MEDICAR* MUKESH ROSENBERG 1955 Female Self [id number] [birth year] [id number] Montrell Diaz documented in this encounterTrihealth [facility]04-02-2025 NoteHNO ID: [id number] Author: ?, ?, ? Service: ? Author Type: ? Type: Progress Notes Filed: 10/20/2024 10:12 Note Text: Nomad# [id number] , +GPS Date shipped out: 10/15/24 SENT FEDEX DELIVERY - FEDEX RETURN Tracking mailout: [id number] Tracking return: [id number]03-25-2025 NoteHNO ID: [id number] Author: MATTI VELÁZQUEZ PT Service: ? Author Type: Physical Therapist Type: Progress Notes Filed: 10/21/2024 10:54 Note Text: Episode Visit Count: 7 Therapist That Will Accept/Oversee The Plan Of Care: Matti Velázquez PT Start of Care Date: 08/04/24 Onset Date: 07/21/24 Plan of Care Certification Date: 08/27/24 Next Certification Due Date: 10/01/24 Patient Identified by Name and Date of : Yes REHABILITATION AND SPORTS THERAPY PHYSICAL THERAPY TREATMENT NOTE ASSESSMENT: Mukesh Rosenberg tolerated the session with no issues. She demonstrated good form with all therapeutic exercises. The patient will continue to benefit from ongoing skilled physical therapy to progress toward set goals. PLAN FOR NEXT VISIT: DDN PRN SUBJECTIVE: Just had a little bit of symptoms in the back. But overall things are much better. Not having the catching in the low back anymore. Pain: Pain Pain Location: Low Back/Lumbar Spine- Midline OBJECTIVE MEASURES WITH LEVEL OF FUNCTION: Spine Observations R Lumbar Spine Palpation Tenderness: Paraspinals Lumbar Spine AROM Lumbar R Side [place]: Minimal limitation, Increased pain Lumbar L Side [place]: Normal TREATMENT: Therapeutic Exercise: 1: SKTC x 10 holding 5 sec each 2: Supine Piriformis stretch 2 x 30 sec RLE then 2 x 30 sec LLE 3: Seated glute max stretch 2 x 30 sec RLE then 2 x 30 sec LLE Skilled Intervention: Patient was educated in proper exercise technique and purpose for exercises. Manual Therapy: 1: DDN (see note for details) 2: STM over R lumbar paraspinals push to tolerance Skilled Intervention: Manual skills to improve joint mobility, ROM, and decrease pain. Utilized anatomy knowledge of the therapist, and assessment of patient's response to intervention. Dry needling to following Trigger points: lumbar paraspinals Needle length: 50mm 2.0 in . Leo used 2, needles removed 2. Dry needling technique used: Pistoning, Fanning, and Deep needling. Patient education on purpose, precautions, safety, risks, and other treatment options regarding dry needling. Verbal consent received. Billing Therapeutic Exercise Treatment Minutes: 15 Manual TherapyTreatment Minutes: 25 Skilled Treatment Time Minutes (timed and untimed codes): 40 Total Session Time (minutes): 40 Session Start Time : 1056 Session Stop Time : 113 Matti Velázquez [facility]03-25-2025 History of Present illness Narrative* Matti Velázquez, PT - 10/07/2024 10:57 AM EDT Episode Visit Count: 7 Therapist That Will Accept/Oversee The Plan Of Care: Matti Velázquez PT Start of Care Date: 08/04/24 Onset Date: 07/21/24 Plan of Care Certification Date: 08/27/24 Next Certification Due Date: 10/01/24 Patient Identified by Name and Date of : Yes REHABILITATION AND SPORTS THERAPY PHYSICAL THERAPY TREATMENT NOTE ASSESSMENT: Mukesh Rosenberg tolerated the session with no issues. She demonstrated good form withall therapeutic exercises. The patient will continue to benefit from ongoing skilled physical therapy to progress toward set goals. PLAN FOR NEXT VISIT: DDN PRN SUBJECTIVE: Just had a little bit of symptoms in the back. But overall things are much better. Not having the catching in the low back anymore. Pain: Pain Pain Location: Low Back/Lumbar Spine- Midline OBJECTIVE MEASURES WITH LEVEL OF FUNCTION: Spine Observations R Lumbar Spine Palpation Tenderness: Paraspinals Lumbar Spine AROM Lumbar R Side [place]: Minimal limitation, Increased pain Lumbar L Side [place]: Normal TREATMENT: Therapeutic Exercise: 1: SKTC x 10 holding 5 sec each 2: Supine Piriformis stretch 2 x 30 sec RLE then 2 x 30 sec LLE 3: Seated glute max stretch 2 x 30 sec RLE then 2 x 30 sec LLE Skilled Intervention: Patient was educated in proper exercise technique and purpose for exercises. Manual Therapy: 1: DDN (see note for details) 2: STM over R lumbar paraspinals push to tolerance Skilled Intervention: Manual skills to improve joint mobility, ROM, and decrease pain. Utilized anatomy knowledge of the therapist, and assessment of patient's response to intervention. Billing Therapeutic Exercise Treatment Minutes: 15 Manual TherapyTreatment Minutes: 25 Skilled Treatment Time Minutes (timed and untimed codes): 40 Total Session Time (minutes): 40 Session Start Time : 105 Session Stop Time : 1136 Matti Velázquez, PT [facility] Telephone encounter Note * Telephone Encounter - Ofelia Rodriges MA - 09/29/2024 12:02 PM EDT Pt read message on [employer]. Ofelia Rodriges MA [facility]03-17-2025 Miscellaneous Notes* Telephone Encounter - Ofelia Rodriges MA - 09/29/2024 12:02 PM EDT Pt read message on [employer]. Ofelia Rodriges MA * Telephone Encounter - Ely Wood MA - 09/24/2024 6:42 PM EDT Left message to return call Ely Wood MA * Telephone Encounter - Ely Wood MA - 09/24/2024 6:42 PM EDT ----- Message from Jose Pike MD sent at 09/24/2024 1:14 PM EDT ----- Normal renal artery US. documented in this encounterTri[facility]03-13-2025 NoteHNO ID: [id number] Author: ?, ?, ? Service: ? Author Type: ? Type: Progress Notes Filed: 10/20/2024 10:12 Note Text: Spoke with patient she says she's not sure why her devie was blank because none of her wires cam loose and that her device had blinked green when she started her study. She has been redeployed.[facility]03-12-2025 Telephone encounter Note* Telephone Encounter - Ely Wood MA - 09/24/2024 6:42 PM EDT Left message to return call Ely Wood MA [facility]03-12-2025 Telephone encounter Note* Telephone Encounter - Ely Wood MA - 09/24/2024 6:42 PM EDT ----- Message from Jose Pike MD sent at 09/24/2024 1:14 PM EDT ----- Normal renal artery US. [facility]03-11-2025 NoteHNO ID: [id number] Author: MATTI VELÁZQUEZ PT Service: ? Author Type: Physical Therapist Type: Progress Notes Filed: 09/23/2024 12:12 Note Text: Episode Visit Count: 6 Therapist That Will Accept/Oversee The Plan Of Care: Matti Velázquez PT Start of Care Date: 08/04/24 Onset Date: 07/21/24 Plan of Care Certification Date: 08/27/24 Next Certification Due Date: 10/01/24 Patient Identified by Name and Date of : Yes REHABILITATION AND SPORTS THERAPY PHYSICAL THERAPY TREATMENT NOTE ASSESSMENT: Mukesh Rosenberg tolerated the session with no issues. She demonstrated good tolerance to all therapeutic exercises and good form with all of the exercises. The patient will continue to benefit from ongoing skilled physical therapy to progress toward set goals. PLAN FOR NEXT VISIT: Lumbar flexion stretches. SUBJECTIVE: Has had a few days of severe catching more recently. Pain: Pain Pain Location: Low Back/Lumbar Spine- Midline OBJECTIVE MEASURES WITH LEVEL OF FUNCTION: TREATMENT: Therapeutic Exercise: 1: SKTC x 10 holding 5 sec each 2: Supine Piriformis stretch 4 x 30 sec RLE then 4 x 30 sec LLE 3: Seated glute max stretch 4 x 30 sec RLE then 4 x 30 sec LLE Skilled Intervention: Patient was educated in proper exercise technique and purpose for exercises. Correct performance of therapeutic exercises was facilitated with verbal cuing. Manual Therapy: 1: DDN (See note for details) 2: STM over R lumbar paraspinals push to tolerance Skilled Intervention: Manual skills to improve joint mobility, ROM, and decrease pain. Utilized anatomy knowledge of the therapist, and assessment of patient's response to intervention. Dry needling to following Trigger points: R Lumbar paraspinals Needle length: 50mm 2.0 in . Leo used 1, needles removed 1. Dry needling technique used: Pistoning and Deep needling. Patient education on purpose, precautions, safety, risks, and other treatment options regarding dry needling. Verbal consent received. Billing Therapeutic Exercise Treatment Minutes: 30 Manual TherapyTreatment Minutes: 13 Skilled Treatment Time Minutes (timed and untimed codes): 43 Total Session Time (minutes): 43 Session Start Time : 1053 Session Stop Time : 1136 Matti Velázquez [facility]03-11-2025 History of Present illness Narrative* Matti Velázquez, PT - 09/23/2024 10:52 AM EDT Episode Visit Count: 6 Therapist That Will Accept/Oversee The Plan Of Care: Matti Velázquez PT Start of Care Date: 08/04/24 Onset Date: 07/21/24 Plan of Care Certification Date: 08/27/24 Next Certification Due Date: 10/01/24 Patient Identified by Name and Date of : Yes REHABILITATION AND SPORTS THERAPY PHYSICAL THERAPY TREATMENT NOTE ASSESSMENT: Mukesh Rosenberg tolerated the session with no issues. She demonstrated good toleranceto all therapeutic exercises and good form with all of the exercises. The patient will continue to benefit from ongoing skilled physical therapy to progress toward set goals. PLAN FOR NEXT VISIT: Lumbar flexion stretches. SUBJECTIVE: Has had a few days of severe catching more recently. Pain: Pain Pain Location: Low Back/Lumbar Spine- Midline OBJECTIVE MEASURES WITH LEVEL OF FUNCTION: TREATMENT: Therapeutic Exercise: 1: SKTC x 10 holding 5 sec each 2: Supine Piriformis stretch 4 x 30 sec RLE then 4 x 30 sec LLE 3: Seated glute max stretch 4 x 30 sec RLE then 4 x 30 sec LLE Skilled Intervention: Patient was educated in proper exercise technique and purpose for exercises. Correct performance of therapeutic exercises was facilitated with verbal cuing. Manual Therapy: 1: DDN (See note for details) 2: STM over R lumbar paraspinals push to tolerance Skilled Intervention: Manual skills to improve joint mobility, ROM, and decrease pain. Utilized anatomy knowledge of the therapist, and assessment of patient's response to intervention. Dry needling to following Trigger points: R Lumbar paraspinals Needle length: 50mm 2.0 in . Needlesused 1, needles removed 1. Dry needling technique used: Pistoning and Deep needling. Patient education on purpose, precautions, safety, risks, and other treatment options regarding dry needling. Verbal consent received. Billing Therapeutic Exercise Treatment Minutes: 30 Manual TherapyTreatment Minutes: 13 Skilled Treatment Time Minutes (timed and untimed codes): 43 Total Session Time (minutes): 43 Session Start Time : 1053 Session Stop Time : 113 Matti Velázquez PT documented in this encounterTri[facility]-28-[facility] Instructions* Patient Instructions* Jose Pike MD - 09/12/2024 11:45 AM EST Continue to check blood pressure at home 2-3 times per week and call if above 140/90 regularly. documented in this encounterTri[facility]02-28-2025 NoteHNO ID: [id number] Author: JOSE PIKE MD Service: ? Author Type: Physician Type: Progress Notes Filed: 09/12/2024 12:00 Note Text: Chief Complaint Patient presents with: Follow Up HPI Mukseh Rosenberg is a 69 year old female who presents here today for recheck BP and HR after med adjustment. HTN: Ms. Rosenberg indicates that she is feeling well and denies any symptoms referable to elevated blood pressure. Specifically denies headache, chest pain, palpitations, dyspnea, and peripheral edema. Patient denies any side effects of her medication(s) and is compliant with their regimen. She does check BP's away from this office with average BP's in the 130-140's systolic range. Last 3 Encounter BP Readings: Date: BP: 09/12/2024 136/70 08/29/2024 181/86[APOLLO BP average[ 08/01/2024 168/94 Last 1/2 tablet of atenolol was yesterday. HR improved today and has been >60 on her apple watch. Completed HSAT 2 days ago which is pending. Past medical history, appointments, medications, allergies reviewed. Previous Medical History PAST MEDICAL HISTORY Diagnosis Date Allergic rhinitis Dr. Salazar for allergy shots Chronic constipation Chronic lower back pain Dr. Neves Essential hypertension GERD (gastroesophageal reflux disease) Hyperlipidemia Hypertension, essential 11/03/2022 Impaired fasting glucose MRSA infection 09/2023 abscess in left axilla Nicotine use OA (osteoarthritis) of knee s/p L TKA [...] SPX 12/08/1997 Salpingo-oophorectomy bilateral TONSILLECTOMY PRIMARY/SECONDARY Tonsillectomy TOTAL KNEE REPLACEMENT Left 06/2022 VAGINAL HYSTERECTOMY UTERUS 250 GM/< 12/08/1997 Hysterectomy, vaginal LAPAROSCOPIC ASSISTED Family History FAMILY HISTORY Problem Relation Age of Onset Hypertension Father rapid heart beat, tia Stroke Father Cancer Brother leukemia Hypertension Mother other (only child now) Other Cancer Maternal Grandfather skin Patient Allergies ALLERGIES Allergen Reactions Hctz [Thiazides] Other: See Comments Hypokalemia Magnesium Citrate Vomiting Naproxen Other: See Comments fluid retention Current Medications Current Outpatient Medications on File Prior to Visit Medication Sig amLODIPine (NORVASC) 5 mg tablet Take 1 tablet by mouth once daily. lisinopril (ZESTRIL) 40 mg tablet Take 1 tablet by mouth once daily. pantoprazole DR (PROTONIX) 40 mg tablet Take 1 tablet by mouth daily before breakfast. Take on empty stomach, 1/2 hr before meal. simvastatin (ZOCOR) 10 mg tablet Take 1 tablet by mouth daily at bedtime. For cholesterols. valACYclovir (VALTREX) 1 gram tablet Take 2,000 mg BID x 1 day for cold sores. polyethylene glycol 3350 (MIRALAX, GLYCOLAX) 17 gram/dose [...] Social History Tobacco Use Smoking status: Former Current packs/day: 0.00 Average packs/day: 1 pack/day for 20.0 years (20.0 ttl pk-yrs) Types: Cigarettes Start date: 07/16/1978 Quit date: 07/16/1998 Years since quittin.1 Smokeless tobacco: Never Substance Use Topics Alcohol use: Yes Alcohol/week: 2.0 standard drinks of alcohol Types: 2 Cans of Beer (12oz) per week Drug use: No Review of Symptoms REVIEW OF SYSTEMS See HPI EXAM: BP 136/70 (BP Site: Left Arm, BP Position: Sitting, (more content not included)...[facility]02-28-2025 History of Present illness Narrative* Jose Pike MD - 09/12/2024 11:33 AM EST Chief Complaint Patient presents with: Follow Up HPI Mukesh Rosenberg is a 69 year old female who presents here today for recheck BP and HR after med adjustment. HTN: Ms. Rosenberg indicates that she is feeling well and denies any symptoms referable to elevatedblood pressure. Specifically denies headache, chest pain, palpitations, dyspnea, and peripheral edema. Patient denies any side effects of her medication(s) and is compliant with their regimen. She does check BP's away from this office with average BP's in the 130-140's systolic range. Last 3 Encounter BP Readings: Date: BP: 09/12/2024 136/70 08/29/2024 181/86[APOLLO BP average[ 08/01/2024 168/94 Last 1/2 tablet of atenolol was yesterday. HR improved today and has been >60 on her apple watch. Completed HSAT 2 days ago which is pending. Past medical history, appointments, medications, allergies reviewed. Previous Medical History PAST MEDICAL HISTORY Diagnosis Date Allergic rhinitis Dr. Salazar for allergy shots Chronic constipation Chronic lower back pain Dr. Neves Essential hypertension GERD (gastroesophageal reflux disease) Hyperlipidemia Hypertension, essential 11/03/2022 Impaired fasting glucose MRSA infection 09/2023 abscess in left axilla Nicotine use OA (osteoarthritis) of knee s/p L TKA [...] Salpingo-oophorectomy bilateral TONSILLECTOMY PRIMARY/SECONDARY <AGE 14 Tonsillectomy TOTAL KNEE REPLACEMENT Left 06/2022 VAGINAL HYSTERECTOMY UTERUS 250 GM/< 12/08/1997 Hysterectomy, vaginal LAPAROSCOPIC ASSISTED Family History FAMILY HISTORY Problem Relation Age of Onset Hypertension Father rapid heart beat, tia Stroke Father Cancer Brother leukemia Hypertension Mother other (only child now) Other Cancer Maternal Grandfather skin Patient Allergies ALLERGIES Allergen Reactions Hctz [Thiazides] Other: See Comments Hypokalemia Magnesium Citrate Vomiting Naproxen Other: See Comments fluid retention Current Medications Current Outpatient Medications on File Prior to Visit Medication Sig amLODIPine (NORVASC) 5 mg tablet Take 1 tablet by mouth once daily. lisinopril (ZESTRIL) 40 mg tablet Take 1 tablet by mouth once daily. pantoprazole DR (PROTONIX) 40 mg tablet Take 1 tablet by mouth daily before breakfast. Take on empty stomach, 1/2 hr before meal. simvastatin (ZOCOR) 10 mg tablet Take 1 tablet by mouth daily at bedtime. For cholesterols. valACYclovir (VALTREX) 1 gram tablet Take 2,000 mg BID x 1 day for cold sores. polyethylene glycol 3350 (MIRALAX, GLYCOLAX) 17 gram/dose [...] Social History Tobacco Use Smoking status: Former Current packs/day: 0.00 Average packs/day: 1 pack/day for 20.0 years (20.0 ttl pk-yrs) Types: Cigarettes Start date: 07/16/1978 Quit date: 07/16/1998 Years since quittin.1 Smokeless tobacco: Never Substance Use Topics Alcohol use: Yes Alcohol/week: 2.0 standard drinks of alcohol Types: 2 Cans of Beer (12oz) per week Drug use: No Review of Symptoms REVIEW OF SYSTEMS See HPI EXAM: BP 136/70 (BP Site: Left Arm, BP Position: Sitting, BP Cuff Size: Regular Adult) Pulse 79 Resp 16 Wt 63.3 kg (139 lb 9.6 oz) SpO2 99% BMI 29.30 kg/m General Appearance: Well appearing, alert, in [...] clubbing or cyanosis. Good capillary refill. . Health Maintenance List Depression Screening Never done Anxiety Screening Never done BP Controlled (<130/80) Never done Advance Directive Discussion Never done Colorectal Cancer Screening due on 07/21/2024 Mammogram Screening due on 09/30/2024 Covid-19 Vaccine( season) due on 07/01/2025 Annual PCP Team Chronic Disease Visit due on 08/29/2025 Diabetes Screening due on 07/03/2027 DTaP,Tdap,Td Vaccine(3 - Td or Tdap) due on 11/28/2027 Lipid Screening due on 07/03/2029 RSV Vaccine(1 - 1-dose 75+ series) due on 2032 Bone Density Screening Completed Influenza Vaccine Completed Hepatitis C Screening Completed Shingrix Vaccine Completed Pneumococcal Vaccine: 50+ Completed Data reviewed Latest Ref Rng 07/03/2024 09/08/2024 Protein, Total 6.3 - 8.0 g/dL 7.6 Albumin 3.9 - 4.9 g/dL 4.8 Calcium 8.5 - 10.2 mg/dL 9.8 Bilirubin, Total 0.2 - 1.3 mg/dL 1.0 Alkaline Phosphatase 34 - 123 U/L 80 AST 13 - 35 U/L 31 ALT 7 - 38 U/L 34 Glucose 74 - 99 mg/dL 123 (H) BUN 7 - 21 mg/dL 15 Creatinine 0.58 - 0.96 mg/dL 0.78 Sodium 136 - 144 mmol/L 138 Potassium 3.7 - 5.1 mmol/L 3.9 Chloride 98 - 107 mmol/L 103 CO2 22 - 30 mmol/L 23 Anion Gap 8 - 15 mmol/L 12 eGFR >=60 mL/min/1.73m 83 Cholesterol, Total <200 mg/dL 178 Triglyceride <150 mg/dL 177 (H) HDL Cholesterol >39 mg/dL 49 Non HDL Cholesterol <130 mg/dL 129 Fasting Time hrs 12 VLDL Cholesterol <30 mg/dL 35 (H) TC:HDL Ratio <5.10 3.63 LDL Cholesterol <100 mg/dL 94 LDL:HDL Ratio <2.54 1.92 Aldosterone 0.0 - <35.4 ng/dL 9.9 Direct Renin 3.6 - 81.6 pg/mL 2.1 (L) Aldosterone/Renin Ratio <3.8 4.7 (H) Patient Upright or Supine Upright Legend: (H) High (L) Low ASSESSMENT/PLAN: 1. Hypertension, essential - ICD9: 401.9, ICD10: I10 (primary diagnosis) - Controlled - Continue current medications - Recommend home blood pressure monitoring, to bring results to next visit - Encouraged sodium restriction, DASH or Mediterranean diet - Recommend regular aerobic exercise 2. Bradycardia - ICD9: 427.89, ICD10: R00.1 Resolved after cessation of atenolol. Jose Pike MD documented in this [facility]02-28-2025 NoteHNO ID: [id number] Author: ?, ?, ? Service: ? Author Type: ? Type: Progress Notes Filed: 10/20/2024 10:12 Note Text: Sleep Study Check-In Documentation Date: September 12, 2024 Name: Mukesh Rosenberg Comments: HST was returned in work order. Study did not occur. Device was blank [facility] NoteHNO ID: [id number] Author: MATTI VELÁZQUEZ PT Service: ? Author Type: Physical Therapist Type: Progress Notes Filed: 09/09/2024 15:05 Note Text: Episode Visit Count: 5 Therapist That Will Accept/Oversee The Plan Of Care: Matit Velázquez PT Start of Care Date: 08/04/24 Onset Date: 07/21/24 Plan of Care Certification Date: 08/27/24 Next Certification Due Date: 10/01/24 Patient Identified by Name and Date of : Yes REHABILITATION AND SPORTS THERAPY PHYSICAL THERAPY TREATMENT NOTE ASSESSMENT: Mukesh Rosenberg tolerated the session with no issues. She demonstrated good tolerance to DDN. The patient will continue to benefit from ongoing skilled physical therapy to progress toward set goals. PLAN FOR NEXT VISIT: Core strengthenign and DDN SUBJECTIVE: The dry needling helped the low back. The muscles were flared for a little while. She was in [place] and her back did well. Pain: Pain Pain Location: Low Back/Lumbar Spine- Midline OBJECTIVE MEASURES WITH LEVEL OF FUNCTION: Lumbar Spine AROM Lumbar Flexion: Normal, Peripheralizing (Soreness in the R LB) Lumbar Extension: Normal Lumbar R Rotation: Normal Lumbar L Rotation: Normal Lumbar flexion causes radicular symptoms into the L posterior thigh Hip side-gliding demonstrates less pain post DDN Hypermobile at L4-5 with PA pressure TREATMENT: Therapeutic Exercise: 1: Standing alt shoulder ext BTB 2 x 10 2: Standing paloff BTB 2 x 10 R then 2 x 10 L Skilled Intervention: Patient was educated in proper exercise technique and purpose for exercises. Correct performance of therapeutic exercises was facilitated with verbal cuing. Manual Therapy: 1: DDN at Lumbar paraspinals (See note for details) 2: STM over lumbar paraspinals Dry needling to following Trigger points: lumbar paraspinals Needle length: 50mm 2.0 in . Leo used 2, needles removed 2. Dry needling technique used: Pistoning, Fanning, and Deep needling. Patient education on purpose, precautions, safety, risks, and other treatment options regarding dry needling. Verbal consent received. Skilled Intervention: Manual skills to improve joint mobility, ROM, and decrease pain. Utilized anatomy knowledge of the therapist, and assessment of patient's response to intervention. Billing Therapeutic Exercise Treatment Minutes: 20 Manual TherapyTreatment Minutes: 33 Skilled Treatment Time Minutes (timed and untimed codes): 53 Total Session Time (minutes): 53 Session Start Time : 1407 Session Stop Time : 1500 Matti Velázquez [facility]02-25-2025 History of Present illness Narrative* Matti Velázquez, PT - 09/09/2024 2:08 PM EST Episode Visit Count: 5 Therapist That Will Accept/Oversee The Plan Of Care: Matti Velázquez PT Start of Care Date: 08/04/24 Onset Date: 07/21/24 Plan of Care Certification Date: 08/27/24 Next Certification Due Date: 10/01/24 Patient Identified by Name and Date of : Yes REHABILITATION AND SPORTS THERAPY PHYSICAL THERAPY TREATMENT NOTE ASSESSMENT: Mukesh Rosenberg tolerated the session with no issues. She demonstrated good toleranceto DDN. The patient will continue to benefit from ongoing skilled physical therapy to progress toward set goals. PLAN FOR NEXT VISIT: Core strengthenign and DDN SUBJECTIVE: The dry needling helped the low back. The muscles were flared for a little while. She was in [place] and her back did well. Pain: Pain Pain Location: Low Back/Lumbar Spine- Midline OBJECTIVE MEASURES WITH LEVEL OF FUNCTION: Lumbar Spine AROM Lumbar Flexion: Normal, Peripheralizing (Soreness in the R LB) Lumbar Extension: Normal Lumbar R Rotation: Normal Lumbar L Rotation: Normal Lumbar flexion causes radicular symptoms into the L posterior thigh Hip side-gliding demonstrates less pain post DDN Hypermobile at L4-5 with PA pressure TREATMENT: Therapeutic Exercise: 1: Standing alt shoulder ext BTB 2 x 10 2: Standing paloff BTB 2 x 10 R then 2 x 10 L Skilled Intervention: Patient was educated in proper exercise technique and purpose for exercises. Correct performance of therapeutic exercises was facilitated with verbal cuing. Manual Therapy: 1: DDN at Lumbar paraspinals (See note for details) 2: STM over lumbar paraspinals Dry needling to following Trigger points: lumbar paraspinals Needle length: 50mm 2.0 in . Leo used 2, needles removed 2. Dry needling technique used: Pistoning, Fanning, and Deep needling. Patient education on purpose, precautions, safety, risks, and other treatment options regarding dry needling. Verbal consent received. Skilled Intervention: Manual skills to improve joint mobility, ROM, and decrease pain. Utilized anatomy knowledge of the therapist, and assessment of patient's response to intervention. Billing Therapeutic Exercise Treatment Minutes: 20 Manual TherapyTreatment Minutes: 33 Skilled Treatment Time Minutes (timed and untimed codes): 53 Total Session Time (minutes): 53 Session Start Time : 1407 Session Stop Time : 1500 Matti Velázquez PT documented in this encounterTri[facility]25 NoteHNO ID: [id number] Author: ?, ?, ? Service: ? Author Type: ? Type: Progress Notes Filed: 10/20/2024 10:12 Note Text: [employer] # [id number], date shipped out [employer] only Tracking mailout: [id number] Tracking return: [id number]02-24-2025 NoteHNO ID: [id number] Author: ERICA HARRIS MD Service: ? Author Type: Physician Type: Progress Notes Filed: 10/20/2024 10:12 Note Text: September 08, 2024 Standing PSG Orders signed in the last 90 days None Future PSG Orders signed in the last 90 days Ordered Auth. provider HOME SLEEP APNEA TEST (HSAT) [[id number]] 08/29/24 Jose Pike MD Assoc. diagnoses: Daytime somnolence [R40.0] Q: Indications: A: Obstructive sleep apnea Q: STOP-BANG conditions - Select All That Apply: A: AGE > 50 A2: high blood PRESSURE A3: SNORING that is loud or disruptive A4: TIREDNESS, fatigue or sleepiness during the day Q: Current use of supplemental oxygen during sleep period?: A: No All Prior Sleep Studies (past 365 days) 08/29/2024 11:16 Sleep Studies HOME SLEEP APNEA TEST (HSAT) HOME SLEEP APNEA TEST (HSAT) Order Status: Ordered, Future Expires: 08/29/25 BMI Readings from Last 2 Encounters: 08/29/24 : 29.35 kg/m? 07/01/24 : 28.88 kg/m? PAST MEDICAL HISTORY Diagnosis Date Allergic rhinitis Dr. Salazar for allergy shots Chronic constipation Chronic lower back pain Dr. Neves Essential hypertension GERD (gastroesophageal reflux disease) Hyperlipidemia Hypertension, essential 11/03/2022 Impaired fasting glucose MRSA infection 09/2023 abscess in left axilla Nicotine use OA (osteoarthritis) of knee s/p L TKA Obesity (BMI 30.0-34.9) Other acne Acne PMH - PAST MEDICAL HISTORY OF lactose intolerant PMH - PAST MEDICAL HISTORY OF kidney stones PMH - PAST MEDICAL HISTORY OF rlq abdominal pain Rosacea The medical record was reviewed to determine if the proposed sleep study conforms to the AASM Practice Parameters for the Indications for Polysomnography and Related Procedures, or if the sleep study is indicated for other reasons. Indications for study: HOLLY suspected without comorbid medical or sleep disorders Sleep study to be performed: Home Sleep Apnea Test (HSAT) Special instructions: None-follow laboratory protocol [facility] Staff Note: I have read the above protocol, edited as needed, and agree to the plan. Erica Rivero MD 5:19 PM, 09/08/2024[facility]02-24-2025 NoteHNO ID: [id number] Author: ?, ?, ? Service: ? Author Type: ? Type: Progress Notes Filed: 10/20/2024 10:12 Note Text: September 08, 2024 An order has been received for Home Sleep Apnea Test (HSAT) from Jose Caldwell , paz Caal. [facility] Staff. Visit prep complete. Comments :No The sleep study is scheduled for 09/10. Insurance: Payor: [employer] MEDICARE / Plan: [employer] MEDICARE PPO / Product Type: PPO / Payer/Plan Subscr Sex Relation Sub. Ins. ID Effective Group Num 1. [employer] MEDICAR* MUKESH ROSENBERG 1955 Female Self [id number] [birth year] [id number] [place] [facility]02-14-2025 Instructions* Patient Instructions* Jose Pike MD - 08/29/2024 11:20 AM EST Wean off atenolol by cutting in half and taking 1/2 tablet daily for 1 week, then 1/2 tablet every other day for 1 week, then stop. If you can't cut it, I would have you take 1 tablet every other day for 1 week, then every 3rd day for 1 week, then stop. documented in this [facility]25 NoteHNO ID: [id number] Author: JOSE PIKE MD Service: ? Author Type: Physician Type: Progress Notes Filed: 08/30/2024 09:00 Note Text: Chief Complaint Patient presents with: Follow Up: BP recheck HPI Mukesh Rosenberg is a 69 year old female who presents here today for Above Complaints. Atenolol added to regimen at OV 1 month ago for uncontrolled HTN. Patient states she has been taking as prescribed without side effects aside from 1 brief episode of dizziness which has not recurred. BP at home ranging 120-170/65-80 range. Has been limiting her sodium intake and drinks 1 cup of coffee per day. Not exercising regularly at this point due to her lower back pain. Denies headache, chest pain, SOB, palpitations, LE edema, vision changes. Patient believes she does snore at night and has some daytime somnolence. Past medical history, appointments, medications, allergies reviewed. Previous Medical History PAST MEDICAL HISTORY Diagnosis Date Allergic rhinitis Dr. Salazar for allergy shots Chronic constipation Chronic lower back pain Dr. Neves Essential hypertension GERD (gastroesophageal reflux disease) Hyperlipidemia Hypertension, essential 11/03/2022 Impaired fasting glucose MRSA infection 09/2023 abscess in left axilla Nicotine use OA (osteoarthritis) of knee s/p L TKA [...] SPX 12/08/1997 Salpingo-oophorectomy bilateral TONSILLECTOMY PRIMARY/SECONDARY Tonsillectomy TOTAL KNEE REPLACEMENT Left 06/2022 VAGINAL HYSTERECTOMY UTERUS 250 GM/< 12/08/1997 Hysterectomy, vaginal LAPAROSCOPIC ASSISTED Family History FAMILY HISTORY Problem Relation Age of Onset Hypertension Father rapid heart beat, tia Stroke Father Cancer Brother leukemia Hypertension Mother other (only child now) Other Cancer Maternal Grandfather skin Patient Allergies ALLERGIES Allergen Reactions Hctz [Thiazides] Other: See Comments Hypokalemia Magnesium Citrate Vomiting Naproxen Other: See Comments fluid retention Current Medications Current Outpatient Medications on File Prior to Visit Medication Sig lisinopril (ZESTRIL) 40 mg tablet Take 1 tablet by mouth once daily. atenolol (TENORMIN) 25 mg tablet Take 1 tablet by mouth once daily. pantoprazole DR (PROTONIX) 40 mg tablet Take 1 tablet by mouth daily before breakfast. Take on empty stomach, 1/2 hr before meal. simvastatin (ZOCOR) 10 mg tablet Take 1 tablet by mouth daily at bedtime. For cholesterols. valACYclovir (VALTREX) 1 gram tablet Take 2,000 mg BID x 1 day for cold sores. polyethylene glycol 3350 (MIRALAX, GLYCOLAX) 17 gram/dose [...] Social History Tobacco Use Smoking status: Former Current packs/day: 0.00 Average packs/day: 1 pack/day for 20.0 years (20.0 ttl pk-yrs) Types: Cigarettes Start date: 07/16/1978 Quit date: 07/16/1998 Years since quittin.1 Smokeless tobacco: Never Substance Use Topics Alcohol use: Yes Alcohol/week: 2.0 standard drinks of alcohol Types: 2 Cans of Beer (12oz) per week Drug use: No Review of Symptoms REVIEW OF SYSTEMS See HPI EXAM: BP 181/86 Pulse (!) 52 Resp 16 Wt 63.4 kg (139 lb 12.8 oz) SpO2 99% BMI 29.35 kg/m? General Appearance: W (more content not included)...[facility] 08-29-2024 History of Present illness Narrative* Jose Pike MD - 08/29/2024 10:55 AM EST Chief Complaint Patient presents with: Follow Up: BP recheck HPI Mukesh Rosenberg is a 69 year old female who presents here today for Above Complaints. Atenolol added to regimen at OV 1 month ago for uncontrolled HTN. Patient states she has been taking as prescribed without side effects aside from 1 brief episode of dizziness which has not recurred.BP at home ranging 120-170/65-80 range. Has been limiting her sodium intake and drinks 1 cup of coffee per day. Not exercising regularly at this point due to her lower back pain. Denies headache, chest pain, SOB, palpitations, LE edema, vision changes. Patient believes she does snore at night and has some daytime somnolence. Past medical history, appointments, medications, allergies reviewed. Previous Medical History PAST MEDICAL HISTORY Diagnosis Date Allergic rhinitis Dr. Salazar for allergy shots Chronic constipation Chronic lower back pain Dr. Neves Essential hypertension GERD (gastroesophageal reflux disease) Hyperlipidemia Hypertension, essential 11/03/2022 Impaired fasting glucose MRSA infection 09/2023 abscess in left axilla Nicotine use OA (osteoarthritis) of knee s/p L TKA [...] Salpingo-oophorectomy bilateral TONSILLECTOMY PRIMARY/SECONDARY <AGE 12 Tonsillectomy TOTAL KNEE REPLACEMENT Left 06/2022 VAGINAL HYSTERECTOMY UTERUS 250 GM/< 12/08/1997 Hysterectomy, vaginal LAPAROSCOPIC ASSISTED Family History FAMILY HISTORY Problem Relation Age of Onset Hypertension Father rapid heart beat, tia Stroke Father Cancer Brother leukemia Hypertension Mother other (only child now) Other Cancer Maternal Grandfather skin Patient Allergies ALLERGIES Allergen Reactions Hctz [Thiazides] Other: See Comments Hypokalemia Magnesium Citrate Vomiting Naproxen Other: See Comments fluid retention Current Medications Current Outpatient Medications on File Prior to Visit Medication Sig lisinopril (ZESTRIL) 40 mg tablet Take 1 tablet by mouth once daily. atenolol (TENORMIN) 25 mg tablet Take 1 tablet by mouth once daily. pantoprazole DR (PROTONIX) 40 mg tablet Take 1 tablet by mouth daily before breakfast. Take on empty stomach, 1/2 hr before meal. simvastatin (ZOCOR) 10 mg tablet Take 1 tablet by mouth daily at bedtime. For cholesterols. valACYclovir (VALTREX) 1 gram tablet Take 2,000 mg BID x 1 day for cold sores. polyethylene glycol 3350 (MIRALAX, GLYCOLAX) 17 gram/dose [...] Social History Tobacco Use Smoking status: Former Current packs/day: 0.00 Average packs/day: 1 pack/day for 20.0 years (20.0 ttl pk-yrs) Types: Cigarettes Start date: 07/16/1978 Quit date: 07/16/1998 Years since quittin.1 Smokeless tobacco: Never Substance Use Topics Alcohol use: Yes Alcohol/week: 2.0 standard drinks of alcohol Types: 2 Cans of Beer (12oz) per week Drug use: No Review of Symptoms REVIEW OF SYSTEMS See HPI EXAM: BP 181/86 Pulse (!) 52 Resp 16 Wt 63.4 kg (139 lb 12.8 oz) SpO2 99% BMI 29.35 kg/m General Appearance: Well appearing, alert, in no acute distress, well-hydrated, well nourished.. Skin: Skin color, texture, turgor normal, no suspicious rashes or lesions. Lungs: Lungs clear to auscultation. No wheezing, rhonchi, rales.. Heart: Negative findings: no murmurs, clicks, or gallops, Positive findings: bradycardia. Extremities: No deformities, edema, skin discoloration, clubbing or cyanosis. Good capillary refill. . Health Maintenance List Depression Screening Never done Anxiety Screening Never done BP Controlled (<130/80) Never done Advance Directive Discussion Never done Colorectal Cancer Screening due on 07/21/2024 Mammogram Screening due on 09/30/2024 Covid-19 Vaccine( season) due on 07/01/2025 Annual PCP Team Chronic Disease Visit due on 08/01/2025 Diabetes Screening due on 07/03/2027 DTaP,Tdap,Td Vaccine(3 - Td or Tdap) due on 11/28/2027 Lipid Screening due on 07/03/2029 RSV Vaccine(1 - 1-dose 75+ series) due on 2032 Bone Density Screening Completed Influenza Vaccine Completed Hepatitis C Screening Completed Shingrix Vaccine Completed Pneumococcal Vaccine: 50+ Completed Data reviewed Latest Ref Rng 07/03/2024 Protein, Total 6.3 - 8.0 g/dL 7.6 Albumin 3.9 - 4.9 g/dL 4.8 Calcium 8.5 - 10.2 mg/dL 9.8 Bilirubin, Total 0.2 - 1.3 mg/dL 1.0 Alkaline Phosphatase 34 - 123 U/L 80 AST 13 - 35 U/L 31 ALT 7 - 38 U/L 34 Glucose 74 - 99 mg/dL 123 (H) BUN 7 - 21 mg/dL 15 Creatinine 0.58 - 0.96 mg/dL 0.78 Sodium 136 - 144 mmol/L 138 Potassium 3.7 - 5.1 mmol/L 3.9 Chloride 98 - 107 mmol/L 103 CO2 22 - 30 mmol/L 23 Anion Gap 8 - 15 mmol/L 12 eGFR >=60 mL/min/1.73m 83 Cholesterol, Total <200 mg/dL 178 Triglyceride <150 mg/dL 177 (H) HDL Cholesterol >39 mg/dL 49 Non HDL Cholesterol <130 mg/dL 129 Fasting Time hrs 12 VLDL Cholesterol <30 mg/dL 35 (H) TC:HDL Ratio <5.10 3.63 LDL Cholesterol <100 mg/dL 94 LDL:HDL Ratio <2.54 1.92 Legend: (H) High ASSESSMENT/PLAN: 1. Hypertension, essential - ICD9: 401.9, ICD10: I10 (primary diagnosis) - Uncontrolled - Start amlodipine and initiate workup for renal artery stenosis and hyperaldosteronism. - Recommend home blood pressure monitoring, to bring results to next visit - Encouraged sodium restriction, DASH or Mediterranean diet - Recommend regular aerobic exercise - Follow up in 2 weeks for hypertension visit - AMLODIPINE 5 MG TABLET - RENAL ARTERY [facility] - ALDOSTERONE/DIRECT RENIN RATIO 2. Daytime somnolence - ICD9: 780.54, ICD10: R40.0 Patient with snoring, daytime somnolence, and HTN. Obtain HSAT for possible HOLLY. Discussed weight loss, side sleeping, and avoidance of sedatives. Will call with results. - HOME SLEEP APNEA TEST (HSAT) 3. Bradycardia - ICD9: 427.89, ICD10: R00.1 HR in the 50's today and has been getting similar readings at home on her apple watch. Stop her atenolol. Recheck at future OV. Jose Pike MD documented in this encounterTri[facility]25 NoteHNO ID: [id number] Author: MATTI VELÁZQUEZ PT Service: ? Author Type: Physical Therapist Type: Progress Notes Filed: 08/27/2024 12:15 Note Text: Episode Visit Count: 4 Therapist That Will Accept/Oversee The Plan Of Care: Matti Velázquez PT Start of Care Date: 08/04/24 Onset Date: 07/21/24 Plan of Care Certification Date: 08/27/24 Next Certification Due Date: 10/01/24 Patient Identified by Name and Date of : Yes REHABILITATION AND SPORTS THERAPY PHYSICAL THERAPY PROGRESS REPORT PLAN OF CARE UPDATE: Assessment: Mukesh Rosenberg demonstrates difficulty with standing and walking and improvements in level of independence with the HEP. The patient has progressed toward goals. Patient continues to present with impairments in ADL's, independence in exercise, overall function, range of motion, and strength that interfere with walking, standing . Current prognosis is Good due to: current objective clinical presentation . The patient will benefit from continued skilled therapy services to meet the updated goals for this plan of care as noted below. Goals updated 08/27/2024 Goals for Episode of Care: established 08/04/24 Independent in home exercises. - MET Patient will decrease pain rating by 2 points to meet minimal clinical important difference for numeric pain rating scale. - Progressing Stand / Walk for 45 minutes or greater without pain/symptoms. - Not assessed Pt will demo RA strength of 5/5 for improved ability to hold a neutral spine with standing and walking - not assessed Patient Goals: Decrease symptoms Time Frame for Goals and Treatment : 09/29/24 Patient Goals: Decrease symptoms Planned Interventions, Frequency, and Duration: 1x every other week, 4 weeks Total Number of Visits Planned: 2 Patient to be seen for Therapeutic exercise (13953), Neuromuscular re-education (72227), Manual therapy (67480), Therapeutic activities (08961), Self-mcfp management (87283), Patient/Family/Caregiver Education PLAN FOR NEXT VISIT: DDN lumbar paraspinals. Followed by paraspinal stretching. Hip abductor strengthening. Classification Pain Mechanism Classification: Nociceptive Low Back Pain Classification: Movement Control SUBJECTIVE: The exercises make her sore but this is ok. Patient Goals: Decrease symptoms Functional Limitations: walking, standing Prior Level of Function: Independent without limitations Intake Information: Prescription present Previous Treatment: Injections Pain: Pain Pain Level: 2 Pain Location: Low Back/Lumbar Spine- Midline PROMIS Scales 08/04/2024 Higher is Better Phys Func - T Score 43 (mild dysfunction) Phys Func - Percentile 24 Self-Eff Symptom - T Score 45 (Average) Self-Eff Symptom - Percentile 31 T-scores: mean of general population = 50. 5 points is clinically meaningfully difference Percentiles provide an indication of how the patient's score ranks in relation to the general population. Higher percentile rankings indicate better function/quality of life. 50th percentile is the average of the general population and indicates half of respondents had a worse score. OBJECTIVE MEASURES WITH LEVEL OF FUNCTION: Spine Observations R Lumbar Spine Palpation Tenderness: Paraspinals L Lumbar Spine Palpation Tenderness: Spinous process, Paraspinals Lumbar Spine AROM Lumbar Flexion: Normal Lumbar Extension: Normal Lumbar R Side-Bend: Normal Lumbar L Side-Bend: Normal Lumbar R Rotation: Normal Lumbar L Rotation: Normal LE Strength R LE Strength: Grossly 5/5 L LE Strength: Grossly 5/5 TREATMENT: Manual Therapy: Dry needling to following Trigger points: Bilateral lumbar paraspinals Needle length: 50mm 2.0 in . Leo used 4, needles removed 4. Dry needling technique used: Coning, Pistoning, and Deep needling. Patient education on purpose, precautions, safety, risks, and other treatment options regarding dry needling. Verbal consent received. 1: All objective measures taken 2: STM over lumbar paraspinals 3: DDN Lumbar paraspinals (see ote for details) Skilled Intervention: Manual skills to improve joint mobility, ROM, and decrease pain. Utilized anatomy knowledge of the therapist, and assessment of patient's response to intervention. Billing Manual TherapyTreatment Minutes: 33 Skilled Treatment Time Minutes (timed and untimed codes): 33 Total Session Time (minutes): 33 Session Start Time : 1100 Session Stop Time : 1133 Matti Velázquez [facility]02-12-2025 History of Present illness Narrative* Matti Velázquez, PT - 08/27/2024 11:00 AM EST Images from the original note were not included. Episode Visit Count: 4 Therapist That Will Accept/Oversee The Plan Of Care: Matti Velázquez PT Start of Care Date: 08/04/24 Onset Date: 07/21/24 Plan of Care Certification Date: 08/27/24 Next Certification Due Date: 10/01/24 Patient Identified by Name and Date of : Yes REHABILITATION AND SPORTS THERAPY PHYSICAL THERAPY PROGRESS REPORT PLAN OF CARE UPDATE: Assessment: Mukesh Niharika Rosenberg demonstrates difficulty with standing and walking and improvements in level of independence with the HEP. The patient has progressed toward goals. Patient continues to present with impairments in ADL's, independence in exercise, overall function, range of motion, and strength that interfere with walking, standing . Current prognosis is Good due to: current objective clinical presentation . The patient will benefit from continued skilled therapy services to meet the updated goals for this plan of care as noted below. Goals updated 08/27/2024 Goals for Episode of Care: established 08/04/24 Independent in home exercises. - MET Patient will decrease pain rating by 2 points to meet minimal clinical important difference for numeric pain rating scale. - Progressing Stand / Walk for 45 minutes or greater without pain/symptoms. - Not assessed Pt will demo RA strength of 5/5 for improved ability to hold a neutral spine with standing and walking - not assessed Patient Goals: Decrease symptoms Time Frame for Goals and Treatment : 09/29/24 Patient Goals: Decrease symptoms Planned Interventions, Frequency, and Duration: 1x every other week, 4 weeks Total Number of Visits Planned: 2 Patient to be seen for Therapeutic exercise (12601), Neuromuscular re-education (78500), Manual therapy (30721), Therapeutic activities (86547), Self-mcfp management (15595), Patient/Family/Caregiver Education PLAN FOR NEXT VISIT: DDN lumbar paraspinals. Followed by paraspinal stretching. Hip abductor strengthening. Classification Pain Mechanism Classification: Nociceptive Low Back Pain Classification: Movement Control SUBJECTIVE: The exercises make her sore but this is ok. Patient Goals: Decrease symptoms Functional Limitations: walking, standing Prior Level of Function: Independent without limitations Intake Information: Prescription present Previous Treatment: Injections Pain: Pain Pain Level: 2 Pain Location: Low Back/Lumbar Spine- Midline PROMIS Scales 08/04/2024 Higher is Better Phys Func - T Score 43 (mild dysfunction) Phys Func - Percentile 24 Self-Eff Symptom - T Score 45 (Average) Self-Eff Symptom - Percentile 31 T-scores: mean of general population = 50. 5 points is clinically meaningfully difference Percentiles provide an indication of how the patient's score ranks in relation to the general population. Higher percentile rankings indicate better function/quality of life. 50th percentile is the average of the general population and indicates half of respondents had a worse score. OBJECTIVE MEASURES WITH LEVEL OF FUNCTION: Spine Observations R Lumbar Spine Palpation Tenderness: Paraspinals L Lumbar Spine Palpation Tenderness: Spinous process, Paraspinals Lumbar Spine AROM Lumbar Flexion: Normal Lumbar Extension: Normal Lumbar R Side-Bend: Normal Lumbar L Side-Bend: Normal Lumbar R Rotation: Normal Lumbar L Rotation: Normal LE Strength R LE Strength: Grossly 5/5 L LE Strength: Grossly 5/5 TREATMENT: Manual Therapy: Dry needling to following Trigger points: Bilateral lumbar paraspinals Needle length: 50mm 2.0 in .Leo used 4, needles removed 4. Dry needling technique used: Coning, Pistoning, and Deep needling. Patient education on purpose, precautions, safety, risks, and other treatment options regarding dry needling. Verbal consent received. 1: All objective measures taken 2: STM over lumbar paraspinals 3: DDN Lumbar paraspinals (see ote for details) Skilled Intervention: Manual skills to improve joint mobility, ROM, and decrease pain. Utilized anatomy knowledge of the therapist, and assessment of patient's response to intervention. Billing Manual TherapyTreatment Minutes: 33 Skilled Treatment Time Minutes (timed and untimed codes): 33 Total Session Time (minutes): 33 Session Start Time : 1100 Session Stop Time : 1133 Matti Velázquez PT documented in this encounterTri[facility]25 NoteHNO ID: [id number] Author: MATTI VELÁZQUEZ PT Service: ? Author Type: Physical Therapist Type: Progress Notes Filed: 08/21/2024 18:02 Note Text: Episode Visit Count: 3 Therapist That Will Accept/Oversee The Plan Of Care: Matti Velázquez PT Start of Care Date: 08/04/24 Onset Date: 07/21/24 Plan of Care Certification Date: 08/04/24 Next Certification Due Date: 09/08/24 Patient Identified by Name and Date of : Yes REHABILITATION AND SPORTS THERAPY PHYSICAL THERAPY TREATMENT NOTE ASSESSMENT: Mukesh Rosenberg tolerated the session with expected muscle soreness and no issues. She demonstrated good form with newly added therapeutic exercises. The patient will continue to benefit from ongoing skilled physical therapy to progress toward set goals. PLAN FOR NEXT VISIT: Hip abd and core strengthening SUBJECTIVE: The hips are catching. The R more than the L. The nerve is hurting some today. Pain: Pain Pain Level: (Noit rated) Pain Location: Low Back/Lumbar Spine- Midline OBJECTIVE MEASURES WITH LEVEL OF FUNCTION: L and R hip PROM WNL without pain Positive R trendelenburg and slightly with the L TREATMENT: Therapeutic Exercise: 1: SciFit x 3 min 2: Resisted sidestepping GTB to fatigue x 2 Skilled Intervention: Patient was educated in proper exercise technique and purpose for exercises. Provided written instruction for home exercise program to facilitate proper performance and compliance. Correct performance of therapeutic exercises was facilitated with verbal and visual cuing. Billing Therapeutic Exercise Treatment Minutes: 23 Skilled Treatment Time Minutes (timed and untimed codes): 23 Total Session Time (minutes): 23 Session Start Time : 1735 Session Stop Time : 1758 [facility] History of Present illness Narrative* Matti Velázquez PT - 08/21/2024 5:35 PM EST Episode Visit Count: 3 Therapist That Will Accept/Oversee The Plan Of Care: Matti Velázquez PT Start of Care Date: 08/04/24 Onset Date: 07/21/24 Plan of Care Certification Date: 08/04/24 Next Certification Due Date: 09/08/24 Patient Identified by Name and Date of : Yes REHABILITATION AND SPORTS THERAPY PHYSICAL THERAPY TREATMENT NOTE ASSESSMENT: Mukesh Rosenberg tolerated the session with expected muscle soreness and no issues. She demonstrated good form with newly added therapeutic exercises. The patient will continue to benefit from ongoing skilled physical therapy to progress toward set goals. PLAN FOR NEXT VISIT: Hip abd and core strengthening SUBJECTIVE: The hips are catching. The R more than the L. The nerve is hurting some today. Pain: Pain Pain Level: (Noit rated) Pain Location: Low Back/Lumbar Spine- Midline OBJECTIVE MEASURES WITH LEVEL OF FUNCTION: L and R hip PROM WNL without pain Positive R trendelenburg and slightly with the L TREATMENT: Therapeutic Exercise: 1: SciFit x 3 min 2: Resisted sidestepping GTB to fatigue x 2 Skilled Intervention: Patient was educated in proper exercise technique and purpose for exercises. Provided written instruction for home exercise program to facilitate proper performance and compliance. Correct performance of therapeutic exercises was facilitated with verbal and visual cuing. Billing Therapeutic Exercise Treatment Minutes: 23 Skilled Treatment Time Minutes (timed and untimed codes): 23 Total Session Time (minutes): 23 Session Start Time : 1734 Session Stop Time : 175 Matti Velázquez PT documented in this encounterTri[facility] NoteHNO ID: [id number] Author: MATTI VELÁZQUEZ PT Service: ? Author Type: Physical Therapist Type: Progress Notes Filed: 08/14/2024 10:48 Note Text: Episode Visit Count: 2 Therapist That Will Accept/Oversee The Plan Of Care: Matti Velázquez PT Start of Care Date: 08/04/24 Onset Date: 07/21/24 Plan of Care Certification Date: 08/04/24 Next Certification Due Date: 09/08/24 Patient Identified by Name and Date of : Yes REHABILITATION AND SPORTS THERAPY PHYSICAL THERAPY TREATMENT NOTE ASSESSMENT: Mukesh Rosenberg tolerated the session with expected muscle soreness and no issues. She demonstrated good form with all therapeutic exercises. The patient will continue to benefit from ongoing skilled physical therapy to progress toward set goals. PLAN FOR NEXT VISIT: Progress core strengthening as tolerated SUBJECTIVE: Just a little soreness with the exercises. Pain: Pain Pain Level: 2 Pain Location: Low Back/Lumbar Spine- Midline OBJECTIVE MEASURES WITH LEVEL OF FUNCTION: Improved control during core exercises with increased reps TREATMENT: Therapeutic Exercise: 1: Hooklying PPT with counting to 3 + stabilizer 60 mmHg 2 x 10 2: Hooklying PPT + stabilizer while marching 2 x 10 3: Hooklying PPT + stabilizer 60 mmHg BKFO 4 x 10 Skilled Intervention: Patient was educated in proper exercise technique and purpose for exercises. Correct performance of therapeutic exercises was facilitated with verbal and visual cuing. Billing Therapeutic Exercise Treatment Minutes: 40 Skilled Treatment Time Minutes (timed and untimed codes): 40 Total Session Time (minutes): 40 Session Start Time : 1002 Session Stop Time : 104 Matti Velázquez [facility]01-30-2025 History of Present illness Narrative* Matti Velázquez, PT - 08/14/2024 10:05 AM EST Episode Visit Count: 2 Therapist That Will Accept/Oversee The Plan Of Care: Matti Velázquez PT Start of Care Date: 08/04/24 Onset Date: 07/21/24 Plan of Care Certification Date: 08/04/24 Next Certification Due Date: 09/08/24 Patient Identified by Name and Date of : Yes REHABILITATION AND SPORTS THERAPY PHYSICAL THERAPY TREATMENT NOTE ASSESSMENT: Mukesh Rosenberg tolerated the session with expected muscle soreness and no issues. She demonstrated good form with all therapeutic exercises. The patient will continue to benefit from ongoing skilled physical therapy to progress toward set goals. PLAN FOR NEXT VISIT: Progress core strengthening as tolerated SUBJECTIVE: Just a little soreness with the exercises. Pain: Pain Pain Level: 2 Pain Location: Low Back/Lumbar Spine- Midline OBJECTIVE MEASURES WITH LEVEL OF FUNCTION: Improved control during core exercises with increased reps TREATMENT: Therapeutic Exercise: 1: Hooklying PPT with counting to 3 + stabilizer 60 mmHg 2 x 10 2: Hooklying PPT + stabilizer while marching 2 x 10 3: Hooklying PPT + stabilizer 60 mmHg BKFO 4 x 10 Skilled Intervention: Patient was educated in proper exercise technique and purpose for exercises. Correct performance of therapeutic exercises was facilitated with verbal and visual cuing. Billing Therapeutic Exercise Treatment Minutes: 40 Skilled Treatment Time Minutes (timed and untimed codes): 40 Total Session Time (minutes): 40 Session Start Time : 1002 Session Stop Time : 104 Matti Velázquez PT documented in this encounterTrihealth [facility]01-20-[facility]25 NoteHNO ID: [id number] Author: MATTI VELÁZQUEZ PT Service: ? Author Type: Physical Therapist Type: Progress Notes Filed: 08/04/2024 12:50 Note Text: Episode Visit Count: 1 Therapist That Will Accept/Oversee The Plan Of Care: Matti Velázquez PT Start of Care Date: 08/04/24 Onset Date: 07/21/24 Plan of Care Certification Date: 08/04/24 Next Certification Due Date: 09/08/24 Patient Identified by Name and Date of : Yes REHABILITATION AND SPORTS THERAPY PHYSICAL THERAPY EVALUATION PLAN OF CARE: Assessment: Mukesh Rosenberg presents with chief complaint of LBP with BLE radiculopathy that interferes with walking, standing . The patient presents with impairments in ADL's, independence in exercise, overall function, range of motion, and strength. PROMIS? (Patient-Reported Outcomes Measurement Information System) scores were reviewed and identified as a rehabilitation concern. Prognosis for therapy is Good due to: current objective clinical presentation . Pt demonstrates peripheralization with prolonged standing and lumbar extension AROM. The patient will benefit from skilled therapy services to meet the goals established for this plan of care as noted below. Classification Pain Mechanism Classification: Neuropathic Low Back Pain Classification: Movement Control Goals for Episode of Care: established 08/04/24 Independent in home exercises. Patient will decrease pain rating by 2 points to meet minimal clinical important difference for numeric pain rating scale. Stand / Walk for 45 minutes or greater without pain/symptoms. Pt will demo RA strength of 5/5 for improved ability to hold a neutral spine with standing and walking Patient Goals: Decrease symptoms Time Frame for Goals and Treatment : 09/29/24 Planned Interventions, Frequency, and Duration: Current Frequency: 1x/week Duration: 4 weeks Total Number of Visits Planned: 4 Planned Treatment Interventions: Therapeutic exercise (52166), Neuromuscular re-education (65193), Manual therapy (35726), Therapeutic activities (33858), Self-mcfp management (34420), Patient/Family/Caregiver Education PLAN FOR NEXT VISIT: Work on proper posture. PPT in sitting. RA strengthening. Patient demonstrates good understanding of plan of care and treatment. The above goals and plan of care were discussed and agreed upon by patient/family. SUBJECTIVE: LBP. Had a back shot. Bending can really bother her. Bends a lot because she has small dogs. Pt is retired now. Had an X-ray more recently at [facility]. If she stands for 30 minutes things get irritated. Moving when standing is better. Pain radiates around the front of the R hip to the front of the R knee then down the back of the L leg like sciatica. Patient Goals: Decrease symptoms Functional Limitations: walking, standing Prior Level of Function: Independent without limitations Intake Information: Prescription present Previous Treatment: Injections Pain: Pain Pain Level: 2 Pain Location: Low Back/Lumbar Spine- Midline OBJECTIVE MEASURES WITH LEVEL OF FUNCTION: Posture / Alignment Posture: (Anterior pelvic tilt) Spine Observations R Lumbar Spine Palpation Tenderness: Paraspinals Lumbar Spine AROM Lumbar Flexion: Normal Lumbar Extension: Normal, Peripheralizing Lumbar R Side-Bend: Normal Lumbar L Side-Bend: Normal Lumbar R Rotation: Minimal limitation Lumbar L Rotation: Normal LE Flexibility Flexibility: Hamstring Flexibility R Hamstring Flexibility: WNL L Hamstring Flexibility: WNL LE Strength Trunk Strength: RA strength of 3/5 Gait Gait Observation: Escessive SPT during standing and walking Education: Education Learning Preferences: Demonstration, Explanation, Performance, Printed Materials Barriers: None Learning/educational needs: Home exercise program, Plan of Care, Changes in Plan of Care Education Provided: Yes, see treatment interventions for education provided Education Provided To: Patient Education Mode/Type: Demonstration, Explanation/Discussion, Literature/Printed Materials, Performance Response to Education/Teach Back: States/Identifies, Return Demonstration TREATMENT: PT Treatment Interventions: Therapeutic Exercise, Self-Halfway Management Evaluation Therapeutic Exercise: 1: Discussed exam findings, purpose of the HEP and the HEP handout was provided to the pt. HEP discussed in detail with how to safely and properly perform each therapeutic exercise. 2: Hooklying PPT 2 x 10 3: Hooklying PPT + alt september 2 x 10 Skilled Intervention: Patient was educated in proper exercise technique and purpose for exercises. Provided written instruction for home exercise program to facilitate proper performance and compliance. Correct performance of therapeutic exercises was facilitated with verbal and visual cuing. Self-Halfway Management: 1: *Discussed proper posture of the cervical, thoracic, lumbar spine and pelv (more content not included)...[facility]01-20-2025 History of Present illness Narrative* Melania Matti, PT - 08/04/2024 11:28 AM EST Episode Visit Count: 1 Therapist That Will Accept/Oversee The Plan Of Care: Matti Velázquez PT Start of Care Date: 08/04/24 Onset Date: 07/21/24 Plan of Care Certification Date: 08/04/24 Next Certification Due Date: 09/08/24 Patient Identified by Name and Date of : Yes REHABILITATION AND SPORTS THERAPY PHYSICAL THERAPY EVALUATION PLAN OF CARE: Assessment: Mukesh Rosenberg presents with chief complaint of LBP with BLE radiculopathy that interferes with walking, standing . The patient presents with impairments in ADL's, independence in exercise, overall function, range of motion, and strength. PROMIS (Patient-Reported Outcomes MeasurementInformation System) scores were reviewed and identified as a rehabilitation concern. Prognosis for therapy is Good due to: current objective clinical presentation . Pt demonstrates peripheralization with prolonged standing and lumbar extension AROM. The patient will benefit from skilled therapy services to meet the goals established for this plan of care as noted below. Classification Pain Mechanism Classification: Neuropathic Low Back Pain Classification: Movement Control Goals for Episode of Care: established 08/04/24 Independent in home exercises. Patient will decrease pain rating by 2 points to meet minimal clinical important difference for numeric pain rating scale. Stand / Walk for 45 minutes or greater without pain/symptoms. Pt will demo RA strength of 5/5 for improved ability to hold a neutral spine with standing and walking Patient Goals: Decrease symptoms Time Frame for Goals and Treatment : 09/29/24 Planned Interventions, Frequency, and Duration: Current Frequency: 1x/week Duration: 4 weeks Total Number of Visits Planned: 4 Planned Treatment Interventions: Therapeutic exercise (80529), Neuromuscular re- education (49463), Manual therapy (24262), Therapeutic activities (43093), Self- mcfp management (79683), Patient/Family/Caregiver Education PLAN FOR NEXT VISIT: Work on proper posture. PPT in sitting. RA strengthening. Patient demonstrates good understanding of plan of care and treatment. The above goals and plan of care were discussed and agreed upon by patient/family. SUBJECTIVE: LBP. Had a back shot. Bending can really bother her. Bends a lot because she has small dogs. Pt is retired now. Had an X-ray more recently at [facility]. If she stands for 30 minutes things get irritated. Moving when standing is better. Pain radiates around the front of the R hip to the front ofthe R knee then down the back of the L leg like sciatica. Patient Goals: Decrease symptoms Functional Limitations: walking, standing Prior Level of Function: Independent without limitations Intake Information: Prescription present Previous Treatment: Injections Pain: Pain Pain Level: 2 Pain Location: Low Back/Lumbar Spine- Midline OBJECTIVE MEASURES WITH LEVEL OF FUNCTION: Posture / Alignment Posture: (Anterior pelvic tilt) Spine Observations R Lumbar Spine Palpation Tenderness: Paraspinals Lumbar Spine AROM Lumbar Flexion: Normal Lumbar Extension: Normal, Peripheralizing Lumbar R Side-Bend: Normal Lumbar L Side-Bend: Normal Lumbar R Rotation: Minimal limitation Lumbar L Rotation: Normal LE Flexibility Flexibility: Hamstring Flexibility R Hamstring Flexibility: WNL L Hamstring Flexibility: WNL LE Strength Trunk Strength: RA strength of 3/5 Gait Gait Observation: Escessive SPT during standing and walking Education: Education Learning Preferences: Demonstration, Explanation, Performance, Printed Materials Barriers: None Learning/educational needs: Home exercise program, Plan of Care, Changes in Plan of Care Education Provided: Yes, see treatment interventions for education provided Education Provided To: Patient Education Mode/Type: Demonstration, Explanation/Discussion, Literature/Printed Materials, Performance Response to Education/Teach Back: States/Identifies, Return Demonstration TREATMENT: PT Treatment Interventions: Therapeutic Exercise, Self-Halfway Management Evaluation Therapeutic Exercise: 1: Discussed exam findings, purpose of the HEP and the HEP handout was provided to the pt. HEP discussed in detail with how to safely and properly perform each therapeutic exercise. 2: Hooklying PPT 2 x 10 3: Hooklying PPT + alt september 2 x 10 Skilled Intervention: Patient was educated in proper exercise technique and purpose for exercises. Provided written instruction for home exercise program to facilitate proper performance and compliance. Correct performance of therapeutic exercises was facilitated with verbal and visual cuing. Self-Halfway Management: 1: *Discussed proper posture of the cervical, thoracic, lumbar spine and pelvis to decrease strain on anatomical structures such as the facet joints, intervertebral discs, and hip/spinal ligaments todecrease overall pain and improve function. Skilled Intervention: Skilled judgment in the selection of proper modification for activity of daily living/home management based on clinical presentation, deficits, and needs. Activity progression based on professional judgement. Billing * Evaluation Low Complexity: 1 Unit Therapeutic Exercise Treatment Minutes: 18 Self-Care/Home Management Treatment Minutes: 6 Skilled Treatment Time Minutes (timed and untimed codes): 44 Total Session Time (minutes): 44 Session Start Time : 1128 Session Stop Time : 1212 Matti Velázquez PT documented in this encounterTrihealth [facility]01-17-[facility] History of Present illness Narrative* PodlogarHallie APRN.INSULATION POWER UNIT TENDER - 08/01/2024 11:00 AM EST 08/01/2024 Patient presents with: Recheck: BP check SUBJECTIVE: This is a 69 year old that is here today for Above Complaints. BP elevated at last office appointment. Lisinopril increased. Taking and toleating medication without side effects. Checking BP at home with range of 140-160/60-70's.Took it before coming in and 160/66. Home BP cuff has been validated in office prior. Denies visual changes, headaches lightheadedness, dizziness, slurred speech, facial drooping, extremity numbness tingling or weakness Noticing pain to right hip back area which can wrap around the front. Has a hx of chronic back painand sees pain management. Would like to see pain management. PAST MEDICAL HISTORY Diagnosis Date Allergic rhinitis Dr. Salazar for allergy shots Chronic constipation Chronic lower back pain Dr. Neves Essential hypertension GERD (gastroesophageal reflux disease) Hyperlipidemia Hypertension, essential 11/03/2022 Impaired fasting glucose MRSA infection 09/2023 abscess in left axilla Nicotine use OA (osteoarthritis) of knee s/p L TKA Obesity (BMI 30.0-34.9) Other acne Acne PMH - PAST MEDICAL HISTORY OF lactose intolerant PMH - PAST MEDICAL HISTORY OF kidney stones PMH - PAST MEDICAL HISTORY OF rlq abdominal pain Rosacea ALLERGIES Hctz [Thiazides], Magnesium Citrate, and Naproxen MEDICATIONS Current Outpatient Medications Medication Sig valACYclovir (VALTREX) 1 gram tablet Take 2,000 mg BID x 1 day for cold sores. lisinopril (ZESTRIL) 40 mg tablet Take 1 tablet by [...] Social History Tobacco Use Smoking status: Former Current packs/day: 0.00 Average packs/day: 1 pack/day for 20.0 years (20.0 ttl pk-yrs) Types: Cigarettes Start date: 07/16/1978 Quit date: 07/16/1998 Years since quittin.0 Smokeless tobacco: Never Substance Use Topics Alcohol use: Yes Alcohol/week: 2.0 standard drinks of alcohol Types: 2 Cans of Beer (12oz) per week Drug use: No REVIEW OF SYSTEMS All other reviewed and negative other than HPI. OBJECTIVE: BP 168/94 Pulse 78 Resp 16 SpO2 97% . Vital signs reviewed by this provider. APPEARANCE Well appearing, alert, in no acute distress, well-hydrated, well nourished. Latest Ref Rng 07/03/2024 Protein, Total 6.3 - 8.0 g/dL 7.6 Albumin 3.9 - 4.9 g/dL 4.8 Calcium 8.5 - 10.2 mg/dL 9.8 Bilirubin, Total 0.2 - 1.3 mg/dL 1.0 Alkaline Phosphatase 34 - 123 U/L 80 AST 13 - 35 U/L 31 ALT 7 - 38 U/L 34 Glucose 74 - 99 mg/dL 123 (H) BUN 7 - 21 mg/dL 15 Creatinine 0.58 - 0.96 mg/dL 0.78 Sodium 136 - 144 mmol/L 138 Potassium 3.7 - 5.1 mmol/L 3.9 Chloride 98 - 107 mmol/L 103 CO2 22 - 30 mmol/L 23 Anion Gap 8 - 15 mmol/L 12 eGFR >=60 mL/min/1.73m 83 Cholesterol, Total <200 mg/dL 178 Triglyceride <150 mg/dL 177 (H) HDL Cholesterol >39 mg/dL 49 Non HDL Cholesterol <130 mg/dL 129 Fasting Time hrs 12 VLDL Cholesterol <30 mg/dL 35 (H) TC:HDL Ratio <5.10 3.63 LDL Cholesterol <100 mg/dL 94 LDL:HDL Ratio <2.54 1.92 Legend: (H) High Depression Screening Never done Anxiety Screening Never done BP Controlled (<130/80) Never done Advance Directive Discussion Never done Colorectal Cancer Screening due on 07/21/2024 Mammogram Screening due on 09/30/2024 Covid-19 Vaccine( season) due on 07/01/2025 Annual PCP Team Chronic Disease Visit due on 07/01/2025 Diabetes Screening due on 07/03/2027 DTaP,Tdap,Td Vaccine(3 - Td or Tdap) due on 11/28/2027 Lipid Screening due on 07/03/2029 RSV Vaccine(1 - 1-dose 75+ series) due on 2032 Bone Density Screening Completed Influenza Vaccine Completed Hepatitis C Screening Completed Shingrix Vaccine Completed Pneumococcal Vaccine: 50+ Completed ASSESSMENT/PLAN: 1. Hypertension, essential - ICD9: 401.9, ICD10: I10 (primary diagnosis) - Uncontrolled - Start atenolol - Recommend home blood pressure monitoring, to bring results to next visit - Encouraged sodium restriction, DASH or Mediterranean diet - Recommend regular aerobic exercise - Follow up in 4 weeks for hypertension visit - LISINOPRIL 40 MG TABLET 2. Chronic right-sided low back pain with right-sided sciatica - ICD9: 724.2, 724.3, 338.29, ICD10:M54.41, G89.29 - [facility] - CONSULT TO PHYSICAL THERAPY 3. GERD without esophagitis - ICD9: 530.81, ICD10: K21.9 - stable on current regime - PANTOPRAZOLE 40 MG TABLET,DELAYED RELEASE Hallie Harris APRN.CNP Prescription instructions reviewed with patient [...] illnesses with change Risk: Moderate: Drug management and Moderate risk from testing/treatment Medical Decision Making Level: 4 - Moderate documented in this encounterTrihealth [facility]01-17-2025 NoteHNO ID: [id number] Author: HALLIE HARRIS APRN.CNP Service: ? Author Type: Nurse Practitioner Type: Progress Notes Filed: 08/01/2024 11:44 Note Text: 08/01/2024 Patient presents with: Recheck: BP check SUBJECTIVE: This is a 69 year old that is here today for Above Complaints. BP elevated at last office appointment. Lisinopril increased. Taking and toleating medication without side effects. Checking BP at home with range of 140-160/60-70's.Took it before coming in and 160/66. Home BP cuff has been validated in office prior. Denies visual changes, headaches lightheadedness, dizziness, slurred speech, facial drooping, extremity numbness tingling or weakness Noticing pain to right hip back area which can wrap around the front. Has a hx of chronic back pain and sees pain management. Would like to see pain management. PAST MEDICAL HISTORY Diagnosis Date Allergic rhinitis Dr. Salazar for allergy shots Chronic constipation Chronic lower back pain Dr. Neves Essential hypertension GERD (gastroesophageal reflux disease) Hyperlipidemia Hypertension, essential 11/03/2022 Impaired fasting glucose MRSA infection 09/2023 abscess in left axilla Nicotine use OA (osteoarthritis) of knee s/p L TKA Obesity (BMI 30.0-34.9) Other acne Acne PMH - PAST MEDICAL HISTORY OF lactose intolerant PMH - PAST MEDICAL HISTORY OF kidney stones PMH - PAST MEDICAL HISTORY OF rlq abdominal pain Rosacea ALLERGIES Hctz [Thiazides], Magnesium Citrate, and Naproxen MEDICATIONS Current Outpatient Medications Medication Sig valACYclovir (VALTREX) 1 gram tablet Take 2,000 mg BID x 1 day for cold sores. lisinopril (ZESTRIL) 40 mg tablet Take 1 tablet by [...] Social History Tobacco Use Smoking status: Former Current packs/day: 0.00 Average packs/day: 1 pack/day for 20.0 years (20.0 ttl pk-yrs) Types: Cigarettes Start date: 07/16/1978 Quit date: 07/16/1998 Years since quittin.0 Smokeless tobacco: Never Substance Use Topics Alcohol use: Yes Alcohol/week: 2.0 standard drinks of alcohol Types: 2 Cans of Beer (12oz) per week Drug use: No REVIEW OF SYSTEMS All other reviewed and negative other than HPI. OBJECTIVE: BP 168/94 Pulse 78 Resp 16 SpO2 97% . Vital signs reviewed by this provider. APPEARANCE Well appearing, alert, in no acute distress, well-hydrated, well nourished. Latest Ref Rng 07/03/2024 Protein, Total 6.3 - 8.0 g/dL 7.6 Albumin 3.9 - 4.9 g/dL 4.8 Calcium 8.5 - 10.2 mg/dL 9.8 Bilirubin, Total 0.2 - 1.3 mg/dL 1.0 Alkaline Phosphatase 34 - 123 U/L 80 AST 13 - 35 U/L 31 ALT 7 - 38 U/L 34 Glucose 74 - 99 mg/dL 123 (H) BUN 7 - 21 mg/dL 15 Creatinine 0.58 - 0.96 mg/dL 0.78 Sodium 136 - 144 mmol/L 138 Potassium 3.7 - 5.1 mmol/L 3.9 Chloride 98 - 107 mmol/L 103 CO2 22 - 30 mmol/L 23 Anion Gap 8 - 15 mmol/L 12 eGFR >=60 mL/min/1.73m? 83 Cholesterol, Total <200 mg/dL 178 Triglyceride <150 mg/dL 177 (H) HDL Cholesterol >39 mg/dL 49 Non HDL Cholesterol <130 mg/dL 129 Fasting Time hrs 12 VLDL Cholesterol <30 mg/dL 35 (H) TC:HDL Ratio <5.10 3.63 LDL Cholesterol <100 mg/dL 94 LDL:HDL Ratio <2.54 1.92 Legend: (H) High Depression Screening Never done Anxiety Screening Never done BP Controlled (<130/80) Never done Advance Directive Discussion Never done Colorectal Cancer Screening due on 07/21/2024 Mammogram Screening due on 09/30/2024 Covid-19 Vaccine( season) due on 07/01/2025 Annual PCP Team Chronic Disease Visit due on 07/01/2025 Diabetes Screening due on 07/03/2027 DTaP,Tdap,Td Vaccine(3 - Td or Tdap) due on 11/28/2027 Lipid Screening due on 07/03/2029 RSV Vaccine(1 - 1-dose 75+ series) due on 2032 Bone Density Screening Completed Influenza Vaccine Completed Hepatitis C Screening Completed (more content not included)...[facility]12-17-[facility]24 NoteHNO ID: [id number] Author: HALLIE HARRIS APRN.INSULATION POWER UNIT TENDER Service: ? Author Type: Nurse Practitioner Type: Progress Notes Filed: 07/01/2024 11:30 Note Text: 07/01/2024 Patient presents with: F/U 6 months SUBJECTIVE: This is a 69 year old that is here today for Above Complaints. HTN: Patient is compliant with meds Yes Monitors bp at home: No. Denies side effects: No. Chest pain: No. Dyspnea: No. Edema: No. Palpitations: No. Syncope: No. Headache: No. Dizziness: No. GERD: taking pantoprazole which works well to control symptoms HYPERLIPIDEMIA: Patient is taking medications: Yes. Patient is watching diet: Yes. Patient denies myalgias: Yes. Patient denies gi upset: Yes Cold sores: wanting to know is there is something topical she can use with the Valtrex. Reports when she takes the Valtrex usually helps pretty quickly Colonoscopy upcoming patient wants to see Friend Reports under stress. Granddaughter getting tested for Autism. Granddaughter living in home as well as her daughter. PAST MEDICAL HISTORY Diagnosis Date Allergic rhinitis Dr. Salazar for allergy shots Chronic constipation Chronic lower back pain Dr. Neves Essential hypertension GERD (gastroesophageal reflux disease) Hyperlipidemia Hypertension, essential 11/03/2022 Impaired fasting glucose MRSA infection 09/2023 abscess in left axilla Nicotine use OA (osteoarthritis) of knee s/p L TKA [...] by mouth daily at bedtime. For cholesterols. valACYclovir (VALTREX) 1 gram tablet Take 2,000 mg BID x 1 day for cold sores. pantoprazole DR (PROTONIX) 40 mg tablet Take [...] Social History Tobacco Use Smoking status: Former Current packs/day: 0.00 Average packs/day: 1 pack/day for 20.0 years (20.0 ttl pk-yrs) Types: Cigarettes Start date: 07/16/1978 Quit date: 07/16/1998 Years since quittin.9 Smokeless tobacco: Never Substance Use Topics Alcohol use: Yes Alcohol/week: 2.0 standard drinks of alcohol Types: 2 Cans of Beer (12oz) per week Drug use: No REVIEW OF SYSTEMS All other reviewed and negative other than HPI. OBJECTIVE: BP 189/80 Pulse 70 Resp 16 Wt 62.4 kg (137 lb 9.1 oz) SpO2 97% BMI 28.88 kg/m? . Vital signs reviewed by this provider. APPEARANCE Well appearing, alert, in no acute distress, well-hydrated, well nourished. EYES conjunctiva and sclera normal. HEART RRR with normal S1 and S2, no murmurs, no gallops, no JVD appreciated LUNG clear to auscultation. No wheezes, rhonchi or rales EXTREMITIES Extremities normal, No deformities, No skin discoloration, and No edema SKIN Skin color, texture, turgor normal, no suspicious rashes or lesions to exposed skin Depression Screening Never done Anxiety Screening Never done BP Controlled (<130/80) Never done Advance Directive Discussion Never done Colorectal Cancer Screening due on 07/21/2024 Mammogram Screening due on 09/30/2024 Covid-19 Vaccine() due on 07/01/2025 Annual PCP Team Chronic Disease Visit due on 01/07/2025 Diabetes Screening due on 01/07/2027 DTaP,Tdap,Td Vaccine(3 - Td or Tdap) due on 11/28/2027 Lipid Screening due on 07/02/2028 RSV Vaccine(1 - 1-dose 75+ series) due on 2032 Bone Density Screening Completed Influenza Vaccine Completed Hepatitis C Screening Completed Shingrix Vaccine Completed Pneumococcal Vaccine: 50+ Completed ASSESSMENT/PLAN: 1. Hypertension, essential - ICD9: 401.9, ICD10: I10 (primary diagnosis) - Uncontrolled - Increase lisinopril - Recommend home b (more content not included)...[facility] 07-01-2024 History of Present illness Narrative* PodlogarHallie APRN.INSULATION POWER UNIT TENDER - 07/01/2024 10:29 AM EST 07/01/2024 Patient presents with: F/U 6 months SUBJECTIVE: This is a 69 year old that is here today for Above Complaints. HTN: Patient is compliant with meds Yes Monitors bp at home: No. Denies side effects: No. Chest pain: No. Dyspnea: No. Edema: No. Palpitations: No. Syncope: No. Headache: No. Dizziness: No. GERD: taking pantoprazole which works well to control symptoms HYPERLIPIDEMIA: Patient is taking medications: Yes. Patient is watching diet: Yes. Patient denies myalgias: Yes. Patient denies gi upset: Yes Cold sores: wanting to know is there is something topical she can use with the Valtrex. Reports when she takes the Valtrex usually helps pretty quickly Colonoscopy upcoming patient wants to see Friend Reports under stress. Granddaughter getting tested for Autism. Granddaughter living in home as wellas her daughter. PAST MEDICAL HISTORY Diagnosis Date Allergic rhinitis Dr. Salazar for allergy shots Chronic constipation Chronic lower back pain Dr. Neves Essential hypertension GERD (gastroesophageal reflux disease) Hyperlipidemia Hypertension, essential 11/03/2022 Impaired fasting glucose MRSA infection 09/2023 abscess in left axilla Nicotine use OA (osteoarthritis) of knee s/p L TKA [...] by mouth daily at bedtime. For cholesterols. valACYclovir (VALTREX) 1 gram tablet Take 2,000 mg BID x 1 day for cold sores. pantoprazole DR (PROTONIX) 40 mg tablet Take [...] Social History Tobacco Use Smoking status: Former Current packs/day: 0.00 Average packs/day: 1 pack/day for 20.0 years (20.0 ttl pk-yrs) Types: Cigarettes Start date: 07/16/1978 Quit date: 07/16/1998 Years since quittin.9 Smokeless tobacco: Never Substance Use Topics Alcohol use: Yes Alcohol/week: 2.0 standard drinks of alcohol Types: 2 Cans of Beer (12oz) per week Drug use: No REVIEW OF SYSTEMS All other reviewed and negative other than HPI. OBJECTIVE: BP 189/80 Pulse 70 Resp 16 Wt 62.4 kg (137 lb 9.1 oz) SpO2 97% BMI 28.88 kg/m . Vital signs reviewed by this provider. APPEARANCE Well appearing, alert, in no acute distress, well-hydrated, well nourished. EYES conjunctiva and sclera normal. HEART RRR with normal S1 and S2, no murmurs, no gallops, no JVD appreciated LUNG clear to auscultation. No wheezes, rhonchi or rales EXTREMITIES Extremities normal, No deformities, No skin discoloration, and No edema SKIN Skin color, texture, turgor normal, no suspicious rashes or lesions to exposed skin Depression Screening Never done Anxiety Screening Never done BP Controlled (<130/80) Never done Advance Directive Discussion Never done Colorectal Cancer Screening due on 07/21/2024 Mammogram Screening due on 09/30/2024 Covid-19 Vaccine( season) due on 07/01/2025 Annual PCP Team Chronic Disease Visit due on 01/07/2025 Diabetes Screening due on 01/07/2027 DTaP,Tdap,Td Vaccine(3 - Td or Tdap) due on 11/28/2027 Lipid Screening due on 07/02/2028 RSV Vaccine(1 - 1-dose 75+ series) due on 2032 Bone Density Screening Completed Influenza Vaccine Completed Hepatitis C Screening Completed Shingrix Vaccine Completed Pneumococcal Vaccine: 50+ Completed ASSESSMENT/PLAN: 1. Hypertension, essential - ICD9: 401.9, ICD10: I10 (primary diagnosis) - Uncontrolled - Increase lisinopril - Recommend home blood pressure monitoring, to bring results to next visit - Encouraged sodium restriction, DASH or Mediterranean diet - Recommend regular aerobic exercise - Discussed need for and benefit of weight loss. BMI 28.88 kg/(m^2) - Smoking cessation encouraged; discussed risks to health and quitting strategies. Patient is not ready to quit - Follow up in 4 weeks for hypertension visit - COMPREHENSIVE METABOLIC PANEL - LISINOPRIL 40 MG TABLET 2. Recurrent cold sores - ICD9: 054.9, ICD10: B00.1 - VALACYCLOVIR 1 GRAM TABLET 3. Pure hypercholesterolemia - ICD9: 272.0, ICD10: E78.00 - LIPID PANEL BASIC 4. Gastroesophageal reflux disease without esophagitis - ICD9: 530.81, ICD10: K21.9 - stable om current regime Hallie Harris, BRUSH STAINER.INSULATION POWER UNIT TENDER Prescription instructions reviewed with patient as applicable. Patient advised if symptoms do not improve or if symptoms worsen sooner, to contact their primary care physician. Potential red flag symptoms discussed with the patient. Reviewed appropriate action plan to take if red flag symptoms occur. Patient agreeable to treatment plan. Medical Decision Making: Problems: Moderate: 1+ chronic illnesses with change Data: Unique test(s) ordered: 2 Risk: Moderate: Drug management and Moderate risk from testing/treatment Medical Decision Making Level: 4 - Moderate documented in this encounterTri[facility] Telephone encounter Note * Telephone Encounter - Sandip Mckay LPN - 03/14/2024 10:45 AM EDT Prescription Refill Information The patient has been identified by name and date of : Yes Caregiver verified no other encounters exist for this prescription request: Yes Caregiver confirmed with patient/requestor that no other refills are due, in the near future, with this provider at this time: Yes The last office visit in the department: 01/08/24 Does the patient have a future office visit with this provider/department: Yes, 07/01/24 Requested Prescriptions Pending Prescriptions Disp Refills lisinopril (ZESTRIL) 20 mg tablet 90 tablet 1 Sig: Take 1 tablet by mouth once daily. Sandip Mckay LPN March 14, 2024 10:53 AM [facility]08-30-2024 Miscellaneous Notes* Telephone Encounter - Sandip Mckay LPN - 03/14/2024 10:45 AM EDT Prescription Refill Information The patient has been identified by name and date of : Yes Caregiver verified no other encounters exist for this prescription request: Yes Caregiver confirmed with patient/requestor that no other refills are due, in the near future, with this provider at this time: Yes The last office visit in the department: 01/08/24 Does the patient have a future office visit with this provider/department: Yes, 07/01/24 Requested Prescriptions Pending Prescriptions Disp Refills lisinopril (ZESTRIL) 20 mg tablet 90 tablet 1 Sig: Take 1 tablet by mouth once daily. Sandip Mckay LPN March 14, 2024 10:53 AM documented in this encounterTrihealth [facility]07-19-2024 NoteHNO ID: [id number] Author: ?, ?, ? Service: ? Author Type: ? Type: Progress Notes Filed: 02/07/2024 10:51 Note Text: Mukesh Rosenberg is identified through a medication adherence outreach initiative based on pharmacy claims data from [employer] (insurer) for Statin medication(s). Patient is reviewed 02/01/24 due to medication adherence concerns with the following medications (name, strength, sig): Simvastatin 10 mg 1 tablet every day . Per data/report, last fill date and days supply: Due 12/11/2023 Per reconcile dispense, last fill date and days supply: No data/ Per portal 09/12/2023 for 90 days Per call to pharmacy, last picked up date and days supply: NA Contacted patient: No answer; left generic VM Outcome of review/outreach: (choose outcome source and status) - LVM for patient x2 - [employer] message sent to patient Alexandre ForemanBl[facility] History of Present illness Narrative* Alexandre Foreman - 02/01/2024 9:01 AM EDT Mukesh Rosenberg is identified through a medication adherence outreach initiative based on pharmacy claims data from [employer] (insurer) for Statin medication(s). Patient is reviewed 02/01/24 due to medication adherence concerns with the following medications (name, strength, sig): Simvastatin 10 mg 1 tablet every day . Per data/report, last fill date and days supply: Due 12/11/2023 Per reconcile dispense, last fill date and days supply: No data/ Per portal 09/12/2023 for 90 days Per call to pharmacy, last picked up date and days supply: NA Contacted patient: No answer; left generic VM Outcome of review/outreach: (choose outcome source and status) - LVM for patient - [employer] message sent to patient Alexandre Foreman documented in this encounterTrihealth [facility]07-19-2024 NotePatient Outreach (PHPOHE) MUKESH ROSENBERG ([id number]) 1955 F Date Time Provider Department 02/01/24 JOSE PIKE PHPOHE During your visit today, we recorded the following information about you: Alexandre Foreman 02/07/2024 10:51 AM Addendum Mukesh Jordanjoy is identified through a medication adherence outreach initiative based on pharmacy claims data from [employer] (insurer) for Statin medication(s). Patient is reviewed 02/01/24 due to medication adherence concerns with the following medications (name, strength, sig): Simvastatin 10 mg 1 tablet every day . Per data/report, last fill date and days supply: Due 12/11/2023 Per reconcile dispense, last fill date and days supply: No data/ Per portal 09/12/2023 for 90 days Per call to pharmacy, last picked up date and days supply: NA Contacted patient: No answer; left generic VM Outcome of review/outreach: (choose outcome source and status) - LVM for patient x2 - [employer] message sent to patient Alexandre Arsh Foreman Allergies As of Date: 02/01/2024 Noted Allergy Reaction HCTZ (THIAZIDES) 07/02/2023 14 - Other: See Comments Comments: Hypokalemia MAGNESIUM CITRATE 01/29/2006 11 - Vomiting NAPROXEN 03/29/2011 14 - Other: See Comments Comments: fluid retention Date Reviewed: 01/08/2024 Reviewed by: Marta Gaming LPN - Fully Assessed Reason for Visit: Allied Health Visit [5] Cmt: Medication Adherence Outreach Prescriptions as of 02/07/2024 - meloxicam (MOBIC) 15 mg tablet Take 1 tablet by mouth once daily. With food. - simvastatin (ZOCOR) 10 mg tablet Take 1 tablet by mouth daily at bedtime. For cholesterols. - valACYclovir (VALTREX) 1 gram tablet Take 2,000 mg BID x 1 day for cold sores. - lisinopril (ZESTRIL) 20 mg tablet Take 1 [...] as needed. Problem List As Of Date 02/01/2024 Noted Resolved UNSP ABNORMAL MAMMOGRAM [R92.8] 07/25/2007 [...] pain with right-si*12/24/2020 Hypertension, essential [I10] 11/03/2022 History of MRSA infection [Z86.14] 01/08/2024 Current nicotine use [Z72.0] 01/08/2024 Encounter Status:Closed by ALEXANDRE FOREMAN on 02/01/24[facility] Tele[facility] encounter Note* Telephone Encounter - Taya Whalen LPN - 01/11/2024 8:51 AM EDT Left a message for pt to call the office and ask to speak to a nurse. Letter mailed with results. Taya Whalen LPN [facility]06-28-[facility]24 Miscellaneous Notes* Telephone Encounter - Taya Whalen LPN - 01/11/2024 8:51 AM EDT Left a message for pt to call the office and ask to speak to a nurse. Letter mailed with results. Taya Whalen LPN * Telephone Encounter - Taya Whalen LPN - 01/09/2024 8:30 AM EDT Left a message for pt to call the office and ask to speak to a nurse. Taya Whalen LPN * Telephone Encounter - Taya Whalen LPN - 01/09/2024 8:29 AM EDT ----- Message from Jose Pike MD sent at 01/09/2024 7:12 AM EDT ----- Normal CMP aside from mild elevation of single liver marker. Recommend avoidance of tylenol and alcohol. Will recheck at future OV. documented in this encounterTrihealth [facility]06-26-2024 Telephone encounter Note * Telephone Encounter - Taya Whalen LPN - 01/09/2024 8:30 AM EDT Left a message for pt to call the office and ask to speak to a nurse. Taya Whalen LPN [facility]06-26-[facility] Telephone encounter Note* Telephone Encounter - Taya Whalen LPN - 01/09/2024 8:29 AM EDT ----- Message from Jose Pike MD sent at 01/09/2024 7:12 AM EDT ----- Normal CMP aside from mild elevation of single liver marker. Recommend avoidance of tylenol and alcohol. Will recheck at future OV. [facility]06-25-[facility]24 NoteHNO ID: [id number] Author: JOSE PIKE MD Service: ? Author Type: Physician Type: Progress Notes Filed: 01/08/2024 13:44 Note Text: Chief Complaint Patient presents with: Follow Up: 3 month HPI Mukesh Rosenberg is a 68 year old female who presents here today for Above Complaints. Patient states that she did follow up with [facility] for abscess in left axilla with turned out to be MRSA infection. Treated with 30 days of oral doxycyline and gave 2 weeks of nasal abx. Has not had recurrence since. Patient has appointment with Dr. Coleman's office on 02/12 for evaluation of right knee pain after her recent cruise. Xray already ordered. May need injection. Treating with ice and elevation. Pain improving slowly, but still has clicking sensation. . HTN: Ms. Rosenberg indicates that she is feeling well and denies any symptoms referable to elevated blood pressure. Specifically denies headache, chest pain, palpitations, dyspnea, and peripheral edema. Patient denies any side effects of her medication(s) and is compliant with their regimen. She does not check BP's generally. Mukesh likes to exercise by walking. She watches her diet for sodium, low fat and low cholesterol most of the time. Last 3 Encounter BP Readings: Date: BP: 01/08/2024 130/78 09/10/2023 136/84 09/03/2023 162/88 GERD: controlled on PPI BID. States that she keeps forgetting to take her simvastatin before bed. Would like to try taking in the morning instead. No longer smoking, but still chews nicotine gum on a regular basis. Past medical history, appointments, medications, allergies reviewed. [...] SPX 12/08/1997 Salpingo-oophorectomy bilateral TONSILLECTOMY PRIMARY/SECONDARY Tonsillectomy TOTAL KNEE REPLACEMENT Left 06/2022 VAGINAL HYSTERECTOMY UTERUS 250 GM/< 12/08/1997 Hysterectomy, vaginal LAPAROSCOPIC ASSISTED Family History FAMILY HISTORY Problem Relation Age of Onset Hypertension Father rapid heart beat, tia Stroke Father Cancer Brother leukemia Hypertension Mother other (only child now) Other Cancer Maternal Grandfather skin Patient Allergies ALLERGIES Allergen Reactions Hctz [Thiazides] Other: See Comments Hypokalemia Magnesium Citrate Vomiting Naproxen Other: See Comments fluid retention Current Medications Current Outpatient Medications on File Prior to Visit Medication Sig simvastatin (ZOCOR) 10 mg tablet Take 1 tablet by mouth daily at bedtime. For cholesterols. valACYclovir (VALTREX) 1 gram tablet Take 2,000 mg BID x 1 day for cold sores. lisinopril (ZESTRIL) 20 mg tablet Take 1 [...] file prior to visit. Social History Social Histor (more content not included)...[facility]06-[facility] History of Present illness Narrative* Jose Pike MD - 01/08/2024 10:03 AM EDT Chief Complaint Patient presents with: Follow Up: 3 month HPI Mukesh Rosenberg is a 68 year old female who presents here today for Above Complaints. Patient states that she did follow up with [facility] for abscess in left axilla with turned out to be MRSA infection. Treated with 30 days of oral doxycyline and gave 2 weeks of nasal abx. Has not had recurrence since. Patient has appointment with Dr. Coleman's office on 02/12 for evaluation of right knee pain after her recent cruise. Xray already ordered. May need injection. Treating with ice and elevation. Pain improving slowly, but still has clicking sensation. . HTN: Ms. Rosenberg indicates that she is feeling well and denies any symptoms referable to elevatedblood pressure. Specifically denies headache, chest pain, palpitations, dyspnea, and peripheral edema. Patient denies any side effects of her medication(s) and is compliant with their regimen. She does not check BP's generally. Mukesh likes to exercise by walking. She watches her diet for sodium, low fat and low cholesterol most of the time. Last 3 Encounter BP Readings: Date: BP: 01/08/2024 130/78 09/10/2023 136/84 09/03/2023 162/88 GERD: controlled on PPI BID. States that she keeps forgetting to take her simvastatin before bed. Would like to try taking in the morning instead. No longer smoking, but still chews nicotine gum on a regular basis. Past medical history, appointments, medications, allergies reviewed. [...] Salpingo-oophorectomy bilateral TONSILLECTOMY PRIMARY/SECONDARY <AGE 12 Tonsillectomy TOTAL KNEE REPLACEMENT Left 06/2022 VAGINAL HYSTERECTOMY UTERUS 250 GM/< 12/08/1997 Hysterectomy, vaginal LAPAROSCOPIC ASSISTED Family History FAMILY HISTORY Problem Relation Age of Onset Hypertension Father rapid heart beat, tia Stroke Father Cancer Brother leukemia Hypertension Mother other (only child now) Other Cancer Maternal Grandfather skin Patient Allergies ALLERGIES Allergen Reactions Hctz [Thiazides] Other: See Comments Hypokalemia Magnesium Citrate Vomiting Naproxen Other: See Comments fluid retention Current Medications Current Outpatient Medications on File Prior to Visit Medication Sig simvastatin (ZOCOR) 10 mg tablet Take 1 tablet by mouth daily at bedtime. For cholesterols. valACYclovir (VALTREX) 1 gram tablet Take 2,000 mg BID x 1 day for cold sores. lisinopril (ZESTRIL) 20 mg tablet Take 1 [...] for lesions, rash, and itching EXAM: BP 130/78 Pulse 83 Resp 16 Wt 65.2 kg (143 lb 12.8 oz) SpO2 98% BMI 30.19 kg/m General Appearance: Well appearing, alert, in no acute distress, well-hydrated, well nourished. Skin: Skin color, texture, turgor normal, no suspicious rashes or lesions. Lungs: Lungs clear to auscultation. No wheezing, rhonchi, rales.. Heart: RRR without murmur, gallop, or rubs. No ectopy. Abdomen: Normal abdominal exam, Abdomen soft, non-tender. Bowel sounds normal. No masses, organomegaly. Extremities: No deformities, edema, skin discoloration, clubbing or cyanosis. Good capillary refill. . Health Maintenance List Pneumococcal Vaccine: 65+(1 of 1 - PCV) Never done Advance Directive Discussion Never done Behavioral Health Screening Never done RSV Vaccine(1 - 1-dose 60+ series) due on 06/19/2024 Covid-19 Vaccine(2022- season) due on 06/19/2024 Colorectal Cancer Screening due on 07/21/2024 Mammogram Screening due on 09/30/2024 Annual PCP Team Chronic Disease Visit due on 10/07/2024 BP Controlled (<130/80) due on 10/07/2024 Diabetes Screening due on 08/16/2026 DTaP,Tdap,Td Vaccine(3 - Td or Tdap) due on 11/28/2027 Lipid Screening due on 07/02/2028 Bone Density Screening Completed Influenza Vaccine Completed Hepatitis C Screening Completed Shingrix Vaccine Completed Data reviewed Latest Ref Rng 07/02/2023 07/04/2023 08/16/2023 Protein, Total 6.3 - 8.0 g/dL 7.0 6.9 Albumin 3.9 - 4.9 g/dL 4.1 4.3 Calcium 8.5 - 10.2 mg/dL 9.6 9.2 Bilirubin, Total 0.2 - 1.3 mg/dL 0.7 0.5 Alkaline Phosphatase 34 - 123 U/L 83 81 AST 13 - 35 U/L 40 (H) 31 ALT 7 - 38 U/L 66 (H) 33 Glucose 74 - 99 mg/dL 113 (H) 112 (H) BUN 7 - 21 mg/dL 14 13 Creatinine 0.58 - 0.96 mg/dL 0.85 0.83 Sodium 136 - 144 mmol/L 138 138 Potassium 3.7 - 5.1 mmol/L 2.9 (L) 3.7 4.1 Chloride 97 - 105 mmol/L 99 104 CO2 22 - 30 mmol/L 28 24 Anion Gap 9 - 18 mmol/L 11 10 eGFR >=60 mL/min/1.73m 76 78 Cholesterol, Total <200 mg/dL 199 Triglyceride <150 mg/dL 168 (H) HDL Cholesterol >39 mg/dL 51 Non HDL Cholesterol <130 mg/dL 148 (H) Fasting Time hrs 12 VLDL Cholesterol <30 mg/dL 34 (H) TC:HDL Ratio <5.10 3.90 LDL Cholesterol <100 mg/dL 114 (H) LDL:HDL Ratio <2.54 2.24 Hemoglobin A1C 4.3 - 5.6 % 5.6 Estimated Average Glucose mg/dL 114 Legend: (H) High (L) Low ASSESSMENT/PLAN: 1. Hypertension, essential - ICD9: 401.9, ICD10: I10 (primary diagnosis) - Controlled - Continue current medications - Recommend home blood pressure monitoring, to bring results to next visit - Encouraged sodium restriction, DASH or Mediterranean diet - Recommend regular aerobic exercise - COMPREHENSIVE METABOLIC PANEL 2. Pure hypercholesterolemia - ICD9: 272.0, ICD10: E78.00 Controlled on current regimen. Work on low cholesterol diet and exercise. 3. Gastroesophageal reflux disease without esophagitis - ICD9: 530.81, ICD10: K21.9 - Discussed lifestyle modifications including losing weight, limiting caffeine, and no meals three hours before sleep - Continue treatment with Protonix QD 4. Impaired fasting glucose - ICD9: 790.21, ICD10: R73.01 Recent A1c normal. Work on healthy diet and exercise. Will monitor. 5. Primary osteoarthritis involving multiple joints - ICD9: 715.98, ICD10: M15.9 Continue meloxicam, ice and heat PRN. F/u with ortho as scheduled. 6. Acute pain of right knee - ICD9: 719.46, ICD10: M25.561 Improving. F/u with ortho as scheduled for imaging and further evaluation. 7. History of MRSA infection - ICD9: V12.04, ICD10: Z86.14 Resolved. 8. Current nicotine use - ICD9: 305.1, ICD10: Z72.0 - Cessation encouraged. - Physiologic and physical aspects of tobacco addiction as well as strategies for quitting were discussed. - Counseling was given focusing on the harmful effects of this addiction especially given the patient's medical condition(s) which will be worsened because of the chemicals in tobacco. 9. Encounter for immunization - ICD9: V03.89, ICD10: Z23 - PNEUMOCOCCAL VACCINE, 20 VALENT (PREVNAR 20) Jose Pike MD documented in this encounterTrihealth [facility]05-[facility] Telephone encounter Note * Telephone Encounter - Sandip Mckay LPN - 11/30/2023 3:36 PM EDT Patient has been identified by name and date of : Yes Patient phones for refill(s): Requested Prescriptions Pending Prescriptions Disp Refills pantoprazole DR (PROTONIX) 40 mg tablet 90 tablet 3 Sig: Take 1 tablet by mouth daily before breakfast. Take on empty stomach, 1/2 hr before meal. Date of last office visit in primary care: 10/08/2023 Date of next office visit in primary care: 01/08/2024 Last rx written 06/19/23 #90 with 3 refills. Not due for refills. Pt notified of the same via [employer] message. Please advise. Thank you. Sandip Mckay LPN. [facility]05-17-2024 Miscellaneous Notes* Telephone Encounter - Sandip Mckay LPN - 11/30/2023 3:36 PM EDT Patient has been identified by name and date of : Yes Patient phones for refill(s): Requested Prescriptions Pending Prescriptions Disp Refills pantoprazole DR (PROTONIX) 40 mg tablet 90 tablet 3 Sig: Take 1 tablet by mouth daily before breakfast. Take on empty stomach, 1/2 hr before meal. Date of last office visit in primary care: 10/08/2023 Date of next office visit in primary care: 01/08/2024 Last rx written 06/19/23 #90 with 3 refills. Not due for refills. Pt notified of the same via [facility] message. Please advise. Thank you. Sandip Mckay LPN. documented in this encounterTrihealth [facility]03-27-2024 Miscellaneous Notes* Telephone Encounter - Mariah Corbett MA - 10/10/2023 12:25 PM EDT LM for patient to contact office. Mariah Corbett MA * Telephone Encounter - Marta Gaming LPN - 10/09/2023 9:32 AM EDT Patient was going to schedule with her dimensional integration engineer d/t unable to get in with Gen Surgery this week. Received notification Dr Hernandez opened up her schedule for 10/11/23. Left message for patient to call if wanting to schedule. documented in this [facility]03-27-2024 Telephone encounter Note * Telephone Encounter - Mariah Corbett MA - 10/10/2023 12:25 PM EDT LM for patient to contact office. Mariah Corbett MA [facility]03-26-2024 Telephone encounter Note* Telephone Encounter - Marta Gaming LPN - 10/09/2023 9:32 AM EDT Patient was going to schedule with her dimensional integration engineer d/t unable to get in with Gen Surgery this week. Received notification Dr Hernandez opened up her schedule for 10/11/23. Left message for patient to call if wanting to schedule. [facility]03-25-2024 History of Present illness Narrative* Jose Pike MD - 10/08/2023 9:47 AM EDT Chief Complaint Patient presents with: Mass: To left axilla again- painful to touch HPI Mukesh Rosenberg is a 68 year old female who presents here today for Above Complaints. Patient complaining of new lump in her left axilla which she first noticed in the last week. Statesthat this was similar to lesion she had 1 month ago which spontaneously drained bloody/purulent material. Had US at [facility] a couple weeks ago which showed 1 cm complex fluid collection consistent with abscess which was actively draining. This was not faxed to our office. She had been referred to general surgery to see Dr. Pham, but they never called her to schedule OV. . Current lesion is about the size of a pea and is red with TTP. Denies any fever/chills, drainage, warmth to touch. No lesions anywhere else. Mammogram on 09/30 unremarkable. Notes she does follow up with dermatology at [facility], but has not contacted them for this. Past medical history, appointments, medications, allergies reviewed. [...] Salpingo-oophorectomy bilateral TONSILLECTOMY PRIMARY/SECONDARY <AGE 12 Tonsillectomy TOTAL KNEE REPLACEMENT Left 06/2022 VAGINAL HYSTERECTOMY UTERUS 250 GM/< 12/08/1997 Hysterectomy, vaginal LAPAROSCOPIC ASSISTED Family History FAMILY HISTORY Problem Relation Age of Onset Hypertension Father rapid heart beat, tia Stroke Father Cancer Brother leukemia Hypertension Mother other (only child now) Other Cancer Maternal Grandfather skin Patient Allergies ALLERGIES Allergen Reactions Hctz [Thiazides] Other: See Comments Hypokalemia Magnesium Citrate Vomiting Naproxen Other: See Comments fluid retention Current Medications Current Outpatient Medications on File Prior to Visit Medication Sig simvastatin (ZOCOR) 10 mg tablet Take 1 tablet by mouth daily at bedtime. For cholesterols. valACYclovir (VALTREX) 1 gram tablet Take 2,000 mg BID x 1 day for cold sores. lisinopril (ZESTRIL) 20 mg tablet Take 1 [...] Types: Cigarettes Quit date: 07/16/1998 Years since quittin.2 Smokeless tobacco: Never Substance Use Topics Alcohol use: Yes Alcohol/week: 2.0 standard drinks of alcohol Types: 2 Cans of Beer (12oz) per week Drug use: No Review of Symptoms REVIEW OF SYSTEMS See HPI EXAM: BP (P) 126/74 Pulse (P) 89 Temp 36.4 C (97.6 F) Resp (P) 16 Wt (P) 66.2 kg (146 lb) SpO2 (P) 98% BMI (P) 30.65 kg/m General Appearance: Well appearing, alert, in no acute distress, well-hydrated, well nourished.. Skin: pea sized firm nodule in left axilla with mild erythema. Mildly TTP without drainage. Lymph Nodes: No axillary lymphadenopathy.. Health Maintenance List BP Controlled (<130/80) Never done Pneumococcal Vaccine: 65+(1 of 1 - PCV) Never done Advance Directive Discussion Never done Depression Assessment Never done RSV Vaccine(1 - 1-dose 60+ series) due on 06/19/2024 Covid-19 Vaccine(2022- season) due on 06/19/2024 Colorectal Cancer Screening due on 07/21/2024 Annual PCP Team Chronic Disease Visit due on 09/10/2024 Mammogram Screening due on 09/30/2024 Diabetes Screening due on 08/16/2026 DTaP,Tdap,Td Vaccine(3 - Td or Tdap) due on 11/28/2027 Lipid Screening due on 07/02/2028 Bone Density Screening Completed Influenza Vaccine Completed Hepatitis C Screening Completed Shingrix Vaccine Completed ASSESSMENT/PLAN: 1. Abscess of axilla, left - ICD9: 682.3, ICD10: L02.412 Abscess vs inflamed cyst vs hidradenitis lesion - Begin treatment with doxycycline and refer to GI. Advised to call her dimensional integration engineer to see if they can get her in this week instead for evaluation. - No lymphangetic streaking, this was defined for patient to watch for and to seek medical care immediately if appears - DOXYCYCLINE HYCLATE 100 MG TABLET - CONSULT TO GENERAL SURGERY Jose Pike MD documented in this encounterTri[facility] Miscellaneous Notes* Telephone Encounter - Ofelia Rodriges MA - 10/05/2023 9:30 AM EDT Pt advised via mychart she should make an appointment to evaluate the lump. Ofelia Rodriges MA documented in this encounterTri[facility] History of Present illness Narrative* Jose Pike MD - 09/10/2023 4:00 PM EST Chief Complaint Patient presents with: Derm Problem: Red irritated bump to left axilla- patient thinks about 3 weeks possibly HPI Mukesh Rosenberg is a 68 year old female who presents here today for Above Complaints.. Painful red lump in left axilla for the last 3 weeks. Gradually increasing in size. Not treating with anything OTC. Denies fever/chills, drainage, warmth to touch. Also complaining of fever blisters on her upper lips which occur about 2 times per year. Related to stress. Asking for refill on valtrex she was prescribe by Dr. Cage in the past. Past medical history, appointments, medications, allergies reviewed. [...] Salpingo-oophorectomy bilateral TONSILLECTOMY PRIMARY/SECONDARY <AGE 12 Tonsillectomy TOTAL KNEE REPLACEMENT Left 06/2022 VAGINAL HYSTERECTOMY UTERUS 250 GM/< 12/08/1997 Hysterectomy, vaginal LAPAROSCOPIC ASSISTED Family History FAMILY HISTORY Problem Relation Age of Onset Hypertension Father rapid heart beat, tia Stroke Father Cancer Brother leukemia Hypertension Mother other (only child now) Other Cancer Maternal Grandfather skin Patient Allergies ALLERGIES Allergen Reactions Hctz [Thiazides] Other: See Comments Hypokalemia Magnesium Citrate Vomiting Naproxen Other: See Comments fluid retention Current Medications Current Outpatient Medications on File Prior to Visit Medication Sig lisinopril (ZESTRIL) 20 mg tablet [...] No Review of Symptoms REVIEW OF SYSTEMS See HPI EXAM: BP 136/84 Pulse 81 Temp 36.5 C (97.7 F) Resp 16 Wt 66.1 kg (145 lb 12.8 oz) BMI 30.61 kg/m General Appearance: Well appearing, alert, in no acute distress, well-hydrated, well nourished.. Skin: 2-3 cm raised red lump in left axilla without fluctuance or surrounding erythema.. Oropharynx: Cold sores on upper lips. Lymph nodes: normal axillary lymph nodes bilaterally. Health Maintenance List BP Controlled (<130/80) Never done Mammogram Screening due on 11/01/2021 Pneumococcal Vaccine: 65+(1 of 1 - PCV) Never done Advance Directive Discussion Never done Depression Assessment Never done RSV Vaccine(1 - 1-dose 60+ series) due on 06/19/2024 Covid-19 Vaccine(2022- season) due on 06/19/2024 Colorectal Cancer Screening due on 07/21/2024 Annual PCP Team Chronic Disease Visit due on 09/03/2024 Diabetes Screening due on 08/16/2026 DTaP,Tdap,Td Vaccine(3 - Td or Tdap) due on 11/28/2027 Lipid Screening due on 07/02/2028 Bone Density Screening Completed Influenza Vaccine Completed Hepatitis C Screening Completed Shingrix Vaccine Completed ASSESSMENT/PLAN: 1. Mass of left axilla - ICD9: 782.2, ICD10: R22.32 (primary diagnosis) Inflamed/infected sebaceous vs early abscess. Start Keflex and will refer to general surgery for possible excision vs I&D in 2-3 days. Red flags for re- assessment reviewed with patient in detail. - CEPHALEXIN 500 MG CAPSULE - CONSULT TO GENERAL SURGERY 2. Recurrent cold sores - ICD9: 054.9, ICD10: B00.1 Start valtrex PRN for flares. Discussed hand washing and transmission. - VALACYCLOVIR 1 GRAM TABLET Jose Pike MD documented in this encounterTrihealth [facility]02-[facility] Instructions* Patient Instructions* Hallie Harris APRN.CNP - 09/03/2023 12:09 PM EST Continue to take blood pressure daily- update me in 2 weeks with readings documented in this encounterTrihealth [facility]02-19-[facility]24 History of Present illness Narrative* Hallie Harris APRN.CNP - 09/03/2023 12:05 PM EST 09/03/2023 Patient presents with: BP Check SUBJECTIVE: [...] hypertension visit - LISINOPRIL 20 MG TABLET Hallie Harris APRN.CNP Prescription instructions reviewed with patient [...] Level: 4 - Moderate documented in this encounterTrihealth [facility]02-05-2024 Instructions* Patient Instructions* Hallie Harris APRN.CNP - 08/20/2023 11:41 AM EST Increase lisinopril to 20 mg daily. Check blood pressure at home daily and bring home readings as well as home BP cuff to next visit. documented in this encounterTrihealth [facility]02-05-[facility]24 History of Present illness Narrative* Hallie Harris APRN.SAMM - 08/20/2023 11:18 AM EST 08/20/2023 Patient presents with: Blood Pressure: Recheck [...] hypertension visit - LISINOPRIL 20 MG TABLET Hallie Harris APRN.CNP Prescription instructions reviewed with patient [...] Level: 4 - Moderate documented in this encounterTrihealth [facility]12-11-2023 History of Present illness Narrative* Hitesh Yu RT(R) - 06/25/2023 11:00 AM EST Radiology Service Progress Note PATIENT NAME: Mukesh Rosenberg DATE OF SERVICE: June 25, 2023 TIME: 11:08 AM PATIENT IDENTITY VERIFICATION COMPLETED USING TWO (2) IDENTIFIERS: Name and Date of confirmedby patient verbally. FALL SCREENING: Has the patient [...] 25, 2023 11:08 AM documented in this encounterTrihealth Bet[facility]12-05-2023 Instructions* Patient Instructions* Hallie Harris APRN.INSULATION POWER UNIT TENDER - 06/19/2023 10:01 AM EST BONE MINERAL DENSITY PATIENT INSTRUCTIONS Bone mineral density testing measures the amount of calcium in certain parts of your bones. This information determines how strong your bones are. The test is used to detect osteoporosis, a disease in which the bone's mineral content and density are low, increasing a person's risk of fractures. Thelumbar spine (lower back) and the hip are [...] your usual activities immediately. documented in this encounterTrihealth Bet[facility]12-05-2023 History of Present illness Narrative* Hallie Harris APRN.SAMM - 06/19/2023 9:50 AM EST 06/19/2023 Patient presents with: F/U 6 months SUBJECTIVE: This is a 68 year old that is here today for Above Complaints. Since last office visit [facility] without ER visits or hospitalizations HTN: Patient [...] Abs Lymph 1.00 - 4.00 k/uL 2.65 [place]% % 9.9 Abs [place] <0.87 k/uL 1.04 (H) Eosin% % 2.3 [...] regime - PANTOPRAZOLE 40 MG TABLET,DELAYED RELEASE Hallie Harris APRN.CNP Prescription instructions reviewed with patient [...] which included preparing to see the patient, xfwh-bw-harg patient care, completing clinical documentation, obtaining and/or reviewing separately obtained history, performing a medically appropriate examination, counseling and educating the pat ient/family/caregiver, and ordering medications, tests, or procedures. documented in this encounterTrihealth [facility]12-02-2023 Miscellaneous Notes* Telephone Encounter - Nathalia Stevens RN - 06/16/2023 11:47 AM EST Patient has been identified by name and [...] you. Nathalia Stevens RN. documented in this encounterTrihealth [facility]08-10-2023 Telephone encounter Note * Telephone Encounter - Simon Muse - 02/22/2023 11:03 AM EDT Patient has been identified by name and date of : Yes Last office visit in this department: 12/18/2022 RX INSTRUCTIONS: Patient aware RX will be sent to pharmacy. No need to notify patient. Patient phones requesting refills as follows: Requested Prescriptions Pending Prescriptions Disp Refills hydroCHLOROthiazide 25 mg tablet 30 tablet 2 Sig: Take 1 tablet by mouth once daily. Please review and advise. Simon Muse [facility]08-10-2023 Miscellaneous Notes* Telephone Encounter - Simon Muse - 02/22/2023 11:03 AM EDT Patient has been identified by name and date of : Yes Last office visit in this department: 12/18/2022 RX INSTRUCTIONS: Patient aware RX will be sent to pharmacy. No need to notify patient. Patient phones requesting refills as follows: Requested Prescriptions Pending Prescriptions Disp Refills hydroCHLOROthiazide 25 mg tablet 30 tablet 2 Sig: Take 1 tablet by mouth once daily. Please review and advise. Simon Muse documented in this encounterTrihealth [facility]06-05-2023 History of Present illness Narrative* Hallie Harris APRN.SAMM - 12/18/2022 9:19 AM EDT 12/18/2022 Patient presents with: Recheck: Blood pressure [...] up in 6 months for hypertension visit Hallie Harris APRN.SAMM Prescription instructions reviewed with patient [...] which included preparing to see the patient, nkla-gx-cybu patient care, completing clinical documentation, obtaining and/or reviewing separately obtained history, performing a medically appropriate examination, counseling and educating the pat ient/family/caregiver, and ordering medications, tests, or procedures. documented in this encounterTrihealth Bet[facility]05-08-2023 Nurse Note* Dania Izquierdo LPN - 11/20/2022 9:01 AM EDT APOLLO BP average: BP 159/82 P 87 #1 BP 175/76 P 87 #2 BP 164/84 P 97 #3 BP 165/82 P 88 #4 BP 160/77 P 84 #5 BP 150/83 P 85 #6 BP 156/84 P 82 Dania Izquierdo LPN documented in this encounterTrihealth [facility]05-08-2023 History of Present illness Narrative* Hallie Harris APRN.CNP - 11/20/2022 8:52 AM EDT 11/20/2022 Patient presents with: Blood Pressure: 2 [...] starch, healthy oil intake (olive oil), healthy protein(fish) along the lines of the Mediterranean diet. - HYDROCHLOROTHIAZIDE 25 MG TABLET Hallie Harris APRN.SAMM Prescription instructions reviewed with patient [...] which included preparing to see the patient, appn-ph-uvqm patient care, completing clinical documentation, obtaining and/or reviewing separately obtained history, performing a medically appropriate examination, counseling and educating the pat ient/family/caregiver, and ordering medications, tests, or procedures. documented in this encounterTrihealth [facility]04-21-2023 History of Present illness Narrative* Jose Pike MD - 11/03/2022 8:01 AM EDT Chief Complaint Patient presents with: Follow Up: [...] Abs Lymph 1.00 - 4.00 k/uL 2.65 [place]% % 9.9 Abs [place] <0.87 k/uL 1.04 (H) Eosin% % 2.3 [...] right-sided sciatica - ICD9: 724.2, 724.3, 338.29, ICD10:M54.41, G89.29 Chronic low back pain Controlled on [...] Moderate Jose Pike MD documented in this encounterTrihealth [facility]04-14-2023 Miscellaneous Notes* Telephone Encounter - Ofelia Rodriges Ma - 10/27/2022 3:02 PM EDT Last office visit: 07/04/22 F/u scheduled: 11/03/22 Ofelia Rodriges Ma * Telephone Encounter - Renetta Pablo - 10/27/2022 2:29 PM EDT Patient has been identified by name and date of : Yes Requested Prescriptions Pending Prescriptions Disp Refills pantoprazole DR (PROTONIX) 40 mg tablet 90 tablet 3 Sig: Take 1 tablet by mouth daily before breakfast. Take on empty stomach, 1/2 hr before meal. RX INSTRUCTIONS: Patient aware RX will be sent to pharmacy. No need to notify patient. Renetta Mcintyresec documented in this encounterTrihealth [facility]12-21-2022 Miscellaneous Notes* Telephone Encounter - Dania Izquierdo LPN - 07/05/2022 10:00 AM EST Paperwork faxed to [facility] at this time. Dania Izquierdo LPN * Telephone Encounter - Hallie Harris APRN.CNP - 07/05/2022 8:34 AM EST Please fax Surgical clearance form with copy of labs, office note, chest xray report and EKG to [facility]. All of this is in my outbox. Hallie Harris APRN.CNP documented in this encounterTrihealth [facility]12-21-2022 Miscellaneous Notes* Telephone Encounter - Dania Izquierdo LPN - 07/05/2022 8:42 AM EST Patient notified of message below. Voices understanding. Dania Izquierdo LPN * Telephone Encounter - Hallie Harris APRN.CNP - 07/05/2022 8:26 AM EST Please call patient and let her know her chest xray is normal. I will send all her information to the [facility] for her clearance for surgery. Hallie Harris APRN.CNP documented in this encounterTrihealth [facility]12-20-2022 History of Present illness Narrative* Hallie Harris APRN.CNP - 07/04/2022 8:02 AM EST 07/04/2022 Patient presents with: Follow Up: Blood [...] MEDICAL HISTORY Diagnosis Date Allergic rhinitis Dr. Salzaar for allergy shots Chronic constipation Chronic lower [...] if consistent readings of greater than 140/90 Hallie Harris APRN.CNP Prescription instructions reviewed with patient [...] which included preparing to see the patient, ewsc-hx-voom patient care, completing clinical documentation, obtaining and/or reviewing separately obtained history, performing a medically appropriate examination, and counseling and educating the patient/family/caregiver. documented in this encounterTrihealth [facility]12-16-2022 Miscellaneous Notes* Telephone Encounter - Jayne Arias RN - 06/30/2022 11:37 AM EST Patient returned call and given provider's message below. Jasper Arias RN * Telephone Encounter - Jessica Mehta RN - 06/30/2022 11:16 AM EST Called and left a voicemail for the Patient to call back and ask for a nurse to receive the providers message. Jessica Mehta RN * Telephone Encounter - Hallie Harris APRN.CNP - 06/30/2022 10:46 AM EST Please let patient know blood in acceptable ranges. Also let her know I discussed her EKG with Dr. Pike he recommends a chest xray. I will place order and she can either come in before her appointment to complete. Thanks, Hallie Harris APRN.CNP documented in this encounterTrihealth [facility]07-22-2022 Miscellaneous Notes* Telephone Encounter - Christiana Wei RN - 02/03/2022 4:31 PM EDT Patient notified that prescription sent to [facility]. Patient voiced understanding. Christiana Wei RN * Telephone Encounter - Hallie Harris APRN.CNP - 02/03/2022 2:10 PM EDT Paxlovid prescription sent to [facility]. Please let patient know. Hallie Harris APRN.SAMM * Telephone Encounter - Christiana Wei RN - 02/03/2022 1:33 PM EDT Drug [place] does not carry, asking if this can be sent to [facility] instead? Please review and advise, Christiana Wei RN documented in this encounterTrihealth Bet[facility]07-22-2022 Instructions* Patient Instructions* Hallie Harris APRN.CNP - 02/03/2022 12:45 PM EDT FACT SHEET FOR PATIENTS, PARENTS, AND CAREGIVERS EMERGENCY USE AUTHORIZATION (EUA) OF PAXLOVID FOR CORONAVIRUS DISEASE 2019 (COVID-19) You are being given this Fact Sheet because your healthcare provider believes it is necessary to provide you with PAXLOVID for the treatment of udpb-ec-ufihhglb coronavirus disease (COVID-19) caused by the SARS-CoV-2 virus. This Fact Sheet contains information to help you understand the risks and benefits of taking the PAXLOVID you have received or may receive. The U.S. Food and Drug Administration (FDA) has issued an Emergency Use Authorization (EUA) to makePAXLOVID available during the COVID-19 pandemic (for more details about an EUA please see What is an Emergency Use Authorization? at the end of this document). PAXLOVID is not an FDA-approved medicine in the [place]. Read this Fact Sheet for information about PAXLOVID. Talk to your healthcareprovider about your options or if you have any questions. It is your choice to take PAXLOVID. What is COVID-19? COVID-19 is caused by a virus called a coronavirus. You can get COVID-19 through close contact withanother person who has the virus. COVID-19 illnesses have ranged from very ftvy-ou-bnmmtr, including illness resulting in . While information so far suggests that most COVID-19 illness is mild, serious illness can happen and maycause some of your other medical conditions to become worse. Older people and people of all ages with severe, long lasting (chronic) medical conditions like heart disease, lung disease, and diabetes,for example seem to be at higher risk of being hospitalized for COVID-19. What is PAXLOVID? PAXLOVID is an investigational medicine used to treat xfws-rd-txdgylkl COVID-19 in adults and children [12 years [...] of using PAXLOVID to treat people with giwv-sw-ailrdbzc COVID-19. The FDA has authorized the emergency use of PAXLOVID for the treatment of ksjw-is-imfulzbi COVID-19in adults and children [12 years of age [...] the medicines you take, including prescription and pixg-koa-vzzqfgj medicines, vitamins, and herbal supplements. Some medicines [...] you have any questions about contraceptive methods thatmight be right for you. How do I [...] missed dose and take the next dose atyour regular time. Do not take 2 doses [...] oral midazolam Apalutamide Carbamazepine, phenobarbital, phenytoin Rifampin [place] Wort (hypericum perforatum) Taking PAXLOVID with [...] (remdesivir) is FDA-approved for the treatment of befm-ad-rykgppxi COVID-19 in certain adults and children. Talk with your doctor to see if Veklury is appropriate for you. Like PAXLOVID, FDA may also allow for the emergency use of other medicines to treat people with COVID-19. Go to https://www.fda.gov/vfcjgydks-mldiwpdntzuv-cdrkhylgdvh/dvq-sxtou-yfmrhqxyhn-and- policy-framework/cqcwgtsqa-ygw-amkilbxammkzo for information on the emergency use of other medicines that are authorized by FDA to treat people with COVID-19. Your healthcare provider may talk with you aboutclinical trials for which you may be eligible. It is your choice to be treated or not to be treated with PAXLOVID. Should you decide not to receive it or for your child not to receive it, it will not change your standard medical care. What if I am or ? There is leather novelty parts cutter treating women or mothers with PAXLOVID. For a motherand unborn baby, the benefit of taking PAXLOVID may be greater than the risk from the treatment. Ifyou are , discuss your options and specific situation with your healthcare provider. It is recommended that you use effective barrier contraception or do not have sexual activity whiletaking PAXLOVID. If you are , discuss your options and specific situation with your healthcare provider. How do I report side effects with PAXLOVID? Contact your healthcare provider if you have any side effects that bother you or do not go away. Report side effects to FDA MedWatch at www.fda.gov/medwatch or call 1-225-FAP0823 or you can reportside effects to [employer]. at the contact information provided below. Website Fax number Telephone number www.WinView How should I store PAXLOVID? Store PAXLOVID [...] (EUA). The EUA is supported by a Refurbish Technician of Health and Human Service (HHS) declaration that circumstances exist to justify the emergency use of drugs and biological productsduring the COVID-19 pandemic. PAXLOVID for the treatment of gjhh-nh-lxwimafu COVID-19 in adults and children [12 years of age andolder weighing at least 88 pounds (40 kg)] [...] telephone number provided below. Website Telephone number www.FQFLF11neeuUi.com (2-654-V07-BDGC) You can also go to www.My 1%.Mobile Media Content or call for more information. Pfizer Distributed by [employer] [place] [address] [id number] Revised: 30 September 2021 documented in this encounterTrihealth Bethes[facility]07-22-2022 History of Present illness Narrative* Hallie Harris APRN.SAMM - 02/03/2022 12:29 PM EDT Telemedicine Evaluation for COVID-19 Infection MyChart video visit was used for evaluation of this patient. Location of patient: [facility] Mukesh Rosenberg is a 66 year old [...] discussed Nirmatrelvir/Ritonavir (Paxlovid) Eligibility and Patient Discussion [facility] Formulary Restriction Criteria: Adult outpatients 20 years [...] reported. The discussion included alternatives to receiving nirmatrelvir/rit onavir, including clinical trials, and potential the risks and benefits of those alternatives. The patient was provided electronically with the Fact Sheet for Patients, Parents and Caregivers. The patient was also instructed that in addition to the treatment with nirmatrelvir/ritonavir, he/she should continue to self-isolate and use infection control measures (e.g., wear mask, isolate, social distance, avoid sharing personal items, clean and disinfect high touch surfaces, and frequent h andwashing) according to CDC guidelines. The patient stated understanding and gave verbal consent to proceeding with nirmatrelvir/ritonavir treatment. Hallie Harris APRN.CNP February 03, 2022 12:42 PM This patient encounter involved the screening or treatment of novel coronavirus infection (COVID-19). documented in this encounter[facility] History of Present illness Narrative* Hallie Harris APRN.CNP - 12/21/2021 4:57 PM EDT 12/21/2021 Patient presents with: Rx Refills Yearly Exam SUBJECTIVE: This is a 66 year old that is here today for Above Complaints. Since last office visit has been in good health without ER visits or hospitalizations. GERD: taking pantoprazole daily. Works well to control symptoms Chronic back pain: takes Celebrex daily and sometimes two times a day. Without medication has severpain. Continues to take estradiol prescribed by AUTOMOTIVE MAINTENANCE TECHNICIAN. Has hx of total hysterectomy Has spot on forehead. She report years ago went to dermatology who used something to area. Reports it was a vein or something. Area getting redder and would like to see a different dimensional integration engineer. PAST MEDICAL HISTORY Diagnosis Date Allergic rhinitis [...] No history of dysuria, frequency or incontinence AUTOMOTIVE MAINTENANCE TECHNICIAN: Negative for abnormal vaginal bleeding, abnormal vaginal discharge MUSCULOSKELETAL: Negative for joint pain or swelling, back pain or muscle pain SKIN: See HPI All other reviewed and negative other than HPI. OBJECTIVE: BP 142/84 Pulse 78 Resp 18 Ht 147 cm (4' 9.87) Wt 63.8 kg (140 lb 9.6 oz) SpO2 96% BMI29.51 kg/m . Vital signs reviewed by this [...] to upper center forehead otherwise skin color, texture,turgor normal, no suspicious rashes or lesions to [...] diet of 1000 mg/day for under 50, 1200- 1500 mg/day for 50+ - Follow up for [...] wants to see if anyone other than hai velazquez in area she can see - will let me know if she needs referral Hallie Podlogar, BRUSH STAINER.INSULATION POWER UNIT TENDER Prescription instructions reviewed with patient as applicable. Patient advised if symptoms do not improve or if symptoms worsen sooner, to contact their primary care physician. Potential red flag symptoms discussed with the patient. Reviewed appropriate action plan to take if red flag symptoms occur. Patient agreeable to treatment plan. documented in this encounterTri[facility] History of Present illness Narrative* Hitesh Yu RT(R) - 11/17/2020 5:30 PM EDT Radiology Service Progress Note PATIENT NAME: Mukesh Rosenberg DATE OF SERVICE: November 17, 2020 TIME: 5:29 PM PATIENT IDENTITY VERIFICATION COMPLETED USING TWO (2) IDENTIFIERS: Name and Date of confirmedby patient verbally. FALL SCREENING: Has the patient had 2 falls in the last year or 1 fall with injury or currently using an Ambulatory Assistive Device (Walker, Cane, Wheelchair, Crutches, etc.)? No PATIENT GENDER DATA: Female. status: : No status: NO. PATIENT RELEVANT IMPLANT DATA REVIEWED: Not Applicable RADIOLOGY DEPARTMENT: General X-ray: Exam(s) Completed: Spine X-Ray(s): Lumbar AP / LAT / L5-S1 PERIPHERAL IV DATA: Not applicable SIGNED BY: RT Rojas(R) November 17, 2020 5:29 PM [facility] Diagnosis Encounter for screening mammogram for breast cancer documented in this encounter [facility] note* Diagnosis Wellness examination- Primary Chronic low back pain, unspecified back pain laterality, unspecified whether sciatica present GERD without esophagitis Esophageal reflux Impaired fasting glucose Pure hypercholesterolemia Skin irritation Unspecified disorder of skin and subcutaneous tissue documented in this encounter [facility] note* Diagnosis Positive self-administered antigen test for COVID-19- Primary documented in this encounter [facility] note* Diagnosis Abnormal EKG- Primary Nonspecific abnormal electrocardiogram (ECG) (EKG) documented in this encounter [facility] note* Diagnosis Blood pressure check- Primary Screening for hypertension [facility]* Diagnosis Onset Date Resolution Status Atrophic vaginitis acute Cystocele acute Hormone replacement therapy acute Lichen sclerosus acute Rectocele acute Encounter for routine gynecological examination noneactive [facility] Work Phone: Evaluation note* Diagnosis GERD without esophagitis Esophageal reflux documented [facility] this encounter [facility]* Diagnosis Left leg numbness- Primary Disturbance of skin sensation S/P total knee arthroplasty, left Gastroesophageal reflux disease, unspecified whether esophagitis present Chronic right-sided low back pain with right-sided sciatica Hypertension, essential Unspecified essential hypertension documented [facility] this encounter [facility]* Diagnosis Hypertension, essential- Primary Unspecified essential hypertension [facility] Diagnosis Hypertension, essential- Primary Unspecified essential hypertension [facility] noteNo assessment information availableWOur Lady of [facility] Work Phone: Evaluation note* Diagnosis Hypertension, essential Unspecified essential hypertension [facility]* Diagnosis Hypertension, essential- Primary Unspecified essential hypertension Screening for hyperlipidemia Screening for lipoid disorders Screening for osteoporosis Special screening for osteoporosis Asymptomatic menopause Pain of maxillary sinus GERD without esophagitis Esophageal reflux documented in this encounter [facility]* Diagnosis Screening for osteoporosis Special screening for osteoporosis Asymptomatic menopause documented in this encounter [facility]* Diagnosis Hypertension, essential Unspecified essential hypertension documented in this encounter [facility]* Diagnosis Hypertension, essential Unspecified essential hypertension documented in this encounter [facility]* Diagnosis Mass of left axilla- Primary Recurrent cold sores Herpes simplex without mention of complication documented [facility] this encounter [facility]* Diagnosis Abscess of axilla, left- Primary Cellulitis and abscess of upper arm and forearm documented in this encounter [facility]* Diagnosis Hypertension, essential Unspecified essential hypertension documented [facility] this encounter [facility]* Diagnosis GERD without esophagitis Esophageal reflux [facility]* Diagnosis Hypertension, essential- Primary Unspecified essential hypertension Pure hypercholesterolemia Gastroesophageal reflux disease without esophagitis Esophageal reflux Impaired fasting glucose Primary osteoarthritis involving multiple joints Acute pain of right knee History of MRSA infection Personal history of Methicillin resistant Staphylococcus aureus Current nicotine use Encounter for immunization Need for other specified prophylactic vaccination against single bacterial disease documented in this encounter [facility]* Diagnosis Hypertension, essential Unspecified essential hypertension documented in this encounter [facility]* Diagnosis Abnormal EKG Nonspecific abnormal electrocardiogram (ECG) (EKG) documented in this encounter [facility]* Diagnosis Chronic right-sided low back pain with right-sided sciatica documented in this encounter [facility]* Diagnosis Hypertension, essential- Primary Unspecified essential hypertension Recurrent cold sores Herpes simplex without mention of complication Pure hypercholesterolemia Gastroesophageal reflux disease without esophagitis Esophageal reflux documented in this encounter [facility] note* Diagnosis Hypertension, essential- Primary Unspecified essential hypertension Chronic right-sided low back pain with right-sided sciatica GERD without esophagitis Esophageal reflux documented in this encounter [facility]* Diagnosis Chronic right-sided low back pain with right-sided sciatica documented in this encounter [facility]* Diagnosis Chronic right-sided low back pain with right-sided sciatica- Primary documented in this encounter [facility]* Diagnosis Chronic right-sided low back pain with right-sided sciatica- Primary documented in this encounter [facility]* Diagnosis Hypertension, essential- Primary Unspecified essential hypertension Daytime somnolence Hypersomnia, unspecified Bradycardia Other specified cardiac dysrhythmias documented in this encounter [facility] note* Diagnosis Chronic right-sided low back pain with right-sided sciatica- Primary Daytime somnolence Hypersomnia, unspecified documented in this encounter [facility] note* Diagnosis Hypertension, essential- Primary Unspecified essential hypertension Bradycardia Other specified cardiac dysrhythmias documented in this encounter [facility] note* Diagnosis Chronic right-sided low back pain with right-sided sciatica- Primary documented in this encounter [facility]* Diagnosis Chronic right-sided low back pain with right-sided sciatica- Primary documented in this encounter [facility]* Diagnosis Sleep apnea, unspecified type- Primary documented in this encounter [facility] for referral (narrative)* Diagnostic Procedure Only (Routine) - Pending Review Specialty Diagnoses / Procedures Referred By Contac t Referred To Contact [facility] Diagnoses Encounter for screening mammogram for breast cancer Procedures [place] SCREENING SCREENING MAMMOGRAPHY BI 2-VIEW BREAST INC CAD Jose Pike MD [address] [place] [address] [facility] [address] [place] [address] Referral ID Status Reason Start Date Expiration Date Visits Requested Visits Authorized [id number] Pending Review Auto-Generat ed Referral 12/07/2021 01/06/2023 1 1 [facility] HospitalReason for referral (narrative)No reason for referral information availableMelstone [facility] Work Phone: Reason for visit Narrative* Diagnostic Procedure Only (Routine) - Closed Specialty Diagnoses / Procedures Referred By Yusuf schwartz Referred To Contact Radiology / [facility] Diagnoses Chronic right-sided low back pain with right-sided sciatica Lumbar XR/Main Lobby Procedures X-RAY L-S SPINE AP/LATERAL XR GENERAL 8 Jose Pike MD [address] [place] [address] Radio [facility] [address] [place] [address] Referral ID Status Reason Start Date Expiration Date Visits Re quested Visits Authorized [id number] Closed 07/16/2020 07/15/2021 1 1 [facility] Advance Directives No Advanced Directives Records FoundDocuments on File Type Date Recorded Patient Strategic Debriefing Officer Expl anation Advance Directive(s) 07/21/2019 7:51 AM Documents on File Type Date Recorded Patient Strategic Debriefing Officer Expl anation Advance Directive(s) 07/21/2019 7:51 AM Advance Directive Response Recorded Date/ Time Living Will Yes March 02 0 11:49am Power of Truck Hop Yes March 02 11:49am Advance Directive Response Recorded Date/ Time Living Will Yes March 02 0 10:49am Power of Truck Hop Yes March 02 10:49am Chief Complaint and Reason for Visit Chief Complaint Annual (AUTOMOTIVE MAINTENANCE TECHNICIAN) SCREENING Reason for Visit Atrophic vaginitis Cystocele Hormone replacement therapy Lichen sclerosus Rectocele Encounter for routine gynecological examination Chief Complaint MASS OF LEFT AXILLA Chief Complaint MASS OF LEFT AXILLA SCREEN Chief Complaint Admit Date stomach issues-vomiting ever 6 wks November 142024 8:21am Chief Complaint Admit Date stomach issues-vomiting ever 6 wks November 142024 8:21am INT LABS December 02, 2024 9:39a m Reason for Visit Admit Date Abdominal pain December 02, 2024 8:21a m Chief Complaint Admit Date stomach issues-vomiting ever 6 wks November 142024 8:21am INT LABS December 02, 2024 9:39a m Annual (AUTOMOTIVE MAINTENANCE TECHNICIAN) January 07, 2025 11:1 8am Reason for Visit Admit Date Abdominal pain December 02, 2024 8:21a m Encounter for routine gynecological exam ination January 07, 2025 11:18am Family History No Family History Records Found Relationship Condition Age at Onset Recorded Date/T yvonne father Cerebrovascular accident (CVA) Unknown Cardiac disease Unknown Hypertension Unknown mother Hypertension Unknown Diabetes mellitus Unknown Arthritis Unknown brother Leukemia Unknown Reason for Referral Specialty Diagnoses / Procedures Referred By Contac t Referred To Contact General Surgery Diagnoses Mass of left axilla Procedures CONSULT TO GENERAL SURGERY OFFICE/OUTPATIENT [facility] 60 MINUTES Jose Pike MD [address] [place] [address] Referral ID Status Reason Start Date Expiration Date Visits Requested Visits Authorized [id number] Authorized PCP Requested Referral 09/10/2023 09/09/2024 1 1 Specialty Diagnoses / Procedures Referred By Contac t Referred To Contact General Surgery Diagnoses Abscess of axilla, left Procedures CONSULT TO GENERAL SURGERY OFFICE/OUTPATIENT [facility] 60 MINUTES Jose Pike MD [address] [place] [address] Referral ID Status Reason Start Date Expiration Date Visits Requested Visits Authorized [id number] Authorized PCP Requested Referral 10/08/2023 10/07/2024 1 1 Specialty Diagnoses / Procedures Referred By Contac t Referred To Contact [facility] Diagnoses Chronic right-sided low back pain with right-sided sciatica Procedures CONSULT TO PHYSICAL THERAPY PHYSICAL THERAPY EVALUATION HIGH COMPLEX 45 MINS Podlogar, RED Sterling.INSULATION POWER UNIT TENDER [address] [place] [address] [facility] [address] [place] [address] Referral ID Status Reason Start Date Expiration Date Visits Requested Visits Authorized [id number] Pending Review Auto-Generat ed Referral 08/01/2024 08/01/2025 1 1 Specialty Diagnoses / Procedures Referred By Contac t Referred To Contact [facility] Diagnoses Chronic right-sided low back pain with right-sided sciatica Procedures CONSULT TO SPINE MEDICAL CENTER OFFICE/OUTPATIENT [facility] 60 MINUTES Podlogar, RED Sterling.INSULATION POWER UNIT TENDER [address] [place] [address] Referral ID Status Reason Start Date Expiration Date Visits Requested Visits Authorized [id number] Authorized PCP Requested Referral 08/01/2024 08/01/2025 1 1 Summary Purpose Additional Source Comments Source Comments (unrecognize d section and content) In the event this informatio n is protected by the Federal Confidentiality of Alcohol and Drug Abuse Patient Records regulations: The Federal rules restrict any use of the information to criminally investigate or prosecute any alcohol or drug abuse patient.[facility] HospitalIn the event this information is protected by the Federal Confidentiality of Alcohol and Drug Abuse Patient Records regulations: The Federal rules restrict any use of the information to criminally investigate or prosecute any alcohol or drug abuse patient.[facility] HospitalIn the event this information is protected by the Federal Confidentiality of Alcohol and Drug Abuse Patient Records regulations: The Federal rules restrict any use of the information to criminally investigate or prosecute any alcohol or drug abuse patient.[facility] HospitalIn the event this information is protected by the Federal Confidentiality of Alcohol and Drug Abuse Patient Records regulations: The Federal rules restrict any use of the information to criminally investigate or prosecute any alcohol or drug abuse patient.[facility] HospitalIn the event this information is protected by the Federal Confidentiality of Alcohol and Drug Abuse Patient Records regulations: The Federal rules restrict any use of the information to criminally investigate or prosecute any alcohol or drug abuse patient.[facility] HospitalIn the event this information is protected by the Federal Confidentiality of Alcohol and Drug Abuse Patient Records regulations: The Federal rules restrict any use of the information to criminally investigate or prosecute any alcohol or drug abuse patient.[facility] HospitalIn the event this information is protected by the Federal Confidentiality of Alcohol and Drug Abuse Patient Records regulations: The Federal rules restrict any use of the information to criminally investigate or prosecute any alcohol or drug abuse patient.[facility] HospitalIn the event this information is protected by the Federal Confidentiality of Alcohol and Drug Abuse Patient Records regulations: The Federal rules restrict any use of the information to criminally investigate or prosecute any alcohol or drug abuse patient.[facility] HospitalIn the event this information is protected by the Federal Confidentiality of Alcohol and Drug Abuse Patient Records regulations: The Federal rules restrict any use of the information to criminally investigate or prosecute any alcohol or drug abuse patient.[facility] HospitalIn the event this information is protected by the Federal Confidentiality of Alcohol and Drug Abuse Patient Records regulations: The Federal rules restrict any use of the information to criminally investigate or prosecute any alcohol or drug abuse patient.[facility] HospitalIn the event this information is protected by the Federal Confidentiality of Alcohol and Drug Abuse Patient Records regulations: The Federal rules restrict any use of the information to criminally investigate or prosecute any alcohol or drug abuse patient.[facility] HospitalIn the event this information is protected by the Federal Confidentiality of Alcohol and Drug Abuse Patient Records regulations: The Federal rules restrict any use of the information to criminally investigate or prosecute any alcohol or drug abuse patient.[facility] HospitalIn the event this information is protected by the Federal Confidentiality of Alcohol and Drug Abuse Patient Records regulations: The Federal rules restrict any use of the information to criminally investigate or prosecute any alcohol or drug abuse patient.[facility] HospitalIn the event this information is protected by the Federal Confidentiality of Alcohol and Drug Abuse Patient Records regulations: The Federal rules restrict any use of the information to criminally investigate or prosecute any alcohol or drug abuse patient.[facility] HospitalIn the event this information is protected by the Federal Confidentiality of Alcohol and Drug Abuse Patient Records regulations: The Federal rules restrict any use of the information to criminally investigate or prosecute any alcohol or drug abuse patient.[facility] HospitalIn the event this information is protected by the Federal Confidentiality of Alcohol and Drug Abuse Patient Records regulations: The Federal rules restrict any use of the information to criminally investigate or prosecute any alcohol or drug abuse patient.[facility] HospitalIn the event this information is protected by the Federal Confidentiality of Alcohol and Drug Abuse Patient Records regulations: The Federal rules restrict any use of the information to criminally investigate or prosecute any alcohol or drug abuse patient.[facility] HospitalIn the event this information is protected by the Federal Confidentiality of Alcohol and Drug Abuse Patient Records regulations: The Federal rules restrict any use of the information to criminally investigate or prosecute any alcohol or drug abuse patient.[facility] HospitalIn the event this information is protected by the Federal Confidentiality of Alcohol and Drug Abuse Patient Records regulations: The Federal rules restrict any use of the information to criminally investigate or prosecute any alcohol or drug abuse patient.[facility] HospitalIn the event this information is protected by the Federal Confidentiality of Alcohol and Drug Abuse Patient Records regulations: The Federal rules restrict any use of the information to criminally investigate or prosecute any alcohol or drug abuse patient.[facility] HospitalIn the event this information is protected by the Federal Confidentiality of Alcohol and Drug Abuse Patient Records regulations: The Federal rules restrict any use of the information to criminally investigate or prosecute any alcohol or drug abuse patient.[facility] HospitalIn the event this information is protected by the Federal Confidentiality of Alcohol and Drug Abuse Patient Records regulations: The Federal rules restrict any use of the information to criminally investigate or prosecute any alcohol or drug abuse patient.[facility] HospitalIn the event this information is protected by the Federal Confidentiality of Alcohol and Drug Abuse Patient Records regulations: The Federal rules restrict any use of the information to criminally investigate or prosecute any alcohol or drug abuse patient.[facility] HospitalIn the event this information is protected by the Federal Confidentiality of Alcohol and Drug Abuse Patient Records regulations: The Federal rules restrict any use of the information to criminally investigate or prosecute any alcohol or drug abuse patient.[facility] HospitalIn the event this information is protected by the Federal Confidentiality of Alcohol and Drug Abuse Patient Records regulations: The Federal rules restrict any use of the information to criminally investigate or prosecute any alcohol or drug abuse patient.[facility] HospitalIn the event this information is protected by the Federal Confidentiality of Alcohol and Drug Abuse Patient Records regulations: The Federal rules restrict any use of the information to criminally investigate or prosecute any alcohol or drug abuse patient.[facility] HospitalIn the event this information is protected by the Federal Confidentiality of Alcohol and Drug Abuse Patient Records regulations: The Federal rules restrict any use of the information to criminally investigate or prosecute any alcohol or drug abuse patient.[facility] HospitalIn the event this information is protected by the Federal Confidentiality of Alcohol and Drug Abuse Patient Records regulations: The Federal rules restrict any use of the information to criminally investigate or prosecute any alcohol or drug abuse patient.[facility] HospitalIn the event this information is protected by the Federal Confidentiality of Alcohol and Drug Abuse Patient Records regulations: The Federal rules restrict any use of the information to criminally investigate or prosecute any alcohol or drug abuse patient.[facility] HospitalIn the event this information is protected by the Federal Confidentiality of Alcohol and Drug Abuse Patient Records regulations: The Federal rules restrict any use of the information to criminally investigate or prosecute any alcohol or drug abuse patient.[facility] HospitalIn the event this information is protected by the Federal Confidentiality of Alcohol and Drug Abuse Patient Records regulations: The Federal rules restrict any use of the information to criminally investigate or prosecute any alcohol or drug abuse patient.[facility] HospitalIn the event this information is protected by the Federal Confidentiality of Alcohol and Drug Abuse Patient Records regulations: The Federal rules restrict any use of the information to criminally investigate or prosecute any alcohol or drug abuse patient.[facility] HospitalIn the event this information is protected by the Federal Confidentiality of Alcohol and Drug Abuse Patient Records regulations: The Federal rules restrict any use of the information to criminally investigate or prosecute any alcohol or drug abuse patient.[facility]In the event this information is protected by the Federal Confidentiality of Alcohol and Drug Abuse Patient Records regulations: The Federal rules restrict any use of the information to criminally investigate or prosecute any alcohol or drug abuse patient.[facility] HospitalIn the event this information is protected by the Federal Confidentiality of Alcohol and Drug Abuse Patient Records regulations: The Federal rules restrict any use of the information to criminally investigate or prosecute any alcohol or drug abuse patient.[facility] HospitalIn the event this information is protected by the Federal Confidentiality of Alcohol and Drug Abuse Patient Records regulations: The Federal rules restrict any use of the information to criminally investigate or prosecute any alcohol or drug abuse patient.[facility] HospitalIn the event this information is protected by the Federal Confidentiality of Alcohol and Drug Abuse Patient Records regulations: The Federal rules restrict any use of the information to criminally investigate or prosecute any alcohol or drug abuse patient.[facility] HospitalIn the event this information is protected by the Federal Confidentiality of Alcohol and Drug Abuse Patient Records regulations: The Federal rules restrict any use of the information to criminally investigate or prosecute any alcohol or drug abuse patient.[facility] HospitalIn the event this information is protected by the Federal Confidentiality of Alcohol and Drug Abuse Patient Records regulations: The Federal rules restrict any use of the information to criminally investigate or prosecute any alcohol or drug abuse patient.[facility] HospitalIn the event this information is protected by the Federal Confidentiality of Alcohol and Drug Abuse Patient Records regulations: The Federal rules restrict any use of the information to criminally investigate or prosecute any alcohol or drug abuse patient.[facility] HospitalIn the event this information is protected by the Federal Confidentiality of Alcohol and Drug Abuse Patient Records regulations: The Federal rules restrict any use of the information to criminally investigate or prosecute any alcohol or drug abuse patient.[facility] HospitalIn the event this information is protected by the Federal Confidentiality of Alcohol and Drug Abuse Patient Records regulations: The Federal rules restrict any use of the information to criminally investigate or prosecute any alcohol or drug abuse patient.[facility] HospitalIn the event this information is protected by the Federal Confidentiality of Alcohol and Drug Abuse Patient Records regulations: The Federal rules restrict any use of the information to criminally investigate or prosecute any alcohol or drug abuse patient.[facility] HospitalIn the event this information is protected by the Federal Confidentiality of Alcohol and Drug Abuse Patient Records regulations: The Federal rules restrict any use of the information to criminally investigate or prosecute any alcohol or drug abuse patient.[facility] HospitalIn the event this information is protected by the Federal Confidentiality of Alcohol and Drug Abuse Patient Records regulations: The Federal rules restrict any use of the information to criminally investigate or prosecute any alcohol or drug abuse patient.[facility] HospitalIn the event this information is protected by the Federal Confidentiality of Alcohol and Drug Abuse Patient Records regulations: The Federal rules restrict any use of the information to criminally investigate or prosecute any alcohol or drug abuse patient.[facility] HospitalIn the event this information is protected by the Federal Confidentiality of Alcohol and Drug Abuse Patient Records regulations: The Federal rules restrict any use of the information to criminally investigate or prosecute any alcohol or drug abuse patient.[facility] HospitalIn the event this information is protected by the Federal Confidentiality of Alcohol and Drug Abuse Patient Records regulations: The Federal rules restrict any use of the information to criminally investigate or prosecute any alcohol or drug abuse patient.[facility] Care Teams (unrecognized sec tion and content) Awning Finisher Relationship Specialty Start Date End Date Jose Pike MD [address] [place] [address] PCP - General Family Practice 07/10/17 Awning Finisher Relationship Specialty Start Date End Date Jose Pike MD [address] [place] [place] [address] PCP - General Family Practice 07/10/17 Awning Finisher Relationship Specialty Start Date End Date Jose Pike MD [address] [place] [address] PCP - General Family Practice 07/10/17 Awning Finisher Relationship Specialty Start Date End Date Jose Pike MD [address] [place] [address] PCP - General Family Practice 07/10/17 Awning Finisher Relationship Specialty Start Date End Date Jose Pike MD [address] [place] [address] PCP - General Family Medicine 07/10/17 Awning Finisher Relationship Specialty Start Date End Date Jose Pike MD [address] [place] [address] PCP - General Family Medicine 07/10/17 Awning Finisher Relationship Specialty Start Date End Date Jose Pike MD [address] [place] [address] PCP - General Family Medicine 07/10/17 Team Status: Active Member Role Status Dates Dr. Joseph Pike MD Family Provider Active Dr. Joseph Pike MD Primary Care Provider Acti ve Team Status: Inactive Member Role Status Dates Dr. Joseph Pike MD Primary Care Provider, Ref erring Provider Active Deja Amaya ECOMMERCE MANAGER, ECOMMERCE MANAGER-C Attending Provider Active Team Status: Inactive Member Role Status Dates Dr. Joseph Pike MD Primary Care Provider Acti ve Deja Amaya ECOMMERCE MANAGER, ECOMMERCE MANAGER-C Attending Provider, Referring Provider Active Awning Finisher Relationship Specialty Start Date End Date Jose Pike MD [address] [place] [address] PCP - General Family Medicine 07/10/17 Awning Finisher Relationship Specialty Start Date End Date Jose Pike MD [address] [place] [address] PCP - General Family Medicine 07/10/17 Awning Finisher Relationship Specialty Start Date End Date Jose Pike MD [address] [place] [address] PCP - General Family Medicine 07/10/17 Team Status: Inactive Member Role Status Dates Dr. Joseph Pike MD Primary Care Provider Acti ve Dr. Ryan Mon MD Attending Provider, Referring Provider Active Awning Finisher Relationship Specialty Start Date End Date Jose Pike MD [address] [place] [address] PCP - General Family Medicine 07/10/17 Awning Finisher Relationship Specialty Start Date End Date Jose Pike MD [address] [place] [address] PCP - General Family Medicine 07/10/17 Awning Finisher Relationship Specialty Start Date End Date Jose Pike MD [address] [place] [address] PCP - General Family Medicine 07/10/17 Awning Finisher Relationship Specialty Start Date End Date Jose Pike MD [address] [place] [address] PCP - General Family Medicine 07/10/17 Awning Finisher Relationship Specialty Start Date End Date Jose Pike MD [address] [place] [address] PCP - General Family Medicine 07/10/17 Awning Finisher Relationship Specialty Start Date End Date Jose Pike MD [address] [place] [address] PCP - General Family Medicine 07/10/17 Team Status: Inactive Member Role Status Dates Dr. Joseph Piek MD Primary Care Provider, Att ending Provider Active Dr. Ramos Pham MD Other Provider Active Awning Finisher Relationship Specialty Start Date End Date Jose Pike MD [address] [place] [address] PCP - General Family Medicine 07/10/17 Awning Finisher Relationship Specialty Start Date End Date Jose Pike MD [address] [place] [address] PCP - General Family Medicine 07/10/17 Awning Finisher Relationship Specialty Start Date End Date Jose Pike MD [address] [place] [address] PCP - General Family Medicine 07/10/17 Awning Finisher Relationship Specialty Start Date End Date Jose Pike MD [address] [place] [address] PCP - General Family Medicine 07/10/17 Awning Finisher Relationship Specialty Start Date End Date Jose Pike MD [address] [place] [address] PCP - General Family Medicine 07/10/17 Awning Finisher Relationship Specialty Start Date End Date Jose Pike MD [address] [place] [address] PCP - General Family Medicine 07/10/17 Awning Finisher Relationship Specialty Start Date End Date Jose Pike MD [address] [place] [address] PCP - General Family Medicine 07/10/17 Awning Finisher Relationship Specialty Start Date End Date Jose Pike MD [address] [place] [address] PCP - General Family Medicine 07/10/17 PodlogarHallie APRN.INSULATION POWER UNIT TENDER [address] [place] [address] [employer] [facility] Family Medicine 06/21/24 Awning Finisher Relationship Specialty Start Date End Date Jose Pike MD [address] [place] [address] PCP - General Family Medicine 07/10/17 PodlogarHallie, BRUSH STAINER.INSULATION POWER UNIT TENDER [address] [place] [address] Urban Designer Family Medicine 06/21/24 Awning Finisher Relationship Specialty Start Date End Date Jose Pike MD [address] [place] [address] PCP - General Family Medicine 07/10/17 Podlogar, CARMEN SterlingN.INSULATION POWER UNIT TENDER [address] [place] [address] Urban Designer Family Medicine 06/21/24 Awning Finisher Relationship Specialty Start Date End Date Jose Pike MD [address] [place] [address] PCP - General Family Medicine 07/10/17 Podlogar, CARMEN SterlingN.INSULATION POWER UNIT TENDER [address] [facility] [place] [address] Urban Designer Family Medicine 06/21/24 Awning Finisher Relationship Specialty Start Date End Date Jose Pike MD [address] [facility] [place] [address] PCP - General Family Medicine 07/10/17 Podlogar, Hallie, BRUSH STAINER.INSULATION POWER UNIT TENDER [address] [facility] [place] [address] Urban Designer Family Medicine 06/21/24 Awning Finisher Relationship Specialty Start Date End Date Jose Pike MD [address] [facility] [place] [address] PCP - General Family Medicine 07/10/17 Podlogar, Hallie, BRUSH STAINER.INSULATION POWER UNIT TENDER [address] [facility] [place] [address] Urban Designer Family Medicine 06/21/24 Awning Finisher Relationship Specialty Start Date End Date Jose Pike MD [address] [facility] [place] [address] PCP - General Family Medicine 07/10/17 Podlogar, Hallie, BRUSH STAINER.INSULATION POWER UNIT TENDER [address] [facility] [place] [address] Urban Designer Family [facility] 06/21/24 Awning Finisher Relationship Specialty Start Date End Date Jose Pike MD [address] [facility] [place] [address] PCP - General Family Medicine 07/10/17 PodlogarHallie APRN.INSULATION POWER UNIT TENDER [address] [place] [address] [facility] Awning Finisher Relationship Specialty Start Date End Date Jose Pike MD [address] [place] [address] PCP - General Family Medicine 07/10/17 PodlogarHallie APRN.INSULATION POWER UNIT TENDER [address] [place] [address] [facility] 06/21/24 Betina Nelson APRN.INSULATION POWER UNIT TENDER [address] [place] [address] [facility] 09/26/24 Awning Finisher Relationship Specialty Start Date End Date Jose Pike MD [address] [place] [address] PCP - General Family Medicine 07/10/17 PodlogarHallie APRN.INSULATION POWER UNIT TENDER [address] [place] [address] [facility] Medicine 06/21/24 Betina Nelson BRUSH STAINER.INSULATION POWER UNIT TENDER [address] [place] [address] [facility] Medicine 10/06/24 Awning Finisher Relationship Specialty Start Date End Date Jose Pike MD [address] [place] [address] PCP - General Family Medicine 07/10/17 PodlogarHallie BRUSH STAINER.INSULATION POWER UNIT TENDER [address] [place] [address] Urban Designer Family Medicine 06/21/24 Betina Nelson APRN.INSULATION POWER UNIT TENDER [address] [place] [address] [facility] Medicine 09/26/24 10/05/24 Betina Nelson APRN.INSULATION POWER UNIT TENDER [address] [place] [address] [facility] 10/06/24 Awning Finisher Relationship Specialty Start Date End Date Jose Pike MD [address] [place] [address] PCP - General Family Medicine 07/10/17 Podlogar, Hallie BRUSH STAINER.INSULATION POWER UNIT TENDER [address] [place] [address] [facility] Family Medicine 06/21/24 Betina Nelson APRN.INSULATION POWER UNIT TENDER [address] [place] [address] [facility] 10/06/24 Awning Finisher Relationship Specialty Start Date End Date Jose Pike MD [address] [place] [address] PCP - General Family Medicine 07/10/17 Podlogar, Hallie, BRUSH STAINER.INSULATION POWER UNIT TENDER [address] [place] [address] Urban [employer] Family [facility] 06/21/24 Betina Nelson APRN.INSULATION POWER UNIT TENDER [address] [place], [place] [address] [facility] 10/06/24 Awning Finisher Relationship Specialty Start Date End Date Jose Pike MD [address] [place], [place] [address] PCP - General Family Medicine 07/10/17 PodlogarHallie APRN.INSULATION POWER UNIT TENDER [address] [place], [place] [address] [facility] 06/21/24 Betina Nelson APRN.INSULATION POWER UNIT TENDER [address] [place], [place] [address] [facility] 10/06/24 Team Status: Inactive Member Role Status Dates Dr. Joseph Pike MD Primary Care Provider Acti ve Start: December 02, 2024 End: December 02, 2024 Dr. Joseph Pike MD Referring Provider Active Start: December 02, 2024 End: December 02, 2024 Dr. Javid Blackwood DO Attending Provider Active Start: December 02, 2024 End: December 02, 2024 Team Status: Inactive Member Role Status Dates Dr. Joseph Pike MD Primary Care Provider Acti ve Start: December 02, 2024 End: December 02, 2024 Dr. Javid Blackwood DO Attending Provider Active Start: December 02, 2024 End: December 02, 2024 Dr. Javid Blackwood DO Referring Provider Active Start: December 02, 2024 End: December 02, 2024 Awning Finisher Relationship Specialty Start Date End Date Jose Pike MD [address] [place], [place] [address] PCP - General Family Medicine 07/10/17 Podlogar, Hallie, BRUSH STAINER.INSULATION POWER UNIT TENDER [address] [place] [address] [facility] 06/21/24 Awning Finisher Relationship Specialty Start Date End Date Jose Pike MD [address] [place], [place] [address] PCP - General Family Medicine 07/10/17 PodlogarHallie APRN.INSULATION POWER UNIT TENDER [address] [place], [place] [address] Urban Designer [facility] 06/21/24 Betina Nelson APRN.INSULATION POWER UNIT TENDER [address] [place] [id number] [facility] 12/25/24 Team Status: Active Member Role Status Dates Dr. Joseph Pike MD Primary Care Provider Acti ve Team Status: Inactive Member Role Status Dates Dr. Joseph Pike MD Primary Care Provider Acti ve Start: January 07, 2025 End: January 07, 2025 Dr. Joseph Pike MD Referring Provider Active Start: January 07, 2025 End: January 07, 2025 Deja Amaya NP, ECOMMERCE MANAGER-C Attending Provider Active Start: January 07, 2025 End: January 07, 2025 Reason for Visit (unrecogniz ed section and content) Reason Comments PT Discharge Specialty Diagnoses / Procedures Referred By Yusuf schwartz Referred To Contact [facility] Diagnoses Chronic right-sided low back pain with right-sided sciatica Procedures CONSULT TO PHYSICAL THERAPY PHYSICAL THERAPY EVALUATION HIGH COMPLEX 45 MINS Podlogar, RED Sterling.INSULATION POWER UNIT TENDER [address] [place] [address] Phone: tel: fax: [facility] [address] [place] [address] Referral ID Status Reason Start Date Expiration Date Visits Requested Visits Authorized [id number] Authorized Auto-Generat ed Referral 07/16/2024 07/15/2025 99 99 Reason Comments Physical Therapy Specialty Diagnoses / Procedures Referred By Yusuf t Referred To Contact [facility] Diagnoses Chronic right-sided low back pain with right-sided sciatica Procedures CONSULT TO PHYSICAL THERAPY PHYSICAL THERAPY EVALUATION HIGH COMPLEX 45 MINS Podlogar, RED Sterling.INSULATION POWER UNIT TENDER [address] [place] [address] [facility] [address] [place] [address] Referral ID Status Reason Start Date Expiration Date Visits Requested Visits Authorized [id number] Authorized Auto-Generat ed Referral 07/16/2024 07/15/2025 99 99 Reason Comments Rx Refills Yearly Exam Reason Comments Covid Test Result Reason Comments [...] Blood Pressure Recheck Reason Comments BP Check Reason Comments Derm Problem Red irritated bump t o left axilla- patient thinks about 3 weeks possibly Reason Comments Mass To left axilla again - painful to touch Reason Onset Date Comments Refill Request 11/30/2023 Reason Comments Follow Up 3 month Reason Onset Date Comments Allied Health Visit 02/01/2024 Medication A dherence Outreach Reason Onset Date Comments Refill Request 03/14/2024 Reason Comments Recheck BP check Reason Comments PT Eval Reason Comments Appointment Reason Comments PT Progress Note Reason Comments Follow Up BP recheck Reason Comments Follow Up Reason Onset Date Comments Results 09/10/2024 Reason Onset Date Comments Allied Health Visit 11/25/2024 Medication A dherence Outreach Reason Onset Date Comments Refill Request 11/27/2024 Reason Onset Date Comments Allied Health Visit 12/22/2024 Medication A dherence Outreach Reason Onset Date Comments Allied Health Visit 01/02/2025 Medication A dherence Outreach Goals (unrecognized section and content) Goals may be documented in a n alternate sectionGoals may be documented in an alternate sectionGoals may be documented in an alternate sectionGoals may be documented in an alternate sectionGoals may be documented in an alternate sectionGoals may be documented in an alternate sectionGoals may be documented in an alternate section INFORMATION SOURCE (unrecogn ized section and content) DATE CREATED AUTHOR 01/05/2025 [facility] DATE CREATED AUTHOR JOSEPH BETANCOURT 01/25/2025 [facility] FOR RECORDS PERTAINING TO PATIENTS WHO ARE [...] BE BASED ON THE PRIMARY CLINICAL RECORDS. [employer] provides no warranty or guarantee of the accuracy or completeness of information in this document.
[2025-01-30] MEDS: Lactated Ringers 1,000 ML 15 ML IV (06:38)
--- NOTE | 2025-01-30 06:53 | PRE.ANES_ITS ---
ASA Classification* ASA Classification ASA Classification: 2 Assessment & Plan Anesthesia* Anesthesia Assessment Anesthesia Assessment: Discussed sedation and/or anesthesia options, risks, benefits, and alternatives with patient/parents/legal guardian/POA. Questions invited. The patient/parents/legal guardian/POA seems to understand and agrees to proceed with anesthesia plan. Reviewed the physical assessment, medical history, allergy history and patient home medications list prior to surgery/procedure/anesthetic and documented any changes. Performed airway and anesthesia risk assessments. Anesthesia Type Anesthesia Type: MAC History Source History Obtained from:: Patient and Chart Anesthesia Focused Assessment* Temperature: 97.3 F Pulse Rate: 73 Blood Pressure: 131/77 Respiratory Rate: 16 Pulse Ox: 99 Oxygen Delivery Method: Room Air Airway Assessment Mouth opens: >3 cm Mallampati Score: II Teeth Condition: Caps/Crowns (Patient has several crowns. They are all tight.) and Implants (Patient has a right upper implant. It is tight.) Neck Range of motion (ROM): Full ROM Labs Anesthesia Preop lab: CBC WBC 6.8 K/mm3 (4.4-11.0) 12/02/24 09:46 12/02/24 RBC 4.32 M/mm3 (4.2-5.4) 12/02/24 09:46 12/02/24 Hgb 13.5 g/dL (12.0-15.0) 12/02/24 09:46 12/02/24 Hct 40.3 % (37-47) 12/02/24 09:46 12/02/24 Plt Count 278 K/mm3 (150-450) 12/02/24 09:46 12/02/24 CHEMISTRY Potassium 3.9 mmol/L (3.3-5.1) 12/02/24 09:46 12/02/24 Sodium 140 mmol/L (133-145) 12/02/24 09:46 12/02/24 BUN 12 mg/dL (4-19) 12/02/24 09:46 12/02/24 Creatinine 0.74 mg/dL (0.70-1.20) 12/02/24 09:46 12/02/24 Glucose 102 mg/dL (70-99) H 12/02/24 09:46 12/02/24 TSH 2.470 uIU/mL (0.300-4.200) 12/02/24 09:46 05/2 COAG Pre-Assessment Diagnosis/Proposed Procedure Planned Operative Procedure(s): EGD, COLONOSCOPY Anesthesia History Anesthesia History - impregnator carbon products: Anesthesia History - impregnator carbon products Hx Hospitalization No 01/27/25 14:05 Any Problems With Anesthesia No 01/27/25 14:05 Cholinesterase deficiency No 01/27/25 14:05 You/Your Family Experience No 01/27/25 14:05 fever (hyperthermia) with Relationship Recent Exposure to Contagious No 01/30/25 06:28 Disease Does patient have nerve No 01/27/25 14:05 stimulator Patient instructed to have device shut off --Does patient have Pacemaker No 01/30/25 06:28 or ICD? When Was Last Pacemaker Check QUESTION #4 FULL TEXT: You/Your Family Experience fever (hyperthermia) with Anesthesia Last Oral Intake Last Oral intake: Last Oral Intake NPO since 05:15 01/30/25 06:28 Meds taken in AM with sips of Yes 01/30/25 06:28 water? Meds patient instructed to see mar 01/30/25 06:28 take am of surgery Any additional information?: Yes Meds taken in AM with sips of water?: Yes PONV PONV - impregnator carbon products: PONV - impregnator carbon products Female Yes 01/27/25 14:05 HX of Motion Sickness No 01/27/25 14:05 HX of N/V After Surgery Yes 01/27/25 14:05 Non-Smoker Yes 01/27/25 14:05 Duration of Surgery greater No 01/27/25 14:05 than 60 minutes Number of Risk Factors 3 01/27/25 14:05 PONV Score Moderate Risk 01/27/25 14:05 Height & Weight Height & Weight: Anesthesia: Height & Weight Height 5 ft 01/30/25 06:28 Weight: 57.606 kg 01/30/25 06:28 Body Mass Index (BMI) 24.7 01/30/25 06:28 Respiratory Assessment Respiratory Assessment - impregnator carbon products: Respiratory Tract Infection Hx - impregnator carbon products Hx Respiratory Tract Infection Yes: STUFFY NOSE, WILL CALL 01/27/25 14:05 IF NOT IMPROVED BY 01/29 STOP Sleep Apnea STOP Sleep Apnea - impregnator carbon products: STOP Sleep Apnea - impregnator carbon products Hx Hypertension Yes 01/27/25 14:05 Hx Sleep Apnea No 01/27/25 14:05 CPAP No 03/10/20 12:27 BIPAP Do you snore loudly (louder No 01/27/25 14:05 than talking or can be heard Do you often feel tired/ No 01/27/25 14:05 fatigued/ sleepy during daytime? Has anyone observed you stop No 01/27/25 14:05 breathing during sleep? STOP Results Negative 01/27/25 14:05 QUESTION #5 FULL TEXT : Do you snore loudly (louder than talking or can be heard through closed doors)? Tobacco Use History Tobacco Use History - impregnator carbon products: Tobacco Use History - impregnator carbon products Tobacco Use Smoking Status Former smoker 01/27/25 14:05 Hx Tobacco Use No 01/27/25 14:05 Years Smoking Packs Smoked per Day Smoking Cessation Date was No - quit smoking greater 01/27/25 14:05 within the last 15 years than 15 years ago Hx Smoking Cessation Date Hx Smoking Cessation Counseling Hematologic Medial History Hematologic Hx - impregnator carbon products: Hematologic Medical Hx - chamber walker Hx of Blood Transfusion Yes 01/27/25 14:05 Hx of Transfusion in last 3 No 01/27/25 14:05 Months Date of Last Transfusion (if within last 3 months) Ever experience any problems No 01/27/25 14:05 with transfusion(s)? Specify any problems Hx of Preganancy in last 3 No 01/27/25 14:05 Months Nurse Filling Out Transfusion [facility] 01/27/25 14:05 & Questions: Date: 01/27/25 01/27/25 14:05 Time: 14:18 01/27/25 14:05 Patient unable to answer at this time (ie. confused, unrespo /Reproduction History /Reproductive History - impregnator carbon products: /Reproductive Hx- impregnator carbon products Hx Now No 01/27/25 14:05 Gestational Age (in weeks): EDC: Hx Hx Para Hx Section SAB No 01/27/25 14:05 Active Medications Active Medications: Current Medications Generic Name Dose Route Start Last Admin Trade Name Freq PRN Reason Stop Dose Admin Lactated Ringer's 1,000 mls @ 15 mls/hr 01/30/25 06:15 01/30/25 06:38 IV 15 mls/hr .Q48H BILL Administration PFSH Medical History MRSA infection Marijuana use Bruising Heartburn Former smoker History of stress test Hypertension Chronic constipation Bleeding internal hemorrhoids Acid reflux Hemorrhoids Blood in stool Arthritis Anxiety Atrophic vaginitis Lichen sclerosus Back pain Seasonal allergies Home Medications ?Medication ?Instructions ?Recorded ?Last Taken ?Type pantoprazole 40 mg tablet,delayed 40 mg PO DAILY gerd 05/20/18 01/30/25 History release loratadine 10 mg tablet (Claritin) 10 mg PO DAILY 11/13 11/01 Unknown History nicotine (polacrilex) 2 mg gum 2 mg buccal Q2H 9 Unknown History (Nicorette) valacyclovir 1 gram tablet 2,000 mg (2 x 1 gram) PO .C OMPLEX 07/11/21 Unknown Rx (Valtrex) #12 tabs docusate sodium 50 mg capsule 50 mg PO DAILY PRN const ipation 08/25/21 Unknown History (Stool Softener) polyethylene glycol 3350 17 17 g PO DAILY 08/25/21 Unk nown History gram/dose oral powder (Miralax) estradiol 0.01% (0.1 mg/gram) See Rx Instructions vagi nal 01/07/25 Unknown Rx vaginal cream (Estrace) .COMPLEX #42.5 grams estradiol 0.5 mg tablet 0.5 mg PO DAILY #90 tabs Unknown Rx amlodipine 5 mg tablet 5 mg PO DAILY 01/27/2501/30 History fluticasone propionate 50 1 spray intranasal DAILY PRN 01/27/25 Unknown History mcg/actuation nasal allergy symptoms spray,suspension (Allergy Relief (fluticasone)) lisinopril 40 mg tablet 40 mg PO DAILY 01/27/2501/13 History ondansetron HCl 4 mg tablet 4 mg PO Q6H PRN nausea and 01/29/25 Unknown Rx vomiting #5 tabs Allergy/AdvReac Type Severity Reaction Status Date / Time naproxen Allergy Swelling Verified 01/27/25 14:01 Family History Father CVA (cerebral vascular accident) Heart disease Hypertension Mother Hypertension Diabetes Heart disease Arthritis Brother Leukemia Surgical History S/P knee replacement History of hemorrhoidectomy (~02/2020) History of esophagogastroduodenoscopy (EGD) Hx of colonoscopy S/P trigger finger release H/O toe surgery History of tonsillectomy H/O knee surgery H/O carpal tunnel repair H/O: hysterectomy Social History adopted: No household members: spouse number of children: 2 current occupational status: retired current occupation: [employer] sexually active: Yes Smoking Status: Former smoker alcohol intake: current alcohol intake frequency: a few times a month substance use type: does not use what type of physical activity do you participate in: none seatbelt use: always do you feel safe at home: Yes additional social history: Tai - retired Review of Systems (Anesthesia) ROS Narrative System reviewed and no additional complaints, except as documented. Physical Exam Resp clear to auscultation bilaterally
--- NOTE | 2025-01-30 06:53 | PCM.HP.STD ---
HPI - General General Date of Admission: 01/30/25 Date of Service: 01/30/25 Chief Complaint: Her, abdominal pain with intermittent diarrhea and constipation HPI Narrative MUKESH ROCHE, is a 69 F who presents with a long history of issues with digestion and constipation. Pt reports that she had a hemorrhoidectomy with Dr Pham in 2020. Pt reports that for the past year and a half she has started having episodes of emesis. Pt reports episodes are typically about 4-5 weeks apart and has recently started to have diarrhea during these episodes as well. Pt cannot pinpoint specific foods that upset her stomach, reports that she does usually get sick after the occasional beer. Pt reports her last colonoscopy was 5 years ago and last EGD was 10+ years ago. PENDING SALE TO [facility] Medical History MRSA infection Marijuana use Bruising Heartburn Former smoker History of stress test Hypertension Chronic constipation Bleeding internal hemorrhoids Acid reflux Hemorrhoids Blood in stool Arthritis Anxiety Atrophic vaginitis Lichen sclerosus Back pain Seasonal allergies Home Medications ?Medication ?Instructions ?Recorded ?Last Taken ?Type pantoprazole 40 mg tablet,delayed 40 mg PO DAILY gerd 05/20/18 01/30/25 History release loratadine 10 mg tablet (Claritin) 10 mg PO DAILY 11/26/18 Unknown History nicotine (polacrilex) 2 mg gum 2 mg buccal Q2H 11/26/18 Unknown History (Nicorette) valacyclovir 1 gram tablet 2,000 mg (2 x 1 gram) PO .COMPLEX 07/11/21 Unknown Rx (Valtrex) #12 tabs docusate sodium 50 mg capsule 50 mg PO DAILY PRN constipation 08/25/21 Unknown History (Stool Softener) polyethylene glycol 3350 17 17 g PO DAILY 08/25/21 Unknown History gram/dose oral powder (Miralax) estradiol 0.01% (0.1 mg/gram) See Rx Instructions vaginal 01/07/25 Unknown Rx vaginal cream (Estrace) .COMPLEX #42.5 grams estradiol 0.5 mg tablet 0.5 mg PO DAILY #90 tabs 01/07/25 Unknown Rx amlodipine 5 mg tablet 5 mg PO DAILY 01/27/25 01/30/25 History fluticasone propionate 50 1 spray intranasal DAILY PRN 01/27/25 Unknown History mcg/actuation nasal allergy symptoms spray,suspension (Allergy Relief (fluticasone)) lisinopril 40 mg tablet 40 mg PO DAILY 01/27/25 01/29/25 History ondansetron HCl 4 mg tablet 4 mg PO Q6H PRN nausea and 01/29/25 Unknown Rx vomiting #5 tabs Allergy/AdvReac Type Severity Reaction Status Date / Time naproxen Allergy Swelling Verified 01/27/25 14:01 Family History Father CVA (cerebral vascular accident) Heart disease Hypertension Mother Hypertension Diabetes Heart disease Arthritis Brother Leukemia Surgical History S/P knee replacement History of hemorrhoidectomy (~02/2020) History of esophagogastroduodenoscopy (EGD) Hx of colonoscopy S/P trigger finger release H/O toe surgery History of tonsillectomy H/O knee surgery H/O carpal tunnel repair H/O: hysterectomy Social History adopted: No household members: spouse number of children: 2 current occupational status: retired current occupation: [employer] sexually active: Yes Smoking Status: Former smoker alcohol intake: current alcohol intake frequency: a few times a month substance use type: does not use what type of physical activity do you participate in: none seatbelt use: always do you feel safe at home: Yes additional social history: Tai - retired ROS Constitutional Constitutional: Denies fatigue, fever(s), poor appetite, weight gain or weight loss Gastrointestinal Gastrointestinal: Denies belching, bloating, change in bowel habits, change in stool character, chewing difficulty, coffee ground emesis, constipation, cramping, diarrhea, dyspepsia, dysphagia, early satiety, excessive flatus, fecal incontinence, heartburn, hematemesis, hematochezia, hemorrhoids, loose stools, melena, nausea, odynophagia, rectal bleeding, tenesmus, vomiting or weight changes Vital Signs Vital Signs Vital Signs: 01/30/25 06:28 01/30/25 06:28 Temperature 97.3 F L Temperature Source Temporal Pulse Rate 73 Respiratory Rate 16 Respiratory Pattern Normal Blood Pressure 131/77 H Blood Pressure Mean 95 Blood Pressure Source Monitor Blood Pressure Position Semi-Fowlers Blood Pressure Location Right Arm Pulse Ox 99 Oxygen Delivery Method Room Air Weight Weight: 127 lb Body Mass Index (BMI) 24.7 Physical Exam Const alert, oriented x3, no apparent distress and healthy appearing General Appearance: cooperative GI normal to inspection, nondistended, normoactive bowel sounds, soft to palpation, non-tender and non-distended Percussion: normal to percussion Rectal Exam: deferred Assessment & Plan Assessment/Plan (1) Abdominal pain: (2) Chronic constipation: (3) Acid reflux: PLAN: Assessment and Plan Assessment and Plan (1) Abdominal pain: Status: Acute Plan: 69-year-old with past medical history of bleeding hemorrhoids status post hemorrhoidectomy by Dr. Ramos Pham. She has been having intermittent abdominal pain associated with nausea and vomiting. These episodes were less frequent and only happening every 6 months. Currently these episodes are happening at least once a month. She does admit to occasional marijuana usage. She does not take any [id number]-[id number] pain medicine. She is admitted to 30 pound weight loss. She has no family history of GI malignancy. She denies any rash, ulcers or lesions. She denies any night sweats. She denies any chest pain or shortness of breath. She is also due for surveillance colonoscopy. Differential diagnosis does include, peptic ulcer disease, marijuana hyperemesis syndrome, celiac disease, inflammatory bowel disease, food allergy. She will undergo an upper or lower endoscopy and likely functional testing with a gastric emptying study. She was explained alternatives, risk and benefits include not withstanding bleeding, infection, sepsis, perforation, need for return to . She will have an ASA of 3. Orders: Orders ANCA Today R10.9 - Unspecified abdominal pain Celiac Disease Profile Today R10.9 - Unspecified abdominal pain Comprehensive Metabolic Profil Today R10.9 - Unspecified abdominal pain CRP Today R10.9 - Unspecified abdominal pain Erythrocyte Sed Rate Today R10.9 - Unspecified abdominal pain LDH Today R10.9 - Unspecified abdominal pain Allergen, Food Profile Today R10.9 - Unspecified abdominal pain IBD Expanded Profile Today R10.9 - Unspecified abdominal pain ALICIA + Protein Elect, Serum Today R10.9 - Unspecified abdominal pain Thyroid Stim Hormone (TSH) Today E05.90 - Thyrotoxicosis, unspecified without thyrotoxic crisis or storm, R10.9 - Unspecified abdominal pain Gastrin, Serum Today R10.9 - Unspecified abdominal pain CBC W/Diff, Automated Today D64.9 - Anemia, unspecified
--- NOTE | 2025-01-30 07:00 | EGD_PTH ---
PATIENT: MUKESH ROCHE LOC: EN U#:[id number] AGE/SX: 69/F ROOM: RE01/30/[address]: Dr. Javid Blackwood DO : 1955 BED: DIS: 01/30/2025 SPEC #: [id number] RECD: 01/30/25 08:01 STATUS: BARBRA SKYLAR #: [id number] JAYLENE: 01/30/25 07:[address]: Javid Blackwood DEPT: SURGICAL PATHOLOGY RECD BY: Adriana Wayne ENTERED: 01/30/25 15:04 SP TYPE: EGD BIOPSY [facility] DR: Dr. Joseph Pike MD Tissues: A - Duodenum, NOS B - Gastric mucous membrane C - Esophagus, NOS D - Sigmoid colon biopsy E - Ileum, NOS F - COLON BIOPSY Procedures: Immunohistochemical Stains Surgery Specimen Level IV HEADER OPERATION: Colonoscopy, EGD and biopsy, polypectomy PRE-OP DIAGNOSIS: Abdominal pain, chronic constipation, acid reflux TISSUE SUBMITTED: A- Duodenum biopsy, B- Gastric body biopsy, C- Distal esophagus biopsy,D- Sigmoid polyp, E- Terminal ileum biopsy, F- Random colon biopsies MICROSCOPIC DIAGNOSIS A. Duodenum, biopsy: - Normal villous architecture without increased intraepithelial lymphocytes. - Zi gland hyperplasia and gastric mucin cell metaplasia, suggestive of peptic injury. B. Gastric body, biopsy: - Oxyntic mucosa with chronic inflammation and features of reactive gastropathy. - IHC negative for H.pylori organisms. C. Distal esophagus, biopsy: - Benign squamous mucosa without eosinophils. - Columnar mucosa negative for goblet cell metaplasia. - Negative for dysplasia. D. Sigmoid colon, polyp, biopsy: - Polypoid colonic mucosa with no specific pathologic change. E. Terminal ileum, colon, biopsy: - Normal villous architecture with acute inflammation and dilated lacteals. F. Colon, random biopsy - No specific pathologic change. - The histologic features of microscopic colitis are not demonstrated. MICROSCOPIC DESCRIPTION Slides are reviewed. All matched controls reacted appropriately. These tests were developed and their performance characteristics determined by [facility]. They may not have been cleared or approved by the [place]. Food and Drug Administration. The FDA has determined that such clearance or approval is not necessary. The above immunohistochemical/dualISH markers are viewed by the Pathologist. GROSS DESCRIPTION A. Received in fixative is one container labeled with the patient's name and designated Duodenum biopsy. The specimen consists of two irregular fragments of light campuzano soft tissue that in aggregate measure 0.7 x 0.4 x 0.2 cm. The specimen is totally submitted in one cassette. B. Received in fixative is one container labeled with the patient's name and designated Gastric body biopsy. The specimen consists of one irregular fragment of light campuzano soft tissue that measures 0.8 x 0.5 x 0.2 cm. The specimen is totally submitted in one cassette. C. Received in fixative is one container labeled with the patient's name and designated Distal esophagus biopsy. The specimen consists of multiple irregular fragments of light campuzano soft tissue that in aggregate measure 1 x 0.5 x 0.2 cm. The specimen is totally submitted in one cassette. D. Received in fixative is one container labeled with the patient's name and designated Sigmoid polyp. The specimen consists of one irregular fragment of light campuzano soft tissue that measures 0.4 x 0.3 x 0.2 cm. The specimen is totally submitted in one cassette. E. Received in fixative is one container labeled with the patient's name and designated Terminal ileum biopsy. The specimen consists of multiple irregular fragments of light campuzano soft tissue that in aggregate measure 1.8 x 0.4 x 0.2 cm. The specimen is totally submitted in one cassette. F. Received in fixative is one container labeled with the patient's name and designated Random colon biopsies. The specimen consists of multiple irregular fragments of light campuzano soft tissue that in aggregate measure 1.7 x 0.4 x 0.2 cm. The specimen is totally submitted in one cassette. 01/30/2025 CPT:[id number]
--- NOTE | 2025-01-30 07:41 | PCM.POST.ANE ---
Anesthesia: Postop Eval I Current Vital Signs Temperature: 97.2 F Pulse Rate: 77 Blood Pressure: 114/73 Respiratory Rate: 16 Pulse Ox: 100 Oxygen Delivery Method: Room Air Assessment Airway patent: Yes Spontaneous unlabored respirations: Yes Mental status: Awake and Calm nausea: No Vomiting: No Anesthesia Complication: No Fluid Hydration Crystalloid volume administer (ml): 700 Total IV fluid infused: 700 Progress Note Anesthesia document: Postop Eval 1 completed: Yes
--- NOTE | 2025-01-30 07:46 | OP.CCLET_ITS ---
01/30/2025 Joseph Pike Re : Upper GI endoscopy procedure for Trinh Rosenberg Dear Glendy This procedure was performed on Thursday, January 30, 2025. My impressions and recommendations are as follows: Impressions : - Z-line irregular, 35 cm from the incisors. Biopsied. - Erythematous mucosa in the gastric body. Biopsied. - Erythematous duodenopathy. Biopsied. Recommendations : - Discharge patient to home. - Resume previous diet. - Continue present medications. My findings are described in the full procedure note, which is enclosed. If I can be of further assistance, please feel free to contact me at . Sincerely, Javid Blackwood, 01/30/2025 7:46:03 AM This report has been signed electronically.
--- NOTE | 2025-01-30 07:46 | OP.EGD_ITS ---
Patient Name: Trinh Rosenberg Procedure Date: 01/30/2025 7:00 AM Date of : 1955 Age: 69 Procedure: Upper GI endoscopy Indications: Epigastric abdominal pain, Functional Dyspepsia, Suspected esophageal reflux Providers: Javid Blackwood DO Referring MD: Joseph Pike Medicines: Monitored Anesthesia Care Patient Profile: This is a 69 year old female. Refer to note in patient chart for documentation of history and physical. Patient has symptoms of chronic abdominal cramping, chronic abdominal distention, chronic epigastric abdominal pain, chronic dyspepsia and chronic nausea. Complications: No immediate complications. Procedure: Pre-Anesthesia Assessment: - Prior to the procedure, a History and Physical was performed, and patient medications and allergies were reviewed. The patient is competent. The risks and benefits of the procedure and the sedation options and risks were discussed with the patient. All questions were answered and informed consent was obtained. Patient identification and proposed procedure were verified by the physician in the pre-procedure area. Mental Status Examination: alert and oriented. Airway Examination: normal oropharyngeal airway and neck mobility. Respiratory Examination: clear to auscultation. CV Examination: normal. Prophylactic Antibiotics: The patient does not require prophylactic antibiotics. Prior Anticoagulants: The patient has taken no anticoagulant or antiplatelet agents except for NSAID medication. ASA Grade Assessment: II - A patient with mild systemic disease. After reviewing the risks and benefits, the patient was deemed in satisfactory condition to undergo the procedure. The anesthesia plan was to use monitored anesthesia care (MAC). Immediately prior to administration of medications, the patient was re-assessed for adequacy to receive sedatives. The heart rate, respiratory rate, oxygen saturations, blood pressure, adequacy of pulmonary ventilation, and response to care were monitored throughout the procedure. The physical status of the patient was re-assessed after the procedure. After obtaining informed consent, the endoscope was passed under direct vision. Throughout the procedure, the patient's blood pressure, pulse, and oxygen saturations were monitored continuously. The Colonoscope was introduced through the mouth, and advanced to the fourth part of the duodenum. Small bowel enteroscopy was deemed necessary. The upper GI endoscopy was accomplished without difficulty. The patient tolerated the procedure well. Scope In: 7:09:44 AM Scope Out: 7:13:12 AM Total Procedure Duration Time 0 hours 3 minutes 28 seconds Findings: The Z-line was irregular and was found 35 cm from the incisors. Biopsies were taken with a cold forceps for histology. Verification of patient identification for the specimen was done. Estimated blood loss was minimal. Mildly erythematous mucosa without bleeding was found in the gastric body. Biopsies were taken with a cold forceps for histology. Biopsies were taken with a cold forceps for Helicobacter pylori testing. Verification of patient identification for the specimen was done by the nurse. Estimated blood loss was minimal. Patchy mildly erythematous mucosa without active bleeding and with no stigmata of bleeding was found in the entire duodenum. Biopsies were taken with a cold forceps for histology. Verification of patient identification for the specimen was done. Estimated blood loss was minimal. Impression: - Z-line irregular, 35 cm from the incisors. Biopsied. - Erythematous mucosa in the gastric body. Biopsied. - Erythematous duodenopathy. Biopsied. Recommendation: - Discharge patient to home. - Resume previous diet. - Continue present medications. Procedure Code(s): --- Professional --- 61478, Small intestinal endoscopy, enteroscopy beyond second portion of duodenum, not including ileum; with biopsy, single or multiple CPT copyright 2021 [employer]. All rights reserved. The codes documented in this report are preliminary and upon short filler bunch machine operator review may be revised to meet current compliance requirements. Javid Blackwood DO 01/30/2025 7:46:03 AM This report has been signed electronically. Number of Addenda: 0 Note Initiated On: 01/30/2025 7:00 AM
--- NOTE | 2025-01-30 07:51 | OP.CCLET_ITS ---
01/30/2025 Joseph Pike Re : Colonoscopy procedure for Trinh Rosenberg Dear Glendy This procedure was performed on Thursday, January 30, 2025. My impressions and recommendations are as follows: Impressions : - One 5 mm polyp in the sigmoid colon, removed with a cold biopsy forceps. Resected and retrieved. - Congested mucosa in the transverse colon, at the hepatic flexure and in the ascending colon. Biopsied. - Ileitis. Inflammation was found. This was moderate in severity. Biopsied. Recommendations : - Discharge patient to home. - Resume previous diet. - Continue present medications. - Await pathology results. - Repeat colonoscopy in 1 year for surveillance. My findings are described in the full procedure note, which is enclosed. If I can be of further assistance, please feel free to contact me at . Sincerely, Javid Blackwood, 01/30/2025 7:51:09 AM This report has been signed electronically.
--- NOTE | 2025-01-30 07:51 | OP.COLON_ITS ---
Patient Name: Trinh Rosenberg Procedure Date: 01/30/2025 7:13 AM Date of : 1955 Age: 69 Procedure: Colonoscopy Indications: Clinically significant diarrhea of unexplained origin Providers: Javid Blackwood DO Referring MD: Joseph Pike Medicines: Monitored Anesthesia Care Patient Profile: This is a 69 year old female. Refer to note in patient chart for documentation of history and physical. Patient has symptoms of chronic abdominal cramping, chronic abdominal distention, chronic epigastric abdominal pain, chronic dyspepsia and chronic nausea. Last Colonoscopy: several years ago. Complications: No immediate complications. Procedure: Pre-Anesthesia Assessment: - Prior to the procedure, a History and Physical was performed, and patient medications and allergies were reviewed. The patient is competent. The risks and benefits of the procedure and the sedation options and risks were discussed with the patient. All questions were answered and informed consent was obtained. Patient identification and proposed procedure were verified by the physician in the pre-procedure area. Mental Status Examination: alert and oriented. Airway Examination: normal oropharyngeal airway and neck mobility. Respiratory Examination: clear to auscultation. CV Examination: normal. Prophylactic Antibiotics: The patient does not require prophylactic antibiotics. Prior Anticoagulants: The patient has taken no anticoagulant or antiplatelet agents except for NSAID medication. ASA Grade Assessment: II - A patient with mild systemic disease. After reviewing the risks and benefits, the patient was deemed in satisfactory condition to undergo the procedure. The anesthesia plan was to use monitored anesthesia care (MAC). Immediately prior to administration of medications, the patient was re-assessed for adequacy to receive sedatives. The heart rate, respiratory rate, oxygen saturations, blood pressure, adequacy of pulmonary ventilation, and response to care were monitored throughout the procedure. The physical status of the patient was re-assessed after the procedure. After I obtained informed consent, the scope was passed under direct vision. Throughout the procedure, the patient's blood pressure, pulse, and oxygen saturations were monitored continuously. The Colonoscope was introduced through the anus and advanced to the terminal ileum. The colonoscopy was performed without difficulty. The patient tolerated the procedure well. Scope In: 7:15:06 AM Scope Withdrawal Time 0 hours 10 minutes 11 seconds Scope Out: 7:29:17 AM Total Procedure Duration Time 0 hours 14 minutes 11 seconds Findings: The perianal and digital rectal examinations were normal. A 5 mm polyp was found in the sigmoid colon. The polyp was sessile. The polyp was removed with a cold biopsy forceps. Resection and retrieval were complete. Verification of patient identification for the specimen was done. Estimated blood loss was minimal. An area of mildly congested mucosa was found in the transverse colon, at the hepatic flexure and in the ascending colon. Biopsies were taken with a cold forceps for histology. Verification of patient identification for the specimen was done. Estimated blood loss was minimal. Diffuse inflammation characterized by aphthous ulcerations was found in the mid ileum, in the distal ileum and in the terminal ileum. The inflammation was moderate in severity. Biopsies were taken with a cold forceps for histology. Verification of patient identification for the specimen was done. Estimated blood loss was minimal. A few small-mouthed diverticula were found in the recto-sigmoid colon and sigmoid colon. Impression: - One 5 mm polyp in the sigmoid colon, removed with a cold biopsy forceps. Resected and retrieved. - Congested mucosa in the transverse colon, at the hepatic flexure and in the ascending colon. Biopsied. - Ileitis. Inflammation was found. This was moderate in severity. Biopsied. Recommendation: - Discharge patient to home. - Resume previous diet. - Continue present medications. - Await pathology results. - Repeat colonoscopy in 1 year for surveillance. Procedure Code(s): --- Professional --- 35184, Colonoscopy, flexible; with biopsy, single or multiple CPT copyright 2021 [employer]. All rights reserved. The codes documented in this report are preliminary and upon naval aircrewman review may be revised to meet current compliance requirements. Javid Blackwood DO 01/30/2025 7:51:09 AM This report has been signed electronically. Number of Addenda: 0 Note Initiated On: 01/30/2025 7:13 AM
--- NOTE | 2025-01-30 12:13 | PCM.POSTANE2 ---
Anesthesia Postop Eval I Sum Postop Eval Completion status Anesthesia document: Postop Eval 1 completed: Yes Anesthesia Postop Eval I Summary Anesthesia Postop Eval I Summary: Anesthesia Postop Eval I: Assessment Summary Airway patent Yes 01/30/25 07:42 [email or web address] Spontaneous unlabored Yes 01/30/25 07:42 [email or web address] respirations Mental status Awake,Calm 01/30/25 07:42 [email or web address] nausea No 01/30/25 07:42 [email or web address] Vomiting No 01/30/25 07:42 [email or web address] Anesthesia Postop Eval I: Fluid Summary Crystalloid volume administer 700 01/30/25 07:42 [email or web address] (ml) Colloids volume administered ( ml) Blood Product volume administered (ml) Total IV fluid infused 700 01/30/25 07:42 [email or web address] Anesthesia Postop Eval I: Summary Notes Anesthesia Complication No 01/30/25 07:42 [email or web address] Anesthesia Complication Comment: Post-operative progress note Anesthesia: Postop Eval II Evaluation Mental status: Awake and Calm Pain Level: 0 nausea: No Vomiting: No Complications Anesthesia Complication: No
--- NOTE | 2025-01-30 14:15 | PCM.POSTANE2 ---
Anesthesia Postop Eval I Sum Postop Eval Completion status Anesthesia document: Postop Eval 1 completed: Yes Anesthesia Postop Eval I Summary Anesthesia Postop Eval I Summary: Anesthesia Postop Eval I: Assessment Summary Airway patent Yes 01/30/25 07:42 [email or web address] Spontaneous unlabored Yes 01/30/25 07:42 [email or web address] respirations Mental status Awake,Calm 01/30/25 12:14 nausea No 01/30/25 12:14 Vomiting No 01/30/25 12:14 Anesthesia Postop Eval I: Fluid Summary Crystalloid volume administer 700 01/30/25 07:42 [email or web address] (ml) Colloids volume administered ( ml) Blood Product volume administered (ml) Total IV fluid infused 700 01/30/25 07:42 [email or web address] Anesthesia Postop Eval I: Summary Notes Anesthesia Complication No 01/30/25 12:14 Anesthesia Complication Comment: Post-operative progress note Anesthesia: Postop Eval II Evaluation Mental status: Awake Pain Level: 0 nausea: No Vomiting: No
== END 2025-01-30 08:21 | disposition home or self-care (01) ==
LOC: EN 06:08 → AC 06:09
PROVIDERS: PCP Family Medicine; Referring Provider Family Medicine; Visit Provider Internal Medicine Gastroenterology
PROC: 0DJD8ZZ Inspection of Lower Intestinal Tract, Via Natural or Artificial Opening Endoscopic (ICD-10-PCS; CPT 45378; principal; 2025-01-30 06:55)
DX: K31.89 Other diseases of stomach and duodenum (principal); K57.30 Diverticulosis of large intestine without perforation or abscess without bleeding; K63.5 Polyp of colon; K30 Functional dyspepsia; R19.7 Diarrhea, unspecified; I10 Essential (primary) hypertension; Z79.899 Other long term (current) drug therapy; Z87.891 Personal history of nicotine dependence
CPT/HCPCS: 44361; 45380; 88305; 88342; J2405

== ENCOUNTER → 2025-02-06 | Outpatient (CLI) | payer MEDICARE, SELFPAY ==
--- NOTE | 2025-02-06 10:45 | BI_ITS ---
EXAM: SCRN MAMM (CAD)W/ROMI BILAT DATE: 02/06/2025 CLINICAL HISTORY: F, Age 69 y/o , SCREENING FOR BREAST CANCER TECHNIQUE: SCRN MAMM (CAD)W/ROMI BILAT COMPARISON: Prior exam(s) dated 10/01/2023, 09/29/2022, 09/04/2021. FINDINGS: TISSUE DENSITY: There are scattered areas of fibroglandular density. Bilateral Breast Mammographic Findings: No significant masses, calcifications or other abnormalities are identified. BI/SCRN MAMM (CAD)W/ROMI BILAT IMPRESSION: There is no mammographic evidence of malignancy. OVERALL FINAL ASSESSMENT BI-RADS 1: NEGATIVE. RECOMMENDATION: Routine annual follow-up in 1 Year A letter with findings and recommendations will be mailed to the patient. Reading Location: [id number]
== END | disposition home or self-care (01) ==
LOC: OPBI 10:41
PROVIDERS: PCP Family Medicine; Referring Provider Nurse Practitioner Women's Health; Visit Provider Nurse Practitioner Women's Health
DX: Z12.31 Encounter for screening mammogram for malignant neoplasm of breast (principal)
CPT/HCPCS: 77063; 77067

== ENCOUNTER → 2025-04-23 | Outpatient (CLI) | payer MEDICARE, SELFPAY ==
[2025-04-23 19:18] LABS: CRP 3.37 mg/L (0.0-3.0)
[2025-04-28 09:09] LABS: Anti-Chromatin <0.2 AI (0.0-0.9); Anti-Jo <0.2 AI (0.0-0.9); Anti-dsDNA Ab <1 IU/mL (0-9); SJOGREN'S Anti-SS-A test < 0.2 AI (0.0-0.9); SJOGREN'S Anti-SS-B test < 0.2 AI (0.0-0.9)
[2025-05-11 15:08] LABS: ACCA 12 units (0-90); ALCA 9 units (0-60); Albumin 4.0 g/dL (2.9-4.4); Cytoplasmic Ab (C-ANCA) <1:20 titer (Neg:<1:20); Gamma Globulin 0.9 g/dL (0.4-1.8); Immunoglobulin A 177 mg/dL (87-352); Immunoglobulin G 1032 mg/dL (586-1602); Immunoglobulin M 64 mg/dL (26-217); PROEL- TOTAL PROTEIN 7.3 g/dL (6.0-8.5); Perinuclear Ab (P-ANCA) <1:20 titer (Neg:<1:20); QNTFERON TB Mitogen Value > 10.00 IU/mL (.); QNTFERON TB Nil Value 0.04 IU/mL (.); QNTFERON TB1+ Ag Value 0.04 IU/mL (.); QNTFERON TB2+ Ag Value 0.04 IU/mL (.); QNTIFERON TB Positive Criteria Negative (Negative)
== END | disposition home or self-care (01) ==
LOC: LAB 16:00
PROVIDERS: PCP Family Medicine; Referring Provider Internal Medicine Gastroenterology; Visit Provider Internal Medicine Gastroenterology
DX: K50.90 Crohn's disease, unspecified, without complications (principal)
CPT/HCPCS: 36415; 82784; 83516; 84165; 85652; 86036; 86037; 86140; 86225; 86235; 86255; 86334; 86480; 86671

== ENCOUNTER → 2025-06-02 | Outpatient (CLI) | payer MEDICARE, SELFPAY ==
--- NOTE | 2025-06-02 09:31 | MRI_ITS ---
EXAM: MR enterography. 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 TECHNIQUE: Procedure Code: MRIMRIENTER Modality: MR Procedure: ENTEROGRAPHY ABD/PEL Multiplanar and multisequence images were obtained with 11 mL intravenous Clariscan. COMPARISON: None FINDINGS: Liver: Normal. Biliary: The gallbladder and biliary tree are unremarkable. Pancreas: Normal. Spleen: Normal. Adrenals: Normal. Kidneys: There is a 3.7 x 2.5 cm cortical cyst in the interpolar region of the left kidney demonstrating multiple thin septations without significant contrast enhancement consistent with a benign Bosniak 2 renal cyst. The kidneys are otherwise unremarkable. GI tract: Unremarkable. The distal ileum and ileocecal valve are unremarkable. The appendix is not identified. Peritoneum / Retroperitoneum: There are no abnormal intra or retroperitoneal masses or fluid collections. There is no ascites. Visualized pelvic structures: Unremarkable. Lymph Nodes: There is no significant mesenteric or retroperitoneal lymphadenopathy. Major Vessels: Unremarkable. Bones: There is multilevel degenerative disc disease of the lumbar spine most severe at the L2-3 level. MRI/Enterography Abd/Pel IMPRESSION: No acute abnormality. No abnormal contrast enhancement. Other findings as not ed. Reading Location: [place] [id number]
[2025-06-02 10:45] VITALS: BP 162/78; PULSE 69; RESP 18; O2SAT 99
[2025-06-02] MEDS: Glucagon 1 MG/ML Syringe IV (11:13)
[2025-06-02] MEDS: 0.9% Saline Lock 10 ML Syringe IV (11:15)
[2025-06-02 11:33] VITALS: BP 175/83; RESP 18
== END | disposition home or self-care (01) ==
LOC: MRI 09:17
PROVIDERS: PCP Family Medicine; Referring Provider Internal Medicine Gastroenterology; Visit Provider Internal Medicine Gastroenterology
DX: K50.90 Crohn's disease, unspecified, without complications (principal); R10.9 Unspecified abdominal pain
CPT/HCPCS: 74183; 96374; A9575; A4216; J1610

== ENCOUNTER → 2025-06-09 | Outpatient (CLI) | payer MEDICARE, SELFPAY ==
[2025-06-09 11:51] LABS: CRP < 3.00 mg/L (0.0-3.0)
== END | disposition home or self-care (01) ==
LOC: LAB 09:33
PROVIDERS: PCP Family Medicine; Referring Provider Internal Medicine Gastroenterology; Visit Provider Internal Medicine Gastroenterology
DX: K50.90 Crohn's disease, unspecified, without complications (principal)
CPT/HCPCS: 36415; 85652; 86140

== ENCOUNTER → 2025-06-10 | Outpatient (CLI) | payer MEDICARE, SELFPAY ==
[2025-06-15 00:07] LABS: Calprotectin, Stool 363 ug/g (0-120)
== END | disposition home or self-care (01) ==
LOC: LAB 09:12
PROVIDERS: PCP Family Medicine; Referring Provider Internal Medicine Gastroenterology; Visit Provider Internal Medicine Gastroenterology
DX: K50.90 Crohn's disease, unspecified, without complications (principal)
CPT/HCPCS: 83993